=== PATIENT | female | born 2000 | race Caucasian/White ===

== ENCOUNTER → 2023-01-27 | Outpatient (CLI) | payer BC, SELFPAY ==
[2023-02-02 09:45] LABS: Gonococcus By Nucleic Acid AMP Negative (Negative)
[2023-02-02 09:46] LABS: Chlamydia By Nucleic Acid AMP Positive (Negative)
== END | disposition home or self-care (01) ==
LOC: LABSPEC 12:59
PROVIDERS: Referring Provider Obstetrics & Gynecology; Visit Provider Obstetrics & Gynecology
DX: O09.90 Supervision of high risk pregnancy, unspecified, unspecified trimester (principal); Z3A.00 Weeks of gestation of pregnancy not specified
CPT/HCPCS: 87086; 87491; 87591

== ENCOUNTER → 2023-02-04 | Outpatient (CLI) | payer BC, SELFPAY ==
--- NOTE | 2023-02-04 12:36 | US_ITS ---
INDICATION: dating EXAMINATION: Ultrasound US OB Less Than 14 Weeks TECHNIQUE: Transvaginal (for optimal evaluation of the adnexa) pelvic ultrasound was performed. Grayscale, spectral waveform, and color flow Doppler evaluation of the adnexa. COMPARISON: None. LMP: [Unknown Beta-hCG: Unknown FINDINGS: UTERUS: 10.0 x 6.0 x 5.4 cm. RIGHT OVARY: 2.7 x 1.5 x 1.2 cm. Normal. LEFT OVARY: 3.0 x 2.9 x 2.7 cm. Anechoic cyst measures 12 mm in diameter. FREE FLUID: None. INTRAUTERINE GESTATIONAL SAC: Single. Mean sac diameter 2.21 cm. YOLK SAC: Identified POLE: Identified CRL 0.95 cm. ESTIMATED GESTATION AGE: 7 weeks 0 days. HEART MOTION: 135 bpm. PLACENTA: Not visualized due to age. SUBCHORIONIC HEMORRHAGE: None. AMNIOTIC FLUID: Qualitatively normal. US/Init OB < 14Wks US IMPRESSION: Single live intrauterine . Estimated gestational age is 7 weeks 0 days with MAURICE 09/23/2023. Electronically Signed: Matt Olivarez MD at 21:14 EDT ,
== END | disposition home or self-care (01) ==
PROVIDERS: Referring Provider Obstetrics & Gynecology; Visit Provider Obstetrics & Gynecology
DX: Z36.87 Encounter for antenatal screening for uncertain dates (principal)
CPT/HCPCS: 76801

== ENCOUNTER 2023-02-17 21:04 | Emergency (ER) | payer BC, SELFPAY ==
[2023-02-17 21:04] VITALS: BP 116/65; PULSE 98; RESP 18; TEMP 36.6; O2SAT 98; BMI 20.1
[2023-02-17] MEDS: Famotidine 20 MG Tablet PO (21:19)
[2023-02-17] MEDS: Ondansetron ODT 4 MG Tablet PO (21:19)
--- NOTE | 2023-02-17 21:19 | EDS_ITS ---
HPI HPI - GI History of Present Illness Chief Complaint: Nausea/Vomiting Narrative Narrative: 22-year-old female with her first approximately 9 weeks gestation presenting with nausea/vomiting. She states he is already had a confirmed intrauterine . Patient denies any dysuria or hematuria. Denies vaginal bleeding, discharge. She denies abdominal pain. She states that she had vomiting for the last couple of days. A friend of hers gave her Zofran and she was able to tolerate strawberries prior to coming to the emergency room. 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 No fevers or chills. 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 current occupational exposures/hazards: No pets and animals: Yes pets and animals: dog(s) history of recent travel: No sexually active: Yes Smoking Status: Never smoker alcohol intake: never substance use type: does not use well-balanced diet: about half the time caffeine: Yes Type: coffee Number of servings: 1 eating out: 1-3 times/week seatbelt use: always do you feel safe at home: Yes additional social history: BF Zed ROS ROS ED Review of Systems ROS Unobtainable: Denies due to encephalopathy Constitutional Constitutional ED: Denies chills or fever(s) Eyes Eyes: Denies blurry vision or change in vision ENT ENT ED: Denies rhinorrhea Cardiovascular Cardiovascular: Denies chest pain, palpitations or racing heartbeat Respiratory/Chest Respiratory/Chest: Denies cough, dyspnea or sputum Gastrointestinal Gastrointestinal: Reports nausea and vomiting; Denies abdominal pain, constipation or diarrhea Genitourinary Genitourinary ED: Denies dysuria, hematuria or urinary frequency Musculoskeletal Musculoskeletal: Denies arthralgias, myalgias or neck pain Integumentary Denies abscess, Abrasions or rash Neurologic Neurologic: Denies headache(s), paresthesias or weakness Psychiatric Psychiatric: Denies anxiety, depression, suicidal ideation or suicidal thoughts Endocrine Endocrinology: Denies polydipsia or polyuria EXAM Physical Exam Const Vital Signs: 02/17/23 21:04 Temperature 97.9 F Temperature Source Temporal Pulse Rate 98 Respiratory Rate 18 Blood Pressure 116/65 Blood Pressure Mean 82 Pulse Ox 98 Oxygen Delivery Method Room Air Positive well nourished General Appearance ED: NAD; Negative for pallor HEENT Reports moist mucous membranes normocephalic Eyes PERRL and EOMs intact bilaterally Resp normal respiratory effort Cardio regular rate and regular rhythm GI non-tender Palpation: soft Neuro CN's II-XII intact bilaterally Sensorium / Orientation: alert Motor Exam: strength 5/5 throughout Psych mental status grossly normal Skin no wounds General Skin Exam: Negative for jaundice or pallor MDM MDM MDM Narrative Medical decision making narrative: Patient well-appearing with normal vital signs. No abdominal pain. No vaginal or urinary complaints. She is simply complaining of nausea. She was able to eat strawberries prior to coming and this was after she took a Zofran at home. She is given additional dose of Zofran. She was also given Pepcid for her dyspepsia. Patient was able to tolerate a popsicle and drink. Urinalysis contaminated. I will send this for culture at this point I feel she can go home and hydrate there. She was given a prescription for Zofran as it seems to be helping her more. Counseled she can take Pepcid for dyspepsia. She will follow-up with her ANIMAL NURSE to ensure she is doing well. Impression: 1. Nausea/vomiting 2. For semester Lab Data Labs: Laboratory Results - last 24 hr 02/17/23 21:25 Urine Color Yellow Urine Clarity Cloudy Urine pH 6.0 Ur Specific [place] 1.020 Urine Protein 15 H Urine Glucose (UA) Normal Urine Ketones 150 A* Urine Occult Blood 25 H Urine Nitrite Negative Urine Bilirubin Negative Urine Urobilinogen 1 H Ur Leukocyte Esterase 25 H Urine RBC 0-5 SEEN Urine WBC 0-5 SEEN Ur Squamous Epith Cells 5-10 SEEN Urine Bacteria 2+ Urine Mucus 3+ Discharge Plan Triage Chief Complaint: Nausea/Vomiting ED Provider: Ej Flores Dx/Rx/DC Orders Instructions: ED Hyperemesis Gravidarum Prescriptions: New ondansetron 4 mg tablet,disintegrating 4 mg PO Q8H PRN PRN (Reason: Nausea) Qty: 20 0RF No Action promethazine 12.5 mg tablet 12.5 mg PO Q6H PRN (Reason: nausea and vomiting) Qty: 90 4RF Primary Care Provider: Care Physician,No Primary Referrals: Dilcia Das MD [Med Staff - Active Staff] - As soon as possible Care Physician,No Primary [Primary Care Provider] - Disposition Disposition: Home, Self Care Discharge Date/Time: 02/17/23 22:16
[2023-02-17 21:29] LABS: Color, Urine Yellow (Yellow); Glucose, Dipstick Normal (Normal); Leukocyte Esterase-Dipstick 25 /ul (Negative); Nitrite-Dipstick Negative (Negative); Occult Blood-Urine 25 /ul (Negative); Protein-Dipstick 15 mg/dl (Negative); Urine Bilirubin Dipstick Negative (Negative); Urine Clarity Cloudy (Clear); Urine Urobilinogen 1 mg/dl (Normal)
[2023-02-17 21:31] LABS: Ketone-Dipstick 150 mg/dl (Negative)
[2023-02-17 21:45] LABS: Bacteria 2+ /hpf (None Seen); Mucous, Urine 3+ /hpf (<or=2+); Red Blood Cells-Urine 0-5 SEEN /hpf (0-5); Squamous Epithelial Cells - UA 5-10 SEEN /hpf (5-10); White Blood Cells 0-5 SEEN /hpf (0-5)
== END 2023-02-17 22:16 | disposition home or self-care (01) ==
PROVIDERS: Emergency Provider Student in an Organized Health Care Education/Training Program; Visit Provider Student in an Organized Health Care Education/Training Program
DX: O99.891 Other specified diseases and conditions complicating pregnancy (principal); R11.2 Nausea with vomiting, unspecified; Z3A.09 9 weeks gestation of pregnancy
CPT/HCPCS: 81001; 99283

== ENCOUNTER → 2023-03-18 | Outpatient (CLI) | payer BC, SELFPAY ==
[2023-03-18 11:34] LABS: Absolute Neutrophil Count 5.5 X10^3/uL (2.0-7.7); Basophil# 0.04 X10^3/uL; Basophil% 0.5 % (0-1); Eosinophil# 0.08 X10^3/uL; Hematocrit 36.4 % (37-47); Lymphocyte % 20.4 % (19-41); Mean Corpuscular Hgb 29.9 pg (27.0-32.0); Mean Corpuscular Volume 90.8 fL (81-99); Mean Platelet Vol. 9.7 fl (6.2-12.0); Monocyte# 0.66 X10^3/uL; Monocyte% 8.4 % (0-10); NRBC Flagged by Analyzer 0 % (0-5); Neutrophil # 5.45 X10^3/uL (2.7-7.7); Neutrophil % 69.4 % (47-70); Platelet Count 251 K/mm3 (150-450); RBC Distribution Width CV 12.8 % (11.6-14.6); RBC Distribution Width SD 42.1 fl (35.1-43.9); Red Blood Count 4.01 M/mm3 (4.2-5.4); White Blood Count 7.9 K/mm3 (4.4-11.0)
[2023-03-18 12:21] LABS: NATERA MAILED SPECIMEN
[2023-03-18 12:33] LABS: HIV - WCH Non-Reactive (Nonreactive); Hepatitis B Surface Antigen Non-Reactive (Nonreactive); Hepatitis C Antibody Non-Reactive (Nonreactive); Rubella IgG Reactive (Nonreactive); Syphilis Antibodies Non-reactive
[2023-03-21 08:07] LABS: Chlamydia By Nucleic Acid AMP Negative (Negative); Gonococcus By Nucleic Acid AMP Negative (Negative)
== END | disposition home or self-care (01) ==
PROVIDERS: Obstetrics & Gynecology; Referring Provider Obstetrics & Gynecology; Visit Provider Obstetrics & Gynecology
DX: O09.90 Supervision of high risk pregnancy, unspecified, unspecified trimester (principal); Z3A.00 Weeks of gestation of pregnancy not specified
CPT/HCPCS: 36415; 85025; 86703; 86762; 86780; 86803; 86850; 86900; 86901; 87340; 87491; 87591

== ENCOUNTER → 2023-06-29 | Outpatient (CLI) | payer BC, SELFPAY ==
[2023-06-29 13:51] LABS: Absolute Lymphocyte Count 1.45 X10^3/uL (0.83-4.51); Basophil# 0.04 X10^3/uL; Basophil% 0.4 % (0-1); Hematocrit 33.4 % (37-47); Hemoglobin 11.3 g/dL (12.0-15.0); Lymphocyte # 1.45 X10^3/ul (0.83-4.51); Mean Corp Hgb Conc 33.8 g/dL (32-36); Mean Corpuscular Hgb 32.1 pg (27.0-32.0); Mean Corpuscular Volume 94.9 fL (81-99); Mean Platelet Vol. 9.8 fl (6.2-12.0); Monocyte# 0.73 X10^3/uL; NRBC Flagged by Analyzer 0 % (0-5); Neutrophil # 7.97 X10^3/uL (2.7-7.7); Neutrophil % 76.9 % (47-70); Platelet Count 244 K/mm3 (150-450); RBC Distribution Width SD 44.9 fl (35.1-43.9); Red Blood Count 3.52 M/mm3 (4.2-5.4); White Blood Count 10.4 K/mm3 (4.4-11.0)
[2023-06-29 14:12] LABS: Glucose Challenge Gest 1H 50g 128 mg/dL (70-140)
[2023-06-29 14:46] LABS: HIV - WCH Non-Reactive (Nonreactive); Syphilis Antibodies Non-reactive
== END | disposition home or self-care (01) ==
LOC: PAVLAB 13:19
PROVIDERS: Referring Provider Obstetrics & Gynecology; Visit Provider Obstetrics & Gynecology
DX: O09.90 Supervision of high risk pregnancy, unspecified, unspecified trimester (principal); Z13.1 Encounter for screening for diabetes mellitus; Z3A.00 Weeks of gestation of pregnancy not specified
CPT/HCPCS: 36415; 82950; 85025; 86703; 86780

== ENCOUNTER → 2023-08-05 | Outpatient (CLI) | payer BC, SELFPAY | END | disposition home or self-care (01) | LOC: LABSPEC 16:44 | PROVIDERS: Referring Provider Registered Nurse; Visit Provider Registered Nurse | DX: R30.0 Dysuria (principal) | CPT/HCPCS: 87086 ==

== ENCOUNTER → 2023-08-30 | Outpatient (CLI) | payer BC, SELFPAY ==
[2023-09-01 21:07] LABS: Chlamydia By Nucleic Acid AMP Negative (Negative); Gonococcus By Nucleic Acid AMP Negative (Negative)
== END | disposition home or self-care (01) ==
LOC: LABSPEC 14:28
PROVIDERS: Referring Provider Obstetrics & Gynecology; Visit Provider Obstetrics & Gynecology
DX: O98.319 Other infections with a predominantly sexual mode of transmission complicating pregnancy, unspecified trimester (principal); A74.9 Chlamydial infection, unspecified; Z3A.00 Weeks of gestation of pregnancy not specified
CPT/HCPCS: 87077; 87081; 87186; 87491; 87591

== ENCOUNTER 2023-09-19 15:55 | Inpatient (IN) | payer BC, SELFPAY ==
[2023-09-19] VITALS (66 sets, daily range): BP systolic 106–138; BP diastolic 59–88; PULSE 67–138; TEMP 36.3–37.5; O2SAT 87–100; BMI 25.4
[2023-09-19] MEDS: LACTATED RINGERS 500 ML 999 ML IV ×3 (16:15→20:12)
[2023-09-19] MEDS: Penicillin G Pot 5,000,000 UNITS in 0.9% Normal Saline (100mL MB+) 100 ML 150 UNITS IV (16:28)
[2023-09-19] MEDS: Lactated Ringers 1,000 ML 200 ML IV ×2 (16:46→20:12)
--- NOTE | 2023-09-19 16:47 | HP.PCM.OB_ITS ---
HPI - General General Date of Admission: 09/19/23 Date of Service: 09/19/23 Chief Complaint: contractions HPI Narrative FAROOQ TABOR, is a 23 F who presents with contractions with increased intensity and frequency. during triage had + large amount leaking of clear fluid. no vaginal bleeding. good movement. Maternal Data Information MAURICE Calculator Estimated Delivery Date Method Current WG Current Estimate 09/23/23 Ultrasound #1 39w 3d Other Estimates 08/31/23 LMP (Certain) 42w 5d 09/20/23 Ultrasound #2 39w 6d PFSH PFSH Home Medications vits,calcium no.78-iron fumarate-folic acid 29 mg-1 mg tablet (Prenatabs FA) 1 tab PO DAILY 09/19/23 [History Last Taken 09/18/23] pseudoephedrine HCl 30 mg tablet (Sudafed) 30 mg PO Q6H PRN nasal congestion 09/19/23 [History Last Taken 09/18/23] Allergy/AdvReac Type Severity Reaction Status Date / Time No Known Allergies Allergy Verified 09/19/23 12:34 Family History Mother IBS (irritable bowel syndrome) Social History adopted: No household members: significant other and other details: brother and his girlfriend current occupational status: 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 current occupational exposures/hazards: No pets and animals: Yes pets and animals: dog(s) history of recent travel: No sexually active: Yes Smoking Status: Never smoker alcohol intake: never substance use type: does not use well-balanced diet: about half the time caffeine: Yes Type: coffee Number of servings: 1 eating out: 1-3 times/week seatbelt use: always do you feel safe at home: Yes additional social history: BF Zed History 1 Elective abortions Hx Para 0 Spontaneous abortions Hx # Term Pregnancies Ectopic pregnancies Hx # Pregnancies Multiple births # of living children Visit Details Expected Delivery Route/Plan Labor Preferences- CB/BF classes: Declines, encouraged labor support person: Jase labor intervention preferences: minimal intervention pain management options preferred: No epidural. cut cord/dad catch: maybe : yes PP control planned: discussed discussed possible routes of delivery and associated risks: [] special requests: [] Plans Covid status: discussed Flu vaccine: discusedd Tdap vaccine: declined Rhogam: na LARC form signed: yes movement and labor precautions reviewed. Problem list reviewed and updated with the most current plan of care details and appropriate orders placed. Relevant counseling for the gestational age provided. Continue routine care and follow up unless otherwise noted in visit notes/problem list details OB Flowsheet Initial Weight: Not Recorded Date -?-?-?-?-?-?-?-?-?-?-?-?- EGA Weight BP Urine Prot -?-?-?-?-?-?-?-?-?-?-?-?- Glucose FHR FuHt Pres Dilation -?-?-?-?-?-?-?-?-?-?-?-?- Effaced St Visit Note 01/27/23 -?-?-?-?-?-?-?-?-?-?-?-?- 5w 6d 109 lb 120/79 -?-?-?-?-?-?-?-?-?-?-?-?- -?-?-?-?-?-?-?-?-?-?-?-?- SM- CRL not pres ent, GS 11mm with yolk sac present no pole, declines serial hcgs, repeat US in 1 week, patient thought she had a period in december and first hcg pos two weeks ago 02/25/23 -?-?-?-?-?-?-?-?-?-?-?-?- 10w 0d 110 lb 2 oz 112/70 Nega tive -?-?-?-?-?-?-?-?-?-?-?-?- Negative 180 -?-?-?-?-?-?-?-?-?-?-?-?- JV- CRL is now m easuring 10 weeks 3 days. she had an ultrasound at the hospital on 02/04 that put her at 7 weeks. we will use that ultrasound as her maurice of 09/23/23. desires NIPT. 03/18/23 -?-?-?-?-?-?-?-?-?-?-?-?- 13w 0d 106 lb 4 oz 106/70 Nega tive -?-?-?-?--?-?-?-?-?-?-?-?- Negative 160 -?-?-?-?-?-?-?-?-?-?-?-?- JV- vaginal gc/c t collected. no complaints. going to [place] today for a week. will leave VM on results. 04/15/23 -?-?-?-?-?-?-?-?-?-?-?-?- 17w 0d 108 lb 8 oz 101/57 Nega tive -?-?-?-?-?-?-?-?-?-?-?-?- Negative 157 -?-?-?-?-?-?-?-?-?-?-?-?- LC- no concerns or complaints. no vb/cramping. discussed and declines afp, has anatomy ordered. 05/13/23 -?-?-?-?-?-?-?-?-?-?-?-?- 21w 0d 112 lb 4 oz 92/60 Nega tive -?-?-?-?-?-?-?-?-?-?-?-?- Negative 150 21 -?-?-?-?-?-?-?-?-?-?-?-?- KW-+FM. No vb/lo f/ctx. 06/10/23 -?-?-?-?-?-?-?-?-?-?-?-?- 25w 0d 116 lb 8 oz 97/62 Nega tive -?-?-?-?-?-?-?-?-?-?-?-?- Negative 153 25 -?-?-?-?-?-?-?-?-?-?-?-?- JV- no lof, vagi nal bleeding, or dec fm. no complaints. 06/29/23 -?-?-?-?-?-?-?-?-?-?-?-?- 27w 5d 120 lb 8 oz 98/64 Nega tive -?-?-?-?-?-?-?-?-?-?-?-?- Negative 145 27 -?-?-?--?-?-?-?-?-?-?-?-?- MH-No VB, LOF.Go od FM. 28 wk labs. Larc. 07/12/23 -?-?-?-?-?-?-?-?-?-?-?-?- 29w 4d 122 lb 8 oz 96/58 Nega tive -?-?-?-?-?-?-?-?-?-?-?-?- Negative 135 29 -?-?-?-?-?-?-?-?-?-?-?-?- KW-no vb/lof/ctx . good fm. tdap refused today 07/26/23 -?-?-?-?-?-?-?-?-?-?-?-?- 31w 4d 124 lb 6 oz 94/60 Nega tive -?-?-?-?-?-?-?-?-?-?-?-?- Negative 135 32 -?-?-?-?-?-?-?-?-?-?-?-?- SM- no vb lof go od fm no regular ctx 08/09/23 -?-?-?-?-?-?-?-?-?-?-?-?- 33w 4d 127 lb 8 oz 106/67 Nega tive -?-?-?-?-?-?-?-?-?-?-?-?- Negative 135 34 -?-?-?-?-?-?-?-?-?-?-?-?- KW-no vb/lof/ctx . good fm. discussed GBS labs. LARC done. 08/23/23 -?-?-?-?-?-?-?-?-?-?-?-?- 35w 4d 130 lb 4 oz 106/68 Nega tive -?-?-?-?-?-?-?-?-?-?-?-?- Negative 135 35 -?-?-?-?-?-?-?-?-?-?-?-?- SM- no vb lof go od fm no regular ctx 08/30/23 -?-?-?-?-?-?-?-?-?-?-?-?- 36w 4d 132 lb 109/75 Negative -?-?-?-?-?-?-?-?-?-?-?-?- Negative 145 35 Cephalic 1 -?-?-?-?-?-?-?-?-?-?-?-?- 60 -2 JV- no lof , vaginal bleeding, or dec fm. gbs collected. 09/06/23 -?-?-?-?-?-?-?-?-?-?-?-?- 37w 4d 132 lb 4 oz 104/70 Nega tive -?-?-?-?-?-?-?-?-?-?-?-?- Negative 125 37 Cephalic 2 -?-?-?-?-?-?-?-?-?-?-?-?- 80 -2 KW-no lof/ vb/ctx. good fm. GBS positive. treat in labor. labor precautions. 09/13/23 -?-?-?-?-?-?-?-?-?-?-?-?- 38w 4d 133 lb 114/76 Negative -?--?-?-?-?-?-?-?-?-?-?-?- Negative 125 38 Cephalic 2 -?-?-?-?-?-?-?-?-?-?-?-?- 80 -2 SM- no vb lof good fm no regular ctx ROS Cardiovascular Cardiovascular: Denies abdominal pain, chest pain, diaphoresis or dyspnea Respiratory/Chest Respiratory/Chest: Denies change in mental status, chest congestion, chest tightness, cough, shortness of breath at rest, shortness of breath with exertion, breast mass, breast pain, breast skin changes, breast swelling, change in breast shape or nipple discharge Genitourinary Genitourinary: Reports change in urinary stream Musculoskeletal Musculoskeletal: Reports none Integumentary Integumentary: Reports none Neurologic Neurologic: Reports none Psychiatric Psychiatric: Reports none Endocrine Endocrinology: Reports none Hematologic/Lymphatic Hematologic/Lymphatic: Reports none Allergic/Immunologic Allergic/Immunologic: Reports none Vital Signs Vital Signs Vital Signs: 09/19/23 12:40 09/19/23 12:40 09/19/23 12:40 Temperature Temperature Source Temporal Pulse Rate 99 Blood Pressure 114/73 BP Systolic 114 BP Diastolic 73 Pulse Ox 09/19/23 12:40 09/19/23 12:43 09/19/23 12:43 Temperature 98.7 F Temperature Source Pulse Rate 98 Blood Pressure BP Systolic BP Diastolic Pulse Ox 92 09/19/23 12:40 09/19/23 12:40 09/19/23 12:40 Temperature 98.7 F Temperature Source Temporal Pulse Rate Blood Pressure BP Systolic BP Diastolic Pulse Ox 98 09/19/23 12:40 09/19/23 12:40 09/19/23 12:40 Temperature 98.7 F Temperature Source Temporal Pulse Rate Blood Pressure BP Systolic BP Diastolic Pulse Ox 98 09/19/23 15:01 09/19/23 15:01 09/19/23 16:07 Temperature Temperature Source Pulse Rate 87 Blood Pressure 112/67 BP Systolic 112 BP Diastolic 67 Pulse Ox 98 09/19/23 16:07 09/19/23 16:09 09/19/23 16:09 Temperature Temperature Source Pulse Rate 71 68 Blood Pressure BP Systolic BP Diastolic Pulse Ox 100 Weight Weight: 135 lb Body Mass Index (BMI) 25.4 Physical Exam Const alert, oriented x3 and no apparent distress General Appearance: cooperative, comfortable and well kempt Orientation / Consciousness: awake and oriented to person Exam Limitations: no limitations HEENT normocephalic Neck full ROM Chest inspection of chest normal Resp normal respiratory effort, normal air movement and no retractions Effort and Inspection: able to speak in complete sentences and symmetric chest movement Cardio regular rate Peripheral Pulses: pulses 2+ throughout GI normal to inspection, nondistended, normoactive bowel sounds Inspection: gravid no CVA tenderness and appearance of the vagina normal External Female Exam: normal appearance of the urethra; Negative for external lesion OB / External & Speculum: external exam normal Manual OB Exam: estimated gestational size appropriate and presentation cephalic Uterus Palpation: Negative for uterus tender Extremity normal to inspection Skin no rashes or lesions noted Neuro deep tendon reflexes 2+ bilaterally and gait normal Motor Exam: strength 5/5 throughout and clonus absent Psych Activity / Motor Behavior: appropriate eye contact Speech: normal speech Labs Labs Labs: Blood Type A POSITIVE Antibody Screen NEGATIVE Hct 33.4 % (37-47) L Hgb 11.3 g/dL (12.0-15.0) L Obstetrics Ultrasound Syphilis Total Ab Non-reactive Rubella IgG Antibody Reactive (Nonreactive) Hep Bs Antigen Non-Reactive (Nonreactive) Hepatitis C Antibody Non-Reactive (Nonreactive) Chlamydia DNA ([place]) Negative (Negative) N.gonorrhoeae DNA ([place]) Negative (Negative) HIV 1&2 Antibody Non-Reactive (Nonreactive) Glucose 1 Hr 50 gm 128 mg/dL (70-140) Assessment & Plan (1) Spontaneous onset of labor: (2) SROM (spontaneous rupture of membranes): COMMENT: ROM at 1550, clear fluid (3) Positive GBS test: COMMENT: plan PCN in labor (4) Chlamydia infection affecting : QUALIFIERS: Trimester: first trimester Qualified Code(s): O98.811 - Other maternal infectious and parasitic diseases complicating , first trimester; A74.9 - Chlamydial infection, unspecified COMMENT: positive at NOB. repeat neg, repeat at 36 weeks negative (5) Supervision of high risk , antepartum: COMMENT: [id number] MAURICE 09/23/23 henna RILEY-Zed (6) : QUALIFIERS: Weeks of gestation: 38 weeks Qualified Code(s): Z3A.38 - 38 weeks gestation of COMMENT: nl anatomy, carrier neg. , NIPT low risk, nl GCT PLAN: Plan Patient presents IAL, plan expectant management for , pitocin PRN if needed. Pain management: plan unmedicated, open to nitrous. GBS positive plan IV PCN. start now as SROM, grossly ruptured. Management of any complications: none I have reviewed the [facility] and made any clinically relevant updates. Dr. Arreola updated on admission, exam and POC, agrees with primary midwifery management. available for consult/as needed.
[2023-09-19 16:58] LABS: Absolute Lymphocyte Count 1.98 X10^3/uL (0.83-4.51); Absolute Neutrophil Count 12.8 X10^3/uL (2.0-7.7); Basophil# 0.04 X10^3/uL; Basophil% 0.2 % (0-1); Eosinophil# 0.07 X10^3/uL; Eosinophils% 0.4 % (0-5); Hematocrit 34.7 % (37-47); Hemoglobin 11.5 g/dL (12.0-15.0); Lymphocyte # 1.98 X10^3/ul (0.83-4.51); Lymphocyte % 12.1 % (19-41); Mean Corp Hgb Conc 33.1 g/dL (32-36); Mean Corpuscular Hgb 30.5 pg (27.0-32.0); Mean Platelet Vol. 10.7 fl (6.2-12.0); Monocyte# 1.41 X10^3/uL; Monocyte% 8.6 % (0-10); NRBC Flagged by Analyzer 0 % (0-5); Neutrophil # 12.77 X10^3/uL (2.7-7.7); Neutrophil % 77.7 % (47-70); Platelet Count 297 K/mm3 (150-450); RBC Distribution Width CV 13.6 % (11.6-14.6); RBC Distribution Width SD 45.6 fl (35.1-43.9); Red Blood Count 3.77 M/mm3 (4.2-5.4); White Blood Count 16.4 K/mm3 (4.4-11.0)
[2023-09-19 17:34] LABS: Syphilis Antibodies Non-reactive
[2023-09-19] MEDS: fentaNYL-bupivacaine (epidural) 100 ML BAG EPIDURAL (18:06)
--- NOTE | 2023-09-19 18:09 | PCM.PN.OB ---
Subjective Subjective pt more uncomfortable, using nitrous. requesting epidural placement. Objective Data Objective Data Vital Signs: Vital Signs Temp Pulse BP Pulse Ox 97.8 F 72 122/71 H 100 09/19/23 17:10 09/19/23 18:06 09/19/23 18:04 09/19/23 18:06 Weight: 135 lb Body Mass Index (BMI) 25.4 Intake & Output: Intake and Output for Last 24 Hours 09/17/23 09/18/23 09/19/23 23:59 23:59 23:59 Intake Total 556.67 / 556.67 Balance 556.67 / 556.67 Lab / Micro Data 09/19/23 16:15 Labs: Laboratory Results - last 24 hr 09/19/23 16:15: WBC 16.4 H, RBC 3.77 L, Hgb 11.5 L, Hct 34.7 L, MCV 92.0, MCH 30.5, MCHC 33.1, RDW Std Deviation 45.6 H, RDW Coeff of Alhaji 13.6, Plt Count 297, MPV 10.7, Immature Gran % (Auto) 1.000 H, Neut % (Auto) 77.7 H, Lymph % (Auto) 12.1 L, Mcdonald % (Auto) 8.6, Eos % (Auto) 0.4, Baso % (Auto) 0.2, Absolute Neuts (auto) 12.8 H, Absolute Lymphs (auto) 1.98, Nucleated RBC % 0, Syphilis Total Ab Non-reactive NST FHR Rate Baby A Baseline: 105 Variability:: Moderate Accelerations:: 15 x 15 Decelerations:: Early NST Reactive:: Yes FHR Category:: Category I Uterine Activity:: q2 Assessment & Plan (1) Spontaneous onset of labor: (2) SROM (spontaneous rupture of membranes): COMMENT: ROM at 1550, clear fluid (3) Positive GBS test: COMMENT: plan PCN in labor (4) Supervision of high risk , antepartum: COMMENT: [id number] MAURICE 09/23/23 boy Deuce BF-Zed (5) : QUALIFIERS: Weeks of gestation: 38 weeks Qualified Code(s): Z3A.38 - 38 weeks gestation of COMMENT: nl anatomy, carrier neg. , NIPT low risk, nl GCT PLAN: Plan -epidural placement -now /+1 -anticipate
--- NOTE | 2023-09-19 19:54 | NURSING ---
pt getting intermittently straight cath per labor RN.
[2023-09-19] MEDS: Penicillin G 3,000,000 Units 50 ML 100 UNITS IV (20:52)
[2023-09-19] MEDS: Oxytocin 15 Units/NS 250ml 15 UNITS/250 ML IV.SOLN 83 UNITS IV ×2 (22:37→23:30)
[2023-09-19] MEDS: Oxytocin 10 UNITS/ML Vial IM (22:37)
[2023-09-19] MEDS: Methylergonovine 0.2 MG/ML Ampul IM (22:40)
[2023-09-19] MEDS: miSOPROStol 200 MCG Tablet 1000 MCG RC (22:45)
[2023-09-19] MEDS: Ondansetron 4 MG/2 ML Vial IV (23:04)
[2023-09-19] MEDS: 0.9% Saline Lock 10 ML Syringe IV (23:04)
--- NOTE | 2023-09-19 23:06 | EX.PCM.OBRPT ---
Assessment & Plan (1) (spontaneous vaginal delivery): COMMENT: LC boy:Deuce. IAL (2) PPH ( hemorrhage): COMMENT: s/p methergine, cytotec, pitocin IM/IV. EBL 700. manual removal of clots. Maternal Data Information MAURICE Calculator Estimated Delivery Date Method Current WG Current Estimate 09/23/23 Ultrasound #1 39w 3d Other Estimates 08/31/23 LMP (Certain) 42w 5d 09/20/23 Ultrasound #2 39w 6d Final MAURICE: 09/23/23 Gestational age: 39.3 Vaginal Delivery Maternal Presentation Maternal Presentation: Active Labor Maternal Presentation: at 39.3 who presented in active labor, SROM on unit, progressed to fully dilated with urge to push. Operative Information Date of Procedure: 09/19/23 Pre-Operative Diagnosis: see problem list Post-Operative Diagnosis: , pph Surgery / Procedure Performed: Spontaneous Vaginal Delivery Type of Anesthesia: Epidural Estimated Blood Loss: 700 Time of Delivery: 22:32 Findings Description of Procedure: Patient began pushing and delivered the head in the BORA presentation. The head was delivered atraumatically. The anterior and posterior shoulders delivered without complication followed by the rest of the and the infant was placed on the maternal abdomen. Delayed cord clamping was employed for approximately 60 seconds. Cord was clamped and cut and gentle traction was applied to the cord and the placenta delivered spontaneously immediately following it was noted to be intact with three-vessel cord. brisk vaginal bleeding was noted and methergine, cytotec, pitocin IM and IV was given to achieve uterine tone.manual removal of clots from lower uterine segment was performed and uterus firmed. EBL 700. The perineum and vagina were inspected and noted to have 1st degree laceration and was repaired with 3-0 vicyl. Patient and infant tolerated delivery well, entered recovery phase bonding skin to skin. Presentation: Vertex Amniotic Membrane Rupture Type: Spontaneous Amniotic Fluid Description: Clear Placental Delivery Description: Spontaneous Placenta Disposition: [facility] Cord Vessel Description: 3 Vessels Cord Entanglement: None A Gender: Male (1 minute): 8 (5 minute): 9 Delayed Cord Clamping: Yes Post Vaginal Delivery Medications Given After Delivery: IV Pitocin, IM Pitocin and IM Methergin Episiotomy Description: None Laceration: 1st degree Complication Complications: - (PPH) Procedures Urinary/Genital [id number]: [id number] Vaginal Delivery [facility]
--- NOTE | 2023-09-19 23:12 | DCINST_ITS ---
Discharge Instructions Diet Discharge Diet: No restrictions Activity Discharge Activity: May Not Drive and May Shower May resume sexual activity in: 6 weeks Weight Bearing Status: Full weight bearing Dressing / Incision Call your doctor if your incision/area has: Sudden Increased Bleeding, Increased Pain/ Swelling and Foul Smelling Discharge Call your doctor if you observe: Fever of 101 or Higher, Numbness or Tingling, Change in Color, Inability to urinate, Inability to have a bowel movement, Using more than 1 pad per hour, Shortness of breath, Dizziness, Fainting spells, Chest pain, Calf discomfort and Uncontrolled pain Follow Up Care Please Follow Up With: Shanika Elliott CNM When: 6 weeks , please call office to make an appointment. Congratulations on the of your baby! Test Results: Test results from this visit will be discussed in further detail at your follow- up appointment, if applicable. Discharge Plan Admission Admit Date/Time: 09/19/23 15:55 Attending Provider: Shanika Elliott Primary Care Provider: Care Physician,Katt Primary Discharge Orders/Prescriptions Prescriptions: No Action Prenatabs FA 29-1 mg tablet 1 tab PO DAILY pseudoephedrine HCl [Sudafed] 30 mg tablet 30 mg PO Q6H PRN (Reason: nasal congestion) Referrals / Follow Up: Care Physician,No Primary [Primary Care Provider] -
[2023-09-20] VITALS (19 sets, daily range): BP systolic 100–117; BP diastolic 60–77; PULSE 71–99; RESP 15–17; TEMP 36.2–38.3; O2SAT 96–98
[2023-09-20] MEDS: Naproxen 500 MG Tablet PO (00:19)
[2023-09-20] MEDS: Acetaminophen 500 MG Tablet 1000 MG PO ×2 (02:21→18:34)
[2023-09-20] MEDS: 0.9% Saline Lock 10 ML Syringe IV (02:22)
--- NOTE | 2023-09-20 03:08 | NURSING ---
this RN gave report to rory ALSTON. that RN to assume care of couplet at this time.
[2023-09-20 06:14] LABS: Absolute Lymphocyte Count 1.51 X10^3/uL (0.83-4.51); Absolute Neutrophil Count 17.3 X10^3/uL (2.0-7.7); Basophil# 0.06 X10^3/uL; Basophil% 0.3 % (0-1); Hematocrit 31.8 % (37-47); Hemoglobin 10.3 g/dL (12.0-15.0); Lymphocyte # 1.51 X10^3/ul (0.83-4.51); Lymphocyte % 7.1 % (19-41); Mean Corp Hgb Conc 32.4 g/dL (32-36); Mean Corpuscular Hgb 29.5 pg (27.0-32.0); Mean Corpuscular Volume 91.1 fL (81-99); Mean Platelet Vol. 10.5 fl (6.2-12.0); Monocyte# 2.08 X10^3/uL; Monocyte% 9.8 % (0-10); NRBC Flagged by Analyzer 0 % (0-5); Neutrophil # 17.28 X10^3/uL (2.7-7.7); Neutrophil % 81.9 % (47-70); POSITIVE DIFFERENTIAL YES; Platelet Count 241 K/mm3 (150-450); RBC Distribution Width CV 13.4 % (11.6-14.6); RBC Distribution Width SD 44.4 fl (35.1-43.9); Red Blood Count 3.49 M/mm3 (4.2-5.4); White Blood Count 21.1 K/mm3 (4.4-11.0)
[2023-09-20 06:15] LABS: Differential Indicated SCAN CRITERIA MET
[2023-09-20 07:09] LABS: Differential Comment SCANNED
--- NOTE | 2023-09-20 07:41 | PN.OBGYN_ITS ---
Subjective Subjective Patient doing well without complaints. Tolerating PO. Ambulating and voiding without difficulty. Feeding well. Denies chest pain, shortness of breath, calf pain/swelling, fevers, chills, lightheadedness. Objective Data Objective Data Vital Signs: Vital Signs Temp Pulse Resp BP Pulse Ox O2 Del Method 98.9 F 82 16 117/77 97 Room Air 09/20/23 04:46 09/20/23 04:46 09/20/23 04:46 09/20/23 04:46 09/20/23 00:56 09/20/23 04:46 Oxygen Delivery Method Room Air Weight: 135 lb Body Mass Index (BMI) 25.4 Intake & Output: Intake and Output for Last 24 Hours 09/18/23 09/19/23 09/20/23 23:59 23:59 23:59 Intake Total 2861.67 / 2861.67 1137.93 / 1137.93 Output Total 950 / 950 900 / 900 Balance 1911.67 / 1911.67 237.93 / 237.93 Lab / Micro Data Attestation: I reviewed the patient's lab results. 09/20/23 06:02 Labs: Laboratory Results - last 24 hr 09/19/23 16:15: WBC 16.4 H, RBC 3.77 L, Hgb 11.5 L, Hct 34.7 L, MCV 92.0, MCH 30.5, MCHC 33.1, RDW Std Deviation 45.6 H, RDW Coeff of Alhaji 13.6, Plt Count 297, MPV 10.7, Immature Gran % (Auto) 1.000 H, Neut % (Auto) 77.7 H, Lymph % (Auto) 12.1 L, [place] % (Auto) 8.6, Eos % (Auto) 0.4, Baso % (Auto) 0.2, Absolute Neuts (auto) 12.8 H, Absolute Lymphs (auto) 1.98, Nucleated RBC % 0, Syphilis Total Ab Non-reactive, Blood Type A POSITIVE, Antibody Screen NEGATIVE 09/20/23 06:02: WBC 21.1 H, RBC 3.49 L, Hgb 10.3 L, Hct 31.8 L, MCV 91.1, MCH 29.5, MCHC 32.4, RDW Std Deviation 44.4 H, RDW Coeff of Alhaji 13.4, Plt Count 241, MPV 10.5, Immature Gran % (Auto) 0.900, Neut % (Auto) 81.9 H, Lymph % (Auto) 7.1 L, [place] % (Auto) 9.8, Eos % (Auto) 0.0, Baso % (Auto) 0.3, Absolute Neuts (auto) 17.3 H, Absolute Lymphs (auto) 1.51, Nucleated RBC % 0, Differential Comment SCANNED, Diff Path Review May foll ROS Constitutional Constitutional: Reports systems reviewed and no addt'l complaints, except as documented; Denies anorexia or headache(s) Cardiovascular Cardiovascular: Reports systems reviewed and no addt'l complaints, except as documented; Denies dizziness, dyspnea, nausea or tachypnea Respiratory/Chest Respiratory/Chest: Reports systems reviewed and no addt'l complaints, except as documented; Denies cough, dyspnea, shortness of breath at rest or tachypnea Gastrointestinal Gastrointestinal: Reports systems reviewed and no addt'l complaints, except as documented; Denies abdominal pain, constipation or nausea Genitourinary Genitourinary: Reports systems reviewed and no addt'l complaints, except as documented; Denies burning urination, difficulty urinating, dysuria, urinary frequency or urinary incontinence Musculoskeletal Musculoskeletal: Reports systems reviewed and no addt'l complaints, except as documented Integumentary Integumentary: Reports systems reviewed and no addt'l complaints, except as documented Neurologic Neurologic: Reports systems reviewed and no addt'l complaints, except as documented; Denies abnormal speech, dizziness or headache(s) Psychiatric Psychiatric: Reports systems reviewed and no addt'l complaints, except as documented Endocrine Endocrinology: Reports systems reviewed and no addt'l complaints, except as documented Hematologic/Lymphatic Hematologic/Lymphatic: Reports systems reviewed and no addt'l complaints, except as documented Physical Exam Const alert, oriented x3 and no apparent distress Neck full ROM Resp normal respiratory effort, normal air movement and no retractions Effort and Inspection: able to speak in complete sentences and symmetric chest movement GI soft to palpation Bladder / Kidney Exam: bladder normal to palpation Uterus Palpation: uterus fundus firm Extremity normal to inspection and full ROM Psych mental status grossly normal, thought process normal and cooperative Assessment & Plan (1) PPH ( hemorrhage): COMMENT: s/p methergine, cytotec, pitocin IM/IV. EBL 700. manual removal of clots. (2) (spontaneous vaginal delivery): COMMENT: EDY boy:Deuce. IAL (3) Spontaneous onset of labor: (4) SROM (spontaneous rupture of membranes): COMMENT: ROM at 1550, clear fluid (5) Positive GBS test: COMMENT: plan PCN in labor (6) Chlamydia infection affecting : QUALIFIERS: Trimester: first trimester Qualified Code(s): O98.811 - Other maternal infectious and parasitic diseases complicating , first trimester; A74.9 - Chlamydial infection, unspecified COMMENT: positive at NOB. repeat neg, repeat at 36 weeks negative (7) Supervision of high risk , antepartum: COMMENT: [id number] MAURICE 09/23/23 boy Deuce BF-Zed PLAN: s/p PPD # 1 1. routine post delivery care 2. breast feeding- support given 3. rh positive 4. rubella immune (8) : QUALIFIERS: Weeks of gestation: 38 weeks Qualified Code(s): Z3A.38 - 38 weeks gestation of COMMENT: nl anatomy, carrier neg. , NIPT low risk, nl GCT Charges/Coding Multi Select Codes Urinary/Genital Urinary/Genital CPT Codes: No Charge
[2023-09-21 01:57] VITALS: BP 102/67; PULSE 73; RESP 16; TEMP 36.8; O2SAT 100
[2023-09-21 07:52] VITALS: BP 112/72; PULSE 77; RESP 16; TEMP 36.9
--- NOTE | 2023-09-21 08:00 | PCM.PN.OB ---
Subjective Subjective Patient doing well without complaints. Tolerating PO. Ambulating and voiding without difficulty. Feeding well. Denies chest pain, shortness of breath, calf pain/swelling, fevers, chills, lightheadedness. Objective Data Objective Data Vital Signs: Vital Signs Temp Pulse Resp BP Pulse Ox O2 Del Method 98.4 F 77 16 112/72 100 Room Air 09/21/23 07:52 09/21/23 07:52 09/21/23 07:52 09/21/23 07:52 09/21/23 01:57 09/21/23 07:52 Oxygen Delivery Method Room Air Weight: 135 lb Body Mass Index (BMI) 25.4 Intake & Output: Intake and Output for Last 24 Hours 09/19/23 09/20/23 09/21/23 23:59 23:59 23:59 Intake Total 2861.67 / 2861.67 1137.93 / 1137.93 Output Total 950 / 950 1300 / 1300 Balance 1911.67 / 1911.67 -162.07 / -162.07 Lab / Micro Data 09/20/23 06:02 Physical Exam Const alert and oriented x3 HEENT normocephalic Eyes PERRL Neck full ROM Resp normal respiratory effort GI soft to palpation GI Narrative: FF below U Assessment & Plan (1) (spontaneous vaginal delivery): COMMENT: EDY boy:Deuce. IAL PLAN: Plan s/p PPD # 2 1. routine post delivery care 2. breast feeding- support given 3. rh positive 4. rubella immune 5. home today
[2023-09-21 15:02] LABS: Pathologist Review Reviewed
== END 2023-09-21 10:05 | disposition home or self-care (01) | DRG 806 ==
LOC: WPOUT 16:00 → WP 16:00
PROVIDERS: Admitting Provider Registered Nurse; Referring Provider Obstetrics & Gynecology; Visit Provider Registered Nurse
DX: O76 Abnormality in fetal heart rate and rhythm complicating labor and delivery (principal); Z37.0 Single live birth; O72.1 Other immediate postpartum hemorrhage; O42.02 Full-term premature rupture of membranes, onset of labor within 24 hours of rupture; O70.0 First degree perineal laceration during delivery; O99.824 Streptococcus B carrier state complicating childbirth; Z3A.39 39 weeks gestation of pregnancy; Z86.19 Personal history of other infectious and parasitic diseases
CPT/HCPCS: 59025; 59050; 85025; 86780; 86850; 86900; 86901; 99221; J7120; A4216; G0378; J2405

== ENCOUNTER → 2024-12-31 | Outpatient (CLI) | payer BC, SELFPAY ==
--- NOTE | 2024-12-31 13:39 | US_ITS ---
PROCEDURE: INIT OB < 14WKS US REASON FOR EXAM: Dating. COMPARISON: None. FINDINGS: Comments: LMP: October 24, 2024. Number of Gestational Sacs: 1 Gestational Sac Shape: Normal Number of Fetuses: 1 Heart Rate: 167 beats per minute. (Average) Yolk Sac: Present and unremarkable. Placenta: Presently not well-visualized Amniotic Fluid Volume: Subjectively normal for gestational age. Uterine Abnormalities: Maternal uterus is unremarkable. Ovaries / Adnexa: 2.7 cm x 2.4 cm x 1.6 cm corpus luteum cyst in the left ovary. The right ovary was not visualized. DIMENSIONS: Parameter Measurement / EGA [place] Rump Length: 2.9 cm/9 weeks and 3 days. Gestational Sac: 3.99 cm/9 weeks and 3 days Yolk Sac: 4.9 mm/ ESTIMATED GESTATIONAL AGE: By Ultrasound: 9 weeks and 3 days By LMP: 9 weeks and 5 days ESTIMATED DATE OF DELIVERY: By Ultrasound: August 02, 2025 By LMP: July 31, 2025 US/Init OB < 14Wks US IMPRESSION: UNREMARKABLE FIRST TRIMESTER ULTRASOUND. Reading Location: [id number]
== END | disposition home or self-care (01) ==
LOC: US 13:38
PROVIDERS: Referring Provider Obstetrics & Gynecology; Visit Provider Obstetrics & Gynecology
DX: Z34.91 Encounter for supervision of normal pregnancy, unspecified, first trimester (principal)
CPT/HCPCS: 76801

== ENCOUNTER → 2025-01-21 | Outpatient (CLI) | payer BC, SELFPAY ==
[2025-01-21 12:06] LABS: Absolute Lymphocyte Count 1.57 X10^3/uL (0.83-4.51); Absolute Neutrophil Count 4.9 X10^3/uL (2.0-7.7); Basophil# 0.06 X10^3/uL; Basophil% 0.8 % (0-1); Eosinophil# 0.15 X10^3/uL; Eosinophils% 2.1 % (0-5); Hematocrit 37.3 % (37-47); Hemoglobin 12.7 g/dL (12.0-15.0); Lymphocyte # 1.57 X10^3/ul (0.83-4.51); Lymphocyte % 21.7 % (19-41); Mean Corpuscular Hgb 30.9 pg (27.0-32.0); Mean Corpuscular Volume 90.8 fL (81-99); Mean Platelet Vol. 10.7 fl (6.2-12.0); Monocyte# 0.53 X10^3/uL; Monocyte% 7.3 % (0-10); NRBC Flagged by Analyzer 0 % (0-5); Neutrophil # 4.91 X10^3/uL (2.7-7.7); Neutrophil % 67.8 % (47-70); Platelet Count 265 K/mm3 (150-450); RBC Distribution Width SD 42.6 fl (35.1-43.9); Red Blood Count 4.11 M/mm3 (4.2-5.4); White Blood Count 7.2 K/mm3 (4.4-11.0)
[2025-01-21 16:10] LABS: Hepatitis B Surface Antigen Nonreactive (Nonreactive); Hepatitis C Antibody Nonreactive (Nonreactive); Rubella IgG REAC (Nonreactive); Syphilis Antibodies Nonreactive (Nonreactive)
[2025-01-21 22:40] LABS: HIV Nonreactive (Nonreactive)
[2025-01-23 05:07] LABS: Chlamydia By Nucleic Acid AMP Negative (Negative); Gonococcus By Nucleic Acid AMP Negative (Negative)
[2025-01-25 07:58] LABS: HPV Reflexed? NOT INDICATED
== END | disposition home or self-care (01) ==
PROVIDERS: Referring Provider Advanced Practice Midwife; Visit Provider Advanced Practice Midwife
DX: Z34.90 Encounter for supervision of normal pregnancy, unspecified, unspecified trimester (principal)
CPT/HCPCS: 36415; 85025; 86703; 86762; 86780; 86803; 86850; 86900; 86901; 87086; 87340; 87491; 87591; 88175; G0145

== ENCOUNTER 2025-04-02 21:13 | Outpatient (CLI) | payer BC, SELFPAY ==
[2025-04-02 21:20] VITALS: BMI 22.6
[2025-04-02 21:33] VITALS: BP 100/62; PULSE 82; RESP 16; TEMP 37.3; O2SAT 94
[2025-04-02 22:22] LABS: Bacteria 0 SEEN /hpf (None Seen); Mucous, Urine 0 SEEN /hpf (<or=2+)
[2025-04-02 22:26] LABS: Absolute Lymphocyte Count 2.22 X10^3/uL (0.83-4.51); Absolute Neutrophil Count 8.9 X10^3/uL (2.0-7.7); Basophil# 0.05 X10^3/uL; Basophil% 0.4 % (0-1); Eosinophil# 0.17 X10^3/uL; Eosinophils% 1.4 % (0-5); Hematocrit 29.8 % (37-47); Hemoglobin 10.3 g/dL (12.0-15.0); Lymphocyte # 2.22 X10^3/ul (0.83-4.51); Lymphocyte % 17.9 % (19-41); Mean Corp Hgb Conc 34.6 g/dL (32-36); Mean Corpuscular Hgb 31.9 pg (27.0-32.0); Mean Corpuscular Volume 92.3 fL (81-99); Mean Platelet Vol. 10.1 fl (6.2-12.0); Monocyte# 1.01 X10^3/uL; Monocyte% 8.2 % (0-10); NRBC Flagged by Analyzer 0 % (0-5); Neutrophil # 8.85 X10^3/uL (2.7-7.7); Neutrophil % 71.5 % (47-70); Platelet Count 239 K/mm3 (150-450); RBC Distribution Width CV 13.7 % (11.6-14.6); RBC Distribution Width SD 46.5 fl (35.1-43.9); Red Blood Count 3.23 M/mm3 (4.2-5.4); White Blood Count 12.4 K/mm3 (4.4-11.0)
[2025-04-02 22:44] LABS: ROM Internal Control Test YES-OK TO RESULT pt. (Internal QC); Record Kit Lot#, ROM+ K3358
[2025-04-02 22:47] LABS: ROM Patient Test POSITIVE (Negative)
[2025-04-02 23:01] LABS: Prothrombin Time (Protime)PT. 12.9 SECONDS (11.7-14.9)
[2025-04-02 23:02] LABS: Fibrinogen 292 mg/dl (203-444); Partial Thromboplast Time 25.4 Seconds (24.1-36.2)
[2025-04-02 23:07] LABS: Color, Urine Straw (Yellow); Glucose, Dipstick Normal (Normal); Ketone-Dipstick Negative (Negative); Leukocyte Esterase-Dipstick 25 /ul (Negative); Nitrite-Dipstick Negative (Negative); Occult Blood-Urine 250 /ul (Negative); Protein-Dipstick 15 mg/dl (Negative); Urine Bilirubin Dipstick Negative (Negative); Urine Clarity Sl. Cloudy (Clear); Urine Urobilinogen Normal (Normal)
--- NOTE | 2025-04-02 23:21 | OB.TRI.HP_ITS ---
HPI - General HPI Narrative FAROOQ TABOR, is a 24 F who presents with episode of bleeding at home. she had some crmaping and pelvic pressure, followed by passing a clot in the shower, she denies any uti symptoms and no recent trauma or infections. she has had bloody discharge since she has been here, she also had one episode of a gush of fluid but hasn't had any leaking since then. Maternal Data Information MAURICE Calculator Estimated Delivery Date Method Current WG Current Estimate 07/31/25 LMP (Certain) 22w 6d Other Estimates 07/28/25 Ultrasound #1 23w 2d PFSH PFSH Medical History Chlamydia infection PPH ( hemorrhage) (spontaneous vaginal delivery) Home Medications ?Medication ?Instructions ?Recorded ?Last Taken ?Type Hydrocortisone 2.5% / Lidocaine 5% #1 ea 11/22/24 Unkn own Rx ointment (cmpd) multivitamin no.47-iron fum 27 1 cap PO DAILY 01/01/25 04/02/25 08:00 History mg-folate no.1 1 mg-dha 300 mg 1 cap capsule (PNV-DHA) Allergy/AdvReac Type Severity Reaction Status Date / Time No Known Allergies Allergy Verified 04/02/25 21:52 Family History Mother IBS (irritable bowel syndrome) Surgical History [place] teeth extracted Social History adopted: No household members: significant other and children housing: house number of children: 1 current occupational status: 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 current occupational exposures/hazards: No pets and animals: Yes pets and animals: dog(s) history of recent travel: No sexually active: Yes Smoking Status: Never smoker alcohol intake: never substance use type: does not use well-balanced diet: daily or most days caffeine: Yes Type: coffee Number of servings: 1 eating out: rarely or never during the past year weight has: remained stable what type of physical activity do you participate in: none ruth/yarsani: None seatbelt use: always do you feel safe at home: Yes additional social history: Fiance- [employer]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 Date Name GA/Weeks Outcome Route Bth Weight Infant Gen Labor Lgth Anesthesia Del Locatn Provider FOB 09/19/23 Deuce 39 live - full term 7#10 Male epidur al [facility] Shanika Elliott [place] Visit Details Expected Delivery Route/Plan Labor Preferences- CB/BF classes: [] labor support person: [] labor intervention preferences: [] pain management options preferred: [] cut cord/dad catch: [] : [] PP control planned: [] discussed possible routes of delivery and associated risks: [] special requests: [] Plans Covid status: [] Flu vaccine: [] Tdap vaccine: [] Rhogam: [] LARC form signed: [] Problem list reviewed and updated with the most current plan of care details and appropriate orders placed. Relevant counseling for the gestational age provided. Continue routine care and follow up unless otherwise noted in visit notes/problem list details OB Flowsheet Initial Weight: 108 lb Date -?-?-?-?-?-?-?-?-?-?-?-?- EGA Weight BP Urine Prot -?-?-?-?-?-?-?-?-?-?-?-?- Glucose FHR FuHt Pres Dilation -?-?-?-?-?-?-?-?-?-?-?-?- Effaced St Visit Note 01/21/25 -?-?-?-?-?-?-?-?-?-?-?-?- 12w 5d 108 lb 4 oz (+4 oz) 102/68 -?-?-?-?-?-?-?-?-?-?-?-?- 165 -?-?-?-?-?-?-?-?-?-?-?-?- KW- CRL cons wit h dates. Declines NIPT. MFM US ordered. 02/26/25 -?-?-?-?-?-?-?-?-?-?-?-?- 17w 6d 111 lb 4 oz (+3 lb 4 oz) 96/58 Negative -?-?-?-?-?-?-?-?-?-?-?-?- Negative 161 -?-?-?-?-?-?-?-?-?-?-?-?- MH-No VB. Some f lutters. Nl PN labs. [facility] /03/26/25 -?-?-?-?-?-?-?-?-?-?-?-?- 21w 6d 116 lb 8 oz (+8 lb 8 oz) 104/66 Negative -?-?-?-?-?-?-?-?-?-?-?-?- Negative 155 22 -?-?-?-?-?-?-?-?-?-?-?-?- SM- no vb lof go od fm nro egualr ctx ROS Constitutional Constitutional: Reports systems reviewed and no addt'l complaints, except as documented Gastrointestinal Gastrointestinal: Reports as per HPI Physical Exam Const alert, oriented x3 and no apparent distress HEENT Head and Scalp: normocephalic and atraumatic Neck full ROM and no lymphadenopathy Chest inspection of chest normal Resp normal respiratory effort GI GI Narrative: gravid, abdomen nontender, AGA Narrative: blood tinged mucousy discharge no pooling no active leaking on speculum exam Manual OB Exam: dilated 0, effaced 0 and station high NST FHR Rate Baby A Uterine Activity:: no regular Assessment & Plan (1) Vaginal bleeding during : COMMENT: admit STO, give bmz, US ordered. (2) Supervision of normal : QUALIFIERS: Normal : other normal Trimester: second trimester Qualified Code(s): Z34.82 - Encounter for supervision of other normal , second trimester COMMENT: PRR, , MAURICE 07/31/25, surprise ALLY Tripathi, Nayeli Laguna (3) : QUALIFIERS: Weeks of gestation: 21 weeks Qualified Code(s): Z3A.21 - 21 weeks gestation of COMMENT: declines NIPT & Carrier testing. Unremarkable Anatomy:Consistent dates, (4) Maternal varicella, non-immune: COMMENT: confirm w 28 wk labs PLAN: Plan admitted for observtaion, cervix closed, serial fibrinogen ordered, US in am. bedside US now shows normal CHANTAL transverse presentation, good FM, and reassuring status. discussed steroids as precautionary. rom plus suspected to be false positive due to presence of blood, but will continue to monitor. Charges/Coding Multi Select Codes Visit Charges Office Visit/Consults: 45030 OV L3 Est 20min
[2025-04-02 23:27] LABS: Red Blood Cells-Urine 10-25 SEEN /hpf (0-5); Squamous Epithelial Cells - UA 0-5 SEEN /hpf (5-10); White Blood Cells 0-5 SEEN /hpf (0-5)
[2025-04-03] MEDS: Betamethasone/Betamethasone 30 MG/5 ML Vial 12 MG IM (00:49)
[2025-04-03 01:06] VITALS: BP 98/57; PULSE 79
[2025-04-03 03:18] LABS: Fibrinogen 262 mg/dl (203-444)
[2025-04-03 05:31] VITALS: BP 84/52; PULSE 76; PULSE 80; O2SAT 94
[2025-04-03 05:32] VITALS: BP 86/54; PULSE 74
[2025-04-03 05:42] VITALS: BP 88/56; PULSE 78
--- NOTE | 2025-04-03 06:32 | OB.TRI.HP_ITS ---
HPI - General HPI Narrative FAROOQ TABOR, is a 24 F who presents with vaginal bleeding, crmaping, questionable gush of fluid. rom plus initially positive but blood present, repeat negative. no continued leaking. no abdominal pain or trauma. history of term delivery. Maternal Data Information MAURICE Calculator Estimated Delivery Date Method Current WG Current Estimate 07/31/25 LMP (Certain) 23w 1d Other Estimates 07/28/25 Ultrasound #1 23w 4d PFSH PFSH Medical History Chlamydia infection PPH ( hemorrhage) (spontaneous vaginal delivery) Home Medications ?Medication ?Instructions ?Recorded ?Last Taken ?Type Hydrocortisone 2.5% / Lidocaine 5% #1 ea 11/22/24 Unkn own Rx ointment (cmpd) multivitamin no.47-iron fum 27 1 cap PO DAILY 01/01/25 04/02/25 08:00 History mg-folate no.1 1 mg-dha 300 mg 1 cap capsule (PNV-DHA) Allergy/AdvReac Type Severity Reaction Status Date / Time No Known Allergies Allergy Verified 04/02/25 21:52 Family History Mother IBS (irritable bowel syndrome) Surgical History [place] teeth extracted Social History adopted: No household members: significant other and children housing: house number of children: 1 current occupational status: 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 current occupational exposures/hazards: No pets and animals: Yes pets and animals: dog(s) history of recent travel: No sexually active: Yes Smoking Status: Never smoker alcohol intake: never substance use type: does not use well-balanced diet: daily or most days caffeine: Yes Type: coffee Number of servings: 1 eating out: rarely or never during the past year weight has: remained stable what type of physical activity do you participate in: none ruth/caodaism: None seatbelt use: always do you feel safe at home: Yes 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 Date Name GA/Weeks Outcome Route Bth Weight Infant Gen Labor Lgth Anesthesia Del Locatn Provider FOB 09/19/23 Deuce 39 live - full term 7#[address] [facility] Shanika Elliott [place] Visit Details Expected Delivery Route/Plan Labor Preferences- CB/BF classes: [] labor support person: [] labor intervention preferences: [] pain management options preferred: [] cut cord/dad catch: [] : [] PP control planned: [] discussed possible routes of delivery and associated risks: [] special requests: [] Plans Covid status: [] Flu vaccine: [] Tdap vaccine: [] Rhogam: [] LARC form signed: [] Problem list reviewed and updated with the most current plan of care details and appropriate orders placed. Relevant counseling for the gestational age provided. Continue routine care and follow up unless otherwise noted in visit notes/problem list details OB Flowsheet Initial Weight: 108 lb Date -?-?-?-?-?-?-?-?-?-?-?-?- EGA Weight BP Urine Prot -?-?-?-?-?-?-?-?-?-?-?-?- Glucose FHR FuHt Pres Dilation -?-?-?-?-?-?-?-?-?-?-?-?- Effaced St Visit Note 01/21/25 -?-?-?-?-?-?-?-?-?-?-?-?- 12w 5d 108 lb 4 oz (+4 oz) 102/68 -?-?-?-?-?-?-?-?-?-?-?-?- 165 -?-?-?-?-?-?-?-?-?-?-?-?- KW- CRL cons wit h dates. Declines NIPT. MFM US ordered. 02/26/25 -?-?-?-?-?-?-?-?-?-?-?-?- 17w 6d 111 lb 4 oz (+3 lb 4 oz) 96/58 Negative -?-?-?-?-?-?-?-?-?-?-?-?- Negative 161 -?-?-?-?-?-?-?-?-?--?-?-?- MH-No VB. Some f lutters. Nl PN labs. [facility]/0503[facility] -?-?-?-?-?-?-?-?-?-?-?-?- 21w 6d 116 lb 8 oz (+8 lb 8 oz) 104/66 Negative -?-?-?-?-?-?-?-?-?-?-?-?- Negative 155 22 -?-?-?-?-?-?-?-?-?-?-?-?- SM- no vb lof go od fm nro egualr ctx ROS Constitutional Constitutional: Reports systems reviewed and no addt'l complaints, except as documented and as per HPI ENT HEENT: Reports systems reviewed and no addt'l complaints, except as documented Cardiovascular Cardiovascular: Reports systems reviewed and no addt'l complaints, except as documented Respiratory/Chest Respiratory/Chest: Reports systems reviewed and no addt'l complaints, except as documented Gastrointestinal Gastrointestinal: Reports as per HPI Genitourinary Genitourinary: Reports as per HPI Musculoskeletal Musculoskeletal: Reports systems reviewed and no addt'l complaints, except as documented Integumentary Integumentary: Reports systems reviewed and no addt'l complaints, except as documented Neurologic Neurologic: Reports systems reviewed and no addt'l complaints, except as documented Physical Exam Const alert, oriented x3 and no apparent distress HEENT Head and Scalp: normocephalic and atraumatic Neck full ROM and no lymphadenopathy Chest inspection of chest normal Resp normal respiratory effort GI GI Narrative: gravid, abdomen nontender, AGA Manual OB Exam: dilated 0, effaced 0 and station high NST FHR Rate Baby A Baseline: 140 Variability:: Moderate Accelerations:: 10 x 10 Decelerations:: None NST Reactive:: Yes FHR Category:: Category I Uterine Activity:: irritability Assessment & Plan (1) Vaginal bleeding during : COMMENT: admit STO, give bmz, US ordered. (2) Supervision of normal : QUALIFIERS: Normal : other normal Trimester: second trimester Qualified Code(s): Z34.82 - Encounter for supervision of other normal , second trimester COMMENT: PRR, , MAURICE 07/31/25, surprise Nayeli Locke (3) : QUALIFIERS: Weeks of gestation: 21 weeks Qualified Code(s): Z3A.21 - 21 weeks gestation of COMMENT: declines NIPT & Carrier testing. Unremarkable Anatomy:Consistent dates, PLAN: Plan serial fibrinogens stable. 23 weeks . monitored and no further bleeding noted. steroids given no cervicla change noted. Charges/Coding Multi Select Codes Visit Charges Office Visit/Consults: 41177 OV L3 Est 20min Urinary/Genital Urinary/Genital CPT Codes: 87915-72 non-stress test Interp
--- NOTE | 2025-04-03 06:39 | US_ITS ---
PROCEDURE: OB LIMITED WITH BIOMETRICS 04/03/2025 REASON FOR EXAM: BLEEDING AND POSSIBLE RUPTURE OF MEMBRANES TECHNIQUE: High resolution obstetric ultrasound performed using a 2D transducer. Standard views obtained, including biometry and Doppler studies. COMPARISON: 01/21/2025 FINDINGS Number: 1 Position: Cephalic Placental Position: Posterior grade 0. Placental Abnormalities: None noted. heart rate: 158 bpm Amniotic fluid index: Subjectively within normal limits. Cervical length: 4.5 cm. DIMENSIONS: Biparietal Diameter: 5.4 cm/22 weeks 2 days Head Circumference: 19.7 cm/21 weeks 6 days Abdominal Circumference: 17.7 cm/22 weeks 4 days Femur Length: 3.8 cm/22 weeks 1 day ESTIMATED WEIGHT: 505 g +/- 76 g ESTIMATED WEIGHT PERCENTILE (24+ weeks): 20 % ESTIMATED GESTATIONAL AGE: Baseline: 23 weeks 0 days By Ultrasound: 22 weeks 1 day ESTIMATED DATE OF DELIVERY: Baseline: 07/31/2025 By Ultrasound: 08/06/2025 US/OB Limited With Biometrics IMPRESSION: 1. A single viable intrauterine fetus with an ultrasound gestational age of 22 weeks and 1 day. 2. Other findings documented above. Reading Location: [place] [id number]
[2025-04-03 06:53] LABS: ROM Internal Control Test YES-OK TO RESULT pt. (Internal QC); ROM Patient Test Negative (Negative); Record Kit Lot#, ROM+ K3358
== END 2025-04-03 10:06 | disposition home or self-care (01) ==
LOC: WPOUT 21:17 → WP 21:17
PROVIDERS: Referring Provider Obstetrics & Gynecology; Visit Provider Obstetrics & Gynecology
DX: O46.92 Antepartum hemorrhage, unspecified, second trimester (principal); O99.891 Other specified diseases and conditions complicating pregnancy; Z3A.23 23 weeks gestation of pregnancy; Z87.59 Personal history of other complications of pregnancy, childbirth and the puerperium
CPT/HCPCS: 36415; 59025; 59050; 76815; 76816; 81001; 84112; 85025; 85384; 85610; 85730; 86850; 86900; 86901; 87086; 87088; 96372; 99221; G0378; J0702

== ENCOUNTER 2025-04-03 21:02 | Outpatient (CLI) | payer BC, SELFPAY ==
[2025-04-03] MEDS: Betamethasone/Betamethasone 30 MG/5 ML Vial 12 MG IM (21:31)
--- NOTE | 2025-04-04 22:35 | OB.TRI.PN ---
Progress Notes Date of Service: 04/03/25 Progress Note: 23 weeks vaginal bleeding celestone shot given for prematurity
== END 2025-04-03 21:33 | disposition home or self-care (01) ==
LOC: WPOUT 21:08 → WP 21:09
PROVIDERS: Visit Provider Registered Nurse
DX: O46.92 Antepartum hemorrhage, unspecified, second trimester (principal); Z3A.23 23 weeks gestation of pregnancy
CPT/HCPCS: 96372; 99221; G0378; J0702

== ENCOUNTER → 2025-05-07 | Outpatient (CLI) | payer BC, SELFPAY ==
[2025-05-07 12:14] LABS: Hematocrit 33.0 % (37-47); Hemoglobin 10.8 g/dL (12.0-15.0); Immature Granulocytes Count 0.070 X10^3/uL (0.0-0.0); Mean Corp Hgb Conc 32.7 g/dL (32-36); Mean Corpuscular Volume 95.4 fL (81-99); Mean Platelet Vol. 10.4 fl (6.2-12.0); NRBC Flagged by Analyzer 0 % (0-5); Platelet Count 249 K/mm3 (150-450); RBC Distribution Width CV 13.2 % (11.6-14.6); RBC Distribution Width SD 45.9 fl (35.1-43.9); Red Blood Count 3.46 M/mm3 (4.2-5.4); White Blood Count 9.0 K/mm3 (4.4-11.0)
[2025-05-07 13:34] LABS: Glucose Challenge Gest 1H 50g 74 mg/dL (70-140); HIV Nonreactive (Nonreactive); Syphilis Antibodies Nonreactive (Nonreactive)
== END | disposition home or self-care (01) ==
PROVIDERS: Obstetrics & Gynecology; Referring Provider Nurse Practitioner Women's Health; Visit Provider Nurse Practitioner Women's Health
DX: Z34.82 Encounter for supervision of other normal pregnancy, second trimester (principal); Z13.1 Encounter for screening for diabetes mellitus
CPT/HCPCS: 36415; 82950; 85025; 86703; 86780

== ENCOUNTER → 2025-07-02 | Outpatient (CLI) | payer BC, SELFPAY | END | disposition home or self-care (01) | LOC: LABSPEC 11:45 | PROVIDERS: Visit Provider Obstetrics & Gynecology | DX: Z34.83 Encounter for supervision of other normal pregnancy, third trimester (principal) | CPT/HCPCS: 87081 ==

== ENCOUNTER 2025-07-13 08:36 | Inpatient (IN) | payer BC, SELFPAY ==
[2025-07-13] VITALS (34 sets, daily range): BP systolic 91–114; BP diastolic 50–76; PULSE 65–106; RESP 14–18; TEMP 36.3–37.1; O2SAT 98–100; BMI 25.7
--- OUTSIDE RECORDS SUMMARY | 2025-07-13 04:22 | XMS RPT_ITS | CCD ---
Author Organization [facility] Care Team Providers Care Chain Puller Name Role Phone Richa Brown Unavailable Unavailable Unavailable Unavailable Primary Care Provider Unavailabl e Unavailable Unavailable Stephanie, Elena Richa Primary Care Unavailable Dr. Era Coyne Referring Unavailable Dr. Era Coyne Attending Unavailable Stephanie, Ms. Chaudhry Primary Care Unavailable Dr. Era Coyne Attending Unavailable Care Physician, No Primary Primary Care Provider Unavailable Care Physician, No Primary Referring Provider Un available Dr. Dilcia Das Attending Provider [phone] Dr. Marie Rascon Attending Provider [phone] Care Physician, No Primary Primary Care Provider Unavailable Care Physician, No Primary Referring Provider Un available CARLOS Bone Attending Provider [phone]) Dr. Marie Rascon Attending Provider [phone] Saulo TOY STUFFER, ANJALI-Myesha Santana Attending Provider [phone] Dr. Dilcia Das Attending Provider [phone] CARLOS Elliott Attending Provider Care Physician, No Primary Primary Care Provider Unavailable Care Physician, No Primary Referring Provider Un available CARLOS Bone Attending Provider [phone] Dr. Marie Rascon Referring Provider [phone] CARLOS Elliott Admit Provider [phone] CARLOS Elliott Other Provider [phone] Care Physician, No Primary Primary Care Provider Unavailable Care Physician, No Primary Referring Provider Un available Altagracia Kimble Attending Provider Dr. Dilcia Das MD Attending Provider [phone] Dr. Dilcia Das MD Referring Provider [phone] Marko GONZALEZ, Carmella Attending Provider [phone] Carmella Bone CNM Referring Provider [phone] NO PRIMARY CARE, MD Primary Care Unavailable LIZZY DWYER Attending Unavailable CARMELLA BONE Referring Unavailable Care Physician, No Primary Primary Care Provider Unavailable Care Physician, No Primary Referring Provider Un available Saulo TOY STUFFER-CEsther Attending Provider Pippa GARNER, Dr. Ha Other Provider [phone] Earl CNM, Shanika Attending Provider [phone] Earl CNM, Shanika Other Provider [phone] Amna Avalos DO, Dr. Salazar Attending Provider Care Physician, No Primary Primary Care Provider Unavailable Pippa GARNER, Dr. Ha Attending Provider [phone] Dr. Dilcia Das MD Referring Provider [phone] Saulo TOY STUFFER-CEsther Referring Provider Care Physician, No Primary Primary Care Provider Unavailable Care Physician, No Primary Referring Provider Un available Carmella Bone CNM Attending Provider [phone] Care Physician, No Primary Primary Care Provider Unavailable Care Physician, No Primary Referring Provider Un available Saulo TOY STUFFER-CEsther Attending Provider Care Physician, No Primary Referring Unava ilable Marie Rascon Attending Unavailabl e Care Physician, No Primary Primary Care Unava ilable Care Physician, No Primary Referring Unava ilable Saulo TOY STUFFEREsther Attending Unavailable Care Physician, No Primary Primary Care Unava ilable Shanika Elliott Consulting Unavailable Care Physician, No Primary Primary Care Unava ilable Dilcia Das Attending Unavailable Marie Rascon Attending Unavailabl e Care Physician, No Primary Primary Care Unava ilable Care Physician, No Primary Referring Unava ilable Care Physician, No Primary Referring Unava ilable Care Physician, No Primary Primary Care Unava ilable Dilcia Das Attending Unavailable Garfield TOY STUFFEREsther Attending Unavailable Care Physician, No Primary Primary Care Unava ilable Care Physician, No Primary Referring Unava ilable Care Physician, No Primary Primary Care Unava ilable Marcanthony, Dilcia Attending Unavailable Marcanthony, Dilcia Consulting Unavailable Marcanthony, Dilcia Referring Unavailable Care Physician, No Primary Primary Care Unava ilable Marcanthony, Dilcia Attending Unavailable Marcanthony, Dilcia Consulting Unavailable Marcanthony, Dilcia Referring Unavailable Care Physician, No Primary Primary Care Unava ilable Carmella Bone Referring Unavailable Marko, Carmella Attending Unavailable Care Physician, No Primary Primary Care Unava ilable Carmella Bone Attending Unavailable Care Physician, No Primary Referring Unava ilable Care Physician, No Primary Referring Unava ilable Garfield TOY STUFFER, Esther Attending Unavailable Care Physician, No Primary Primary Care Unava ilable Marie Rascon [facility] Care [facility], No Primary Primary Care Unava ilable Care Physician, No Primary Referring Unava ilable Care Physician, No Primary Primary Care Unava ilable Marcanthony, Dilcia Attending Unavailable Care Physician, No Primary Primary Care Unava ilable Marcanthony, Dilcia Referring Unavailable Marcanthony, Dilcia Attending Unavailable Garfield TOY STUFFER, Esther Attending Unavailable Care Physician, No Primary Primary Care Unava ilable Saulo TOY STUFFER, Esther Referring Unavailable Shanika Elliott Attending Unavailable Care Physician, No Primary Primary Care Unava ilable Care Physician, No Primary Primary Care Unava ilable Marcanthony, Dilcia Referring Unavailable Marcanthony, Dilcia Attending Unavailable Care Physician, No Primary Referring Unava ilable Care Physician, No Primary Primary Care Unava ilable Carmella Bone Attending Unavailable Care Physician, No Primary Primary Care Unava ilable Care Physician, No Primary Referring Unava ilable Carmella Bone Attending Unavailable Altagracia Ricks Attending Unavailable Care Physician, No Primary Primary Care Unava ilable Care Physician, No Primary Referring Unava ilable Medications Current Medications Medication Drug Class(es) Dates Sig (Normalized) Sig (Original) Hydrocortisone / Lidocaine (14 sources) Antiarrhythmic, Corticosteroid, Amide Local Anesthetic Start: 11-22-2024 Hydrocortisone 2.5% / Lidocaine 5% Ointment (Cmpd) ointment Active 0 .Route 1 November 22, 2024 1:00am Apply pea sized amount to anus twice a day as needed for hemmorhoids Start: 11-22-2024 Hydrocortisone 2.5% / Lidocaine 5% Ointment (Cmpd) ointment Active 0 .Route 1 November 22, 2024 1:00am Apply pea sized amount to anus twice a day as needed for hemmorhoids Multivit 17-Zuox-Poqitp 1-Dh a (Pnv-Dha) 27 mg iron-1 mg -300 mg capsule (14 sources) Start: 01-01-2025 Multivit 47-Ir on-Folate 1-Dha (Pnv-Dha) 27 mg iron-1 mg -300 mg capsule Active 1 NMA PO DAILY January 01, 2025 1:00am Start: 01-01-2025 Multivit 47-Ir on-Folate 1-Dha (Pnv-Dha) 27 mg iron-1 mg -300 mg capsule Active NMA PO January 01, 2025 1:00am 24 hr naproxen 500 mg extended release oral tablet (1 source) Nonsteroidal Anti-inflammatory Drug Start: 04-15-2021 take 1 tablet by mouth every twelve hours Naproxen Sodium ER 500 MG Oral Tablet Extended Release 24 Hour TAKE 1 TABLET Every twelve hours Quantity: 30 Refills: 1 Ordered: 15-Apr-2021 Richa Berg Start : 15-Apr-2021 Active as needed for pain Start: 04-15-2021 take 1 tablet by ivon th every twelve hours Naproxen Sodium ER 500 MG Oral Tablet Extended Release 24 Hour TAKE 1 TABLET Every twelve hours Quantity: 30 Refills: 1 Ordered: 15-Apr-2021 Richa Berg Start : 15-Apr-2021 Active as needed for pain Slow Fe (6 sources) Start: 05-21-2025 Slow Fe Active PO DAILY May 21, 2025 12:00am Completed/Discontinued Medications Medication Drug Class(es) Dates Sig (Normalized) Sig (Original) acetaminophen 250 mg / aspirin 250 mg / caffeine 65 mg oral tablet (1 source) Platelet Aggregation Inhibitor, Nonsteroidal Anti-inflammatory Drug, Central Nervous System Stimulant, Methylxanthine Excedrin Migraine 250-250-65 MG Oral Tablet Quantity: 0 Refills: 0 Ordered: 23-Jun-2021 DO Active azithromycin 500 mg oral tablet (20 sources) Macrolide Antimicrobial Start: 02-03-20 End: 02-08-20 take 1 tablet by mouth once Azithromycin 500 mg tablet Discontinued 500 mg PO ONCE 2 0 February 02, 2023 12:00am February 07, 2023 5:14pm Chlamydia infection affecting Chlamydial infection, unspecified 24 hr diclofenac sodium 100 mg extended release oral tablet (4 sources) Nonsteroidal Anti-inflammatory Drug Start: 04-16-20 End: 05-11-20 take 1 tablet by mouth once daily as needed for pain Diclofenac Sodium ER 100 MG Oral Tablet Extended Release 24 Hour take 1 tablet by mouth once daily NEEDED FOR MIGRAINE PAIN Quantity: 20 Refills: 0 Ordered: 27-May-2021 Richa Berg Start : 16-Apr-2021 Active docusate sodium 100 mg oral capsule (14 sources) Start: 01-02-20 End: 04-02-20 take 1 capsule by mouth once daily Docusate Sodium (Colace) 100 mg capsule Discontinued 100 mg PO daily January 01, 2025 1:00am April 02, 2025 9:53pm Medroxyprogesterone Devante-Lido 150-1 MG/ML-% SUSP (1 source) Medroxyprogester one Devante-Lido 150-1 MG/ML-% SUSP Quantity: 0 Refills: 0 Ordered: 23-Jun-2021 DO Active No Reported Medications (2 sources) No Reported Medications Quantity: 0 Refills: 0 Ordered: 03-Aug-2022 DO Active ondansetron 4 mg disintegrating oral tablet (20 sources) Serotonin-3 Receptor Antagonist Start: 02-18-20 End: 09-19-20 take 1 tablet by mouth every eight hours as needed for nausea Ondansetron 4 mg tablet,disintegrating Discontinued 4 mg PO EVERY 8 HOURS NEEDED as needed for Nausea 19 11March 10, 2023 9:00am September 19, 2023 1:35pm Start: 04-15-2021 take 1 tablet by ivon th every eight hours Ondansetron HCl - 4 MG Oral Tablet TAKE 1 TABLET Every 8 hours Quantity: 20 Refills: 1 Ordered: 15-Apr-2021 Richa Berg Start : 15-Apr-2021 Active as needed for nausea and vomiting. Vit,Porter 78-Iron-Fol ic (Prenatabs Fa) 29-1 mg tablet (3 sources) Start: 09-19-2023 End: 01-01-2025 Vit,Porter 78-Iron-Fol ic (Prenatabs Fa) 29-1 mg tablet Discontinued 1 {tbl} PO DAILY September 19, 2023 1:00am January 01, 2025 10:20am Vit,Wnbe78-Tjnp-Yde ic (Prenatabs Fa) 29-1 mg tablet (12 sources) Start: 09-19-2023 End: 01-01-2025 Vit,Lddk27-Xpgd-Cea ic (Prenatabs Fa) 29-1 mg tablet Discontinued 1 {tbl} PO DAILY September 19, 2023 1:00am January 01, 2025 10:20am Start: 09-19-2023 End: 01-01-2025 Vit,Btjs20-Siuw-Vyc ic (Prenatabs Fa) 29-1 mg tablet Discontinued 1 {tbl} PO DAILY September 19, 2023 1:00am January 01, 2025 10:20am Start: 09-19-2023 take 1 tablet by ivon once daily Vit,Ajdl53-Uvph-Goeye (Prenatab s Fa) 29-1 mg tablet Active 1 TABLET PO DAILY September 19, 2023 12:00am promethazine hydrochloride 12.5 mg oral tablet (19 sources) Phenothiazine Start: 02-04-2023 End: 09-19-2023 take 1 tablet by mouth every six hours as needed for nausea and vomiting Promethazine 12.5 mg tablet Discontinued 12.5 mg PO EVERY 6 HOURS as needed for nausea and vomiting 90 4 February 04, 2023 12:00am September 19, 2023 1:35pm pseudoephedrine hydrochloride 30 mg oral tablet (15 sources) alpha-Adrenergic Agonist Start: 09-19-2023 End: 01-01-2025 take 1 tablet by mouth every six hours as needed for congestion Pseudoephedrine Hcl (Sudafed) 30 mg tablet Discontinued 30 mg PO EVERY 6 HOURS as needed for nasal congestion September 19, 2023 1:00am January 01, 2025 10:20am SUMAtriptan 50 mg oral tablet (2 sources) Serotonin-1b and Serotonin-1d Receptor Agonist Start: 05-11-2021 End: 05-22-2021 take 1 tablet by mouth every two hours, then take 4 tablets by mouth every twenty-four hours SUMAtriptan Succinate 50 MG Oral Tablet take 1 tablet by mouth if needed AT ONSET OF MIGRAINE may repeat in 2 hours IF migraines PERSISTS maximum daily dose of 4 tablets ( 200 milligrams ) every 24 hours Quantity: 9 Refills: 3 Ordered: 11-May-2021 Richa Berg Start : 11-May-2021 End : 22-May-2021 Complete Problems Active Problems Problem Classification Problem Date Documented Date Episodic/Chronic Abdominal pain (1 source) Pain in pelvis; Translations: [Pelvic and perineal pain] Episodic Bacterial infection; unspecified site (18 sources) Bacteria present; Translations: [Streptococcus, group B, as the cause of diseases classified elsewhere] 09-21-2023 Episodic Comment on above: plan PCN in labor Genitourinary symptoms and ill-defined conditions (20 sources) Scalding pain on urination ; Translations: [Dysuria] 08-23-2023 Episodic Comment on above: urine culture pendin gincrease hydrationwill treat based on culture. Headache; including migraine (9 sources) Migraine without aura, not refractory ; Translations: [Migraine without aura, without mention of intractable migraine without mention of status migrainosus] Chronic Hemorrhage during ; abruptio placenta; placenta previa (20 sources) Bleeding from female genital tract during ; Translations: [Antepartum hemorrhage, unspecified, unspecified trimester] Onset: 04-15-2025 04-02-2025 Episodic Comment on above: admit STO, give bmz, US ordered. Immunizations and screening for infectious disease (1 source) Patient encounter status; Translations: [Encounter for screening for infections with a predominantly sexual mode of transmission] Episodic Menstrual disorders (4 sources) Break-through bleeding; Translations: [Metrorrhagia] Chronic Nausea and vomiting (9 sources) Nausea and vomiting; Translations: [Nausea with vomiting] Episodic Other complications of ; puerperium affecting management of mother (15 sources) hemorrhage; Translations: [Other immediate hemorrhage] 09-19-2023 Episodic Comment on above: s/p methergine, cyto nando, pitocin IM/IV. EBL 700. manual removal of clots. Other complications of ; puerperium affecting management of mother (1 source) Other immediate hemorrhage; Translations: [Other immediate hemorrhage, unspecified as to episode of care or not applicable] 09-21-2023 Episodic Other complications of (20 sources) Anemia of ; Translations: [Anemia complicating , unspecified trimester] 05-09-2025 Chronic Comment on above: SloFe. Other complications of (1 source) Anemia complicating , third trimester; Translations: [Anemia complicating , third trimester] Onset: 07-10-2025 Chronic Other complications of (1 source) Anemia complicating , unspecified trimester; Translations: [Anemia complicating , unspecified trimester] Onset: 06-04-2025 Chronic Other complications of (20 sources) High risk ; Translations: [Supervision of high risk , unspecified, unspecified trimester] 01-27-2023 Episodic Comment on above: [id number] MITZI 09/23/23 boy Deuce BF-Zed Other complications of (20 sources) Supervision of high risk , unspecified, unspecified trimester; Translations: [Supervision of unspecified high-risk ] 01-27-2023 Episodic Other complications of (19 sources) Chlamydia trachomatis infection in ; Translations: [Other maternal infectious and parasitic diseases complicating , unspecified trimester] 02-02-2023 Episodic Comment on above: positive at NOB. rep eat neg, repeat at 36 weeks negative Other complications of (20 sources) Other maternal infectious and parasitic diseases complicating , unspecified trimester; Translations: [Other viral diseases in the mother, unspecified as to episode of care or not applicable] 02-25-2023 Episodic Other complications of (20 sources) Hemorrhoids in ; Translations: [Hemorrhoids in , unspecified trimester] 01-01-2025 Episodic Other complications of (20 sources) Varicella non-immune; Translations: [Supervision of other high risk pregnancies, unspecified trimester] 01-01-2025 Episodic Comment on above: confirm w 28 wk labs Other complications of (2 sources) Supervision of other high risk pregnancies, unspecified trimester; Translations: [Supervision of other high risk pregnancies, unspecified trimester] Onset: 04-15-2025 Episodic Other complications of (1 source) Hemorrhoids in , second trimester; Translations: [Hemorrhoids in , second trimester] Onset: 07-10-2025 Episodic Other female genital disorders (3 sources) H/O: dyspareunia; Translations: [Personal history of other genital system and obstetric disorders] Episodic Other nutritional; endocrine; and metabolic disorders (9 sources) Body mass index less than 20; Translations: [Body mass index (BMI) 19.9 or less, adult] Episodic Other and delivery including normal (20 sources) ; Translations: [Encounter for supervision of normal , unspecified, unspecified trimester] Onset: 01-26-2025 01-27-2023 Episodic Comment on above: , MITZI 07/31/25, PC Deuce, Fiance Jase LC boy:Deuce. IAL declines NIPT & Singleton ier testing nl anatomy, carrier neg. , NIPT low risk, nl GCT PRR, , MITZI 07/31, PC Deuce, Fiance [place] PRR, , MITZI 07/31, surprise PC Deuce, Fiance Jase declines NIPT & Singleton ier testing. Unremarkable Anatomy:Consistent dates, confirm w 28 wk labs confirm w 28 wk labs /NOT drawn Neg GBS. declines NI PT & Carrier testing. Unremarkable Anatomy:Consistent dates, Other screening for suspected conditions (not mental disorders or infectious disease) (20 sources) Cancer cervix screening status; Translations: [Screening for malignant neoplasms of cervix] Onset: 08-03-2022 Episodic Residual codes; unclassified (1 source) 37 weeks gestation of ; Translations: [37 weeks gestation of ] Onset: 07-10-2025 Episodic Residual codes; unclassified (1 source) 35 weeks gestation of ; Translations: [35 weeks gestation of ] Onset: 07-02-2025 Episodic Residual codes; unclassified (1 source) 31 weeks gestation of ; Translations: [31 weeks gestation of ] Onset: 06-04-2025 Episodic Residual codes; unclassified (1 source) 29 weeks gestation of ; Translations: [29 weeks gestation of ] Onset: 05-21-2025 Episodic Residual codes; unclassified (2 sources) 21 weeks gestation of ; Translations: [21 weeks gestation of ] Onset: 03-26-2025 Episodic Unclassified (2 sources) Other underimmunization status; Translations: [Other underimmunization status] Onset: 04-15-2025 Past or Other Problems Problem Classification Problem Date Documented Da te Episodic/Chronic Hemorrhoids (3 sources) Hemorrhoids; Translations: [Unspecified hemorrhoids] Onset: 12-14-2024 11-22-2024 Episodic Other complications of (1 source) Hemorrhoids in , unspecified trimester; Translations: [Hemorrhoids in , unspecified trimester] Onset: 03-26-2025 Episodic Residual codes; unclassified (1 source) 12 weeks gestation of ; Translations: [12 weeks gestation of ] Onset: 01-21-2025 Episodic Unclassified (3 sources) Finding of menstrual bleeding; Translations: [Menstruation] Comment on above: Onset age 16 years; Results Test Name Value Interpretation Reference Range Facility Fur Mixer Operator Office Visit Reporton 07-10-2025 Fur Mixer Operator Office Visit Report [facility] [address], [address] [place] [address] OFFICE VISIT Date of Service: 07/10/25 MR#: [id number] Acct: [id number] Name: FAROOQ TABOR Rep #: [id number] : 2000 Provider: CARLOS Nowak ams Age/Sex: 24/F [place] [facility] [place]: Signed Intake Vital Signs 06/04/25 15:17 07/02/25 10:22 07/10/25 15:19 Height 5 ft 1 in 5 ft 1 in 5 ft 1 in Weight: 133 lb 5 oz BMI 25.2 BP 106/62 Intake Visit Reasons: 37 WK OB Chief Complaint: 37wk OB Biztalk Software Developer Required: No Is patient in pain?: No Allergies No Known Allergies Allergy (Verified 07/10/25 15:17) Medications ???Medication ???Instructions ???Recorded ???Confirmed ???Type Hydrocortisone 2.5% / Lidocaine 5% #1 ea 11/22/24 07/10/25 Rx ointment (cmpd) multivitamin no.47-iron fum 27 1 cap PO DAILY 01/01/25 07/10/25 H istory mg-folate no.1 1 mg-dha 300 mg capsule (PNV-DHA) Slow Fe PO DAILY 05/21/25 07/10/25 History Last Menstrual Period: 10/24/24 : No PFSH PFSH Medical History Chlamydia infection PPH ( hemorrhage) (spontaneous vaginal delivery) Surgical History [place] teeth extracted Family History Mother IBS (irritable bowel syndrome) Social History adopted: No household members: significant other and children housing: house number of children: 1 current occupational status: 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 current occupational exposures/hazards: No pets and animals: Yes pets and animals: dog(s) history of recent travel: No sexually active: Yes Smoking Status: Never smoker alcohol intake: never substance use type: does not use well-balanced diet: daily or most days caffeine: Yes Type: coffee Number of servings: 1 eating out: rarely or never during the past year weight has: remained stable what type of physical activity do you participate in: none ruth/buddhism: None seatbelt use: always do you feel safe at home: Yes 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 Date Name GA/Weeks Outcome Route Bth Weight Gen Labor Lgth Anesthesia Del Locatn Provider FOB 09/19/23 Deuce 39 live - full term 7#10 Male epidural [facility] Francisca mireya Elliott Jase HPI 37 WK OB Details: FAROOQ TABOR is a 24 year old who presents for routine OB visit. OB Visit MITZI Calculator Estimated Delivery Date Method Current WG Current Estimate 07/31/25 LMP (Certain) 37w 0d Other Estimates 07/28/25 Ultrasound #1 37w 3d Expected Delivery Route/Plan Labor Preferences- CB/BF classes: no labor support person: Jase labor intervention preferences: [] pain management options preferred: wants limited cut cord/dad catch: yes : yes PP control planned: discussed discussed possible routes of delivery and associated risks: [] special requests: [] Specific Issue/Plans Covid status: [] Flu vaccine: [] Tdap vaccine: declined Rhogam: na LARC form signed: yes movement and labor precautions reviewed. Problem list reviewed and updated with the most current plan of care details and appropriate orders placed. Relevant counseling for the gestational age provided. Continue routine care and follow up unless otherwise noted in visit notes/problem list details Initial Weight: 108 lb Date -???-???-???-???-???-?? ?-???-???-???-???-???-? ??- EGA Weight BP Urine Prot -???-???-???-???-???-?? ?-???-???-???-???-???-? ??- Glucose FHR FuHt Pres Dilation -???-???-???-???-???-?? ?-???-???-???-???-???-? ??- Effaced St Visit Note 01/21/25 -???-???-???-???-???-?? ?-???-???-???-???-???-? ??- 12w 5d 108 lb 4 oz (+4 oz) 102/68 -???-???-???-???-???-?? ?-???-???-???-???-???-? ??- 165 -???-???-???-???-???-?? ?-???-???-???-???-???-? ??- KW- CRL cons with dates. Declines NIPT. MFM US ordered. 02/26/25 -???-???-???-???-???-?? ?-???-???-???-???-???-? ??- 17w 6d 111 lb 4 oz (+3 lb 4 oz) 96/58 Negative -???-???-???-???-???-?? ?-???-???-???-???-???-? ??- Negative 161 -???-???-???-???-???-?? ?-???-???-???-???-???-? ??- MH-No VB. So me flutters. Nl PN labs. MFM US /03/26/25 -???-???-???-???-???-?? ?-???-???-???-???-???-? ??- 21w 6d 116 lb 8 oz (+8 lb 8 oz) 104/66 Negative -???-???-???-???-???-?? ?-???-???-???-???-???-? ??- Negative 155 22 -???-???-???-???-???-?? ?-???-???-???-???-???- (more content not included)... Normal [facility] Rule out Beta Strep (Grp. B) on 07-05-2025 KENN Group B Beta Streptococcus is not isolated. Normal [facility] Comment on above: Performed By: #### M [id number] ####[facility] [id number] [place], [address] Laboratory - Chemistry and C hemistry - challengeOrdered By: Marie Avalos on 07-02-2025 Glucose Ql (U) Negative [facility] Laboratory - UrinalysisOrder ed By: Marie Avalos on 07-02-2025 Protein Ql (U) Negative [facility] Fur Mixer Operator Office Visit Reporton 07-02-2025 Fur Mixer Operator Office Visit Report [facility]'s [address], [address] [place] [address] OFFICE VISIT Date of Service: 07/02/25 MR#: [id number] Acct: [id number] Name: TABORFAROOQ Godinez MELIA Rep #: [id number] : 2000 Provider: Dr. Marie Galindo DO Age/Sex: 24/F [place] [facility] [place] [place] Status: Signed Intake Vital Signs 05/07/25 09:59 06/18/25 10:05 07/02/25 10:20 07/02/25 10:22 Height 5 ft 1 in 5 ft 1 in 5 ft 1 in 5 ft 1 in Weight: 132 lb 7 oz BMI 25.0 BP 112/68 Intake Visit Reasons: 36wk ob Biztalk Software Developer Required: No Is patient in pain?: No Allergies No Known Allergies Allergy (Verified 07/02/25 10:20) Medications ???Medication ???Instructions ???Recorded ???Confirmed ???Type Hydrocortisone 2.5% / Lidocaine 5% #1 ea 11/22/24 07/02/25 Rx ointment (cmpd) multivitamin no.47-iron fum 27 1 cap PO DAILY 01/01/25 07/02/25 H istory mg-folate no.1 1 mg-dha 300 mg capsule (PNV-DHA) Slow Fe PO DAILY 05/21/25 07/02/25 History Last Menstrual Period: 10/24/24 Zika: Zika virus screening: Negative : No PFSH PFSH Medical History Chlamydia infection PPH ( hemorrhage) (spontaneous vaginal delivery) Surgical History [place] teeth extracted Family History Mother IBS (irritable bowel syndrome) Social History adopted: No household members: significant other and children housing: house number of children: 1 current occupational 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: 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 current occupational exposures/hazards: No pets and animals: Yes pets and animals: dog(s) history of recent travel: No sexually active: Yes Smoking Status: Never smoker alcohol intake: never substance use type: does not use well-balanced diet: daily or most days caffeine: Yes Type: coffee Number of servings: 1 eating out: rarely or never during the past year weight has: remained stable what type of physical activity do you participate in: none ruth/buddhism: None seatbelt use: always do you feel safe at home: Yes 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 Date Name GA/Weeks Outcome Route Bth Weight Infant Gen Labor Lgth Anesthesia Del Locatn Provider FOB 09/19/23 Deuce 39 live - full term 7#10 Male epidural [facility] Francisca dsay Elliott [place] HPI 36wk ob Details: FAROOQ TABOR is a 24 year old who presents for routine OB visit. OB Visit MITZI Calculator Estimated Delivery Date Method Current WG Current Estimate 07/31/25 LMP (Certain) 35w 6d Other Estimates 07/28/25 Ultrasound #1 36w 2d Expected Delivery Route/Plan Labor Preferences- CB/BF classes: no labor support person: [place] labor intervention preferences: [] pain management options preferred: wants limited cut cord/dad catch: yes : yes PP control planned: discussed discussed possible routes of delivery and associated risks: [] special requests: [] Specific Issue/Plans Covid status: [] Flu vaccine: [] Tdap vaccine: declined Rhogam: na LARC form signed: yes movement and labor precautions reviewed. Problem list reviewed and updated with the most current plan of care details and appropriate orders placed. Relevant counseling for the gestational age provided. Continue routine care and follow up unless otherwise noted in visit notes/problem list details Initial Weight: 108 lb Date -???-???-???-???-???-?? ?-???-???-???-???-???-? ??- EGA Weight BP Urine Prot -???-???-???-???-???-?? ?-???-???-???-???-???-? ??- Glucose FHR FuHt Pres Dilation -???-???-???-???-???-?? ?-???-???-???-???-???-? ??- Effaced St Visit Note 01/21/25 -???-???-???-???-???-?? ?-???-???-???-???-???-? ??- 12w 5d 108 lb 4 oz (+4 oz) 102/68 -???-???-???-???-???-?? ?-???-???-???-???-???-? ??- 165 -???-???-???-???-???-?? ?-???-???-???-???-???-? ??- KW- CRL cons with dates. Declines NIPT. [facility] ordered. 02/26/25 -???-???-???-???-???-?? ?-???-???-???-???-???-? ??- 17w 6d 111 lb 4 oz (+3 lb 4 oz) 96/58 Negative -???-???-???-???-???-?? ?-???-???-???-???-???-? ??- Negative 161 -???-???-???-???-???-?? ?-???-???-???-???-???-? ??- -No VB. So me flutters. Nl PN labs. [facility] 5/6 03/26/25 -???-???-???-???-???-?? ?-???-???-???-???-???-? ??- 21w 6d 116 lb 8 oz (+8 lb 8 oz) 104/66 Negative -???-???-???-???-???-?? ?-???-???-???-???-???-? ?? (more content not included)... Normal [facility] Screening beta-hemolytic Str eptococcus cultureOrdered By: Marie Avalos on 07-02-2025 Beta-hemolytic Streptococcus culture Group B Beta Streptococcus is not isolated. [facility] Laboratory - Chemistry and C hemistry - challengeOrdered By: Esther Vernon on 06-18-2025 Glucose Ql (U) Negative [facility] Laboratory - UrinalysisOrder ed By: Esther Vernon on 06-18-2025 Protein Ql (U) Negative [facility] Fur Mixer Operator Office Visit Reporton 06-18-2025 Fur Mixer Operator Office Visit Report [facility]'[address], [address] [place] [address] OFFICE VISIT Date of Service: 06/18/25 MR#: [id number] Acct: [id number] Name: FAROOQ TABOR Rep #: [id number] : 2000 Provider: HERNÁN christiansen Age/Sex: 24/F [place] [facility] [place]: Signed Intake Vital Signs 05/07/25 09:59 06/04/25 15:17 06/18/25 10:00 06/18/25 10:05 Height 5 ft 1 in 5 ft 1 in 5 ft 1 in 5 ft 1 in Weight: 130 lb 129 lb 8 oz BMI 24.5 24.5 BP 99/66 98/64 Intake Visit Reasons: 34wk ob Chief Complaint: 34 Week OB Biztalk Software Developer Required: No Is patient in pain?: No Allergies No Known Allergies Allergy (Verified 06/18/25 10:05) Medications ???Medication ???Instructions ???Recorded ???Confirmed ???Type Hydrocortisone 2.5% / Lidocaine 5% #1 ea 11/22/24 06/18/25 Rx ointment (cmpd) multivitamin no.47-iron fum 27 1 cap PO DAILY 01/01/25 06/18/25 H istory mg-folate no.1 1 mg-dha 300 mg capsule (PNV-DHA) Slow Fe PO DAILY 05/21/25 06/18/25 History Last Menstrual Period: 10/24/24 Zika: Zika virus screening: Negative : No PFSH PFSH Medical History Chlamydia infection PPH ( hemorrhage) (spontaneous vaginal delivery) Surgical History [place] teeth extracted Family History Mother IBS (irritable bowel syndrome) Social History adopted: No household members: significant other and children housing: house number of children: 1 current occupational status: 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 current occupational exposures/hazards: No pets and animals: Yes pets and animals: dog(s) history of recent travel: No sexually active: Yes Smoking Status: Never smoker alcohol intake: never substance use type: does not use well-balanced diet: daily or most days caffeine: Yes Type: coffee Number of servings: 1 eating out: rarely or never during the past year weight has: remained stable what type of physical activity do you participate in: none ruth/buddhism: None seatbelt use: always do you feel safe at home: Yes 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 Date Name GA/Weeks Outcome Route Bth Weight Infant Gen Labor Lgth Anesthesia Del Locatn Provider FOB 09/19/23 Deuce 39 live - full term 7#10 Male epidural [facility] Francisca mireya [place] HPI 34wk ob Details: FAROOQ TABOR is a 24 year old who presents for routine OB visit. OB Visit MITZI Calculator Estimated Delivery Date Method Current WG Current Estimate 07/31/25 LMP (Certain) 33w 6d Other Estimates 07/28/25 Ultrasound #1 34w 2d Expected Delivery Route/Plan Labor Preferences- CB/BF classes: no labor support person: [place] labor intervention preferences: [] pain management options preferred: wants limited cut cord/dad catch: yes : yes PP control planned: discussed discussed possible routes of delivery and associated risks: [] special requests: [] Specific Issue/Plans Covid status: [] Flu vaccine: [] Tdap vaccine: declined Rhogam: na LARC form signed: yes movement and labor precautions reviewed. Problem list reviewed and updated with the most current plan of care details and appropriate orders placed. Relevant counseling for the gestational age provided. Continue routine care and follow up unless otherwise noted in visit notes/problem list details Initial Weight: 108 lb Date -???-???-???-???-???-?? ?-???-???-???-???-???-? ??- EGA Weight BP Urine Prot -???-???-???-???-???-?? ?-???-???-???-???-???-? ??- Glucose FHR FuHt Pres Dilation -???-???-???-???-???-?? ?-???-???-???-???-???-? ??- Effaced St Visit Note 01/21/25 -???-???-???-???-???-?? ?-???-???-???-???-???-? ??- 12w 5d 108 lb 4 oz (+4 oz) 102/68 -???-???-???-???-???-?? ?-???-???-???-???-???-? ??- 165 -???-???-???-???-???-?? ?-???-???-???-???-???-? ??- KW- CRL cons with dates. Declines NIPT. [facility] US ordered. 02/26/25 -???-???-???-???-???-?? ?-???-???-???-???-???-? ??- 17w 6d 111 lb 4 oz (+3 lb 4 oz) 96/58 Negative -???-???-???-???-???-?? ?-???-???-???-???-???-? ??- Negative 161 -???-???-???-???-???-?? ?-???-???-???-???-???-? ??- MH-No VB. So me flutters. Nl PN labs. [facility] /6 03/26/25 -???-???-???-???-???-?? ?-???-???-???-???-???-? ??- 21w 6d 116 lb 8 oz (+8 lb 8 oz) 104/66 Negative -???-? (more content not included)... Normal [facility] Laboratory - Chemistry and C hemistry - challengeOrdered By: Carmella Bone on 06-04-2025 Glucose Ql (U) Negative [facility] Laboratory - UrinalysisOrder ed By: Carmella Bone on 06-04-2025 Protein Ql (U) Negative [facility] Fur Mixer Operator Office Visit Reporton 06-04-2025 Fur Mixer Operator Office Visit Report [facility]'s [address], [address] [place] [address] OFFICE VISIT Date of Service: 06/04/25 MR#: [id number] Acct: [id number] Name: FAROOQ TABOR Rep #: [id number] : 2000 Provider: CARLOS Nowak ams Age/Sex: 24/F [place] [facility] [place]: Signed Intake Vital Signs 05/07/25 09:59 05/21/25 10:15 06/04/25 15:17 Height 5 ft 1 in 5 ft 1 in 5 ft 1 in Weight: 130 lb BMI 24.5 BP 99/66 Intake Visit Reasons: 32wk ob Chief Complaint: 32wk ob Biztalk Software Developer Required: No Is patient in pain?: No Allergies No Known Allergies Allergy (Verified 06/04/25 15:15) Medications ???Medication ???Instructions ???Recorded ???Confirmed ???Type Hydrocortisone 2.5% / Lidocaine 5% #1 ea 11/22/24 06/04/25 Rx ointment (cmpd) multivitamin no.47-iron fum 27 1 cap PO DAILY 01/01/25 06/04/25 H istory mg-folate no.1 1 mg-dha 300 mg capsule (PNV-DHA) Slow Fe PO DAILY 05/21/25 06/04/25 History Last Menstrual Period: 10/24/24 : No PFSH PFSH Medical History Chlamydia infection PPH ( hemorrhage) (spontaneous vaginal delivery) Surgical History [place] teeth extracted Family History Mother IBS (irritable bowel syndrome) Social History adopted: No household members: significant other and children housing: house number of children: 1 current occupational status: 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 current occupational exposures/hazards: No pets and animals: Yes pets and animals: dog(s) history of recent travel: No sexually active: Yes Smoking Status: Never smoker alcohol intake: never substance use type: does not use well-balanced diet: daily or most days caffeine: Yes Type: coffee Number of servings: 1 eating out: rarely or never during the past year weight has: remained stable what type of physical activity do you participate in: none ruth/buddhism: None seatbelt use: always do you feel safe at home: Yes 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 Date Name GA/Weeks Outcome Route Bth Weight Infant Gen Labor Lgth Anesthesia Del Locatn Provider FOB 09/19/23 Deuce 39 live - full term 7#10 Male epidural [facility] Francisca Elliott [place] HPI 32wk ob Details: FAROOQ TABOR is a 24 year old who presents for routine OB visit. OB Visit MITZI Calculator Estimated Delivery Date Method Current WG Current Estimate 07/31/25 LMP (Certain) 31w 6d Other Estimates 07/28/25 Ultrasound #1 32w 2d Expected Delivery Route/Plan Labor Preferences- CB/BF classes: no labor support person: [place] labor intervention preferences: [] pain management options preferred: wants limited cut cord/dad catch: yes : yes PP control planned: discussed discussed possible routes of delivery and associated risks: [] special requests: [] Specific Issue/Plans Covid status: [] Flu vaccine: [] Tdap vaccine: declined Rhogam: na LARC form signed: yes movement and labor precautions reviewed. Problem list reviewed and updated with the most current plan of care details and appropriate orders placed. Relevant counseling for the gestational age provided. Continue routine care and follow up unless otherwise noted in visit notes/problem list details Initial Weight: 108 lb Date -???-???-???-???-???-?? ?-???-???-???-???-???-? ??- EGA Weight BP Urine Prot -???-???-???-???-???-?? ?-???-???-???-???-???-? ??- Glucose FHR FuHt Pres Dilation -???-???-???-???-???-?? ?-???-???-???-???-???-? ??- Effaced St Visit Note 01/21/25 -???-???-???-???-???-?? ?-???-???-???-???-???-? ??- 12w 5d 108 lb 4 oz (+4 oz) 102/68 -???-???-???-???-???-?? ?-???-???-???-???-???-? ??- 165 -???-???-???-???-???-?? ?-???-???-???-???-???-? ??- KW- CRL cons with dates. Declines NIPT. [facility] US ordered. 02/26/25 -???-???-???-???-???-?? ?-???-???-???-???-???-? ??- 17w 6d 111 lb 4 oz (+3 lb 4 oz) 96/58 Negative -???-???-???-???-???-?? ?-???-???-???-???-???-? ??- Negative 161 -???-???-???-???-???-?? ?-???-???-???-???-???-? ??- -No VB. So me flutters. Nl PN labs. [facility] 03/0503/26/25 -???-???-???-???-???-?? ?-???-???-???-???-???-? ??- 21w 6d 116 lb 8 oz (+8 lb 8 oz) 104/66 Negative -???-???-???-???-???-?? ?-???-???-???-???-???-? ??- Negative 155 22 -???-???-???-???-???-?? ?-???-???-???-???-???-? ??- S (more content not included)... Normal [facility] Laboratory - Chemistry and C hemistry - challengeOrdered By: Dilcia Das on 05-21-2025 Glucose Ql (U) Negative [facility] Laboratory - UrinalysisOrder ed By: Dilcia Das on 05-21-2025 Protein Ql (U) Negative [facility] Fur Mixer Operator Office Visit Reporton 05-21-2025 Fur Mixer Operator Office Visit Report [address], [address] [place] [address] OFFICE VISIT Date of Service: 05/21/25 MR#: [id number] Acct: [id number] Name: FAROOQ TABOR Rep #: [id number] : 2000 Provider: Dr. Dilcia beard MD Age/Sex: 24/F [place] [facility] [place]: Signed Intake Vital Signs 03/26/25 10:09 05/07/25 09:59 05/21/25 10:12 05/21/25 10:15 Height 5 ft 1 in 5 ft 1 in 5 ft 1 in 5 ft 1 in Weight: 124 lb 8 oz BMI 23.5 BP 107/60 Intake Visit Reasons: 30 wk ob Biztalk Software Developer Required: No Is patient in pain?: No Allergies No Known Allergies Allergy (Verified 05/21/25 10:12) Medications ???Medication ???Instructions ???Recorded ???Confirmed ???Type Hydrocortisone 2.5% / Lidocaine 5% #1 ea 11/22/24 05/21/25 Rx ointment (cmpd) multivitamin no.47-iron fum 27 1 cap PO DAILY 01/01/25 05/21/25 H istory mg-folate no.1 1 mg-dha 300 mg capsule (PNV-DHA) Slow Fe PO DAILY 05/21/25 History Last Menstrual Period: 10/24/24 Zika: Zika virus screening: Negative : No PFSH PFSH Medical History Chlamydia infection PPH ( hemorrhage) (spontaneous vaginal delivery) Surgical History [place] teeth extracted Family History Mother IBS (irritable bowel syndrome) Social History adopted: No household members: significant other and children housing: house number of children: 1 current occupational status: 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 current occupational exposures/hazards: No pets and animals: Yes pets and animals: dog(s) history of recent travel: No sexually active: Yes Smoking Status: Never smoker alcohol intake: never substance use type: does not use well-balanced diet: daily or most days caffeine: Yes Type: coffee Number of servings: 1 eating out: rarely or never during the past year weight has: remained stable what type of physical activity do you participate in: none ruth/buddhism: None seatbelt use: always do you feel safe at home: Yes 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 Date Name GA/Weeks Outcome Route Bth Weight Gen Labor Lgth Anesthesia Del Locatn Provider FOB 09/19/23 Deuce 39 live - full term 7#10 Male epidural [facility] Francisca dsay Elliott [place] HPI 30 wk ob Details: FAROOQ TABOR is a 24 year old who presents for routine OB visit. OB Visit MITZI Calculator Estimated Delivery Date Method Current WG Current Estimate 07/31/25 LMP (Certain) 29w 6d Other Estimates 07/28/25 Ultrasound #1 30w 2d Expected Delivery Route/Plan Labor Preferences- CB/BF classes: no labor support person: [place] labor intervention preferences: [] pain management options preferred: wants limited cut cord/dad catch: yes : yes PP control planned: discussed discussed possible routes of delivery and associated risks: [] special requests: [] Specific Issue/Plans Covid status: [] Flu vaccine: [] Tdap vaccine: declined Rhogam: na LARC form signed: yes movement and labor precautions reviewed. Problem list reviewed and updated with the most current plan of care details and appropriate orders placed. Relevant counseling for the gestational age provided. Continue routine care and follow up unless otherwise noted in visit notes/problem list details Initial Weight: 108 lb Date -???-???-???-???-???-?? ?-???-???-???-???-???-? ??- EGA Weight BP Urine Prot -???-???-???-???-???-?? ?-???-???-???-???-???-? ??- Glucose FHR FuHt Pres Dilation -???-???-???-???-???-?? ?-???-???-???-???-???-? ??- Effaced St Visit Note 01/21/25 -???-???-???-???-???-?? ?-???-???-???-???-???-? ??- 12w 5d 108 lb 4 oz (+4 oz) 102/68 -???-???-???-???-???-?? ?-???-???-???-???-???-? ??- 165 -???-???-???-???-???-?? ?-???-???-???-???-???-? ??- KW- CRL cons with dates. Declines NIPT. [facility] US ordered. 02/26/25 -???-???-???-???-???-?? ?-???-???-???-???-???-? ??- 17w 6d 111 lb 4 oz (+3 lb 4 oz) 96/58 Negative -???-???-???-???-???-?? ?-???-???-???-???-???-? ??- Negative 161 -???-???-???-???-???-?? ?-???-???-???-???-???-? ??- MH-No VB. So me flutters. Nl PN labs. [facility] 5/6 03/26/25 -???-???-???-???-???-?? ?-???-???-???-???-???-? ??- 21w 6d 116 lb 8 oz (+8 lb 8 oz) 104/66 Negative -???-???-???-???-???-?? ?-???-???-???-???-???-? ??- Negative 155 (more content not included)... Normal [facility] Absolute lymphocyte countOrd ered By: Marie Avalos on 05-07-2025 Lymphocytes Auto (Unsp spec) [#/Vol] 1.46 10*3/uL 0.83-4.[address] [facility] Absolute neutrophil countOrd ered By: Marie Avalos on 05-07-2025 Neutrophils (Bld) [#/Vol] 6.6 10*3/uL 2.0-7.[address] [facility] Automated lymphocyte count a s percentage of total leukocytesOrdered By: Marie Avalos on 05-07-2025 Lymphocytes/100 WBC Auto (Unsp spec) 16.3 % Low 19-[address] [facility] Basophil percentageOrdered B y: Marie Avalos on 05-07-2025 Basophils/100 WBC (Bld) 0.4 % 0-1 [facility] CBC W/Diff, Automatedon Absolute Lymph 1.46 X10 3/uL Normal 0.83-4.[address] [facility] Comment on above: Performed By: #### L 509.8002, L501.0250, L3890.6006, L100.0100 ####[facility] [address] [place], [address] Absolute Neut 6.6 X10 3/uL Normal 2.0-7.[address] [facility] Comment on above: Performed By: #### L 509.8002, L501.0250, L3890.6006, L100.0100 ####[facility] [address] [place], [address] Basophils/100 WBC (Bld) 0.4 % Normal 0-1 [facility] Comment on above: Performed By: #### L 509.8002, L501.0250, L3890.6006, L100.0100 ####[facility] [address] [place], [address] Eosinophils/100 WBC (Bld) 1.0 % Normal 0-[address] [facility] Comment on above: Performed By: #### L 509.8002, L501.0250, L3890.6006, L100.0100 ####[facility] [address] [place], [address] Erythrocyte distribution width (RBC) [Ratio] 13.2 % Normal 11.6-14.[address] [facility] Comment on above: Performed By: #### L 509.8002, L501.0250, L3890.6006, L100.0100 ####[facility] [address] [place], [address] Hematocrit (Bld) [Volume fraction] 33.0 % Low 37-[address] [facility] Comment on above: Performed By: #### L 509.8002, L501.0250, L3890.6006, L100.0100 ####[facility] [address] [place], [address] Hemoglobin (Bld) [Mass/Vol] 10.8 g/dL Low 12.0-15.[address] [facility] Comment on above: Performed By: #### L 509.8002, L501.0250, L3890.6006, L100.0100 ####[facility] [address] [place], [address] IG% 0.800 Normal 0.0-0.[address] [facility] Comment on above: Result Comment: IG% - Immature Granulocytes (promyelocytes, myelocytes and metamyelocytes) > 1% indicates that a LEFT SHIFT is Present. Performed By: #### L 509.8002, L501.0250, L3890.6006, L100.0100 ####[facility] [address] [place], [address] Lymphocytes/100 WBC (Bld) 16.3 % Low 19-[address] [facility] Comment on above: Performed By: #### L 509.8002, L501.0250, L3890.6006, L100.0100 ####[facility] [address] [place], [address] MCH (RBC) [Entitic mass] 31.2 pg Normal 27.0-32.[address] [facility] Comment on above: Performed By: #### L 509.8002, L501.0250, L3890.6006, L100.0100 ####[facility] [address] [place], [address] MCHC (RBC) [Mass/Vol] 32.7 g/dL Normal 32-36 [facility] Comment on above: Performed By: #### L 509.8002, L501.0250, L3890.6006, L100.0100 ####[facility] [address] [place], [address] MCV (RBC) [Entitic vol] 95.4 fL Normal 81-99 [facility] Comment on above: Performed By: #### L 509.8002, L501.0250, L3890.6006, L100.0100 ####[facility] [address] [place], [address] Monocytes/100 WBC (Bld) 7.8 % Normal 0-10 [facility] Comment on above: Performed By: #### L 509.8002, L501.0250, L3890.6006, L100.0100 ####[facility] [address] [place], [address] Neutrophils/100 WBC (Bld) 73.7 % High 47-[address] [facility] Comment on above: Performed By: #### L 509.8002, L501.0250, L3890.6006, L100.0100 ####[facility] [address] [place], [address] Nucleated RBC (Bld) [#/Vol] 0 10*3/uL Normal 0-[address] [facility] Comment on above: Performed By: #### L 509.8002, L501.0250, L3890.6006, L100.0100 ####[facility] [address] [place], [address] Platelet mean volume (Bld) [Entitic vol] 10.4 fL Normal 6.2-12.[address] [facility] Comment on above: Performed By: #### L 509.8002, L501.0250, L3890.6006, L100.0100 ####[facility] [address] [place], [address] Platelets (Bld) [#/Vol] 249 10*3/uL Normal 150-[address] [facility] Comment on above: Performed By: #### L 509.8002, L501.0250, L3890.6006, L100.0100 ####[facility] [address] [place], [address] RBC (Bld) [#/Vol] 3.46 10*6/uL Low 4.2-5.4 [facility] Comment on above: Performed By: #### L 509.8002, L501.0250, L3890.6006, L100.0100 ####[facility] [address] [place], [address] RDW SD 45.9 fl High 35.1-43.[address] [facility] Comment on above: Performed By: #### L 509.8002, L501.0250, L3890.6006, L100.0100 ####[facility] [address] [place], [address] WBC (Bld) [#/Vol] 9.0 10*3/uL Normal 4.4-11.0 [facility] Comment on above: Performed By: #### L 509.8002, L501.0250, L3890.6006, L100.0100 ####[facility] [address] [place], [address] Eosinophil percentageOrdered By: Marie Avalos on 05-07-2025 Eosinophils/100 WBC (Bld) 1.0 % 0-[address] [facility] Erythrocyte distribution wid th ratioOrdered By: Marie Avalos on 05-07-2025 Erythrocyte distribution width (RBC) [Ratio] 13.2 % 11.6-14.[address] [facility] Erythrocyte distribution wid th standard deviationOrdered By: Mariebarrett Avalos on 05-07-2025 Erythrocyte distribution width (RBC) [Ratio] 45.9 fl High 35.1-43.[address] [facility] Glucose Challenge Gest 1H 50 salvador 05-07-2025 GLU GEST 50g 1H 74 mg/dL Normal 70-[address] [facility] Comment on above: Performed By: #### L 509.8002, L501.0250, L3890.6006, L100.0100 ####[facility] [address] [place], [address] Glucose measurement at 2 jose rs post-dose gestational glucose tolerance testOrdered By: Marie Avalos on 05-07-2025 Glucose [Mass/Vol] 74 mg/dL 70-140 [facility] HIVon 05-07-2025 HIV Non-Reactive Normal Nonreactive [facility] Comment on above: Result Comment: Non- Reactive Reactive Repeatedly reactive samples must be confirmed according to CDC recommended confirmatory algorithms. The subresults for either HIVAG or AHIV can be used as an aid in the selection of the confirmation algorithm for reactive samples. Send out specimens with Reactive results to [facility] for confirmation. Order the HIV antibody detection and differentiation: lc#[id number] Performed By: #### L 509.8002, L501.0250, L3890.6006, L100.0100 ####[facility] [address] [place], [address] Hematocrit Auto (Bld) [Volum e fraction]Ordered By: Marie Avalos on 05-07-2025 Hematocrit (Bld) [Volume fraction] 33.0 % Low 37-[address] [facility] Hemoglobin measurementOrdere d By: Marie Avalos on 05-07-2025 Hemoglobin (Bld) [Mass/Vol] 10.8 g/dL Low 12.0-15.[address] [facility] Immature granulocytes/100 WB C Auto (Bld)Ordered By: Marie Avalos on 05-07-2025 Immature granulocytes/100 WBC (Bld) 0.800 % 0.0-0.[address] [facility] Comment on above: IG% - Immature Granu locytes (promyelocytes, myelocytes and metamyelocytes) > 1% indicates that a LEFT SHIFT is Present. Laboratory - Chemistry and C hemistry - challengeOrdered By: Esther Vernon on 05-07-2025 Glucose Ql (U) Negative [facility] Laboratory - UrinalysisOrder ed By: Esther Vernon on 05-07-2025 Protein Ql (U) Negative [facility] MCV (mean corpuscular volume ) determinationOrdered By: Marie Avalos on 05-07-2025 MCV (RBC) [Entitic vol] 95.4 fL 81-99 [facility] Mean corpuscular hemoglobin (MCH) determinationOrdered By: Marie Avalos on 05-07-2025 MCH (RBC) [Entitic mass] 31.2 pg 27.0-32.[address] [facility] Mean corpuscular hemoglobin concentration (MCHC) determinationOrdered By: Marie Avalos on 05-07-2025 MCHC (RBC) [Mass/Vol] 32.7 g/dL 32-36 [facility] Mean platelet volume determi nationOrdered By: Marie Avalos on 05-07-2025 Platelet mean volume (Bld) [Entitic vol] 10.4 fL 6.2-12.[address] [facility] Monocyte percentageOrdered B y: Marie Avalos on 05-07-2025 Monocytes/100 WBC (Bld) 7.8 % 0-10 [facility] Neutrophil percentageOrdered By: Marie Avalos on 05-07-2025 Neutrophils/100 WBC (Bld) 73.7 % High 47-[address] [facility] No Panel InformationOrdered By: Marie Avalos on 05-07-2025 HIV (1&2) Antibody Non-Reactive Nonreactive [facility] Comment on above: Non-ReactiveReactive Repeatedly reactive samples must be confirmed according to CDC recommended confirmatory algorithms. The subresults for either HIVAG or AHIV can be used as an aid in the selection of the confirmation algorithm for reactive samples.Send out specimens with Reactive results to [facility] for confirmation.Order the HIV antibody detection and differentiation: #[id number] Nucleated red blood cell per centageOrdered By: Marie Avalos on 05-07-2025 Nucleated RBC/100 WBC (Bld) [Ratio] 0 % 0-[address] [facility] Fur Mixer Operator Office Visit Reporton 05-07-2025 Fur Mixer Operator Office Visit Report [facility] [address], [address] [place] [address] OFFICE VISIT Date of Service: 05/07/25 MR#: [id number] Acct: [id number] Name: FAROOQ TABOR Rep #: [id number] : 2000 Provider: HERNÁN christiansen Age/Sex: 24/F [place] [facility] [place] Status: Signed Intake Vital Signs 02/26/25 09:31 04/26/25 15:44 05/07/25 09:59 Height 5 ft 1 in 5 ft 1 in 5 ft 1 in Weight: 126 lb 2 oz BMI 23.8 BP 100/60 Intake Visit Reasons: 28 wk ob/glucose Chief Complaint: 28 Week OB/Glucose Biztalk Software Developer Required: No Is patient in pain?: No Allergies No Known Allergies Allergy (Verified 05/07/25 09:59) Medications ???Medication ???Instructions ???Recorded ???Confirmed ???Type Hydrocortisone 2.5% / Lidocaine 5% #1 ea 11/22/24 05/07/25 Rx ointment (cmpd) multivitamin no.47-iron fum 27 1 cap PO DAILY 01/01/25 05/07/25 H istory mg-folate no.1 1 mg-dha 300 mg capsule (PNV-DHA) Last Menstrual Period: 10/24/24 Zika: Zika virus screening: Negative : Yes PFSH PFS Medical History Chlamydia infection PPH ( hemorrhage) (spontaneous vaginal delivery) Surgical History [place] teeth extracted Family History Mother IBS (irritable bowel syndrome) Social History adopted: No household members: significant other and children housing: house number of children: 1 current occupational status: 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 current occupational exposures/hazards: No pets and animals: Yes pets and animals: dog(s) history of recent travel: No sexually active: Yes Smoking Status: Never smoker alcohol intake: never substance use type: does not use well-balanced diet: daily or most days caffeine: Yes Type: coffee Number of servings: 1 eating out: rarely or never during the past year weight has: remained stable what type of physical activity do you participate in: none ruth/buddhism: None seatbelt use: always do you feel safe at home: Yes 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 Date Name GA/Weeks Outcome Route Bth Weight Gen Labor Lgth Anesthesia Del Locatn Provider FOB 09/19/23 Deuce 39 live - full term 7#10 Male epidural [facility] Francisca mireya Elliott Jase HPI 28 wk ob/glucose Details: FAROOQ TABOR is a 24 year old who presents for routine OB visit. OB Visit MITZI Calculator Estimated Delivery Date Method Current WG Current Estimate 07/31/25 LMP (Certain) 27w 6d Other Estimates 07/28/25 Ultrasound #1 28w 2d Expected Delivery Route/Plan Labor Preferences- CB/BF classes: no labor support person: Jase labor intervention preferences: [] pain management options preferred: wants limited cut cord/dad catch: yes : yes PP control planned: discussed discussed possible routes of delivery and associated risks: [] special requests: [] Specific Issue/Plans Covid status: [] Flu vaccine: [] Tdap vaccine: [] Rhogam: na LARC form signed: yes Problem list reviewed and updated with the most current plan of care details and appropriate orders placed. Relevant counseling for the gestational age provided. Continue routine care and follow up unless otherwise noted in visit notes/problem list details Initial Weight: 108 lb Date -???-???-???-???-???-?? ?-???-???-???-???-???-? ??- EGA Weight BP Urine Prot -???-???-???-???-???-?? ?-???-???-???-???-???-? ??- Glucose FHR FuHt Pres Dilation -???-???-???-???-???-?? ?-???-???-???-???-???-? ??- Effaced St Visit Note 01/21/25 -???-???-???-???-???-?? ?-???-???-???-???-???-? ??- 12w 5d 108 lb 4 oz (+4 oz) 102/68 -???-???-???-???-???-?? ?-???-???-???-???-???-? ??- 165 -???-???-???-???-???-?? ?-???-???-???-???-???-? ??- KW- CRL cons with dates. Declines NIPT. MFM US ordered. 02/26/25 -???-???-???-???-???-?? ?-???-???-???-???-???-? ??- 17w 6d 111 lb 4 oz (+3 lb 4 oz) 96/58 Negative -???-???-???-???-???-?? ?-???-???-???-???-???-? ??- Negative 161 -???-???-???-???-???-?? ?-???-???-???-???-???-? ??- MH-No VB. So me flutters. Nl PN labs. MFM US /6 03/26/25 -???-???-???-???-???-?? ?-???-???-???-???-???-? ??- 21w 6d 116 lb 8 oz (+8 lb 8 oz) 104/66 Negative -???-???-???-???-???-?? ?-???-???-???-???-???-? ??- Negative 155 22 -???-???-???-???-???-?? ?-???-???-???-???-???-? ??- SM- (more content not included)... Normal [facility] Platelet countOrdered By: Cruz Avalos on 05-07-2025 Platelets (Bld) [#/Vol] 249 10*3/uL 150-[address] [facility] RBC Auto (Bld) [#/Vol]Ordere d By: Marie Avalos on 05-07-2025 RBC (Bld) [#/Vol] 3.46 10*6/uL Low 4.2-5.4 [facility] Syphilis Antibodieson 2024 Syphilis Abs Non-Reactive Normal Nonreactive [facility] Comment on above: Performed By: #### L 509.8002, L501.0250, L3890.6006, L100.0100 ####[facility] [address] [place], [address] White blood cell (WBC) count Ordered By: Marie Avalos on 05-07-2025 WBC (Bld) [#/Vol] 9.0 10*3/uL 4.4-11.0 [facility] Laboratory - Chemistry and C hemistry - challengeOrdered By: Marie Avalos on 04-26-2025 Glucose Ql (U) Negative [facility] Laboratory - UrinalysisOrder ed By: Marie Avalos on 04-26-2025 Protein Ql (U) Negative [facility] Fur Mixer Operator Office Visit Reporton 04-26-2025 Fur Mixer Operator Office Visit Report [facility]'s [address], [address] [place] [address] OFFICE VISIT Date of Service: 04/26/25 MR#: [id number] Acct: [id number] Name: FAROOQ TABOR Rep #: [id number] : 2000 Provider: Dr. Marie Galindo DO Age/Sex: 24/F [place] [facility] [place] Status: Signed Intake Vital Signs 02/26/25 09:31 04/02/25 21:20 04/26/25 15:44 04/26/25 15:44 Height 5 ft 1 in 5 ft 1 in 5 ft 1 in 5 ft 1 in Weight: 122 lb 2 oz BMI 23.1 BP 107/66 Intake Visit Reasons: 26 wk ob Biztalk Software Developer Required: No Is patient in pain?: No Allergies No Known Allergies Allergy (Verified 04/26/25 15:44) Medications ???Medication ???Instructions ???Recorded ???Confirmed ???Type Hydrocortisone 2.5% / Lidocaine 5% #1 ea 11/22/24 04/26/25 Rx ointment (cmpd) multivitamin no.47-iron fum 27 1 cap PO DAILY 01/01/25 04/26/25 H istory mg-folate no.1 1 mg-dha 300 mg capsule (PNV-DHA) Last Menstrual Period: 10/24/24 Zika: Zika virus screening: Negative : No PFSH PFSH Medical History Chlamydia infection PPH ( hemorrhage) (spontaneous vaginal delivery) Surgical History [place] teeth extracted Family History Mother IBS (irritable bowel syndrome) Social History adopted: No household members: significant other and children housing: house number of children: 1 current occupational status: 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 current occupational exposures/hazards: No pets and animals: Yes pets and animals: dog(s) history of recent travel: No sexually active: Yes Smoking Status: Never smoker alcohol intake: never substance use type: does not use well-balanced diet: daily or most days caffeine: Yes Type: coffee Number of servings: 1 eating out: rarely or never during the past year weight has: remained stable what type of physical activity do you participate in: none ruth/buddhism: None seatbelt use: always do you feel safe at home: Yes 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 Date Name GA/Weeks Outcome Route Bth Weight Infant Gen Labor Lgth Anesthesia Del Locatn Provider FOB 09/19/23 Deuce 39 live - full term 7#10 Male epidural [facility] Francisca juliay Elliott Jase HPI 26 wk ob Details: FAROOQ TABOR is a 24 year old who presents for routine OB visit. OB Visit MITZI Calculator Estimated Delivery Date Method Current WG Current Estimate 07/31/25 LMP (Certain) 26w 2d Other Estimates 07/28/25 Ultrasound #1 26w 5d Expected Delivery Route/Plan Labor Preferences- CB/BF classes: [] labor support person: [] labor intervention preferences: [] pain management options preferred: [] cut cord/dad catch: [] : [] PP control planned: [] discussed possible routes of delivery and associated risks: [] special requests: [] Specific Issue/Plans Covid status: [] Flu vaccine: [] Tdap vaccine: [] Rhogam: [] LARC form signed: [] Problem list reviewed and updated with the most current plan of care details and appropriate orders placed. Relevant counseling for the gestational age provided. Continue routine care and follow up unless otherwise noted in visit notes/problem list details Initial Weight: 108 lb Date -???-???-???-???-???-?? ?-???-???-???-???-???-? ??- EGA Weight BP Urine Prot -???-???-???-???-???-?? ?-???-???-???-???-???-? ??- Glucose FHR FuHt Pres Dilation -???-???-???-???-???-?? ?-???-???-???-???-???-? ??- Effaced St Visit Note 01/21/25 -???-???-???-???-???-?? ?-???-???-???-???-???-? ??- 12w 5d 108 lb 4 oz (+4 oz) 102/68 -???-???-???-???-???-?? ?-???-???-???-???-???-? ??- 165 -???-???-???-???-???-?? ?-???-???-???-???-???-? ??- KW- CRL cons with dates. Declines NIPT. MFM US ordered. 02/26/25 -???-???-???-???-???-?? ?-???-???-???-???-???-? ??- 17w 6d 111 lb 4 oz (+3 lb 4 oz) 96/58 Negative -???-???-???-???-???-?? ?-???-???-???-???-???-? ??- Negative 161 -???-???-???-???-???-?? ?-???-???-???-???-???-? ??- MH-No VB. So me flutters. Nl PN labs. MFM US 03/0503/26/25 -???-???-???-???-???-?? ?-???-???-???-???-???-? ??- 21w 6d 116 lb 8 oz (+8 lb 8 oz) 104/66 Negative -???-???-???-???-???-?? ?-???-???-???-???-???-? ??- Negative 155 22 -???-???-???-???-???-?? ?-???-???-???-???-???-? ??- SM- no vb lo f good fm nro egualr counts include [facility] beds at [facility] 04/01 (more content not included)... Normal [facility] OB Triage Progress Noteon OB Triage Progress Note [facility] Medical Records Department [address] [place] [address] OB Triage Progress Note 04/04/252234 MR#: [id number] Acct: [id number] Name: FAROOQ TABOR Rep #: [id number] : 2000 24 From: Dilcia Das MD PCP: Care Physician,No Primary Status:DEP CLI Y DOS: Location: [facility] Progress Notes Date of Service: 04/03/25 Progress Note: 23 weeks vaginal bleeding celestone shot given for prematurity 04/04/252235 Date Dilcia Das MD Cosigner Signature (if applicable): Date CC: Dr. Dilcia Das MD; No Primary Care Physician Signed Normal [facility] Urine Cultureon 04-04-2025 URC Clinical correlation necessary, Possible skin contamination. Presumptive Lactobacillus sp. [place] Count 11,000-25,[address] [facility] Comment on above: Performed By: #### L 300.4700, L300.4310, M100.2200, L400.0001, BTS, L300.3900 ####[facility] [address] [place], [address] (ROM) Rupture Of Membraneson 04-03-2025 ROM Negative Normal Negative [facility] Comment on above: Result Comment: Amni otic fluid not present indicates No Rupture of Membranes at time of specimen collection. Performed By: #### L 205.1000 ####[facility] [address] [place], [address] Fibrinogenon 04-03-2025 FIBRINOGEN 262 mg/dl Normal 203-[address] [facility] Comment on above: Performed By: #### L 300.4700 ####[facility] [address] [place], [address] OB Limited With Biometricson 04-03-2025 OB Limited With Biometrics [facility] Imaging Services [address] [place] [address] OB Limited With Biometrics MR#: [id number] Acct: [id number] Name: FAROOQ TABOR Rep #: [id number] : 2000 F 24 From: Edward Mosley MD PCP: Care Physician,No Primary Status: REG CLI Study: OB Limited With Biometrics Date of Exam: 04/03 Exam# [id number] Ordering Dr: Dilcia Das PROCEDURE: OB LIMITED WITH BIOMETRICS 04/03/2025 REASON FOR EXAM: BLEEDING AND POSSIBLE RUPTURE OF MEMBRANES TECHNIQUE: High resolution obstetric ultrasound performed using a 2D transducer. Standard views obtained, including biometry and Doppler studies. COMPARISON: 01/21/2025 FINDINGS Number: 1 Position: Cephalic Placental Position: Posterior grade 0. Placental Abnormalities: None noted. heart rate: 158 bpm Amniotic fluid index: Subjectively within normal limits. Cervical length: 4.5 cm. DIMENSIONS: Biparietal Diameter: 5.4 cm/22 weeks 2 days Head Circumference: 19.7 cm/21 weeks 6 days Abdominal Circumference: 17.7 cm/22 weeks 4 days Femur Length: 3.8 cm/22 weeks 1 day ESTIMATED WEIGHT: 505 g +/- 76 g ESTIMATED WEIGHT PERCENTILE (24+ weeks): 20 % ESTIMATED GESTATIONAL AGE: Baseline: 23 weeks 0 days By Ultrasound: 22 weeks 1 day ESTIMATED DATE OF DELIVERY: Baseline: 07/31/2025 By Ultrasound: 08/06/2025 US/OB Limited With Biometrics IMPRESSION: 1. A single viable intrauterine fetus with an ultrasound gestational age of 22 weeks and 1 day. 2. Other findings documented above. Reading Location: [place] [address] CC: Dr. Dilcia Das MD; No Primary Care Physician Automatic Embroidery Machine Tender: Signed Normal [facility] OB Triage Physician Noteon 0 04-03-2025 OB Triage Physician Note [facility] Medical Records Department [address] [place] [address] OB Triage Physician Note 04/03/25 0632 MR#: [id number] Acct: [id number] Name: FAROOQ TABOR Rep #: [id number] : 2000 24 From: Dilica Das MD PCP: Care Physician,No Primary Status:DEP CLI Y Location: [facility] HPI - General HPI Narrative FAROOQ TABOR is a 24 F who presents with vaginal bleeding, crmaping, questionable gush of fluid. rom plus initially positive but blood present, repeat negative. no continued leaking. no abdominal pain or trauma. history of term delivery. Maternal Data Information MITZI Calculator Estimated Delivery Date Method Current WG Current Estimate 07/31/25 LMP (Certain) 23w 1d Other Estimates 07/28/25 Ultrasound #1 23w 4d PFSH PFSH Medical History Chlamydia infection PPH ( hemorrhage) (spontaneous vaginal delivery) Home Medications ???Medication ???Instructions ???Recorded ???Last Taken ???Type Hydrocortisone 2.5% / Lidocaine 5% #1 ea 11/22/24 Unknown Rx ointment (cmpd) multivitamin no.47-iron fum 27 1 cap PO DAILY 01/01/25 04/02/25 0 8:00 History mg-folate no.1 1 mg-dha 300 mg 1 cap capsule (PNV-DHA) Allergy/AdvReac Type Severity Reaction Status Date / Time No Known Allergies Allergy Verified 04/02/25 21:52 Family History Mother IBS (irritable bowel syndrome) Surgical History [place] teeth extracted Social History adopted: No household members: significant other and children housing: house number of children: 1 current occupational status: 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 current occupational exposures/hazards: No pets and animals: Yes pets and animals: dog(s) history of recent travel: No sexually active: Yes Smoking Status: Never smoker alcohol intake: never substance use type: does not use well-balanced diet: daily or most days caffeine: Yes Type: coffee Number of servings: 1 eating out: rarely or never during the past year weight has: remained stable what type of physical activity do you participate in: none ruth/buddhism: None seatbelt use: always do you feel safe at home: Yes 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 Date Name GA/Weeks Outcome Route Bth Weight Infant Gen Labor Lgth Anesthesia Del Locatn Provider FOB 09/19/23 Deuce 39 live - full term 7#10 Male epidural [facility] Francisca Elliott [place] Visit Details Expected Delivery Route/Plan Labor Preferences- CB/BF classes: [] labor support person: [] labor intervention preferences: [] pain management options preferred: [] cut cord/dad catch: [] : [] PP control planned: [] discussed possible routes of delivery and associated risks: [] special requests: [] Plans Covid status: [] Flu vaccine: [] Tdap vaccine: [] Rhogam: [] LARC form signed: [] Problem list reviewed and updated with the most current plan of care details and appropriate orders placed. Relevant counseling for the gestational age provided. Continue routine care and follow up unless otherwise noted in visit notes/problem list details OB Flowsheet Initial Weight: 108 lb Date -???-???-???-???-???-?? ?-???-???-???-???-???-? ??- EGA Weight BP Urine Prot -???-???-???-???-???-?? ?-???-???-???-???-???-? ??- Glucose FHR FuHt Pres Dilation -???-???-???-???-???-?? ?-???-???-???-???-???-? ??- Effaced St Visit Note 01/21/25 -???-???-???-???-???-?? ?-???-???-???-???-???-? ??- 12w 5d 108 lb 4 oz (+4 oz) 102/68 -???-???-???-???-???-?? ?-???-???-???-???-???-? ??- 165 -???-???-???-???-???-?? ?-???-???-???-???-???-? ??- KW- CRL cons with dates. Declines NIPT. MFM US ordered. 02/26/25 -???-???-???-???-???-?? ?-???-???-???-???-???-? ??- 17w 6d 111 lb 4 oz (+3 lb 4 oz) 96/58 Negative -???-???-???-???-???-?? ?-???-???-???-???-???-? ??- Negative 161 -???-???-???-???-???-?? ?-???-???-???-???-???-? ??- -No VB. So me flutters. Nl PN labs. MFM /03/26/25 -???-???-???-???-???-?? ?-???-???-???-???-???-? ??- 21w 6d 116 lb 8 oz (+8 lb 8 oz) 104/66 Negative -???-???-???-???-???-?? ?-???-???-???-???-???-? ??- Negative 155 22 -???-???-???-???-???-?? ?-???-???-???-???-???-? ??- SM- no vb lo f good fm nro egualr ctx ROS Constitutional Constitutional: Reports systems reviewed and no addt'l complaints, except as documented and as per HPI ENT H (more content not included)... Normal [facility] (ROM) Rupture Of Membraneson 04-02-2025 ROM Positive Abnormal Negative [facility] Comment on above: Result Comment: Amni otic fluid present indicates rupture of Membranes. RESULTS CALLED TO JADE GONZALEZ 04/02/25 2244 Louise Crawley. REPORT READ BACK BY SAME. Performed By: #### L 205.1000 ####[facility] [address] [place], [address] Absolute lymphocyte countOrd ered By: Dilcia Das on 04-02-2025 Lymphocytes Auto (Unsp spec) [#/Vol] 2.22 10*3/uL 0.83-4.[address] [facility] Absolute neutrophil countOrd ered By: Dilcia Das on 04-02-2025 Neutrophils (Bld) [#/Vol] 8.9 10*3/uL High 2.0-7.[address] [facility] Activated partial thrombopla stin time (aPTT) in platelet poor plasma by coagulation aOrdered By: Dilcia Das on 04-02-2025 aPTT Coag (PPP) [Time] 25.4 s 24.1-36.2 [facility] Automated blood erythrocyte countOrdered By: Dilcia Das on 04-02-2025 RBC (Bld) [#/Vol] 3.23 10*6/uL Low 4.2-5.4 [facility] Comment on above: Performed By: #### L 100.0100 ####[facility] [address] [place], [place], [id number] Automated blood hematocrit ( percentage)Ordered By: Dilcia Das on 04-02-2025 Hematocrit (Bld) [Volume fraction] 29.8 % Low 37-[address] [facility] Comment on above: Performed By: #### L 100.0100 ####[facility] [address] [place], [place], [id number] Automated lymphocyte count a s percentage of total leukocytesOrdered By: Dilcia Das on 04-02-2025 Lymphocytes/100 WBC Auto (Unsp spec) 17.9 % Low 19-[address] [facility] Basophil percentageOrdered B y: Dilcia Das on 04-02-2025 Basophils/100 WBC (Bld) 0.4 % 0-1 [facility] Comment on above: Performed By: #### L 100.0100 ####[facility] [id number] [place], [place], [phone] Bilirubin Test strip Ql (U)O rdered By: Dilcia Das on 04-02-2025 Bilirubin Ql (U) Negative Negative [facility] CBC W/Diff, Automatedon Absolute Lymph 2.22 X10 3/uL Normal 0.83-4.[address] [facility] Comment on above: Performed By: #### L 100.0100 ####[facility] [address] [place], [address] Absolute Neut 8.9 X10 3/uL High 2.0-7.[address] [facility] Comment on above: Performed By: #### L 100.0100 ####[facility] [address] [place], [address] IG% 0.600 Normal 0.0-0.[address] [facility] Comment on above: Result Comment: IG% - Immature Granulocytes (promyelocytes, myelocytes and metamyelocytes) > 1% indicates that a LEFT SHIFT is Present. Performed By: #### L 100.0100 ####[facility] [address] [place], [address] Lymphocytes/100 WBC (Bld) 17.9 % Low 19-[address] [facility] Comment on above: Performed By: #### L 100.0100 ####[facility] [address] [place], [address] Nucleated RBC (Bld) [#/Vol] 0 10*3/uL Normal 0-[address] [facility] Comment on above: Performed By: #### L 100.0100 ####[facility] [address] [place], [address] RDW SD 46.5 fl High 35.1-43.[address] [facility] Comment on above: Performed By: #### L 100.0100 ####[facility] [address] [place], [address] Eosinophil percentageOrdered By: Dilcia Das on 04-02-2025 Eosinophils/100 WBC (Bld) 1.4 % 0-[address] [facility] Comment on above: Performed By: #### L 100.0100 ####[facility] [address] [place], [address] Erythrocyte distribution wid th ratioOrdered By: Dilcia Das on 04-02-2025 Erythrocyte distribution width (RBC) [Ratio] 13.7 % 11.6-14.[address] [facility] Comment on above: Performed By: #### L 100.0100 ####[facility] [address] [place], [address] Erythrocyte distribution wid th standard deviationOrdered By: Dilcia Das on 04-02-2025 Erythrocyte distribution width (RBC) [Ratio] 46.5 fl High 35.1-43.[address] [facility] Fibrinogenon 04-02-2025 FIBRINOGEN 292 mg/dl Normal 203-[address] [facility] Comment on above: Performed By: #### L 300.4700, L300.4310, M100.2200, L400.0001, BTS, L300.3900 ####[facility] [address] [place], [address] Hemoglobin measurementOrdere d By: Dilcia Das on 04-02-2025 Hemoglobin (Bld) [Mass/Vol] 10.3 g/dL Low 12.0-15.[address] [facility] Comment on above: Performed By: #### L 100.0100 ####[facility] [address] [place], [address] Immature granulocytes/100 WB C Auto (Bld)Ordered By: Dilcia Das on 04-02-2025 Immature granulocytes/100 WBC (Bld) 0.600 % 0.0-0.[address] [facility] Comment on above: IG% - Immature Granu locytes (promyelocytes, myelocytes and metamyelocytes) > 1% indicates that a LEFT SHIFT is Present. International normalized rat io (INR) calculationOrdered By: Dilcia Das on 04-02-2025 INR Coag (Bld) [Relative time] 1.0 {INR} [facility] Ketones Test strip Ql (U)Ord ered By: Dilcia Das on 04-02-2025 Ketones Ql (U) Negative Negative [facility] MCV (mean corpuscular volume ) determinationOrdered By: Dilcia Das on 04-02-2025 MCV (RBC) [Entitic vol] 92.3 fL 81-99 [facility] Comment on above: Performed By: #### L 100.0100 ####[facility] [address] [place], [place], [phone] Mean corpuscular hemoglobin (MCH) determinationOrdered By: Dilcia Das on 04-02-2025 MCH (RBC) [Entitic mass] 31.9 pg 27.0-32.[address] [facility] Comment on above: Performed By: #### L 100.0100 ####[facility] [address] [place], [place], [id number] Mean corpuscular hemoglobin concentration (MCHC) determinationOrdered By: Dilcia Das on 04-02-2025 MCHC (RBC) [Mass/Vol] 34.6 g/dL 32-36 [facility] Comment on above: Performed By: #### L 100.0100 ####[facility] [address] [place], [place], [phone] Mean platelet volume determi nationOrdered By: Dilcia Das on 04-02-2025 Platelet mean volume (Bld) [Entitic vol] 10.1 fL 6.2-12.[address] [facility] Comment on above: Performed By: #### L 100.0100 ####[facility] [address] [place], [place], [phone] Microscopic analysis of urin e for red blood cells (RBC)Ordered By: Dilcia Das on 04-02-2025 Microscopic analysis of urine for red blood cells (RBC) 10-25 SEEN /hpf 0-[address] [facility] Monocyte percentageOrdered B y: Dilcia Das on 04-02-2025 Monocytes/100 WBC (Bld) 8.2 % 0-10 [facility] Comment on above: Performed By: #### L 100.0100 ####[facility] [address] [place], [place], [address] Mucus LM Ql (Urine sed)Order ed By: Dilcia Das on 04-02-2025 Mucus Ql (Urine sed) 0 SEEN /hpf [facility] Neutrophil percentageOrdered By: Dilcia Das on 04-02-2025 Neutrophils/100 WBC (Bld) 71.5 % High 47-[address] [facility] Comment on above: Performed By: #### L 100.0100 ####[facility] [address] [place], [place], [phone] Nitrite Test strip Ql (U)Ord ered By: Dilcia Das on 04-02-2025 Nitrite Ql (U) Negative Negative [facility] Nucleated red blood cell per centageOrdered By: Dilcia Das on 04-02-2025 Nucleated RBC/100 WBC (Bld) [Ratio] 0 % 0-[address] [facility] OB Triage Physician Noteon 0 04-02-2025 OB Triage Physician Note [facility] Medical Records Department [address] [place] [address] OB Triage Physician Note 04/02/25 2321 MR#: [id number] Acct: [id number] Name: FAROOQ TABOR Rep #: [id number] : 2000 24 From: Dilcia Das MD PCP: Care Physician,No Primary Status:REG CLI Y Location: [place] [address]-1 HPI - General HPI Narrative FAROOQ TABOR, is a 24 F who presents with episode of bleeding at home. she had some crmaping and pelvic pressure, followed by passing a clot in the shower, she denies any uti symptoms and no recent trauma or infections. she has had bloody discharge since she has been here, she also had one episode of a gush of fluid but hasn't had any leaking since then. Maternal Data Information MITZI Calculator Estimated Delivery Date Method Current WG Current Estimate 07/31/25 LMP (Certain) 22w 6d Other Estimates 07/28/25 Ultrasound #1 23w 2d PFSH PFS Medical History Chlamydia infection PPH ( hemorrhage) (spontaneous vaginal delivery) Home Medications ???Medication ???Instructions ???Recorded ???Last Taken ???Type Hydrocortisone 2.5% / Lidocaine 5% #1 ea 11/22/24 Unknown Rx ointment (cmpd) multivitamin no.47-iron fum 27 1 cap PO DAILY 01/01/25 04/02/25 0 8:00 History mg-folate no.1 1 mg-dha 300 mg 1 cap capsule (PNV-DHA) Allergy/AdvReac Type Severity Reaction Status Date / Time No Known Allergies Allergy Verified 04/02/25 21:52 Family History Mother IBS (irritable bowel syndrome) Surgical History [place] teeth extracted Social History adopted: No household members: significant other and children housing: house number of children: 1 current occupational status: 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 current occupational exposures/hazards: No pets and animals: Yes pets and animals: dog(s) history of recent travel: No sexually active: Yes Smoking Status: Never smoker alcohol intake: never substance use type: does not use well-balanced diet: daily or most days caffeine: Yes Type: coffee Number of servings: 1 eating out: rarely or never during the past year weight has: remained stable what type of physical activity do you participate in: none ruth/buddhism: None seatbelt use: always do you feel safe at home: Yes 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 Date Name GA/Weeks Outcome Route Bth Weight Gen Labor Lgth Anesthesia Del Locatn Provider FOB 09/19/23 Deuce 39 live - full term 7#10 Male epidural [facility] Francisca Elliott Jase Visit Details Expected Delivery Route/Plan Labor Preferences- CB/BF classes: [] labor support person: [] labor intervention preferences: [] pain management options preferred: [] cut cord/dad catch: [] : [] PP control planned: [] discussed possible routes of delivery and associated risks: [] special requests: [] Plans Covid status: [] Flu vaccine: [] Tdap vaccine: [] Rhogam: [] LARC form signed: [] Problem list reviewed and updated with the most current plan of care details and appropriate orders placed. Relevant counseling for the gestational age provided. Continue routine care and follow up unless otherwise noted in visit notes/problem list details OB Flowsheet Initial Weight: 108 lb Date -???-???-???-???-???-?? ?-???-???-???-???-???-? ??- EGA Weight BP Urine Prot -???-???-???-???-???-?? ?-???-???-???-???-???-? ??- Glucose FHR FuHt Pres Dilation -???-???-???-???-???-?? ?-???-???-???-???-???-? ??- Effaced St Visit Note 01/21/25 -???-???-???-???-???-?? ?-???-???-???-???-???-? ??- 12w 5d 108 lb 4 oz (+4 oz) 102/68 -???-???-???-???-???-?? ?-???-???-???-???-???-? ??- 165 -???-???-???-???-???-?? ?-???-???-???-???-???-? ??- KW- CRL cons with dates. Declines NIPT. [facility] US ordered. 02/26/25 -???-???-???-???-???-?? ?-???-???-???-???-???-? ??- 17w 6d 111 lb 4 oz (+3 lb 4 oz) 96/58 Negative -???-???-???-???-???-?? ?-???-???-???-???-???-? ??- Negative 161 -???-???-???-???-???-?? ?-???-???-???-???-???-? ??- -No VB. So me flutters. Nl PN labs. MFM 03/0503/26/25 -???-???-???-???-???-?? ?-???-???-???-???-???-? ??- 21w 6d 116 lb 8 oz (+8 lb 8 oz) 104/66 Negative -???-???-???-???-???-?? ?-???-???-???-???-???-? ??- Negative 155 22 -???-???-???-???-???-?? ?-???-???-???-???-???-? ??- SM- no vb lo f good fm nro egualr ctx ROS Consti (more content not included)... Normal [facility] Partial Thromboplast Timeon 04-02-2025 aPTT Coag (Bld) [Time] 25.4 s Normal 24.1-36.2 [facility] Comment on above: Performed By: #### L 300.4700, L300.4310, M100.2200, L400.0001, BTS, L300.3900 ####[facility] [address] [place], [place], [phone] Platelet countOrdered By: José Miguel Das on 04-02-2025 Platelets (Bld) [#/Vol] 239 10*3/uL 150-[address] [facility] Comment on above: Performed By: #### L 100.0100 ####[facility] [address] [place], [place], [phone] Protein Test strip Ql (U)Ord ered By: Dilcia Das on 04-02-2025 Protein Ql (U) 15 mg/dl High Negative [facility] Prothrombin Time w/INRon INR Coag (PPP) [Relative time] 1.0 {INR} Normal [facility] Comment on above: Performed By: #### L 300.4700, L300.4310, M100.2200, L400.0001, BTS, L300.3900 ####[facility] [address] [place], [address] Prothrombin timeOrdered By: Dilcia Das on 04-02-2025 PT Coag (PPP) [Time] 12.9 s 11.7-14.9 [facility] Comment on above: Performed By: #### L 300.4700, L300.4310, M100.2200, L400.0001, BTS, L300.3900 ####[facility] [address] [place], [address] Squamous epithelial cells de tection in urine sediment by light microscopyOrdered By: Dilcia Das on 04-02-2025 Epithelial cells.squamous LM Ql (Urine sed) 0-5 SEEN /hpf 5-[address] [facility] Type AND Screenon 04-02-2025 ABO and Rh group Nom (Bld) Blood group A Rh(D) positive Normal [facility] Comment on above: Order Comment: PN Performed By: #### L 300.4700, L300.4310, M100.2200, L400.0001, BTS, L300.3900 ####[facility] [address] [place], [address] Urinalysis, Completeon 04-02 EPI,SQUAMOUS 0-5 SEEN Normal 5-[address] [facility] Comment on above: Order Comment: CLEAN CATCH Performed By: #### L 300.4700, L300.4310, M100.2200, L400.0001, BTS, L300.3900 ####[facility] [address] [place], [address] RBC 10-25 SEEN Normal 0-[address] [facility] Comment on above: Order Comment: CLEAN CATCH Performed By: #### L 300.4700, L300.4310, M100.2200, L400.0001, BTS, L300.3900 ####[facility] [address] [place], [address] WBC 0-5 SEEN Normal 0-[address] [facility] Comment on above: Order Comment: CLEAN CATCH Performed By: #### L 300.4700, L300.4310, M100.2200, L400.0001, BTS, L300.3900 ####[facility] [address] [place], [address] BACTERIA 0 SEEN Normal None Seen [facility] Comment on above: Order Comment: CLEAN CATCH Performed By: #### L 300.4700, L300.4310, M100.2200, L400.0001, BTS, L300.3900 ####[facility] [address] [place], [address] Mucus Ql (Urine sed) 0 SEEN Normal [facility] Comment on above: Order Comment: CLEAN CATCH Performed By: #### L 300.4700, L300.4310, M100.2200, L400.0001, BTS, L300.3900 ####[facility] [address] [place], [address] Urine clarityOrdered By: Kameron Das on 04-02-2025 Clarity (U) Sl. Cloudy Clear [facility] Urine color determinationOrd ered By: Dilcia Das on 04-02-2025 Color (U) Straw Yellow [facility] Urine cultureOrdered By: Kameron Das on 04-02-2025 Bacteria identified Cx Nom (U) Presumptive Lactobacillus sp. Abnormal [facility] Urine glucose detectionOrder ed By: Dilcia Das on 04-02-2025 Glucose Ql (U) Normal mg/dl Normal [facility] Urine leukocyte esterase det ection by dipstickOrdered By: Dilcia Das on 04-02-2025 Leukocyte esterase Test strip Ql (U) 25 /ul High Negative [facility] Urine pHOrdered By: Dilcia kuo on 04-02-2025 pH (U) 6.0 [pH] 5.0 - 8.[address] [facility] Urine sediment bacteria coun t by microscopy (number/high power field)Ordered By: Dilcia Das on 04-02-2025 Bacteria LM.HPF (Urine sed) [#/Area] 0 /[HPF] None Seen [facility] Urine specific gravity measu rementOrdered By: Dilcia Das on 04-02-2025 Specific gravity (U) [Rel density] 1.020 1.002-1.[address] [facility] Urine urobilinogen measureme ntOrdered By: Dilcia Das on 04-02-2025 Urobilinogen Ql (U) Normal mg/dl Normal [facility] White blood cell (WBC) count Ordered By: Dilcia Das on 04-02-2025 WBC (Bld) [#/Vol] 12.4 10*3/uL High 4.4-11.0 [facility] Comment on above: Performed By: #### L 100.0100 ####[facility] [address] [place], [place], [phone] White blood cell countOrdere d By: Dilcia Das on 04-02-2025 White blood cell count 0-5 SEEN /hpf 0-[address] [facility] Laboratory - Chemistry and C hemistry - challengeOrdered By: Dilcia Das on 03-26-2025 Glucose Ql (U) Negative [facility] Laboratory - UrinalysisOrder ed By: Dilcia Das on 03-26-2025 Protein Ql (U) Negative [facility] Fur Mixer Operator Office Visit Reporton 03-26-2025 Fur Mixer Operator Office Visit Report [facility] [address], [address] [place] [address] OFFICE VISIT Date of Service: 03/26/25 MR#: [id number] Acct: [id number] Name: FAROOQ TABOR Rep #: [id number] : 2000 Provider: Dr. Dilcia beard MD Age/Sex: 24/F [place] [facility] [place]: Signed Intake Vital Signs 01/21/25 08:48 02/26/25 09:31 03/26/25 10:09 Height 5 ft 1 in 5 ft 1 in 5 ft 1 in Weight: 116 lb 8 oz BMI 22.0 BP 104/66 Intake Visit Reasons: 22wk ob [employer]iz[employer] Software Developer Required: No Is patient in pain?: No Feel stressed/tense/nervous/ anxious/difficulty sleeping: not at all Allergies No Known Allergies Allergy (Verified 03/26/25 10:11) Medications ???Medication ???Instructions ???Recorded ???Confirmed ???Type Hydrocortisone 2.5% / Lidocaine 5% #1 ea 11/22/24 03/26/25 Rx ointment (cmpd) docusate sodium 100 mg capsule 100 mg PO QDAY 01/01/25 03/26/25 H istory (Colace) multivitamin no.47-iron fum 27 cap PO 01/01/25 03/26/25 History mg-folate no.1 1 mg-dha 300 mg capsule (PNV-DHA) Last Menstrual Period: 10/24/24 Zika: Zika virus screening: Negative : No PFSH PFSH Medical History Chlamydia infection PPH ( hemorrhage) (spontaneous vaginal delivery) Surgical History [place] teeth extracted Family History Mother IBS (irritable bowel syndrome) Social History adopted: No household members: significant other and children housing: house number of children: 1 current occupational status: 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 current occupational exposures/hazards: No pets and animals: Yes pets and animals: dog(s) history of recent travel: No sexually active: Yes Smoking Status: Never smoker alcohol intake: never substance use type: does not use well-balanced diet: daily or most days caffeine: Yes Type: coffee Number of servings: 1 eating out: rarely or never during the past year weight has: remained stable what type of physical activity do you participate in: none ruth/buddhism: None seatbelt use: always do you feel safe at home: Yes 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 Date Name GA/Weeks Outcome Route Bth Weight Gen Labor Lgth Anesthesia Del Locatn Provider FOB 09/19/23 Deuce 39 live - full term 7#10 Male epidural [facility] Francisca dsay Elliott [place] HPI 22wk ob Details: FAROOQ TABOR is a 24 year old who presents for routine OB visit. OB Visit MITZI Calculator Estimated Delivery Date Method Current WG Current Estimate 07/31/25 LMP (Certain) 21w 6d Other Estimates 07/28/25 Ultrasound #1 22w 2d Expected Delivery Route/Plan Labor Preferences- CB/BF classes: [] labor support person: [] labor intervention preferences: [] pain management options preferred: [] cut cord/dad catch: [] : [] PP control planned: [] discussed possible routes of delivery and associated risks: [] special requests: [] Specific Issue/Plans Covid status: [] Flu vaccine: [] Tdap vaccine: [] Rhogam: [] LARC form signed: [] Problem list reviewed and updated with the most current plan of care details and appropriate orders placed. Relevant counseling for the gestational age provided. Continue routine care and follow up unless otherwise noted in visit notes/problem list details Initial Weight: 108 lb Date -???-???-???-???-???-?? ?-???-???-???-???-???-? ??- EGA Weight BP Urine Prot -???-???-???-???-???-?? ?-???-???-???-???-???-? ??- Glucose FHR FuHt Pres Dilation -???-???-???-???-???-?? ?-???-???-???-???-???-? ??- Effaced St Visit Note 01/21/25 -???-???-???-???-???-?? ?-???-???-???-???-???-? ??- 12w 5d 108 lb 4 oz (+4 oz) 102/68 -???-???-???-???-???-?? ?-???-???-???-???-???-? ??- 165 -???-???-???-???-???-?? ?-???-???-???-???-???-? ??- KW- CRL cons with dates. Declines NIPT. [facility] US ordered. 02/26/25 -???-???-???-???-???-?? ?-???-???-???-???-???-? ??- 17w 6d 111 lb 4 oz (+3 lb 4 oz) 96/58 Negative -???-???-???-???-???-?? ?-???-???-???-???-???-? ??- Negative 161 -???-???-???-???-???-?? ?-???-???-???-???-???-? ??- MH-No VB. So me flutters. Nl PN labs. [facility] 5/6 03/26/25 -???-???-???-???-???-?? ?-???-???-???-???-???-? ??- 21w 6d 116 lb 8 oz (+8 lb 8 oz) 104/66 Negative -???-???-???-???-???-?? ?-???-???-???-???-???-? ??- Negati (more content not included)... Normal [facility] Laboratory - Chemistry and C hemistry - challengeOrdered By: Esther Vernon on 02-26-2025 Glucose Ql (U) Negative [facility] Laboratory - UrinalysisOrder ed By: Esther Vernon on 02-26-2025 Protein Ql (U) Negative [facility] Fur Mixer Operator Office Visit Reporton 02-26-2025 Fur Mixer Operator Office Visit Report [facility] [address], [address] [place] [address] OFFICE VISIT Date of Service: 02/26/25 MR#: [id number] Acct: [id number] Name: FAROOQ TABOR Rep #: [id number] : 2000 Provider: HERNÁN christiansen Age/Sex: 24/F [place] [facility] [place] Status: Signed Intake Vital Signs 10/28/23 10:45 01/21/25 08:48 02/26/25 09:31 Height 5 ft 1 in 5 ft 1 in 5 ft 1 in Weight: 111 lb 4 oz BMI 20.9 BP 96/58 L Intake Visit Reasons: 18wk ob [employer]iz[employer] Software Developer Required: No Is patient in pain?: No Allergies No Known Allergies Allergy (Verified 02/26/25 09:41) Medications ???Medication ???Instructions ???Recorded ???Confirmed ???Type Hydrocortisone 2.5% / Lidocaine 5% #1 ea 11/22/24 02/26/25 Rx ointment (cmpd) docusate sodium 100 mg capsule 100 mg PO QDAY 01/01/25 02/26/25 H istory (Colace) multivitamin no.47-iron fum 27 cap PO 01/01/25 02/26/25 History mg-folate no.1 1 mg-dha 300 mg capsule (PNV-DHA) Last Menstrual Period: 10/24/24 Zika: Zika virus screening: Negative : No PFSH PFSH Medical History Chlamydia infection PPH ( hemorrhage) (spontaneous vaginal delivery) Surgical History [place] teeth extracted Family History Mother IBS (irritable bowel syndrome) Social History adopted: No household members: significant other and children housing: house number of children: 1 current occupational status: 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 current occupational exposures/hazards: No pets and animals: Yes pets and animals: dog(s) history of recent travel: No sexually active: Yes Smoking Status: Never smoker alcohol intake: never substance use type: does not use well-balanced diet: daily or most days caffeine: Yes Type: coffee Number of servings: 1 eating out: rarely or never during the past year weight has: remained stable what type of physical activity do you participate in: none ruth/buddhism: None seatbelt use: always do you feel safe at home: Yes 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 Date Name GA/Weeks Outcome Route Bth Weight Infant Gen Labor Lgth Anesthesia Del Locatn Provider FOB 09/19/23 Deuce 39 live - full term 7#10 Male epidural [facility] Francisca mireya Elliott [place] HPI 18wk ob Details: FAROOQ TABOR is a 24 year old who presents for routine OB visit. OB Visit MITZI Calculator Estimated Delivery Date Method Current WG Current Estimate 07/31/25 LMP (Certain) 17w 6d Other Estimates 07/28/25 Ultrasound #1 18w 2d Expected Delivery Route/Plan Labor Preferences- CB/BF classes: [] labor support person: [] labor intervention preferences: [] pain management options preferred: [] cut cord/dad catch: [] : [] PP control planned: [] discussed possible routes of delivery and associated risks: [] special requests: [] Specific Issue/Plans Covid status: [] Flu vaccine: [] Tdap vaccine: [] Rhogam: [] LARC form signed: [] Problem list reviewed and updated with the most current plan of care details and appropriate orders placed. Relevant counseling for the gestational age provided. Continue routine care and follow up unless otherwise noted in visit notes/problem list details Initial Weight: 108 lb Date -???-???-???-???-???-?? ?-???-???-???-???-???-? ??- EGA Weight BP Urine Prot -???-???-???-???-???-?? ?-???-???-???-???-???-? ??- Glucose FHR FuHt Pres Dilation -???-???-???-???-???-?? ?-???-???-???-???-???-? ??- Effaced St Visit Note 01/21/25 -???-???-???-???-???-?? ?-???-???-???-???-???-? ??- 12w 5d 108 lb 4 oz (+4 oz) 102/68 -???-???-???-???-???-?? ?-???-???-???-???-???-? ??- 165 -???-???-???-???-???-?? ?-???-???-???-???-???-? ??- KW- CRL cons with dates. Declines NIPT. MFM US ordered. 02/26/25 -???-???-???-???-???-?? ?-???-???-???-???-???-? ??- 17w 6d 111 lb 4 oz (+3 lb 4 oz) 96/58 Negative -???-???-???-???-???-?? ?-???-???-???-???-???-? ??- Negative 161 -???-???-???-???-???-?? ?-???-???-???-???-???-? ??- MH-No VB. So me flutters. Nl PN labs. MFM US 03/05 ACOG First Trimester First Trimester: Desire for , Alcohol, Tobacco Cessation, Illicit/Recreational Drug/Substance Use, Intimate Partner Violence, Barriers to care, Unstable Housing, Communication Barriers, Environme (more content not included)... Normal [facility] PAP I-G w/rfx hrHPV-Aptimaon 01-24-2025 ADEQ Comment Normal . [facility] Comment on above: Order Comment: Speci men Comment: [id number] Comment: Source.............Cervix;EndocervixSpecimen Comment: Other..............Specimen Comment: No. of containers..01 ThinPrep Vial Result Comment: Sati sfactory for evaluation. Endocervical and/or squamous metaplastic cells (endocervical component) are present. Performed By: #### M 100.2200, L7400.0353, L7000.1800 ####[facility] [address] [place], [place], [id number] COMM . Normal . [facility] Comment on above: Order Comment: Speci men Comment: [id number] Comment: Source.............Cervix;EndocervixSpecimen Comment: Other..............Specimen Comment: No. of containers..01 ThinPrep Vial Performed By: #### M 100.2200, L7400.0353, L7000.1800 ####[facility] [address] [place], [place], [id number] COMMENT Comment Normal . [facility] Comment on above: Order Comment: Speci men Comment: [id number] Comment: Source.............Cervix;EndocervixSpecimen Comment: Other..............Specimen Comment: No. of containers..01 ThinPrep Vial Result Comment: This liquid based ThinPrep(R) pap test was screened with the use of an image guided system. Performed By: #### M 100.2200, L7400.0353, L7000.1800 ####[facility] [address] [place], [place], [phone] DIAG Comment Normal . [facility] Comment on above: Order Comment: Speci men Comment: [id number] Comment: Source.............Cervix;EndocervixSpecimen Comment: Other..............Specimen Comment: No. of containers..01 ThinPrep Vial Result Comment: NEGA TIVE FOR INTRAEPITHELIAL LESION OR MALIGNANCY. Performed By: #### M 100.2200, L7400.0353, L7000.1800 ####[facility] [address] [place], [place], [address] HPV RFLX Comment Normal . [facility] Comment on above: Order Comment: Speci men Comment: [id number] Comment: Source.............Cervix;EndocervixSpecimen Comment: Other..............Specimen Comment: No. of containers..01 ThinPrep Vial Result Comment: The HPV DNA reflex criteria were not met with this specimen result therefore, no HPV testing was performed. Performed at: [facility] [address], [place] [id number] Rn Perinatal: Bianca Cervantes PhD, Phone: [phone] Performed at: - [address] [id number] Rn Perinatal: Sulema Constantino MD, Phone: [phone] Performed By: #### M 100.2200, L7400.0353, L7000.1800 ####[facility] [address] [place], [place], [id number] PAPSMR Comment Normal . [facility] Comment on above: Order Comment: Speci men Comment: [id number] Comment: Source.............Cervix;EndocervixSpecimen Comment: Other..............Specimen Comment: No. of containers..01 ThinPrep Vial Result Comment: The Pap smear is a screening test designed to aid in the detection of premalignant and malignant conditions of the uterine cervix. It is not a diagnostic procedure and should not be used as the sole means of detecting cervical cancer. Both false-positive and false-negative reports do occur. Performed By: #### M 100.2200, L7400.0353, L7000.1800 ####[facility] [address] [place], [place], [phone] PERFORM Comment Normal . [facility] Comment on above: Order Comment: Speci men Comment: [id number] Comment: Source.............Cervix;EndocervixSpecimen Comment: Other..............Specimen Comment: No. of containers..01 ThinPrep Vial Result Comment: Myriam Joseph, Executive Administrative Assistant (ASCP) Performed By: #### M 100.2200, L7400.0353, L7000.1800 ####[facility] [address] [place], [address] Chlamydia/GC LEONCIO aptimaon CHLAMY,NUC ACID Negative Normal Negative [facility] Comment on above: Performed By: #### M 100.2200, L7400.0353, L7000.1800 ####[facility] [address] [place], [place], [id number] GC BY NUC ACID Negative Normal Negative [facility] Comment on above: Result Comment: Perf ormed at: =G - [facility] [address] [id number] Rn Perinatal: Sulema Constantino MD, Phone: [phone] Performed By: #### M 100.2200, L7400.0353, L7000.1800 ####[facility] [address] [place], [address] Urine Cultureon 01-22-2025 URC Culture exhibits no growth. Normal [facility] Comment on above: Performed By: #### M 100.2200, L7400.0353, L7000.1800 ####[facility] [address] [place], [address] Absolute lymphocyte countOrd ered By: Carmella Bone on 01-21-2025 Lymphocytes Auto (Unsp spec) [#/Vol] 1.57 10*3/uL 0.83-4.[address] [facility] Absolute neutrophil countOrd ered By: Carmella Bone on 01-21-2025 Neutrophils (Bld) [#/Vol] 4.9 10*3/uL 2.0-7.[address] [facility] Automated lymphocyte count a s percentage of total leukocytesOrdered By: Carmella Bone on 01-21-2025 Lymphocytes/100 WBC Auto (Unsp spec) 21.7 % 19-[address] [facility] Basophil percentageOrdered B y: Carmella Bone on 01-21-2025 Basophils/100 WBC (Bld) 0.8 % 0-1 [facility] C. trachomatis rRNA LEONCIO+prob e Ql (Unsp spec)Ordered By: Carmella Bone on 01-21-2025 Chlamydia DNA (LEONCIO) Negative Negative [facility] CBC W/Diff, Automatedon 12-30 Absolute Lymph 1.57 X10 3/uL Normal 0.83-4.[address] [facility] Comment on above: Performed By: #### L 3890.6006, L100.0100, L509.4006, BTS, L509.8002, L3890.6301, L3890.6102 #### [facility] Laboratory [address] [place], [address] Absolute Neut 4.9 X10 3/uL Normal 2.0-7.[address] [facility] Comment on above: Performed By: #### L 3890.6006, L100.0100, L509.4006, BTS, L509.8002, L3890.6301, L3890.6102 #### [facility] [address] [place], [address] Basophils/100 WBC (Bld) 0.8 % Normal 0-1 [facility] Comment on above: Performed By: #### L 3890.6006, L100.0100, L509.4006, BTS, L509.8002, L3890.6301, L3890.6102 #### [facility] [address] [place], [address] Eosinophils/100 WBC (Bld) 2.1 % Normal 0-[address] [facility] Comment on above: Performed By: #### L 3890.6006, L100.0100, L509.4006, BTS, L509.8002, L3890.6301, L3890.6102 #### [facility] [address] [place], [address] Erythrocyte distribution width (RBC) [Ratio] 13.0 % Normal 11.6-14.[address] [facility] Comment on above: Performed By: #### L 3890.6006, L100.0100, L509.4006, BTS, L509.8002, L3890.6301, L3890.6102 #### [facility] [address] [place], [address] Hematocrit (Bld) [Volume fraction] 37.3 % Normal 37-[address] [facility] Comment on above: Performed By: #### L 3890.6006, L100.0100, L509.4006, BTS, L509.8002, L3890.6301, L3890.6102 #### [facility] [address] [place], [address] Hemoglobin (Bld) [Mass/Vol] 12.7 g/dL Normal 12.0-15.[address] [facility] Comment on above: Performed By: #### L 3890.6006, L100.0100, L509.4006, BTS, L509.8002, L3890.6301, L3890.6102 #### [facility] [address] [place], [address] IG% 0.300 Normal 0.0-0.[address] [facility] Comment on above: Result Comment: IG% - Immature Granulocytes (promyelocytes, myelocytes and metamyelocytes) > 1% indicates that a LEFT SHIFT is Present. Performed By: #### L 3890.6006, L100.0100, L509.4006, BTS, L509.8002, L3890.6301, L3890.6102 #### [facility] [address] [place], [address] Lymphocytes/100 WBC (Bld) 21.7 % Normal 19-[address] [facility] Comment on above: Performed By: #### L 3890.6006, L100.0100, L509.4006, BTS, L509.8002, L3890.6301, L3890.6102 #### [facility] [address] [place], [address] MCH (RBC) [Entitic mass] 30.9 pg Normal 27.0-32.[address] [facility] Comment on above: Performed By: #### L 3890.6006, L100.0100, L509.4006, BTS, L509.8002, L3890.6301, L3890.6102 #### [facility] [address] [place], [address] MCHC (RBC) [Mass/Vol] 34.0 g/dL Normal 32-36 [facility] Comment on above: Performed By: #### L 3890.6006, L100.0100, L509.4006, BTS, L509.8002, L3890.6301, L3890.6102 #### [facility] [address] [place], [address] MCV (RBC) [Entitic vol] 90.8 fL Normal 81-99 [facility] Comment on above: Performed By: #### L 3890.6006, L100.0100, L509.4006, BTS, L509.8002, L3890.6301, L3890.6102 #### [facility] [address] [place], [address] Monocytes/100 WBC (Bld) 7.3 % Normal 0-10 [facility] Comment on above: Performed By: #### L 3890.6006, L100.0100, L509.4006, BTS, L509.8002, L3890.6301, L3890.6102 #### [facility] [address] [place], [address] Neutrophils/100 WBC (Bld) 67.8 % Normal 47-[address] [facility] Comment on above: Performed By: #### L 3890.6006, L100.0100, L509.4006, BTS, L509.8002, L3890.6301, L3890.6102 #### [facility] [address] [place], [address] Nucleated RBC (Bld) [#/Vol] 0 10*3/uL Normal 0-[address] [facility] Comment on above: Performed By: #### L 3890.6006, L100.0100, L509.4006, BTS, L509.8002, L3890.6301, L3890.6102 #### [facility] [address] [place], [address] Platelet mean volume (Bld) [Entitic vol] 10.7 fL Normal 6.2-12.[address] [facility] Comment on above: Performed By: #### L 3890.6006, L100.0100, L509.4006, BTS, L509.8002, L3890.6301, L3890.6102 #### [facility] [address] [place], [address] Platelets (Bld) [#/Vol] 265 10*3/uL Normal 150-[address] [facility] Comment on above: Performed By: #### L 3890.6006, L100.0100, L509.4006, BTS, L509.8002, L3890.6301, L3890.6102 #### [facility] [address] [place], [address] RBC (Bld) [#/Vol] 4.11 10*6/uL Low 4.2-5.4 [facility] Comment on above: Performed By: #### L 3890.6006, L100.0100, L509.4006, BTS, L509.8002, L3890.6301, L3890.6102 #### [facility] [address] [place], [address] RDW SD 42.6 fl Normal 35.1-43.[address] [facility] Comment on above: Performed By: #### L 3890.6006, L100.0100, L509.4006, BTS, L509.8002, L3890.6301, L3890.6102 #### [facility] [address] [place], [address] WBC (Bld) [#/Vol] 7.2 10*3/uL Normal 4.4-11.0 [facility] Comment on above: Performed By: #### L 3890.6006, L100.0100, L509.4006, BTS, L509.8002, L3890.6301, L3890.6102 #### [facility] [address] [place], [place], [id number] Cervical or vagninal specime n microscopic examination by cytology stain (reported asOrdered By: Carmella Bone on 01-21-2025 Cytology report Cyto stain Doc (Cvx/Vag) Comment . [facility] Comment on above: The Pap smear is a s creening test designed to aid in thedetection of premalignant and malignant conditions of theuterine cervix. It is not a diagnostic procedure andshould not be used as the sole means of detecting cervicalcancer. Both false-positive and false-negative reports dooccur. Chlamydia trachomatis rRNA d etection by probe and target amplification methodOrdered By: Carmella Bone on 01-21-2025 C. trachomatis rRNA LEONCIO+probe Ql (Unsp spec) Negative Negative [facility] Skin Diving Teacher Cyto stain Nom (C vx/Vag) [ID]Ordered By: Carmella Bone on 01-21-2025 Pap Smear Performed By Comment . [facility] Comment on above: Anju Joseph, Executive Administrative Assistant (ASCP) Cytology report Cyto stain D oc (Cvx/Vag)Ordered By: Carmella Bone on 01-21-2025 Thin Prep Pap Smear Comment . [facility] Comment on above: The Pap smear is a s creening test designed to aid in thedetection of premalignant and malignant conditions of theuterine cervix. It is not a diagnostic procedure andshould not be used as the sole means of detecting cervicalcancer. Both false-positive and false-negative reports dooccur. Eosinophil percentageOrdered By: Carmella Bone on 01-21-2025 Eosinophils/100 WBC (Bld) 2.1 % 0-[address] [facility] Erythrocyte distribution wid th ratioOrdered By: Carmella Bone on 01-21-2025 Erythrocyte distribution width (RBC) [Ratio] 13.0 % 11.6-14.[address] [facility] Erythrocyte distribution wid th standard deviationOrdered By: Carmella Bone on 01-21-2025 Erythrocyte distribution width (RBC) [Entitic vol] 42.6 fL 35.1-43.[address] [facility] Erythrocyte distribution width (RBC) [Ratio] 42.6 fl 35.1-43.[address] [facility] HBV surface Ag Ql (S)Ordered By: Carmella Bone on 01-21-2025 Hepatitis B Surface Antigen Non-Reactive Nonreactive [facility] Comment on above: Reactive: Presumptiv e evidence of HBV. Repeatedly reactive samples must be confirmed using a neutralization test ([employer] HBsAg Confirmatory Test)Non-Reactive: HBsAg not detected; does not exclude the possibility of exposure to HBV Hematocrit Auto (Bld) [Volum e fraction]Ordered By: Carmella Bone on 01-21-2025 Hematocrit (Bld) [Volume fraction] 37.3 % 37-[address] [facility] Hemoglobin measurementOrdere d By: Carmella Bone on 01-21-2025 Hemoglobin (Bld) [Mass/Vol] 12.7 g/dL 12.0-15.[address] [facility] Hepatitis C antibodyOrdered By: Carmella Bone on 01-21-2025 Hepatitis C Antibody Non-Reactive Nonreactive [facility] Comment on above: Reactive: Presumptiv e evidence of antibodies to HCV. Follow CDC recommendations for supplemental testing.Non-Reactive: Antibodies to HCV were not detected; does not exclude the possibility of exposure to HCVReactive Results are presumptive evidence of antibodies to HCV. Follow CDC recommendations for supplemental testing.Order confirmation testing: HCV Quant by PCR testing - HCVPCR #[id number] Non Reactive: < 0.8 Equivocal: >/= 0.8 to < 1.0 Reactive: >/= 1.0The CDC requires that a reactive/equivocal HCV antibody result be sent out for confirmation. HCV Quant by PCR testing. Image-guided ThinPrep PapOrd ered By: Carmella Bone on 03-24-2025 Pap Smear Note Comment . [facility] Comment on above: This liquid based Th inPrep(R) pap test was screened withthe use of an image guided system. Image-guided liquid-based Pa pOrdered By: Carmella Bone on 01-21-2025 Pap Smear Diagnosis Comment . [facility] Comment on above: NEGATIVE FOR INTRAEP ITHELIAL LESION OR MALIGNANCY. Image-guided liquid-based ce rvical Pap w high-risk HPV+reflex to HPV 16+18Ordered By: Carmella Bone on 01-21-2025 Human Papillomavirus Screen Comment . [facility] Comment on above: The HPV DNA reflex c riteria were not met with this specimenresult therefore, no HPV testing was performed.Performed at: [facility] [place] [id number] Director: Bianca Cervantes PhD, Phone: [phone] at: WB - [facility] [id number] Director: Sulema Constantino MD, Phone: [phone] Immature granulocytes/100 WB C Auto (Bld)Ordered By: Carmella Bone on 01-21-2025 Immature granulocytes/100 WBC (Bld) 0.300 % 0.0-0.[address] [facility] Comment on above: IG% - Immature Granu locytes (promyelocytes, myelocytes and metamyelocytes) > 1% indicates that a LEFT SHIFT is Present. L3890.6006on 01-21-2025 HIV Non-Reactive Normal Nonreactive [facility] Comment on above: Result Comment: Non- Reactive Reactive Repeatedly reactive samples must be confirmed according to CDC recommended confirmatory algorithms. The subresults for either HIVAG or AHIV can be used as an aid in the selection of the confirmation algorithm for reactive samples. Send out specimens with Reactive results to [facility] for confirmation. Order the HIV antibody detection and differentiation: [id number] Performed By: #### L 3890.6006, L100.0100, L509.4006, BTS, L509.8002, L3890.6301, L3890.6102 #### [facility] [address] [place], [address] L3890.6102on 01-21-2025 HEP B Surf Ag Non-Reactive Normal Nonreactive [facility] Comment on above: Result Comment: Reac tive: Presumptive evidence of HBV. Repeatedly reactive samples must be confirmed using a neutralization test ([employer] HBsAg Confirmatory Test) Non-Reactive: HBsAg not detected; does not exclude the possibility of exposure to HBV Performed By: #### L 3890.6006, L100.0100, L509.4006, BTS, L509.8002, L3890.6301, L3890.6102 #### [facility] [address] [facility] [place], [place], [id number] L3890.6301on 01-21-2025 Hepatitis C Ab Non-Reactive Normal Nonreactive [facility] Comment on above: Result Comment: Reac tive: Presumptive evidence of antibodies to HCV. Follow CDC recommendations for supplemental testing. Non-Reactive: Antibodies to HCV were not detected; does not exclude the possibility of exposure to HCV Reactive Results are presumptive evidence of antibodies to HCV. Follow CDC recommendations for supplemental testing. Order confirmation testing: HCV Quant by PCR testing - HCVPCR #[id number] Non Reactive: < 0.8 Equivocal: >/= 0.8 to < 1.0 Reactive: >/= 1.0 The CDC requires that a reactive/equivocal HCV antibody result be sent out for confirmation. HCV Quant by PCR testing. Performed By: #### L 3890.6006, L100.0100, L509.4006, BTS, L509.8002, L3890.6301, L3890.6102 #### [facility] [address] [facility] [place], [place], [address] L509.4006on 01-21-2025 Rubella IgG REAC Normal Nonreactive [facility] Comment on above: Result Comment: Anti body Result: Interpretation Non-Reactive: Non-Immune Reactive: Immune The following results were obtained with the [employer] Rubella IgG assay. Results from assays of other manufacturers cannot be used interchangeably. Performed By: #### L 3890.6006, L100.0100, L509.4006, BTS, L509.8002, L3890.6301, L3890.6102 #### [facility] [address] [place], [address] L509.8002on 01-21-2025 Syphilis Abs Non-Reactive Normal Nonreactive [facility] Comment on above: Performed By: #### L 3890.6006, L100.0100, L509.4006, BTS, L509.8002, L3890.6301, L3890.6102 #### [facility] [address] [place], [address] Laboratory - CytologyOrdered By: Carmella Bone on 01-21-2025 Skin Diving Teacher Cyto stain Nom (Cvx/Vag) [ID] Comment . [facility] Comment on above: Anju Joseph, Executive Administrative Assistant (ASCP) Laboratory - Microbiology an d Antimicrobial susceptibilityOrdered By: Carmella Bone on 01-21-2025 HBV surface Ag Ql (S) Non-Reactive Nonreactive [facility] Comment on above: Reactive: Presumptiv e evidence of HBV. Repeatedly reactive samples must be confirmed using a neutralization test ([employer] HBsAg Confirmatory Test)Non-Reactive: HBsAg not detected; does not exclude the possibility of exposure to HBV Laboratory - Miscellaneous t estsOrdered By: Carmella Bone on 01-21-2025 Service comment (Unsp spec) [Interp] . . [facility] Lymphocytes Auto (Unsp spec) [#/Vol]Ordered By: Carmella Bone on 01-21-2025 Lymphocytes (Bld) [#/Vol] 1.57 10*3/uL 0.83-4.[address] [facility] Lymphocytes/100 WBC Auto (Un sp spec)Ordered By: Carmella Bone on 01-21-2025 Lymphocytes/100 WBC (Bld) 21.7 % 19-[address] [facility] MCV (mean corpuscular volume ) determinationOrdered By: Carmella Bone on 01-21-2025 MCV (RBC) [Entitic vol] 90.8 fL 81-99 [facility] Mean corpuscular hemoglobin (MCH) determinationOrdered By: Carmella Bone on 01-21-2025 MCH (RBC) [Entitic mass] 30.9 pg 27.0-32.[address] [facility] Mean corpuscular hemoglobin concentration (MCHC) determinationOrdered By: Carmella Bone on 01-21-2025 MCHC (RBC) [Mass/Vol] 34.0 g/dL 32-36 [facility] Mean platelet volume determi nationOrdered By: Carmella Bone on 01-21-2025 Platelet mean volume (Bld) [Entitic vol] 10.7 fL 6.2-12.[address] [facility] Monocyte percentageOrdered B y: Carmella Bone on 01-21-2025 Monocytes/100 WBC (Bld) 7.3 % 0-10 [facility] Neisseria gonorrhoeae nuclei c acid detection by amplified probe techniqueOrdered By: Carmella Bone on 01-21-2025 N. gonorrhoeae DNA LEONCIO+probe Ql (Unsp spec) Negative Negative [facility] Comment on above: Performed at: =[address] [id number] Director: Sulema Constantino MD, Phone: [phone] Neutrophil percentageOrdered By: Carmella Bone on 01-21-2025 Neutrophils/100 WBC (Bld) 67.8 % 47-[address] [facility] No Panel InformationOrdered By: Carmella Bone on 01-21-2025 Pap Smear Specimen Adequacy Comment . [facility] Comment on above: Satisfactory for lakshmi luation. Endocervical and/or squamous metaplasticcells (endocervical component) are present. HIV (1&2) Antibody Non-Reactive Nonreactive [facility] Comment on above: Non-ReactiveReactive Repeatedly reactive samples must be confirmed according to CDC recommended confirmatory algorithms. The subresults for either HIVAG or AHIV can be used as an aid in the selection of the confirmation algorithm for reactive samples.Send out specimens with Reactive results to [facility] for confirmation.Order the HIV antibody detection and differentiation: #[id number] Nucleated red blood cell per centageOrdered By: Carmella Bone on 01-21-2025 Nucleated RBC/100 WBC (Bld) [Ratio] 0 % 0-[address] [facility] Fur Mixer Operator Office Visit Reporton 01-21-2025 Fur Mixer Operator Office Visit Report [facility]'[address], [address] [place] [address] OFFICE VISIT Date of Service: 01/21/25 MR#: [id number] Acct: [id number] Name: FAROOQ TABOR Rep #: [id number] : 2000 Provider: CARLOS Nowak ams Age/Sex: 24/F [place] [facility] [place]: Signed Intake Vital Signs 10/28/23 10:45 01/21/25 08:48 Height 5 ft 1 in 5 ft 1 in Weight: 108 lb 4 oz BMI 20.4 BP 102/68 Intake Visit Reasons: NOB LMP 10/24 Chief Complaint: New OB Is patient in pain?: No Allergies No Known Allergies Allergy (Verified 01/21/25 08:50) Medications ???Medication ???Instructions ???Recorded ???Confirmed ???Type Hydrocortisone 2.5% / Lidocaine 5% #1 ea 11/22/24 01/21/25 Rx ointment (cmpd) docusate sodium 100 mg capsule 100 mg PO QDAY 01/01/25 01/21/25 H istory (Colace) multivitamin no.47-iron fum 27 cap PO 01/01/25 01/21/25 History mg-folate no.1 1 mg-dha 300 mg capsule (PNV-DHA) Last Menstrual Period: 10/24/24 : No PFSH PFSH Medical History Chlamydia infection PPH ( hemorrhage) (spontaneous vaginal delivery) Surgical History [place] teeth extracted Family History Mother IBS (irritable bowel syndrome) Social History adopted: No household members: significant other and children housing: house number of children: 1 current occupational status: 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 current occupational exposures/hazards: No pets and animals: Yes pets and animals: dog(s) history of recent travel: No sexually active: Yes Smoking Status: Never smoker alcohol intake: never substance use type: does not use well-balanced diet: daily or most days caffeine: Yes Type: coffee Number of servings: 1 eating out: rarely or never during the past year weight has: remained stable what type of physical activity do you participate in: none ruth/buddhism: None seatbelt use: always do you feel safe at home: Yes 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 Date Name GA/Weeks Outcome Route Bth Weight Gen Labor Lgth Anesthesia Del Locatn Provider FOB 09/19/23 Deuce 39 live - full term 7#10 Male epidural [facility] Francisca dsay Elliott [place] HPI NOB LMP 10/24 Details: FAROOQ TABOR is a 24 year old who presents for New OB visit. OB Visit MITZI Calculator Estimated Delivery Date Method Current WG Current Estimate 07/31/25 LMP (Certain) 12w 5d Other Estimates 07/28/25 Ultrasound #1 13w 1d Comments: HIV: Urine Culture: Sequential Screen: NIPT Screen: Estimated Due Date: 07/31/25 Expected Delivery Route/Plan Labor Preferences- CB/BF classes: [] labor support person: [] labor intervention preferences: [] pain management options preferred: [] cut cord/dad catch: [] : [] PP control planned: [] discussed possible routes of delivery and associated risks: [] special requests: [] Specific Issue/Plans Covid status: [] Flu vaccine: [] Tdap vaccine: [] Rhogam: [] LARC form signed: [] Problem list reviewed and updated with the most current plan of care details and appropriate orders placed. Relevant counseling for the gestational age provided. Continue routine care and follow up unless otherwise noted in visit notes/problem list details Initial Weight: 108 lb Date -???-???-???-???-???-?? ?-???-???-???-???-???-? ??- EGA Weight BP Urine Prot -???-???-???-???-???-?? ?-???-???-???-???-???-? ??- Glucose FHR FuHt Pres Dilation -???-???-???-???-???-?? ?-???-???-???-???-???-? ??- Effaced St Visit Note 01/21/25 -???-???-???-???-???-?? ?-???-???-???-???-???-? ??- 12w 5d 108 lb 4 oz (+4 oz) 102/68 -???-???-???-???-???-?? ?-???-???-???-???-???-? ??- 165 -???-???-???-???-???-?? ?-???-???-???-???-???-? ??- KW- CRL cons with dates. Declines NIPT. MFM US ordered. Menstrual History Last Menstrual Period: 10/24/24 Reported LMP: definite Normal amount/duration: Yes Frequency in days: 28 On hormonal BC at conception: No hCG+: 11/21/24 Antepartum Record Genetic Screening: Congenital Heart Defect: Other, Neural Tube Defect: Other, Hemoglobinopathy Or Carrier: Other, Cystic Fibrosis: Other, Chromosome Abnormality: Other, Kobe-Sachs: Other, Hemophilia: Other, Intellectual Disability/Autism: Other, Recurrent Loss/Stillbirth: Other, Other (more content not included)... Normal [facility] Platelet countOrdered By: Mina Bone on 01-21-2025 Platelets (Bld) [#/Vol] 265 10*3/uL 150-[address] [facility] RBC Auto (Bld) [#/Vol]Ordere d By: Carmella Bone on 01-21-2025 RBC (Bld) [#/Vol] 4.11 10*6/uL Low 4.2-5.4 [facility] Rubella immune status determ ination by IgG antibody assayOrdered By: Carmella Bone on 01-21-2025 Rubella IgG Antibody REAC Nonreactive [facility] Comment on above: Antibody Result: Int erpretationNon-Reactive: Non-ImmuneReactive: ImmuneThe following results were obtained with the [employer] Rubella IgG assay. Results from assays of other manufacturers cannot be used interchangeably. Service comment (Unsp spec) [Interp]Ordered By: Carmella Bone on 01-21-2025 Pap Smear Comment (3) . . [facility] T. pallidum abOrdered By: Mina Bone on 01-21-2025 Syphilis Total Antibody Non-Reactive Nonreactiv e [facility] Type AND Screenon 01-21-2025 Ab SCREEN GEL Negative Normal [facility] Comment on above: Order Comment: PN Performed By: #### L 3890.6006, L100.0100, L509.4006, BTS, L509.8002, L3890.6301, L3890.6102 #### [facility] Laboratory [address] [facility] [place], [place], [id number] Urine cultureOrdered By: Neymar Bone on 01-21-2025 Bacteria identified Cx Nom (U) Culture exhibits no growth. [facility] White blood cell (WBC) count Ordered By: Carmella Bone on 01-21-2025 WBC (Bld) [#/Vol] 7.2 10*3/uL 4.4-11.0 [facility] Init OB < 14Wks USon 025 Init OB < 14Wks [facility] Services [address] [place] [address] Init OB < 14Wks US MR#: [id number] Acct: [id number] Name: FAROOQ TABOR Rep #: [id number] : 2000 F 24 From: Javier menon MD PCP: Care Physician,No Primary Status: REG CLI Study: Init OB < 14Wks US Date of Exam: 12/31/24 Exam# [id number] Ordering Dr: Dilcia Das PROCEDURE: INIT OB < 14WKS US REASON FOR EXAM: Dating. COMPARISON: None. FINDINGS: Comments: LMP: October 24, 2024. Number of Gestational Sacs: 1 Gestational Sac Shape: Normal Number of Fetuses: 1 Heart Rate: 167 beats per minute. (Average) Yolk Sac: Present and unremarkable. Placenta: Presently not well-visualized Amniotic Fluid Volume: Subjectively normal for gestational age. Uterine Abnormalities: Maternal uterus is unremarkable. Ovaries / Adnexa: 2.7 cm x 2.4 cm x 1.6 cm corpus luteum cyst in the left ovary. The right ovary was not visualized. DIMENSIONS: Parameter Measurement / EGA [place] Rump Length: 2.9 cm/9 weeks and 3 days. Gestational Sac: 3.99 cm/9 weeks and 3 days Yolk Sac: 4.9 mm/ ESTIMATED GESTATIONAL AGE: By Ultrasound: 9 weeks and 3 days By LMP: 9 weeks and 5 days ESTIMATED DATE OF DELIVERY: By Ultrasound: August 02, 2025 By LMP: July 31, 2025 US/Init OB < 14Wks US IMPRESSION: UNREMARKABLE FIRST TRIMESTER ULTRASOUND. Reading Location: [id number] CC: Dr. Dilcia Das MD; No Primary Care Physician Automatic Embroidery Machine Tender: Signed Normal [facility] Gastroenterology Visit Repor ton 11-22-2024 Gastroenterology Visit Report [facility] [address] [place] [address] OFFICE VISIT Date of Service: 11/22/24 MR#: [id number] Acct: [id number] Name: FAROOQ TABOR Rep #: [id number] : 2000 Provider: CAHPINCITO Stringer Age/Sex: 24/F [place] [facility] [place]: Signed Intake Vital Signs 10/28/23 10:45 Height 5 ft 1 in Intake Visit Reasons: Hemorrhoids Chief Complaint: hemmorhoids Allergies No Known Allergies Allergy (Verified 10/28/23 10:45) Patient : Yes Have you fallen in the past year?: No Nurse's Note: OV 11.22.24 Pt here to establish care with [facility]. Pt has c/o painful hemorrhoids for about a year. Not currently on any medications. 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 Pt has complaints of hemorrhoids since giving to her son 14 months ago. She has very painful bowel movements. She denies any constipation or straining with bms. She notes having blood when she wipes and dripping into the toilet. She is able to feel two hemorrhoids when she feels her anus. Sometimes they go back up and she won't be able to feel them. She has tried OTC creams like preparation H without relief. SHe tells me that she just found out she was last night. She denies abd pain, n/v, constipation, diarrhea or melena. ROS Const Constitutional: No fatigue, fever(s) or weight change ENT ENT: No difficulty swallowing Gastro GI: Positive for Blood in stool; No abdominal pain, belching, bloating, change in bowel habits, change in stool character, coffee ground emesis, constipation, cramping, diarrhea, heartburn, difficulty swallowing, feeling full early, excessive flatus, incontinent of stools, Vomiting blood/hematemesis, loose stools, Black,tarry stools, nausea/dyspepsia, pain with swallowing, vomiting or other Musc Musculoskeletal: No joint pain Skin Skin: No yellowing of the eye or itchy eyes Psych Psychiatric: No anxiety and No depression Endo Endocrine: No fatigue or weight change Aller/Imm Allergy/Immunologic: No itchy eyes Neil/Lymp Hematologic/Lymphatic: No easy bleeding or easy bruising Exam Const General: cooperative and comfortable Nutritional Appearance: average body habitus and well nourished [facility] Head: normal to inspection Ears: hearing grossly normal bilaterally Nose: external nose normal Face and sinus: normal facial exam Mouth: oral mucosae normal Throat: posterior oropharynx normal Eyes General: appearance normal, both eyes and all related structures Neck Neck: normal visual inspection Chest Chest palpation inspection: normal inspection of the chest and normal palpation of entire chest wall Resp Effort Inspection: normal respiratory effort Auscultation: Bilateral: Clear to Auscultation Cardio Palpation: normal PMI Rate: regular rate Rhythm: regular rhythm GI Inspection: normal to inspection Auscultation: normal bowel sounds Percussion: normal to percussion Palpation: no hepatosplenomegaly Rectal Exam: fissure, hemorrhoids and visual inspection abnormal Skin General: no rashes or lesions noted Neuro General: patient alert Extrem General: normal to inspection Psych Affect: normal affect Assessment and Plan Assessment and Plan (1) Hemorrhoids: Plan: This is a 24 yo female pt here today for evaluation of hemorrhoids. Pt has had issues with this since she gave to her child 14 months ago. Pt mentions she found out last night that she is . On exam, she two external hemorrhoids and an anal fissure. Will start treatment with fiber supplement and hydrocortisone/lidocain e compounded ointment. We can consider further treatment if she is refractory. -Fiber supplement -Hydrocortisone/lidocai ne ointment -Consider anal botox Medications: New Hydrocortisone 2.5% / Lidoc (more content not included)... Normal [facility] Absolute lymphocyte countOrd ered By: Shanika Elliott on 09-20-2023 Lymphocytes Auto (Unsp spec) [#/Vol] 1.51 10*3/uL 0.83-4.[address] [facility] Basophil percentageOrdered B y: Shanika Elliott on 09-20-2023 Basophils/100 WBC (Bld) 0.3 % 0-1 [facility] Eosinophils/100 WBC (Bld) 0.0 % 0-[address] [facility] Neutrophils (Bld) [#/Vol] 17.3 10*3/uL 2.0-7.[address] [facility] Neutrophils/100 WBC (Bld) 81.9 % 47-[address] [facility] WBC (Bld) [#/Vol] 21.1 10*3/uL 4.4-11.0 [facility] Blood erythrocytes count (nu mber/volume)Ordered By: Shanika Elliott on 09-20-2023 RBC (Bld) [#/Vol] 3.49 10*6/uL 4.2-5.4 [facility] Blood hemoglobin measurement (mass/volume)Ordered By: Shanika Elliott on 09-20-2023 Hemoglobin (Bld) [Mass/Vol] 10.3 g/dL 12.0-15.[address] [facility] Blood lymphocytes/100 leukoc ytesOrdered By: Shanika Elliott on 09-20-2023 Lymphocytes/100 WBC (Bld) 7.1 % 19-[address] [facility] Blood manual differential co mment interpretation (narrative result)Ordered By: Shanika Elliott on 09-20-2023 Manual differential comment Jatin (Bld) [Interp] SCANNED [facility] Comment on above: MONOCYTOSIS PRESENTL EFT SHIFT BANDS PRESENT 1+ Blood monocytes/100 leukocyt esOrdered By: Shanika Elliott on 09-20-2023 Monocytes/100 WBC (Bld) 9.8 % 0-10 [facility] Blood platelet mean volumeOr dered By: Shanika Elliott on 09-20-2023 Platelet mean volume (Bld) [Entitic vol] 10.5 fL 6.2-12.[address] [facility] Determination of erythrocyte mean corpuscular volume (MCV)Ordered By: Shanika Elliott on 09-20-2023 MCV (RBC) [Entitic vol] 91.1 fL 81-99 [facility] Hematocrit Auto (Bld) [Volum e fraction]Ordered By: Shanika Elliott on 09-20-2023 Hematocrit (Bld) [Volume fraction] 31.8 % 37-[address] [facility] Laboratory - Hematology and Cell countsOrdered By: Shanika Elliott on 09-20-2023 Erythrocyte distribution width (RBC) [Entitic vol] 44.4 fL 35.1-43.[address] [facility] Erythrocyte distribution width (RBC) [Ratio] 13.4 % 11.6-14.[address] [facility] Immature granulocytes/100 WBC (Bld) 0.900 % 0.0-0.[address] [facility] Comment on above: IG% - Immature Granu locytes (promyelocytes, myelocytes and metamyelocytes) > 1% indicates that a LEFT SHIFT is Present. MCH (RBC) [Entitic mass] 29.5 pg 27.0-32.[address] [facility] Nucleated RBC/100 WBC (Bld) [Ratio] 0 % 0-[address] [facility] MCHC Auto (RBC) [Mass/Vol]Or dered By: Shanika Elliott on 09-20-2023 MCHC (RBC) [Mass/Vol] 32.4 g/dL 32-36 [facility] Platelets bldOrdered By: Francisca Elliott on 09-20-2023 Platelets (Bld) [#/Vol] 241 10*3/uL 150-[address] [facility] Review by pathologistOrdered By: Shanika Elliott on 09-20-2023 Pathologist review Jatin (Unsp spec) [Interp] February [facility] Serum Treponema species anti body detectionOrdered By: Shanika Elliott on 09-19-2023 Treponema sp Ab Ql (S) Non-Reactive [facility] Laboratory - Chemistry and C hemistry - challengeon 09-13-2023 Glucose Ql (U) Negative [facility] Laboratory - Urinalysison Protein Ql (U) Negative [facility] Laboratory - Chemistry and C hemistry - challengeon 09-06-2023 Glucose Ql (U) Negative [facility] Laboratory - Urinalysison Protein Ql (U) Negative [facility] Chlamydia trachomatis rRNA d etection by probe and target amplification methodOrdered By: Marie Avalos on 08-30-2023 C. trachomatis rRNA LEONCIO+probe Ql (Unsp spec) Negative Negative [facility] Laboratory - Chemistry and C hemistry - challengeon 08-30-2023 Glucose Ql (U) Negative [facility] Laboratory - Microbiology an d Antimicrobial susceptibilityOrdered By: Marie Avalos on 08-30-2023 N. gonorrhoeae DNA LEONCIO+probe Ql (Unsp spec) Negative Negative [facility] Comment on above: Performed at: [address] [id number] Director: Sulema Constantino MD, Phone: [phone] Laboratory - Urinalysison Protein Ql (U) Negative [facility] No Panel InformationOrdered By: Marie Avalos on 08-30-2023 Group B Streptococcus Culture Streptococcus agalactiae (B) [facility] Laboratory - Chemistry and C hemistry - challengeon 08-23-2023 Glucose Ql (U) Negative [facility] Laboratory - Urinalysison Protein Ql (U) Negative [facility] Laboratory - Chemistry and C hemistry - challengeon 08-09-2023 Glucose Ql (U) Negative [facility] Laboratory - Urinalysison Protein Ql (U) Negative [facility] Culture, urineOrdered By: Analia Elliott on 08-05-2023 Bacteria identified Cx Nom (U) Culture exhibits no growth. [facility] Laboratory - Chemistry and C hemistry - challengeon 08-05-2023 Bilirubin Ql (U) Negative [facility] Glucose Ql (U) Negative [facility] Ketones Ql (U) Negative [facility] pH (U) 5.0 [pH] [facility] Specific gravity (U) [Rel density] 1.[address] [facility] Urobilinogen (U) [Mass/Vol] Negative [facility] Laboratory - Hematology and Cell countson 08-05-2023 Hemoglobin Ql (U) Negative [facility] Laboratory - Specimen inform ationon 08-05-2023 Clarity (U) Clear [facility] Color (U) Yellow [facility] Laboratory - Urinalysison Nitrite Ql (U) Negative [facility] Protein Ql (U) Negative [facility] No Panel Informationon 08-05 Urine Leukocytes Positive [facility] Urine Non-Hemolyzed Blood Negative [facility] Laboratory - Chemistry and C hemistry - challengeon 07-26-2023 Glucose Ql (U) Negative [facility] Laboratory - Urinalysison Protein Ql (U) Negative [facility] Laboratory - Chemistry and C hemistry - challengeon 07-12-2023 Glucose Ql (U) Negative [facility] Laboratory - Urinalysison Protein Ql (U) Negative [facility] Absolute lymphocyte countOrd ered By: Marie Avalos on 06-29-2023 Lymphocytes Auto (Unsp spec) [#/Vol] 1.45 10*3/uL 0.83-4.[address] [facility] Basophil percentageOrdered B y: Marie Avalos on 06-29-2023 Basophils/100 WBC (Bld) 0.4 % 0-1 [facility] Eosinophils/100 WBC (Bld) 1.0 % 0-[address] [facility] Neutrophils (Bld) [#/Vol] 8.0 10*3/uL 2.0-7.[address] [facility] Neutrophils/100 WBC (Bld) 76.9 % 47-[address] [facility] WBC (Bld) [#/Vol] 10.4 10*3/uL 4.4-11.0 [facility] Blood erythrocytes count (nu mber/volume)Ordered By: Marie Avalos on 06-29-2023 RBC (Bld) [#/Vol] 3.52 10*6/uL 4.2-5.4 [facility] Blood hemoglobin measurement (mass/volume)Ordered By: Marie Avalos on 06-29-2023 Hemoglobin (Bld) [Mass/Vol] 11.3 g/dL 12.0-15.[address] [facility] Blood lymphocytes/100 leukoc ytesOrdered By: Marie Avalos on 06-29-2023 Lymphocytes/100 WBC (Bld) 14.0 % 19-[address] [facility] Blood monocytes/100 leukocyt esOrdered By: Marie Avalos on 06-29-2023 Monocytes/100 WBC (Bld) 7.0 % 0-10 [facility] Blood platelet mean volumeOr dered By: Marie Avalos on 06-29-2023 Platelet mean volume (Bld) [Entitic vol] 9.8 fL 6.2-12.[address] [facility] Determination of erythrocyte mean corpuscular volume (MCV)Ordered By: Marie Avalos on 06-29-2023 MCV (RBC) [Entitic vol] 94.9 fL 81-99 [facility] Gestational diabetes screen 1-hour screen with 50g oral glucose loadOrdered By: Marie Avalos on 06-29-2023 Glucose 1 Hr post 50 g glucose PO [Mass/Vol] 128 mg/dL 70-[address] [facility] HIV 1 and HIV-2 antibody ass ay with HIV-1 p24 antigen detectionOrdered By: Marie Avalos on 06-29-2023 HIV 1+2 Ab+HIV1 p24 Ag IA Ql Non-Reactive Nonreactive [facility] Hematocrit Auto (Bld) [Volum e fraction]Ordered By: Marie Avalos on 06-29-2023 Hematocrit (Bld) [Volume fraction] 33.4 % 37-[address] [facility] Laboratory - Chemistry and C hemistry - challengeon 06-29-2023 Glucose Ql (U) Negative [facility] Laboratory - Hematology and Cell countsOrdered By: Marie Avalos on 06-29-2023 Erythrocyte distribution width (RBC) [Entitic vol] 44.9 fL 35.1-43.[address] [facility] Erythrocyte distribution width (RBC) [Ratio] 13.0 % 11.6-14.[address] [facility] Immature granulocytes/100 WBC (Bld) 0.700 % 0.0-0.[address] [facility] Comment on above: IG% - Immature Granu locytes (promyelocytes, myelocytes and metamyelocytes) > 1% indicates that a LEFT SHIFT is Present. MCH (RBC) [Entitic mass] 32.1 pg 27.0-32.[address] [facility] Nucleated RBC/100 WBC (Bld) [Ratio] 0 % 0-[address] [facility] Laboratory - Urinalysison Protein Ql (U) Negative [facility] MCHC Auto (RBC) [Mass/Vol]Or dered By: Marie Avalos on 06-29-2023 MCHC (RBC) [Mass/Vol] 33.8 g/dL 32-36 [facility] Platelets bldOrdered By: Oxana Avalos on 06-29-2023 Platelets (Bld) [#/Vol] 244 10*3/uL 150-[address] [facility] Serum Treponema species anti body detectionOrdered By: Marie Avalos on 06-29-2023 Treponema sp Ab Ql (S) Non-Reactive [facility] Laboratory - Chemistry and C hemistry - challengeon 06-10-2023 Glucose Ql (U) Negative [facility] Laboratory - Urinalysison Protein Ql (U) Negative [facility] Laboratory - Chemistry and C hemistry - challengeon 05-13-2023 Glucose Ql (U) Negative [facility] Laboratory - Urinalysison Protein Ql (U) Negative [facility] Absolute lymphocyte countOrd ered By: Dr. Das on 03-18-2023 Lymphocytes Auto (Unsp spec) [#/Vol] 1.60 10*3/uL 0.83-4.[address] [facility] Basophil percentageOrdered B y: Dr. Das on 03-18-2023 Basophils/100 WBC (Bld) 0.5 % 0-1 [facility] Eosinophils/100 WBC (Bld) 1.0 % 0-[address] [facility] Neutrophils (Bld) [#/Vol] 5.5 10*3/uL 2.0-7.[address] [facility] Neutrophils/100 WBC (Bld) 69.4 % 47-[address] [facility] WBC (Bld) [#/Vol] 7.9 10*3/uL 4.4-11.0 [facility] Blood erythrocytes count (nu mber/volume)Ordered By: Dr. Das on 03-18-2023 RBC (Bld) [#/Vol] 4.01 10*6/uL 4.2-5.4 [facility] Blood hemoglobin measurement (mass/volume)Ordered By: Dr. Das on 03-18-2023 Hemoglobin (Bld) [Mass/Vol] 12.0 g/dL 12.0-15.[address] [facility] Blood lymphocytes/100 leukoc ytesOrdered By: Dr. Das on 03-18-2023 Lymphocytes/100 WBC (Bld) 20.4 % 19-[address] [facility] Blood monocytes/100 leukocyt esOrdered By: Dr. Das on 03-18-2023 Monocytes/100 WBC (Bld) 8.4 % 0-10 [facility] Blood platelet mean volumeOr dered By: Dr. Das on 03-18-2023 Platelet mean volume (Bld) [Entitic vol] 9.7 fL 6.2-12.[address] [facility] Chlamydia trachomatis rRNA d etection by probe and target amplification methodOrdered By: Dr. Avalos on 03-18-2023 C. trachomatis rRNA LEONCIO+probe Ql (Unsp spec) Negative Negative [facility] Determination of erythrocyte mean corpuscular volume (MCV)Ordered By: Dr. Das on 03-18-2023 MCV (RBC) [Entitic vol] 90.8 fL 81-99 [facility] HIV 1 and HIV-2 antibody ass ay with HIV-1 p24 antigen detectionOrdered By: Dr. Das on 03-18-2023 HIV 1+2 Ab+HIV1 p24 Ag IA Ql Non-Reactive Nonreactive [facility] Hematocrit Auto (Bld) [Volum e fraction]Ordered By: Dr. Das on 03-18-2023 Hematocrit (Bld) [Volume fraction] 36.4 % 37-[address] [facility] Laboratory - Chemistry and C hemistry - challengeon 03-18-2023 Glucose Ql (U) Negative [facility] Laboratory - Hematology and Cell countsOrdered By: Dr. Das on 03-18-2023 Erythrocyte distribution width (RBC) [Entitic vol] 42.1 fL 35.1-43.[address] [facility] Erythrocyte distribution width (RBC) [Ratio] 12.8 % 11.6-14.[address] [facility] Immature granulocytes/100 WBC (Bld) 0.300 % 0.0-0.[address] [facility] Comment on above: IG% - Immature Granu locytes (promyelocytes, myelocytes and metamyelocytes) > 1% indicates that a LEFT SHIFT is Present. MCH (RBC) [Entitic mass] 29.9 pg 27.0-32.[address] [facility] Nucleated RBC/100 WBC (Bld) [Ratio] 0 % 0-[address] [facility] Laboratory - Microbiology an d Antimicrobial susceptibilityOrdered By: Dr. Avalos on 03-18-2023 N. gonorrhoeae DNA LEONCIO+probe Ql (Unsp spec) Negative Negative [facility] Comment on above: Performed at: =[address] [id number] Director: Sulema Constantino MD, Phone: [phone] Laboratory - Urinalysison Protein Ql (U) Negative [facility] Auto (RBC) [Mass/Vol]Or dered By: Dr. Das on 03-18-2023 MCHC (RBC) [Mass/Vol] 33.0 g/dL 32-36 [facility] No Panel InformationOrdered By: Dr. Das on 03-18-2023 Hepatitis B Surface Antigen Non-Reactive Nonreactive [facility] Hepatitis C Antibody Non-Reactive Nonreactive [facility] Comment on above: Non Reactive: < 0.8 Equivocal: >/= 0.8 to < 1.0 Reactive: >/= 1.0The CDC recommends that a reactive/equivocal HCV antibody result be followed up by the HCV Nucleic Acid Amplificationtest (397388) Miscellaneous Test Comment MAILED SPECIMEN [facility] Rubella IgG Antibody Reactive Nonreactive [facility] Comment on above: Antibody Results Int erpretation of Immune Status Non Reactive Presumed Non-Immune Equivocal Equivocal Reactive Presumed Immune Platelets bldOrdered By: Dr. Das on 03-18-2023 Platelets (Bld) [#/Vol] 251 10*3/uL 150-[address] [facility] Serum Treponema species anti body detectionOrdered By: Dr. Das on 03-18-2023 Treponema sp Ab Ql (S) Non-Reactive [facility] Laboratory - Chemistry and C hemistry - challengeon 02-25-2023 Glucose Ql (U) Negative [facility] Laboratory - Urinalysison Protein Ql (U) Negative [facility] Basophil percentageOrdered B y: Dr. Flores on 02-17-2023 Basophil percentage 0-5 SEEN /hpf 0-5 [facility] Bilirubin Test strip Ql (U)O rdered By: Dr. Flores on 02-17-2023 Bilirubin Ql (U) Negative Negative [facility] Ketones Test strip Ql (U)Ord ered By: Dr. Flores on 02-17-2023 Ketones Ql (U) 150 mg/dl Negative [facility] Comment on above: CRITICAL VALUE *HCRI TICAL VALUE VERIFIED. CALLED TO BOBBI ALSTON ED02/17/232129 Ji Bell.RESULTS READ BACK BY SAME. Mucus LM Ql (Urine sed)Order ed By: Dr. Flores on 02-17-2023 Mucus Ql (Urine sed) 3+ /hpf [facility] Nitrite Test strip Ql (U)Ord ered By: Dr. Flores on 02-17-2023 Nitrite Ql (U) Negative Negative [facility] Protein Test strip Ql (U)Ord ered By: Dr. Flores on 02-17-2023 Protein Ql (U) 15 mg/dl Negative [facility] Squamous epithelial cells de tection in urine sediment by light microscopyOrdered By: Dr. Flores on 02-17-2023 Epithelial cells.squamous LM Ql (Urine sed) 5-10 SEEN /hpf 5-[address] [facility] Urine blood detectionOrdered By: Dr. Flores on 02-17-2023 RBC Ql (U) 25 /ul Negative [facility] RBC Ql (U) 0-5 SEEN /hpf 0-[address] [facility] Urine clarityOrdered By: Dr. Flores on 02-17-2023 Clarity (U) Cloudy Clear [facility] Urine color determinationOrd ered By: Dr. Flores on 02-17-2023 Color (U) Yellow Yellow [facility] Urine glucose detectionOrder ed By: Dr. Flores on 02-17-2023 Glucose Ql (U) Normal mg/dl Normal [facility] Urine leukocyte esterase det ection by dipstickOrdered By: Dr. Flores on 02-17-2023 Leukocyte esterase Test strip Ql (U) 25 /ul Negative [facility] Urine pHOrdered By: Dr. Wallace hinton on 02-17-2023 pH (U) 6.0 [pH] 5.0 - 8.[address] [facility] Urine sediment bacteria coun t by microscopy (number/high power field)Ordered By: Dr. Flores on 02-17-2023 Bacteria LM.HPF (Urine sed) [#/Area] 2 /[HPF] None Seen [facility] Urine specific gravity measu rementOrdered By: Dr. lFores on 02-17-2023 Specific gravity (U) [Rel density] 1.020 1.002-1.[address] [facility] Urobilinogen Auto test strip Ql (U)Ordered By: Dr. Flores on 02-17-2023 Urobilinogen Ql (U) 1 mg/dl Normal [facility] Culture, urineOrdered By: Dr Elena Das on 01-29-2023 Bacteria identified Cx Nom (U) Culture exhibits no growth. [facility] Chlamydia trachomatis rRNA d etection by probe and target amplification methodOrdered By: Dr. Das on 01-27-2023 C. trachomatis rRNA LEONCIO+probe Ql (Unsp spec) Positive Negative [facility] Comment on above: RESULTS CALLED TO LIZ RIVERA 02/02/23 0946 Mady Cast.REPORT READ BACK BY SAME. Laboratory - Microbiology an d Antimicrobial susceptibilityOrdered By: Dr. Das on 01-27-2023 N. gonorrhoeae DNA LEONCIO+probe Ql (Unsp spec) Negative Negative 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 Exam was benign. Pap smear with reflex was done. Patient declined contraception and we will see her back in 1 year Chief Complaint Patient here today for annual. She states she has had pap before at family planning. LMP: 07/24/2022. She has no concerns today. 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 Patient denies any history of abnormal Pap smears. Patient is sexually active does not use contraception and is not interested in contraception. She is also not interested in conceiving but right now has no concerns about starting any medications. Review of Systems Constitutional: Denies any change in her temperature or weight. Cardiovascular: Denies any chest pain or palpitations. Respiratory: Denies any shortness of breath or cough. Gastrointestinal: Denies any abdominal pain or changes in her bowel habits. Genitourinary: as noted in HPI. Musculoskeletal: Denies any change in her mobility. Other Symptoms: Denies any change in her mood or in her sleep. Active Problems Problems Body mass index (BMI) of 19.9 or less in adult (Z68.1) Breakthrough bleeding on Depo-Provera (626.6) (N92.1) History of dyspareunia in female (V13.29) (Z87.42) Migraine without aura and without status migrainosus, not intractable (346.10) (G43.009) Nausea and vomiting (787.01) (R11.2) Past Medical History Problems History of Menstruation Onset age 16 years Surgical History Problems No history of surgery Family History Mother No pertinent family history Maternal Aunt Family history of malignant neoplasm of ovary (V16.41) (Z80.41) Cousin Family history of malignant neoplasm of ovary (V16.41) (Z80.41) Social History Problems Never smoker No alcohol use No illicit drug use No recent foreign travel Sexually active Allergies Medication No Known Drug Allergies Recorded By: Ginette You; 04/15/2021 8:14:19 AM Current Meds Medication NameInstruction No Reported Medications Vitals Vital Signs Recorded: 03Aug2022 02:30PM [id number] Ubctspbjt05 Height5 ft 3 in Digoei262 lb BMI Lxlzuiznbu33.6 kg/m2 BSA Calculated1.47 [id number] Physical Exam Constitutional: Healthy-appearing young female in no distress. Head and Face: No obvious lesions. Neck: Supple without adenopathy or masses. Cardiovascular: Regular rate and rhythm. Pulmonary: Clear to auscultation. Chest: No masses discharge retraction or skin changes. Abdomen: Soft nontender no masses. External genitalia revealed no lesions the vagina was well estrogenized the cervix was slightly friable uterus and adnexa were normal size nontender Musculoskeletal: Good mobility of her extremities. Psychiatric: Appropriately oriented with normal mood and affect. Signatures Electronically signed by : Era Coyne DO; Aug 03 2022 3:02PM EST (Author) [facility] FEMALE PELVIS TRANSVAGon 09-18-2021 FEMALE PELVIS TRANSVAG * * *Final Report* * * DATE OF EXAM: Sep 18 2021 9:41AM WRU 1060 - US FEMALE PELVIS TRANSVAG / PROCEDURE REASON: multiple diagnoses * * * * Physician Interpretation * * * * EXAMINATION: TRANSVAGINAL AND LIMITED TRANSABDOMINAL PELVIC ULTRASOUND HISTORY: Pelvic pain Irregular menses TECHNIQUE: Sonography of the pelvis was performed by transvaginal and transabdominal (limited) techniques.Images were obtained and stored in a permanent archive. MQ: UFP_1 COMPARISON: None FLMP: Unknown RESULT: Uterus size: 7.3 x 2.9 x 4.6 cm -Orientation: Anteverted -Myometrium: Normal -Endometrial echo complex: 0.3 cm. It is somewhat heterogeneous -Cervix: Unremarkable Right ovary: 3.6 x 2.0 x 1.9 cm Left ovary: 3.3 x 1.7 x 1.7 cm There are simple cysts in each ovary1 Pelvis free fluid: None seen IMPRESSION: 1. Thin endometrial lining suggesting endometrial atrophy. 2. Multiple bilateral simple and mildly complex ovarian cysts-the largest approximately a centimeter in size Automatic Embroidery Machine Tender: [facility] Transcribe Date/Time: Sep 18 2021 12:56P Dictated by : ADAM LUCAS DO This examination was interpreted and the report reviewed and electronically signed by: ADAM LUCAS DO on Sep 18 2021 12:59PM EST [id number] Normal [facility] CNOVon 09-03-2021 CNOV Office Visit (OBGYWM ) LEANDERSUMMER ([id number]) 2 F BLD Date Time Provider Department 09/03/21 9:20 AM SHENA MCDERMOTT OBDAVIDWTen During your visit today, we recorded the following information about you: Blood pressure Weight Last Period 98/64 49.4 kg 08/18/21 Shena Mcdermott MD 09/03/2021 1:23 PM Signed Summer Leander is a 21 year old female who presents for concerns. HPI: Patient presents with irregular vaginal bleeding AND pelvic pain. She reports intermittent pelvic pain over the past month. The pain is cramping in nature AND is getting worse. She denies anything makes it better but hasn't tried OTC meds. She reports h/o ovarian cysts. Patient has received depo shots for 1-2 years. She was supposed to get depo on 08/25 but decided to stop the medication. Denies STD concerns but is OK with being checked. PAST MEDICAL HISTORY Diagnosis Date - Ovarian cyst PAST SURGICAL HISTORY Procedure Laterality Date - TOOTH EXTRACTION wisdom teeth FAMILY HISTORY Problem Relation Age of Onset - Heart Paternal Grandmother Social History Tobacco Use - Smoking status: Never Smoker - Smokeless tobacco: Never Used Vaping Use - Vaping Use: Never used Substance Use Topics - Alcohol use: Never - Drug use: Never No current outpatient medications on file. No current facility-administered medications for this visit. Allergies As of Date: 09/03/2021 (No Known Allergies) Fully Assessed 09/03/2021 Allergies and current medication updated:Yes EXAM: BP 98/64 Wt 109 lb (49.4kg) LMP 08/18/2021 GENERAL: pleasant, female in no apparent distress ABDOMEN: soft, non-tender and no masses PELVIC: external genitalia normal, normal Bartholin's glands, urethra, Mcmechen's glands, no vulvar lesions, no cervical lesions, good vaginal support, scant old blood present, normal appearing perineal body and perianal region BIMANUAL: uterus normal size, shape and consistency, no adnexal masses and non-tender NEURO: alert and oriented x3,exam grossly non-focal EXTREMITIES: normal ASSESSMENT AND PLAN: 21yo female with irregular bleeding AND pelvic pain Urine hcg negative GC/chlam with trich Pelvic US Advised patient that irregular VB is likely from depo control - patient plans to use condoms AND declines other methods. Advised on preconception folic acid. Medical Decision Making: Problems: Moderate: New problem with uncertain prognosis Data: Unique test(s) ordered: 3+ Risk: Low: Low risk from testing/treatment Medical Decision Making Level: 4 - Moderate Shena Mcdermott MD Referring Provider: SELF [200] Allergies As of Date: 09/03/2021 (No Known Allergies) Date Reviewed: 09/03/2021 Reviewed by: Shena Mcdermott MD - Fully Assessed Reason for Visit: Abnormal Uterine Bleeding [Other] Primary Visit Diagnosis:Pelvic pain [R10.2] Other Visit Diagnoses:Irregular menses [N92.6] Screen for STD (sexually transmitted disease) [Z11.3] Order(s):GC/CHLAMYDIA DNA DET [SQGCCAMP] Order #: [id number] T VAGINALIS AMPLIFICATION [SQTRVAMP] Order #: [id number] FUTURE PELVIC US WHI [[id number]] Order #: [id number]: 1 US FEMALE PELVIS TRANSVAG [[id number]] Order #: [id number] FUTURE US FEMALE PELVIS TRANSABD LTD [[id number]] Order #: [id number] FUTURE HCG QUAL UR B/O [[id number]] Order #: [id number] Problem List As Of Date: 09/03/2021 (None) Encounter Status:Closed by SHENA MCDERMOTT on 09/03/21 Normal [facility] GC/Chlamydia Amplifon 2020 Chlamydia Amplif Negative Normal [facility] Comment on above: Performed By: #### G CCT, TRVAMP #### [facility] [address] [place] [address] [place] [address] GC Amplification Negative Normal [facility] Comment on above: Performed By: #### G CCT, TRVAMP #### [facility] [address] [place] [address] [facility] [address] [place] [address] GC/Chlam Amp Source Cervix Normal [facility] Comment on above: Performed By: #### G CCT, TRVAMP #### [facility] [address] [place] [address] [facility] [address] [place] [address] No Panel Informationon 09-03 status Negative neg - pos [facility] Quality Check Yes [facility] Trich vaginalis Amplon 09-03 Trich vag Amp Source Cervix Normal [facility] Comment on above: Performed By: #### G CCT, TRVAMP #### [facility] [address] [place] [address] [facility] [address] [place], [place] [address] Trichomonas RNA Negative Normal [facility] Comment on above: Performed By: #### G CCT, TRVAMP #### [facility] [address] [place] [address] [facility] [address] [place] [address] Tobacco Screening.on 021 Tobacco use status [facility] b) No [facility] Work Phone: Provider Note - ED v2on 07-31 Provider Note - ED v2 Provider Note - ED v2: Chart Review: ED NOTES ED NOTES: ====HPI==== She is a 20-year-old female who presents to the emergency department with a chief complaint of a migraine headache. Patient states that her symptoms started yesterday. She reports her headache as mild yesterday and it has progressively worsened. She states that she has a history of migraine headaches. She states that this feels like her typical migraine headache in character but slightly worse than normal. She reports associated vomiting and photophobia. No fever. No head injury. She states that she took Tylenol yesterday for her headache with no relief. She has not taken any medication today. No neck pain Character: Severity: 10/10 Exacerbated by: eating, drinking Improved by: nothing ====Review of Systems==== 10 point system review is negative except for those specifically mentioned in history of present illness ====Physical Exam==== Constitutional/General: Alert and oriented x3, well appearing, nontoxic, and in NAD. Head: Normocephalic and atraumatic. Eyes: PERRL, EOMI, conjunctive normal, sclera nonicteric, subconjunctival layer is pink. Mouth: Oropharynx clear, handling secretions, no trismus, no asymmetry of the posterior oropharynx or uvular edema Neck: Supple, full ROM, non tender to palpation in the midline, no stridor, no crepitus, no meningeal signs. Trachea at midline. Respiratory: Lungs clear to auscultation bilaterally, no wheezes, rales, or rhonchi, not in respiratory distress. Cardiovascular: Regular rate, regular rhythm, no murmurs, gallops, or rubs, 2+ distal pulses. Chest: normal chest wall movement GI: Abdomen soft, nontender, nondistended, + BS, no organomegaly, no palpable masses, no rebound, guarding, or rigidity. Musculoskeletal: Moves all extremities x4, warm and well perfused, no clubbing, cyanosis, or edema, cap refill <3 seconds Integument: Skin warm and dry, no rashes. Lymphatic: No lymphadenopathy noted. Neurologic: GCS 15, no focal deficits, symmetric strength 5/5 in the upper and lower extremities bilaterally. Psychiatric: Normal affect. ====ED Course and Medical Decision Making==== See MDM section for review of findings & plan of care. Portions of this note were dictated by speech recognition. An attempt at proof reading was made to minimize errors. Minor errors in satellite tv installer may be present. Please call if questions.. HISTORY OF PRESENTING ILLNESS FAROOQ is a 20 year old Female and was seen by me at 09-Aug-2020 01:10 for a chief complaint of headache (states that she has had a migraine all day tried Tylenol this am and Pepto Bismal this evening also complains of nausea and states that she has been vomiting)(1). Triage Information: Most recent Vital Sign Value Date Temp (F): 98.2 08-09-2020 01:17 Temp (C): 36.8 08-09-2020 01:17 Heart Rate (beats/min): 65 08-09-2020 01:17 Respirations (breaths/min): 16 08-09-2020 01:17 SpO2 (%): 99 08-09-2020 01:17 BP Diastolic (mm Hg): 76 08-09-2020 01:17 PAST MEDICAL HISTORY ATTESTATION: I have reviewed and confirmed nurse's/medic's notes for patient's medications, allergies, medical history, and surgical history ALLERGIES/INTOLERANCES: No Known Allergies HEALTH HISTORY: No documented data. OUTPATIENT MEDICATIONS: Home Medications Review Status for Reconciliation: N/A Med Status: Patient Currently Takes Medications Drug Name: amoxicillin-clavulanate 875 mg-125 mg oral tablet Instructions: 1 tab(s) orally 2 times a day x 7 days Drug Name: fluconazole 150 mg oral tablet Instructions: 1 tab(s) orally once x 1 days SIGNIFICANT EVENTS: No documented data. 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 I have reviewed the LIPs encounter note, approve the LIPs documentation and provide the following additional information from my personal encounter. Shared Visit Documentation: See comments/additional findings below Comments/Additional Findings: Patient was seen and evaluated by me along with the midlevel. agree with assessment and treatment plan. Pt was personally examined by me and physical exam revealed Physical Exam: Appearance: Alert, oriented , cooperative, in no acute distress. Well nourished & well hydrated. Skin: Intact, dry skin, no lesions, rash, petechiae or purpura. Eyes: PERRLA, EOMs intact, Conjunctiva pink with no redness or exudates. Cornea & anterior chamber are clear, Eyelids without lesions. No scleral icterus. ENT: Hearing grossly intact. External auditory canals patent, tympanic membranes intact with visible landmarks. Nares patent, mucus membranes moist. Dentition without lesions. Pharynx clear, uvula midline. Neck: Supple, without meningismus. Thyroid not palpable. Trachea at midline. No lymphadenopathy. Pulmonary: Clear bilaterally with good chest wall excursion. No rales, rhonchi or wheezing. No accessory muscle use or stridor. Cardiac: Normal S1, S2 without murmur, rub, gallop or extrasystole. Abdomen: Soft, nontender, active bowel sounds. No palpable organomegaly. No rebound or guarding. No CVA tenderness. Genitourinary: Exam deferred. Musculoskeletal: Full range of motion. no pain, edema, or deformity. Pulses full and equal. No cyanosis, clubbing, or edema. Neurological: Cranial nerves II through XII are grossly intact, appropriate for age, normal sensation, no weakness, no focal findings identified. Psychiatric: Appropriate mood and affect. mdm: pt was reevatuated after receiving medication, felt much better. Was ready to go home Patient reported that this migraine feels the same as her previous. No further evaluation or imaging needed to be done at this point Diagnosis: Migraine headache CRITICAL CARE TIME Is this a critically ill patient: no Electronic Signatures: Stephanie Scherer (PAC) (Signed 09-Aug-2020 01:30) Authored: ED Notes, HPI, PMH, Chart Review, Scores Anju Elkins (DO) (Signed 09-Aug-2020 03:08) Authored: Clinical Impression, Attestation, Chart Review Last Updated: 09-Aug-2020 03:08 by Anju Elkins () References: 1. Data Referenced From Triage - ED 09-Aug-2020 01:17 [facility] Risk Screen - Adult Emergenc yon 08-09-2020 Risk Screen - Adult Emergency Preferred Language: Preferred Language: Preferred Language for Discussing Health Care (patient/designee)Yanni turner Advanced Directives: Advance Directive/DNRno Family Violence Adult: Abuse Screen: Are you or have you been threatened or abused physically, emotionally, or sexually by anyoneno Learning Assessment (Patient): Learning Assessment (Patient): Patient is Able to be Assessed for Learningyes Factors Influencing Readiness to Learnnone Factors that Impact Ability to Learnnone Devices/Methods Used to Communicatenone Learning Preferencesindividual instruction Cultural Considerationsnone Developmental Considerationsnone Judaism Considerationsnone Learning Assessment (Other Learner): Learning Assessment (Other Learner): Other learner availableno Pressure Injury/TB/Substance: Pressure Injury: Pressure Injury Present on Admissionno Do you have a coughno Admission Risk Screen: Significant IndicatorsComplete CAGE: CAGE: Is this an injured patient at a Trauma Center ([facility] [place]/[facility]/Alpha/Elyri a/[place]): no Electronic Signatures: Yen Bond (SUPV) (Signed 09-Aug-2020 01:26) Authored: Preferred Language, Advanced Directives, Family Violence Adult, Learning Assessment (Patient), Learning Assessment (Other Learner), Pressure Injury/TB/Substance, Pressure Injury, CAGE Last Updated: 09-Aug-2020 01:26 by Yen Bond (SUPV) [facility] Triage - EDon 08-09-2020 Triage - ED Quick Triage: Are You no Have You Given In The Last 6 Weeksno Are You Currently Breastfeedingno The patient and/or guardian verbally acknowledges placement for services into the following (when Urgent Care Service hours are operating):emergency department Chart Review: ARRIVAL INFORMATION Mode of Arrival: private vehicle CHIEF COMPLAINT FAROOQ TABOR is a Female patient with a chief complaint of headache (states that she has had a migraine all day tried Tylenol this am and Pepto Bismal this evening also complains of nausea and states that she has been vomiting). Triage Date/Time: 09-Aug-2020 01:17 Pain Rating (0-10): 8 = Severe Pain location: head Vital Signs: Temperature: 98.2F ( 36.8C) taken oral Blood Pressure: /76 Mean: Heart Rate: 65 Respiratory Rate: 16 Pulse Oximetry: 99% on room air, no respiratory support. Height: 5 feet 1.00 inches. 154.9 CM Weight: 100.3 pounds. Calculated 45.5 kg. 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 Symptoms Are POSITIVE For: nausea (states that she has vomited several times today) and photophobia (complains that bright lights hurt her eyes). Symptoms Are Negative For: anorexia, anxiety, blurred vision, congestion, eye pain, facial pain and neck pain. Last Known Well: unknown Risk Screens Suicide Risk Screen In the Past Month: Have you wished you were or wished you could go to sleep and not wake up no In the Past Month: Have you had any actual thoughts of killing yourself no In Your Lifetime: Have you ever done anything, started to do anything, or prepared to do anything to end your life no Gregory Fall Scale Screening Has the patient fallen before (or is the patient in the ED as a result of a fall) has not had a fall Does the patient have an impaired gait does not have impaired gait Is the patient cognitively impaired not cognitively impaired Interventions: Colt Fall Interventions: LOW INTERVENTIONS: *patient oriented to surroundings and call system, * patient/family falls education completed and documented, *patients fall status communicated during bedside handoff, *whiteboard updated, *mode of toileting discussed with patient, *bed in low position with brakes locked, *call light in reach, * non-skid footwear TRAVEL HISTORY Travel History Coronavirus Screening: no exposure or symptoms PAIN Pain Scale Used: JUAN JOSE Pain Rating (0-10): 8 = Severe Past Medical History: Past Medical History Reviewedyes Electronic Signatures: Yen Bond (SUPV) (Signed 09-Aug-2020 01:25) Entered: Risk Screens, Pain, Chart Review, Scores, Past Medical History Authored: Quick Triage, Risk Screens, Pain, Chart Review, Scores, Past Medical History Last Updated: 09-Aug-2020 01:25 by Yen Bond (SUPV) [facility] US PELVIS TRANSABDOMINAL WIT H TRANSVAGINALon 05-27-2020 US PELVIS TRANSABDOMINAL WITH TRANSVAGINAL Patient Name: FAROOQ TABOR STUDY: US PELVIS TRANSABDOMINAL WITH TRANSVAGINAL; 05/27/2020 4:24 pm INDICATION: F/U RIGHT OVARIAN CYST CHECK IUD PLACEMENT. COMPARISON: None. ACCESSION NUMBER(S): [id number] ORDERING CLINICIAN: MATHEW SHIN TECHNIQUE: Multiple multiplanar static aden scale, color and spectral waveform sonographic images of the pelvis were obtained. Transabdominal and endovaginal ultrasound was performed. FINDINGS: UTERUS: The uterus is 7.6 x 3.5 x 6.8 cm. No definite fibroids. ENDOMETRIUM: There is an IUD within the endometrial canal. Endometrial canal measures 3-4 mm in thickness. RIGHT ADNEXA: The right ovary is 31 x 21 x 27 mm. It contains small follicles. LEFT ADNEXA: The left ovary is 37 x 25 x 31 mm. And contains small follicles. Also slightly complex hypoechoic subtle left ovarian nodule measuring approximately 18 x 14 x 15 mm. CUL DE SAC: Trace free fluid. IMPRESSION: IUD. Subtle hypoechoic left ovarian nodule may represent a hemorrhagic cyst. Follow-up pelvic ultrasound in few menstrual cycle to re-evaluate as clinically warranted. Electronically signed by: SHEILA HILL MD [facility] Provider Note - ED v2on 01-29 Provider Note - ED v2 Provider Note - ED v2: Chart Review: ED NOTES ED NOTES: HPI: Just prior to arrival patient was attempting to separate her 2 fighting dogs when one of the dogs bit her on the right index finger. Patient is unsure of her dog's vaccination status however she has control of the dogs and is able to monitor them. Patient notes that her tetanus shot is up-to-date. She states that she is bitten by a small dog. She denies any other injuries or health concerns. ROS: Negative other than as noted in HPI ====Physical Exam==== Constitutional/General: Alert , well appearing, nontoxic, and in NAD. Head: Normocephalic and atraumatic. Eyes: PER, conjunctive normal, sclera nonicteric, subconjunctival layer is pink. Mouth: handling secretions, no trismus, moist mucous membranes Neck: Supple, full ROM, no stridor, no crepitus, no meningeal signs. Trachea at midline. Respiratory: not in respiratory distress. Chest: normal chest movement GI: nondistended Musculoskeletal: Moves all extremities, warm and well perfused. Patient will see right second finger with no difficulties. No signs of tendon or ligament injury. Integument: Skin warm and dry, no rashes. Aspect pad of the distal second phalanx there is approximately a 2 cm cutaneous laceration. Dorsal aspect of right second finger there is a 1 cm skin flap and surface laceration. Neurologic: GCS 15, no focal deficits Psychiatric: Normal affect. HISTORY OF PRESENTING ILLNESS SUMMER is a 19 year old Female and was seen by me at 16-Feb-2020 13:42 for a chief complaint of animal bite (DOG BITE, ACCOUNTS PAYABLE PAYROLL COORDINATOR'S DOG, RIGHT HAND). Triage Information: Most recent Vital Sign Value Date Temp (F): 98.3 02-16-2020 13:33 Temp (C): 36.8 02-16-2020 13:33 Heart Rate (beats/min): 95 02-16-2020 13:33 Respirations (breaths/min): 18 02-16-2020 13:33 SpO2 (%): 98 02-16-2020 13:33 BP Systolic (mm Hg): 114 02-16-2020 13:33 BP Diastolic (mm Hg): 78 02-16-2020 13:33 PAST MEDICAL HISTORY ATTESTATION: I have reviewed and confirmed nurse's/medic's notes for patient's medications, allergies, medical history, and surgical history ALLERGIES/INTOLERANCES: No Known Allergies HEALTH HISTORY: No documented data. OUTPATIENT MEDICATIONS: Home Medications Review Status for Reconciliation: Not Done Med Status: No Current Medications SIGNIFICANT EVENTS: No documented data. 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 Wound is superficial and after discussion patient states that she prefers not to have sutures at this time and would just prefer to have the wound cleaned and dressed with some antibiotic ointment. I discussed with her that sutures would approximate the wound somewhat better but again she declined stating she prefer just to have the wound dressed. As patient's tetanus shot is up-to-date and she will be discharged home as noted below. Patient given a prescription for Augmentin. I recommend that you change the dressing on your finger at least 2 times per day. With each dressing change, I recommend that you wash the area gently with soap and water and apply a fresh layer of antibiotic ointment and a clean dressing. Please follow-up with your family doctor in 24 days for reevaluation of the wound and return to the nearest ER for any new or worsening concerns. CLINICAL IMPRESSION Diagnosis/Annotation: ED Dx Name:Open wound of right index finger due to dog bite Code:S61.250A Dispostion: discharged ATTESTATION CRITICAL CARE TIME Is this a critically ill patient: no Electronic Signatures: Doug Herring I (STACKER-AUTOMATIC LATHE TENDER) (Signed 16-Feb-2020 14:14) Authored: Provider Note - ED v2 Last Updated: 16-Feb-2020 14:14 by Doug Herring I (STACKER-AUTOMATIC LATHE TENDER) [facility] Risk Screen - Adult Emergenc n 02-16-2020 Risk Screen - Adult Emergency Preferred Language: Preferred Language: Preferred Language for Discussing Health Care (patient/designee)Yanni turner Advanced Directives: Advance Directive/DNRno Advance Directive Information Givenpatient/family declined Family Violence Adult: Abuse Screen: Are you or have you been threatened or abused physically, emotionally, or sexually by anyoneno Learning Assessment (Patient): Learning Assessment (Patient): Patient is Able to be Assessed for Learningyes Factors Influencing Readiness to Learnacuteness of illness; pain Factors that Impact Ability to Learnnone Devices/Methods Used to Communicatenone Learning Preferencesaudio Cultural Considerationsnone Developmental Considerationsnone Judaism Considerationsnone Learning Assessment (Other Learner): Learning Assessment (Other Learner): Other learner availableno Pressure Injury/TB/Substance: Pressure Injury: Pressure Injury Present on Admissionno Do you have a coughno Substance Use Current or Former Historynever: Cigarette/Tobacco, e-Cigarette/Vaping, Alcohol, Street Drugs Admission Risk Screen: Significant IndicatorsComplete CAGE: CAGE: Is this an injured patient at a Trauma Center ([facility] [place]/[facility] a/[place]): no Electronic Signatures: Eddi Christine (RN) (Signed 16-Feb-2020 13:41) Authored: Preferred Language, Advanced Directives, Family Violence Adult, Learning Assessment (Patient), Learning Assessment (Other Learner), Pressure Injury/TB/Substance, CAGE Last Updated: 16-Feb-2020 13:41 by Eddi Christine (RN) [facility] Triage - EDon 02-16-2020 Triage - ED Quick Triage: Are You no Have You Given In The Last 6 Weeksno Are You Currently Breastfeedingno Chart Review: CHIEF COMPLAINT FAROOQ TABOR is a Female patient with a chief complaint of animal bite (DOG BITE, ACCOUNTS PAYABLE PAYROLL COORDINATOR'S DOG, RIGHT HAND). Onset of the Complaint: 16-Feb-2020 12:30 Triage Date/Time: 16-Feb-2020 13:33 Pain Rating (0-10): 8 = Severe Acceptable Pain Level (0-10): 1 Pain location: RIGHT INDEX FINGER Vital Signs: Temperature: 98.3F ( 36.8C) taken oral Blood Pressure: 114/78 Mean: Heart Rate: 95 Respiratory Rate: 18 on room air, no respiratory support. Height: 5 feet 1.00 inches. 154.9 CM Weight: 100.3 pounds. Calculated 45.5 kg. (stated) Calculated BMI (kg/m2): 18.963 Calculated BSA (m2) 1.40 Murphy Coma Scale: Best Eye Response: (E4) spontaneous Best Motor Response: (M6) obeys commands Best Verbal Response: (V5) oriented [place] Score: 15 Cough lasting greater than 3 weeks: no Allergies: no Mask applied: no Patient has homicidal thoughts: no YAMILETH: 4 Symptoms Are POSITIVE For: bleeding. Symptoms Are Negative For: anxiety, chills, diaphoresis, dyspnea, fever, nausea, rash, swelling and tingling. Risk Screens Suicide Risk Screen In the Past Month: Have you wished you were or wished you could go to sleep and not wake up no In the Past Month: Have you had any actual thoughts of killing yourself no In Your Lifetime: Have you ever done anything, started to do anything, or prepared to do anything to end your life no Gregory Fall Scale Screening Has the patient fallen before (or is the patient in the ED as a result of a fall) has not had a fall Does the patient have an impaired gait does not have impaired gait Is the patient cognitively impaired not cognitively impaired Interventions: Gregory Fall Interventions: *patient oriented to surroundings and call system, * patient/family falls education completed and documented, *patients fall status communicated during bedside handoff, *whiteboard updated, *mode of toileting discussed with patient, *bed in low position with brakes locked, *call light in reach, * non-skid footwear PAIN Pain Scale Used: JUAN JOSE Pain Rating (0-10): 8 = Severe Acceptable Pain Level (0-10): 1 TRAVEL HISTORY Travel History Coronavirus Screening: no exposure or symptoms Past Medical History: Past Medical History Reviewedyes Electronic Signatures: Eddi Christine (RN) (Signed 16-Feb-2020 13:40) Authored: Triage, Past Medical History Last Updated: 16-Feb-2020 13:40 by Eddi Christine (RN) Normal [facility] Grp A Strp rRNA Josue Maldonado 11-27-2019 Group A Strep rRNA Detection Not Detected Normal NODT [facility] BASIC METABOLIC PANELon 12-3 Anion gap [Moles/Vol] 7 mmol/L Low 10 - 20 [facility] Comment on above: Performed By: #### B MP #### [address] [address] Calcium [Mass/Vol] 9.0 mg/dL Normal 8.6 - 10.3 [facility] Comment on above: Performed By: #### B MP #### [address] [address] Chloride [Moles/Vol] 106 mmol/L Normal 98 - 107 [facility] Comment on above: Performed By: #### B MP #### [address] [address] Creatinine [Mass/Vol] 0.66 mg/dL Normal 0.50 - 1.05 [facility] Comment on above: Performed By: #### B MP #### [place] [id number] GFR- AM. >60 Normal >60 [facility] Comment on above: Result Comment: CALC ULATIONS OF ESTIMATED GFR ARE PERFORMED USING THE MDRD STUDY EQUATION FOR THE IDMS-TRACEABLE CREATININE METHODS. CLIN CHEM 2007;53:766-72 Performed By: #### B MP #### [place] [id number] GFR-NON AM. >60 Normal >60 [facility] Comment on above: Performed By: #### B MP #### [place] [id number] Glucose [Mass/Vol] 89 mg/dL Normal 74 - 99 [facility] Comment on above: Performed By: #### B MP #### [place] [id number] HCO3 (Bld) [Moles/Vol] 28 mmol/L Normal 21 - 32 [facility] Comment on above: Performed By: #### B MP #### [place] [id number] Potassium [Moles/Vol] 3.8 mmol/L Normal 3.5 - 5.3 [facility] Comment on above: Performed By: #### B MP #### [place] [id number] Sodium [Moles/Vol] 137 mmol/L Normal 136 - 145 [facility] Comment on above: Performed By: #### B MP #### [place] [id number] Urea nitrogen [Mass/Vol] 13 mg/dL Normal 6 - 23 [facility] Comment on above: Performed By: #### B MP #### [place] [id number] CBC AND DIFFERENTIALon 12-31 -2019 Basophils (Bld) [#/Vol] 0.10 10*3/uL Normal 0.00 - 0.1 0 [facility] Comment on above: Performed By: #### C BCDF #### [address] [address] Basophils/100 WBC (Bld) 0.8 % Normal 0.0 - 2.[address] [facility] Comment on above: Performed By: #### C BCDF #### [address] [address] Eosinophils (Bld) [#/Vol] 0.20 10*3/uL Normal 0.00 - 0.70 [facility] Comment on above: Performed By: #### C BCDF #### [address] [address] Eosinophils/100 WBC (Bld) 2.7 % Normal 0.0 - 6.0 [facility] Comment on above: Performed By: #### C BCDF #### [address] [address] Erythrocyte distribution width (RBC) [Ratio] 13.2 % Normal 11.5 - 14.5 [facility] Comment on above: Performed By: #### C BCDF #### [address] [address] Hematocrit (Bld) [Volume fraction] 42.3 % Normal 36.0 - 46.0 [facility] Comment on above: Performed By: #### C BCDF #### [address] [address] Hemoglobin (Bld) [Mass/Vol] 14.2 g/dL Normal 12.0 - 16.0 [facility] Comment on above: Performed By: #### C BCDF #### [address] [address] Lymphocytes (Bld) [#/Vol] 2.30 10*3/uL Normal 1.20 - 4.80 [facility] Comment on above: Performed By: #### C BCDF #### [address] [address] Lymphocytes/100 WBC (Bld) 27.7 % Normal 13.0 - 44.0 [facility] Comment on above: Performed By: #### C BCDF #### [address] [address] MCHC (RBC) [Mass/Vol] 33.5 g/dL Normal 32.0 - 36.0 [facility] Comment on above: Performed By: #### C BCDF #### [address] [address] MCV (RBC) [Entitic vol] 93 fL Normal 80 - [address] [facility] Comment on above: Performed By: #### C BCDF #### [address] [address] Monocytes (Bld) [#/Vol] 0.90 10*3/uL Normal 0.10 - 1.0 0 [facility] Comment on above: Performed By: #### C BCDF #### [address] [address] Monocytes/100 WBC (Bld) 10.9 % Normal 2.0 - 10.[address] [facility] Comment on above: Performed By: #### C BCDF #### [address] [address] Neutrophils (Bld) [#/Vol] 4.80 10*3/uL Normal 1.20 - 7.70 [facility] Comment on above: Performed By: #### C BCDF #### [address] [address] Neutrophils/100 WBC (Bld) 57.9 % Normal 40.0 - 80.0 [facility] Comment on above: Performed By: #### C BCDF #### [address] [address] Nucleated RBC/100 WBC (Bld) [Ratio] 0.1 /100 WBC Normal [facility] Comment on above: Performed By: #### C BCDF #### [address] [address] Platelets (Bld) [#/Vol] 289 10*3/uL Normal 150 - 450 [facility] Comment on above: Performed By: #### C BCDF #### [place] [address] [place] [address] RBC (Bld) [#/Vol] 4.57 x10E12/L Normal 4.00 - 5.20 [facility] Comment on above: Performed By: #### C BCDF #### [place] [address] [place] [address] WBC (Bld) [#/Vol] 8.2 10*3/uL Normal 4.4 - 11.3 [facility] Comment on above: Performed By: #### C BCDF #### [address] [address] [address] ABDOMEN AND PELVIS WITH C ONTRASTon 10-30-2019 CT ABDOMEN AND PELVIS WITH CONTRAST Patient Name: FAROOQ TABOR STUDY: CT ABDOMEN AND PELVIS WITH CONTRAST; 10/30/2019 5:17 pm INDICATION: pain. COMPARISON: None. ACCESSION NUMBER(S): [id number] ORDERING CLINICIAN: STEPHANIE SCHERER TECHNIQUE: CT of the abdomen and pelvis was performed. Omnipaque 350 FINDINGS: LOWER CHEST: Images of the lung bases show no infiltrate or pleural fluid. ABDOMEN: LIVER: There is no hepatic mass. BILE DUCTS: There is no intrahepatic, common hepatic or common bile ductal dilatation. GALLBLADDER: The gallbladder is unremarkable. The gallbladder is contracted. PANCREAS: The pancreas is unremarkable. SPLEEN: The spleen is unremarkable. There is no splenic mass or splenomegaly. ADRENAL GLANDS: The adrenal glands are unremarkable. KIDNEYS AND URETERS: The kidneys function symmetrically. The kidneys demonstrate no mass. There is no intrarenal calculus or hydronephrosis. BOWEL: There is no bowel wall thickening, dilatation or obstruction. The appendix is normal There is a moderate amount of stool throughout the colon. VESSELS: The abdominal and pelvic vessels are unremarkable. PERITONEUM/RETROPERITON EUM/LYMPH NODES: There is no retroperitoneal or pelvic adenopathy. There is no ascites. ABDOMINAL WALL: The abdominal wall is unremarkable. BONE AND SOFT TISSUE: There is no acute osseous finding. There is no soft tissue abnormality. There is an IUD in the endometrial canal. This is in good position in the endometrial canal in the upper mid and lower uterine body. There is a 3.3 x 2.5 cm right ovarian cyst. IMPRESSION: 1. A 3.3 x 2.5 cm right ovarian cyst. 2. Constipation. 3. IUD. 4. Contracted gallbladder. 5. Normal appendix Electronically signed by: CALEB BARRIOS MD Normal [facility] HCG,URINEon 10-30-2019 Beta HCG ( test) Ql (U) Negative Normal Negative [facility] Comment on above: Performed By: #### H CGU #### [place] [id number] HEPATIC FUNCTION PANELon Albumin [Mass/Vol] 4.4 g/dL Normal 3.4 - 5.0 [facility] Comment on above: Performed By: #### H EPFP #### [place] [id number] ALP [Catalytic activity/Vol] 66 U/L Normal 33 - 110 [facility] Comment on above: Performed By: #### H EPFP #### [address] [address] ALT [Catalytic activity/Vol] 10 U/L Normal 7 - 45 [facility] Comment on above: Result Comment: Rachael ents treated with Sulfasalazine may generate falsely decreased results for ALT. Performed By: #### H EPFP #### [place] [id number] AST [Catalytic activity/Vol] 13 U/L Normal 9 - 39 [facility] Comment on above: Performed By: #### H EPFP #### [address] [address] Bilirubin [Mass/Vol] 0.3 mg/dL Normal 0.0 - 1.2 [facility] Comment on above: Performed By: #### H EPFP #### [address] [address] Bilirubin.direct [Mass/Vol] 0.1 mg/dL Normal 0.0 - 0.3 [facility] Comment on above: Performed By: #### H EPFP #### [address] [address] Protein [Mass/Vol] 6.8 g/dL Normal 6.4 - 8.2 [facility] Comment on above: Performed By: #### H EPFP #### [address] [address] LIPASEon 10-30-2019 Lipase [Catalytic activity/Vol] 28 U/L Normal 9 - 82 [facility] Comment on above: Result Comment: Kimberly puncture immediately after or during the administration of Metamizole may lead to falsely low results. Testing should be performed immediately prior to Metamizole dosing. N-rbvtrw-f-benzoquinone imine (metabolite of Acetaminophen) will generate erroneously low results in samples for patients that have taken toxic doses of acetaminophen. Performed By: #### L IPAS #### [address] [address] Provider Note - ED v2on 10-02 Provider Note - ED v2 Provider Note - ED v2: Chart Review: ED NOTES ED NOTES: ====HPI==== 19 year old female presents to the ED with mother c/o periumbilical abdominal pain. Patient states that her sx started 3 hours ago. Denies vomiting, nausea, fever, appendectomy, diarrhea, hematuria, back pain, vaginal d/c. PMHx of IUD in place. Character: periumbilical abdominal pain, sharp Severity: Mild to moderate Exacerbated by: movement, voiding urine Improved by: sitting at 90 degree angle Recently seen by: Denies ====Review of Systems==== 10 point system review is negative except for those specifically mentioned in history of present illness ====Physical Exam==== Constitutional/General: Alert and oriented x3, well appearing, nontoxic, and in NAD. Head: Normocephalic and atraumatic. Eyes: PERRL, EOMI, conjunctive normal, sclera nonicteric, subconjunctival layer is pink. Mouth: Oropharynx clear, handling secretions, no trismus, no asymmetry of the posterior oropharynx or uvular edema Neck: Supple, full ROM, non tender to palpation in the midline, no stridor, no crepitus, no meningeal signs. Trachea at midline. Respiratory: Lungs clear to auscultation bilaterally, no wheezes, rales, or rhonchi, not in respiratory distress. Cardiovascular: Regular rate, regular rhythm, no murmurs, gallops, or rubs, 2+ distal pulses. Chest: normal chest wall movement GI: Abdomen RLQ abdominal tenderness. Musculoskeletal: Moves all extremities x4, warm and well perfused, no clubbing, cyanosis, or edema, cap refill <3 seconds Integument: Skin warm and dry, no rashes. Lymphatic: No lymphadenopathy noted. Neurologic: GCS 15, no focal deficits, symmetric strength 5/5 in the upper and lower extremities bilaterally. Psychiatric: Normal affect. ====ED Course and Medical Decision Making==== Differential diagnosis includes, but is not limited to: Imaging: EKG: Labs: Portions of this note were dictated by speech recognition. An attempt at proof reading was made to minimize errors. Minor errors in satellite tv installer may be present. Please call if questions.. HISTORY OF PRESENTING ILLNESS FAROOQ is a 19 year old Female and was seen by me at 30-Oct-2019 15:39 for a chief complaint of abdominal pain (pain near belly button denies N/V/D) . The historian is the patientmother. Triage Information: Most recent Vital Sign Value Date Temp (F): 98.2 10-30-2019 15:30 Temp (C): 36.7 10-30-2019 15:30 Heart Rate (beats/min): 73 10-30-2019 15:30 Respirations (breaths/min): 18 10-30-2019 15:30 SpO2 (%): 99 10-30-2019 15:30 BP Systolic (mm Hg): 109 10-30-2019 15:30 BP Diastolic (mm Hg): 69 10-30-2019 15:30 PAST MEDICAL HISTORY ATTESTATION: I have reviewed and confirmed nurse's/medic's notes for patient's medications, allergies, medical history, and surgical history ALLERGIES/INTOLERANCES: No Known Allergies HEALTH HISTORY: No documented data. OUTPATIENT MEDICATIONS: Home Medications Review Status for Reconciliation: Complete Med Status: No Current Medications SIGNIFICANT EVENTS: No documented data. ROOFING FOREMAN: Is : no(1) Is : no(1) REVIEW OF SYSTEMS All other systems reviewed and are negative RESULTS/VITAL SIGNS RESULTS: Recent Lab Results: I have reviewed these laboratory results: Hepatic Function Panel 30-Oct-2019 16:05:00 ResultValue Aspartate Transaminase, Serum 13 ALB 4.4 T Bili 0.3 Bilirubin, Serum Direct - Conjugated 0.1 ALKP 66 Alanine Aminotransferase, Serum 10 T Pro 6.8 Complete Blood Count + Differential 30-Oct-2019 16:05:00 ResultValue White Blood Cell Count 8.2 Nucleated Erythrocyte Count 0.1 Red Blood Cell Count 4.57 HGB 14.2 HCT 42.3 MCV 93 MCHC 33.5 PLT 289 RDW-CV 13.2 Neutrophil % 57.9 Lymphocyte % 27.7 Monocyte % 10.9 Eosinophil % 2.7 Basophil % 0.8 Neutrophil Count 4.80 Lymphocyte Count 2.30 Monocyte Count 0.90 Eosinophil Count 0.20 Basophil Count 0.10 Basic Metabolic Panel 30-Oct-2019 16:05:00 ResultValue Glucose, Serum 89 NA 137 K 3.8 CL 106 Bicarbonate, Serum 28 Anion Gap, Serum 7 L BUN 13 CREAT 0.66 GFR-Non >60 GFR- >60 Calcium, Serum 9.0 Urine Test 30-Oct-2019 16:05:00 ResultValue HCG, Urine NEGATIVE Urinalysis 30-Oct-2019 16:05:00 ResultValue Color, Urine Straw Reference Range: STRAW,YELLOW Appearance, Urine CLEAR Specific [place], Urine 1.010 pH, Urine 7.0 Protein, Urine NEGATIVE Glucose, Urine NEGATIVE Blood, Urine NEGATIVE Ketones, Urine NEGATIVE Bilirubin, Urine NEGATIVE Urobilinogen, Urine <2.0 Nitrite, Urine Negative Leukocyte Esterase, Urine NEGATIVE Lipase, Serum 30-Oct-2019 16:05:00 ResultValue Lipase, Serum 28 Radiology Results: I have reviewed this radiology result: Impression: 1. A 3.3 x 2.5 cm right ovarian cyst. 2. Constipation. 3. IUD. 4. Contracted gallbladder. 5. Normal appendix CT Abdomen and Pelvis with Contrast [Oct 30 2019 5:56PM] VITAL SIGNS: T PRBP SpO2O2(LPM) %FiO2 Method 30-Oct-2019 15:30:[id number] MEDICAL DECISION MAKING/ED COURSE MDM/ED COURSE: Patient presents emergency Department with complaint of right lower quadrant abdominal pain. CT scan shows a small right-sided ovarian cyst. I do not suspect a torsion. CT scan is otherwise unremarkable. Laboratories today showed no acute process. Patient will be discharged home with recommended follow-up with her primary care physician and return for any new or worsening symptoms. CLINICAL IMPRESSION Diagnosis/Annotation: ED Dx Name:Ovarian cyst Code:N83.209 Dispostion: discharged Type: home ATTESTATION Scribe Name: Chris Ferro. Scribing on Behalf of: Stephanie Scherer PA. ATTENDING SCRIBE ATTESTATION STATEMENT Stephanie Metcalf PAC, attests all medical record entries made by the scribe were under my direction and personally dictated by me. I have reviewed the chart and agree that the record accurately reflects my performance of the history, physical, and assessment plan. I have also personally directed, reviewed, and agree with disposition instructions. Comments/Additional Findings: IChris, am scribing for and in the presence of CHAPINCITO Vázquez. CRITICAL CARE TIME Is this a critically ill patient: no Electronic Signatures: Chris Ferro (Scribe) (Entered 30-Oct-2019 15:56) Entered: Provider Note - ED v2 Stephanie Scherer (PAC) (Signed 30-Oct-2019 18:31) Authored: Provider Note - ED v2 Last Updated: 30-Oct-2019 18:31 by Stephanie Scherer (PAC) References: 1. Data Referenced From Triage - ED 30-Oct-2019 15:30 [facility] Risk Screen - Adult Emergenc yon 10-30-2019 Risk Screen - Adult Emergency Preferred Language: Preferred Language: Preferred Language for Discussing Health Care (patient/designee)Yanni turner Advanced Directives: Advance Directive/DNRno Family Violence Adult: Abuse Screen: Are you or have you been threatened or abused physically, emotionally, or sexually by anyoneno Learning Assessment (Patient): Learning Assessment (Patient): Patient is Able to be Assessed for Learningyes Factors Influencing Readiness to Learnacuteness of illness Factors that Impact Ability to Learnnone Devices/Methods Used to Communicatenone Learning Preferencesaudio Cultural Considerationsnone Developmental Considerationsnone Judaism Considerationsnone Learning Assessment (Other Learner): Learning Assessment (Other Learner): Other learner availableno Pressure Injury/TB/Substance: Pressure Injury: Pressure Injury Present on Admissionno Do you have a coughno Substance Use Current or Former Historynever: Cigarette/Tobacco, e-Cigarette/Vaping, Alcohol, Street Drugs Admission Risk Screen: Significant IndicatorsComplete CAGE: CAGE: Is this an injured patient at a Trauma Center ([facility] [place] a/[place]): no Electronic Signatures: Deann Olmedo (RN) (Signed 30-Oct-2019 15:33) Authored: Preferred Language, Advanced Directives, Family Violence Adult, Learning Assessment (Patient), Learning Assessment (Other Learner), Pressure Injury/TB/Substance, CAGE Last Updated: 30-Oct-2019 15:33 by Deann Olmedo (GAMALIEL) [facility] Triage - EDon 10-30-2019 Triage - ED Quick Triage: Are You no Are You Currently Breastfeedingno Chart Review: CHIEF COMPLAINT FAROOQ TABOR is a Female patient with a chief complaint of abdominal pain (pain near belly button denies N/V/D). Triage Date/Time: 30-Oct-2019 15:30 Pain Rating (0-10): 2 = Mild Pain location: abd Vital Signs: Temperature: 98.2F ( 36.7C) taken oral Blood Pressure: 109/69 Mean: Heart Rate: 73 Respiratory Rate: 18 Pulse Oximetry: 99% Height: 5 feet 1.00 inches. 154.9 CM Weight: 95.0 pounds. Calculated 43.0 kg. (stated) Calculated BMI (kg/m2): 17.921 Calculated BSA (m2) 1.36 Murphy Coma Scale: Best Eye Response: (E4) spontaneous Best Motor Response: (M6) obeys commands Best Verbal Response: (V5) oriented [place] Score: 15 Allergies: no Patient has homicidal thoughts: no YAMILETH: 3 Symptoms Are Negative For: anorexia, constipation, diaphoresis, diarrhea, distention, fever, nausea, rectal blood and vomiting. Risk Screens Suicide Risk Screen In the Past Month: Have you wished you were or wished you could go to sleep and not wake up no In the Past Month: Have you had any actual thoughts of killing yourself no In Your Lifetime: Have you ever done anything, started to do anything, or prepared to do anything to end your life no Gregory Fall Scale Screening Has the patient fallen before (or is the patient in the ED as a result of a fall) has not had a fall Does the patient have an impaired gait does not have impaired gait Is the patient cognitively impaired not cognitively impaired Interventions: Gregory Fall Interventions: *patient oriented to surroundings and call system, * patient/family falls education completed and documented, *patients fall status communicated during bedside handoff, *whiteboard updated, *mode of toileting discussed with patient, *bed in low position with brakes locked, *call light in reach, * non-skid footwear PAIN Pain Scale Used: JUAN JOSE Pain Rating (0-10): 2 = Mild Past Medical History: Past Medical History Reviewedyes Electronic Signatures: Deann Olmedo (RN) (Signed 30-Oct-2019 15:33) Authored: Triage, Past Medical History Last Updated: 30-Oct-2019 15:33 by Deann Olmedo (RN) Normal [facility] URINALYSISon 10-30-2019 Appearance (U) CLEAR Normal CLEAR [facility] Comment on above: Performed By: #### U A #### [place] [address] Bilirubin (U) [Mass/Vol] Negative Normal NEGATIVE [facility] Comment on above: Performed By: #### U A #### [place] [address] BLOOD Negative Normal NEGATIVE [facility] Comment on above: Performed By: #### U A #### [place] [address] Color (U) Straw Normal STRAW,YELLOW [facility] Comment on above: Performed By: #### U A #### [place] [id number] Glucose [Mass/Vol] Negative Normal NEGATIVE [facility] Comment on above: Performed By: #### U A #### [place] [id number] Ketones Ql (U) Negative Normal NEGATIVE [facility] Comment on above: Performed By: #### U A #### [place] [id number] Leukocyte esterase Test strip Ql (U) Negative Normal NEGATIVE [facility] Comment on above: Performed By: #### U A #### [address] [address] Nitrite Ql (U) Negative Normal NEGATIVE [facility] Comment on above: Performed By: #### U A #### [address] [address] pH (Bld) 7.0 Normal 5.0 - 8.0 [facility] Comment on above: Performed By: #### U A #### [address] [address] Protein (U) [Mass/Vol] Negative Normal NEGATIVE [facility] Comment on above: Performed By: #### U A #### [address] [address] Specific gravity (U) [Rel density] 1.010 Normal 1.005 - 1.035 [facility] Comment on above: Performed By: #### U A #### [address] [address] Urobilinogen Qn (U) <2.0 Normal 0.0 - 1.9 [facility] Comment on above: Performed By: #### U A #### [address] [address] Vital Signs Date Time Vital Sign Value Performing Clinician Facility 07-10-2025 15:190400 Body height 154.94 cm No Primary Care Physician [facility] 07-10-2025 15:190400 Body mass index (BMI) [Ratio] 25.2 kg/m2 No Primary Care Physician [facility] 07-10-2025 15:190400 Body weight 60.46 kg No Primary Care Physician [facility] 07-10-2025 15:190400 Diastolic blood pressure 62 mm[Hg] No Primary Care Physician [facility] 07-10-2025 15:19040 Systolic blood pressure 106 mm[Hg] No Primary Care Physician [facility] 07-02-2025 10:22-0400 Body height 154.94 cm No Primary Care Physician [facility] 07-02-2025 10:20-0400 Body mass index (BMI) [Ratio] 25 kg/m2 No Primary Care Physician [facility] 07-02-2025 10:20-0400 Body weight 60.07 kg No Primary Care Physician [facility] 07-02-2025 10:20-0400 Diastolic blood pressure 68 mm[Hg] No Primary Care Physician [facility] 07-02-2025 10:20-0400 Systolic blood pressure 112 mm[Hg] No Primary Care Physician [facility] 06-18-2025 10:05-0400 Body height 154.94 cm No Primary Care Physician [facility] 06-18-2025 10:00-0400 Body mass index (BMI) [Ratio] 24.5 kg/m2 No Primary Care Physician [facility] 06-18-2025 10:00-0400 Body weight 58.74 kg No Primary Care Physician [facility] 06-18-2025 10:00-0400 Diastolic blood pressure 64 mm[Hg] No Primary Care Physician [facility] 06-18-2025 10:00-0400 Systolic blood pressure 98 mm[Hg] No Primary Care Physician [facility] 06-04-2025 15:17-0400 Body height 154.94 cm No Primary Care Physician [facility] 06-04-2025 15:17-0400 Body mass index (BMI) [Ratio] 24.5 kg/m2 No Primary Care Physician [facility] 06-04-2025 15:17-0400 Body weight 58.96 kg No Primary Care Physician [facility] 06-04-2025 15:17-0400 Diastolic blood pressure 66 mm[Hg] No Primary Care Physician [facility] 06-04-2025 15:17-0400 Systolic blood pressure 99 mm[Hg] No Primary Care Physician [facility] 05-21-2025 10:15-0400 Body height 154.94 cm No Primary Care Physician [facility] 05-21-2025 10:12-0400 Body mass index (BMI) [Ratio] 23.5 kg/m2 No Primary Care Physician [facility] 05-21-2025 10:12-0400 Body weight 56.47 kg No Primary Care Physician [facility] 05-21-2025 10:12-0400 Diastolic blood pressure 60 mm[Hg] No Primary Care Physician [facility] 05-21-2025 10:12-0400 Systolic blood pressure 107 mm[Hg] No Primary Care Physician [facility] 05-07-2025 09:59-0400 Body height 154.94 cm No Primary Care Physician [facility] 05-07-2025 09:59-0400 Body mass index (BMI) [Ratio] 23.8 kg/m2 No Primary Care Physician [facility] 05-07-2025 09:59-0400 Body weight 57.2 kg No Primary Care Physician [facility] 05-07-2025 09:59-0400 Diastolic blood pressure 60 mm[Hg] No Primary Care Physician [facility] 05-07-2025 09:59-0400 Systolic blood pressure 100 mm[Hg] No Primary Care Physician [facility] 04-26-2025 15:44-0400 Body height 154.94 cm No Primary Care Physician [facility] 04-26-2025 15:44-0400 Body mass index (BMI) [Ratio] 23.1 kg/m2 No Primary Care Physician [facility] 04-26-2025 15:44-0400 Body weight 55.39 kg No Primary Care Physician [facility] 04-26-2025 15:44-0400 Diastolic blood pressure 66 mm[Hg] No Primary Care Physician [facility] 04-26-2025 15:44-0400 Systolic blood pressure 107 mm[Hg] No Primary Care Physician [facility] 04-03-2025 05:42-0400 Diastolic blood pressure 56 mm[Hg] No Primary Care Physician [facility] 04-03-2025 05:42-0400 Heart rate 78 /min No Primary Care Physician [facility] 04-03-2025 05:42-0400 Systolic blood pressure 88 mm[Hg] No Primary Care Physician [facility] 04-03-2025 05:31-0400 SaO2% (BldA) [Mass fraction] 94 % No Primary Care Physician [facility] 04-02-2025 21:33-0400 Body temperature 99.2 [degF] No Primary Care Physician [facility] 04-02-2025 21:33-0400 Respiratory rate 16 /min No Primary Care Physician [facility] 04-02-2025 21:20-0400 Body height 154.94 cm No Primary Care Physician [facility] 04-02-2025 21:20-0400 Body mass index (BMI) [Ratio] 22.6 kg/m2 No Primary Care Physician [facility] 04-02-2025 21:20-0400 Body weight 54.3 kg No Primary Care Physician [facility] 03-26-2025 10:09-0400 Body height 154.94 cm No Primary Care Physician [facility] 03-26-2025 10:09-0400 Body mass index (BMI) [Ratio] 22 kg/m2 No Primary Care Physician [facility] 03-26-2025 10:09-0400 Body weight 52.84 kg No Primary Care Physician [facility] 03-26-2025 10:09-0400 Diastolic blood pressure 66 mm[Hg] No Primary Care Physician [facility] 03-26-2025 10:09-0400 Systolic blood pressure 104 mm[Hg] No Primary Care Physician [facility] 02-26-2025 09:31-0400 Body mass index (BMI) [Ratio] 20.9 kg/m2 No Primary Care Physician [facility] 02-26-2025 09:31-0400 Body weight 50.46 kg No Primary Care Physician [facility] 02-26-2025 09:31-0400 Diastolic blood pressure 58 mm[Hg] No Primary Care Physician [facility] 02-26-2025 09:31-0400 Systolic blood pressure 96 mm[Hg] No Primary Care Physician [facility] 01-21-2025 08:48-0400 Body height 154.94 cm No Primary Care Physician [facility] 01-21-2025 08:48-0400 Body mass index (BMI) [Ratio] 20.4 kg/m2 No Primary Care Physician [facility] 01-21-2025 08:48-0400 Body weight 49.1 kg No Primary Care Physician [facility] 01-21-2025 08:48-0400 Diastolic blood pressure 68 mm[Hg] No Primary Care Physician [facility] 01-21-2025 08:48-0400 Systolic blood pressure 102 mm[Hg] No Primary Care Physician [facility] 09-21-2023 07:52-0500 Body temperature 98.4 [degF] No Primary Care Physician [facility] 09-21-2023 07:52-0500 Diastolic blood pressure 72 mm[Hg] No Primary Care Physician [facility] 09-21-2023 07:52-0500 Heart rate 77 /min No Primary Care Physician [facility] 09-21-2023 07:52-0500 Respiratory rate 16 /min No Primary Care Physician [facility] 09-21-2023 07:52-0500 Systolic blood pressure 112 mm[Hg] No Primary Care Physician [facility] 09-21-2023 01:57-0500 SaO2% (BldA) [Mass fraction] 100 % No Primary Care Physician [facility] 09-19-2023 12:30-0500 Body height 154.94 cm No Primary Care Physician [facility] 09-19-2023 12:30-0500 Body mass index (BMI) [Ratio] 25.4 kg/m2 No Primary Care Physician [facility] 09-19-2023 12:30-0500 Body weight 61.23 kg No Primary Care Physician [facility] 09-13-2023 11:10-0500 Body mass index (BMI) [Ratio] 25.1 kg/m2 No Primary Care Physician [facility] 09-13-2023 11:10-0500 Body weight 60.32 kg No Primary Care Physician [facility] 09-13-2023 11:10-0500 Diastolic blood pressure 76 mm[Hg] No Primary Care Physician [facility] 09-13-2023 11:10-0500 Systolic blood pressure 114 mm[Hg] No Primary Care Physician [facility] 09-06-2023 13:24-0500 Body mass index (BMI) [Ratio] 25 kg/m2 No Primary Care Physician [facility] 09-06-2023 13:24-0500 Body weight 59.98 kg No Primary Care Physician [facility] 09-06-2023 13:24-0500 Diastolic blood pressure 70 mm[Hg] No Primary Care Physician [facility] 09-06-2023 13:24-0500 Systolic blood pressure 104 mm[Hg] No Primary Care Physician [facility] 08-30-2023 11:37-0400 Body height 154.94 cm No Primary Care Physician [facility] 08-30-2023 11:37-0400 Body mass index (BMI) [Ratio] 24.9 kg/m2 No Primary Care Physician [facility] 08-30-2023 11:37-0400 Body weight 59.87 kg No Primary Care Physician [facility] 08-30-2023 11:37-0400 Diastolic blood pressure 75 mm[Hg] No Primary Care Physician [facility] 08-30-2023 11:37-0400 Systolic blood pressure 109 mm[Hg] No Primary Care Physician [facility] 08-23-2023 14:50-0400 Body mass index (BMI) [Ratio] 24.6 kg/m2 No Primary Care Physician [facility] 08-23-2023 14:50-0400 Body weight 59.08 kg No Primary Care Physician [facility] 08-23-2023 14:50-0400 Diastolic blood pressure 68 mm[Hg] No Primary Care Physician [facility] 08-23-2023 14:50-0400 Systolic blood pressure 106 mm[Hg] No Primary Care Physician [facility] 08-09-2023 14:11-0400 Body mass index (BMI) [Ratio] 24 kg/m2 No Primary Care Physician [facility] 08-09-2023 14:11-0400 Body weight 57.83 kg No Primary Care Physician [facility] 08-09-2023 14:11-0400 Diastolic blood pressure 67 mm[Hg] No Primary Care Physician [facility] 08-09-2023 14:11-0400 Systolic blood pressure 106 mm[Hg] No Primary Care Physician [facility] 08-05-2023 14:12-0400 Body mass index (BMI) [Ratio] 23.6 kg/m2 No Primary Care Physician [facility] 08-05-2023 14:12-0400 Body weight 56.75 kg No Primary Care Physician [facility] 08-05-2023 14:12-0400 Diastolic blood pressure 70 mm[Hg] No Primary Care Physician [facility] 08-05-2023 14:12-0400 Systolic blood pressure 104 mm[Hg] No Primary Care Physician [facility] 07-26-2023 13:10-0400 Body mass index (BMI) [Ratio] 23.5 kg/m2 No Primary Care Physician [facility] 07-26-2023 13:10-0400 Body weight 56.41 kg No Primary Care Physician [facility] 07-26-2023 13:10-0400 Diastolic blood pressure 60 mm[Hg] No Primary Care Physician [facility] 07-26-2023 13:10-0400 Systolic blood pressure 94 mm[Hg] No Primary Care Physician [facility] 07-12-2023 11:37-0400 Body mass index (BMI) [Ratio] 23.1 kg/m2 No Primary Care Physician [facility] 07-12-2023 11:37-0400 Body weight 55.56 kg No Primary Care Physician [facility] 07-12-2023 11:37-0400 Diastolic blood pressure 58 mm[Hg] No Primary Care Physician [facility] 07-12-2023 11:37-0400 Systolic blood pressure 96 mm[Hg] No Primary Care Physician [facility] 06-29-2023 13:53-0400 Body mass index (BMI) [Ratio] 22.7 kg/m2 No Primary Care Physician [facility] 06-29-2023 13:53-0400 Body weight 54.65 kg No Primary Care Physician [facility] 06-29-2023 13:53-0400 Diastolic blood pressure 64 mm[Hg] No Primary Care Physician [facility] 06-29-2023 13:53-0400 Systolic blood pressure 98 mm[Hg] No Primary Care Physician [facility] 06-10-2023 10:02-0400 Diastolic blood pressure 62 mm[Hg] No Primary Care Physician [facility] 06-10-2023 10:02-0400 Systolic blood pressure 97 mm[Hg] No Primary Care Physician [facility] 06-10-2023 09:51-0400 Body mass index (BMI) [Ratio] 22 kg/m2 No Primary Care Physician [facility] 06-10-2023 09:51-0400 Body weight 52.84 kg No Primary Care Physician [facility] 05-13-2023 09:52-0400 Body mass index (BMI) [Ratio] 21.2 kg/m2 No Primary Care Physician [facility] 05-13-2023 09:52-0400 Body weight 50.91 kg No Primary Care Physician [facility] 05-13-2023 09:52-0400 Diastolic blood pressure 60 mm[Hg] No Primary Care Physician [facility] 05-13-2023 09:52-0400 Systolic blood pressure 92 mm[Hg] No Primary Care Physician [facility] 03-18-2023 10:41-0400 Body height 154.94 cm No Primary Care Physician [facility] 03-18-2023 10:41-0400 Body mass index (BMI) [Ratio] 20 kg/m2 No Primary Care Physician [facility] 03-18-2023 10:41-0400 Body weight 48.19 kg No Primary Care Physician [facility] 03-18-2023 10:41-0400 Diastolic blood pressure 70 mm[Hg] No Primary Care Physician [facility] 03-18-2023 10:41-0400 Systolic blood pressure 106 mm[Hg] No Primary Care Physician [facility] 02-25-2023 10:35-0400 Body mass index (BMI) [Ratio] 20.7 kg/m2 No Primary Care Physician [facility] 02-25-2023 10:35-0400 Body weight 49.95 kg No Primary Care Physician [facility] 02-25-2023 10:35-0400 Diastolic blood pressure 70 mm[Hg] No Primary Care Physician [facility] 02-25-2023 10:35-0400 Systolic blood pressure 112 mm[Hg] No Primary Care Physician [facility] 02-17-2023 21:04-0400 Body height 154.94 cm No Primary Care Physician [facility] 02-17-2023 21:04-0400 Body mass index (BMI) [Ratio] 20.1 kg/m2 No Primary Care Physician [facility] 02-17-2023 21:04-0400 Body temperature 97.9 [degF] No Primary Care Physician [facility] 02-17-2023 21:04-0400 Body weight 48.4 kg No Primary Care Physician [facility] 02-17-2023 21:04-0400 Diastolic blood pressure 65 mm[Hg] No Primary Care Physician [facility] 02-17-2023 21:04-0400 Heart rate 98 /min No Primary Care Physician [facility] 02-17-2023 21:04-0400 Respiratory rate 18 /min No Primary Care Physician [facility] 02-17-2023 21:04-0400 SaO2% (BldA) [Mass fraction] 98 % No Primary Care Physician [facility] 02-17-2023 21:04-0400 Systolic blood pressure 116 mm[Hg] No Primary Care Physician [facility] 01-27-2023 10:29-0400 Body height 154.94 cm No Primary Care Physician [facility] 01-27-2023 10:29-0400 Body mass index (BMI) [Ratio] 20.5 kg/m2 No Primary Care Physician [facility] 01-27-2023 10:29-0400 Body weight 49.44 kg No Primary Care Physician [facility] 01-27-2023 10:29-0400 Diastolic blood pressure 79 mm[Hg] No Primary Care Physician [facility] 01-27-2023 10:29-0400 Systolic blood pressure 120 mm[Hg] No Primary Care Physician [facility] 08-03-2022 14:30-0400 Body height 160.02 cm Richa A Grassick Work Phone: [employer] Work Phone: 08-03-2022 14:30-0400 Body mass index (BMI) [Ratio] 18.6 kg/m2 Richa A Grassick Work Phone: [employer] [place] Work Phone: 08-03-2022 14:30-0400 Body surface area Derived from formula 1.47 m2 Richa A Grassick Work Phone: [employer] [address] Work Phone: 08-03-2022 14:30-0400 Body weight 47.63 kg Richa A Grassick Work Phone: [employer] [address] Work Phone: 08-03-2022 14:30-0400 Diastolic blood pressure 62 mm[Hg] Richa A Grassick Work Phone: [employer] [address] Work Phone: 08-03-2022 14:30-0400 Systolic blood pressure 112 mm[Hg] Richa A Grassick Work Phone: [facility] [address] Work Phone: 09-03-2021 09:43-0400 Body weight 49.44 kg Shena Mcdermott MD Work Phone: [facility] 09-03-2021 09:43-0400 Diastolic blood pressure 64 mm[Hg] Shena Mcdermott MD Work Phone: [facility] 09-03-2021 09:43-0400 Systolic blood pressure 98 mm[Hg] Shena Mcdermott MD Work Phone: [facility] 06-23-2021 11:22-0400 Body height 160.02 cm Richa A Grassick Work Phone: [place] [address] [place] Work Phone: 06-23-2021 11:22-0400 Body mass index (BMI) [Ratio] 18.86 kg/m2 Richa A Grassick Work Phone: [place] [address] [employer] Work Phone: 06-23-2021 11:22-0400 Body surface area Derived from formula 1.48 m2 Richa A Grassick Work Phone: [place] [address] [employer] Work Phone: 06-23-2021 11:22-0400 Body temperature 98 [degF] Richa A Grassick Work Phone: [place] [address] [employer] Work Phone: 06-23-2021 11:22-0400 Body weight 48.3 kg Richa A Grassick Work Phone: [place] [address] [employer] Work Phone: 06-23-2021 11:22-0400 Diastolic blood pressure 60 mm[Hg] Richa A Grassick Work Phone: [facility] [address] Work Phone: 06-23-2021 11:22-0400 Systolic blood pressure 108 mm[Hg] Richa A Grassick Work Phone: [address] Work Phone: 06-23-2021 11:22-0400 31 1 Richa Barr Grassick Work Phone: [address] Work Phone: Comment on above: 2-20_SPerc 06-23-2021 11:22-0400 10 1 Richa A Grassick Work Phone: [address] Work Phone: Comment on above: 2-20_WPerc 06-23-2021 11:22-0400 14 1 Richa A Grassick Work Phone: [address] Work Phone: Comment on above: BMIPerc 04-15-2021 08:12-0400 Body height 160.1 cm Richa A Grassick Work Phone: [facility] Work Phone: 04-15-2021 08:12-0400 Body mass index (BMI) [Ratio] 19.11 kg/m2 Richa A Grassick Work Phone: [facility] Work Phone: 04-15-2021 08:12-0400 Body surface area Derived from formula 1.49 m2 Richa A Grassick Work Phone: [facility] Work Phone: 04-15-2021 08:12-0400 Body temperature 97 [degF] Richa A Grassick Work Phone: [facility] Work Phone: 04-15-2021 08:12-0400 Body weight 48.98 kg Richa A Grassick Work Phone: [facility] Work Phone: 04-15-2021 08:12-0400 Diastolic blood pressure 59 mm[Hg] Richa A Grassick Work Phone: [facility] Work Phone: 04-15-2021 08:12-0400 Heart rate 69 /min Richa Barr Grassick Work Phone: [facility] Work Phone: 04-15-2021 08:12-0400 Systolic blood pressure 107 mm[Hg] Richa A Grassick Work Phone: [facility] Work Phone: 04-15-2021 08:12-0400 31 1 Richa A Grassick Work Phone: [facility] Work Phone: Comment on above: 2-20_SPerc 04-15-2021 08:12-0400 12 1 Richa A Grassick Work Phone: [facility] Work Phone: Comment on above: 12-20_WPerc 04-15-2021 08:12-0400 17 1 Richa A Grassick Work Phone: [facility] Work Phone: Comment on above: BMIPerc Encounters Encounter Date Encounter Type Care Provider Facility Start: 07-10-2025 End: 07-10-2025 Patient encounter procedure Carmella NINO -[facility] Work Phone: Start: 07-10-2025 End: 07-10-2025 ambulatory No Primary Care Physician -[facility] Start: 07-02-2025 End: 07-02-[address] Marie Rascon DO -Laboratory Specimen Work Phone: Start: 07-02-2025 End: 07-02-2025 ambulatory Marie Rascon Facility:[facility] Start: 07-02-2025 End: 07-02-[address] Marie Rascon DO -[facility] Work Phone: Start: 07-02-2025 End: 07-02-2025 ambulatory No Primary Care Physician [facility] Start: 06-18-2025 End: 06-18-2025 Patient encounter procedure Esther Vernon TOY STUFFER-C -[facility] Work Phone: Start: 06-18-2025 End: 06-18-2025 ambulatory No Primary Care Physician [facility] Start: 06-04-2025 End: 06-04-2025 Patient encounter procedure Carmella Bone CNM -[facility] Work Phone: Start: 06-04-2025 End: 06-04-2025 ambulatory No Primary Care Physician [facility] Start: 05-21-2025 End: 05-21-[address] Dilcia Das MD -[facility] Work Phone: Start: 05-21-2025 End: 05-21-2025 ambulatory No Primary Care Physician [facility] Start: 05-07-2025 End: 05-07-2025 Patient encounter procedure Esther Vernon NP-C -[facility] Work Phone: Start: 05-07-2025 End: 05-07-2025 ambulatory No Primary Care Physician [facility] Start: 05-07-2025 End: 05-07-2025 ambulatory Esther Vernon TOY STUFFER Facility:[facility] Start: 04-26-2025 End: 04-26-[address] Marie Rascon DO -[facility] Work Phone: Start: 04-26-2025 End: 04-26-2025 ambulatory No Primary Care Physician [facility] Start: 04-04-2025 ambulatory Shanika Freitas y:[facility] Start: 04-04-2025 Non-patient / Non-visit Dr. Dilcia Das MD -[facility] Start: 04-03-2025 End: 04-03-2025 ambulatory No Primary Care Physician [facility] Work Phone: Start: 04-03-2025 End: 04-03-2025 Patient encounter procedure Shanika NINO -[facility] Work Phone: Start: 04-03-2025 ambulatory No Primary Car e Physician [facility] Start: 04-03-2025 Non-patient / Non-visit Dr. Dilcia Das MD -[facility] Start: 04-02-2025 ambulatory No Primary Car e Physician [facility] Start: 04-02-2025 Non-patient / Non-visit Dr. Dilcia Das MD -[facility] Start: 04-02-2025 End: 04-03-2025 ambulatory No Primary Care Physician [facility] Work Phone: Start: 04-02-2025 End: 04-03-[address] Dilcia Das MD -[facility] Work Phone: Start: 03-26-2025 End: 03-26-[address] Dilcia Das MD -[facility] Work Phone: Start: 03-26-2025 End: 03-26-2025 ambulatory No Primary Care Physician [facility] Work Phone: Start: 03-05-2025 End: 03-05-2025 ambulatory MD NO PRIMARY CARE [facility] Start: 02-26-2025 End: 02-26-2025 Patient encounter procedure Esther JIM -[facility] Work Phone: Start: 02-26-2025 End: 02-26-2025 ambulatory No Primary Care Physician [facility] Start: 01-21-2025 End: 01-21-2025 Patient encounter procedure Carmella Bone CNM -[facility] Work Phone: Start: 01-21-2025 End: 01-21-2025 ambulatory No Primary Care Physician [facility] Work Phone: Start: 01-21-2025 End: 01-21-2025 ambulatory No Primary Care Physician Facility:[facility] Start: 12-31-2024 End: 12-31-2024 ambulatory No Primary Care Physician [facility] Work Phone: Start: 12-31-2024 End: 12-31-[address] Dilcia Das MD -Ultrasound, [facility] Work Phone: Start: 12-31-2024 End: 12-31-2024 ambulatory No Primary Care Physician Facility:[facility] Start: 11-22-2024 End: 11-22-2024 Patient encounter procedure Altagracia BECKHAM -[facility] Work Phone: Start: 11-22-2024 End: 11-22-2024 ambulatory Altagracia Ricks [facility] Start: 09-21-2023 Non-patient / Non-visit No Primary Care Physician [facility] Start: 09-20-2023 Non-patient / Non-visit No Primary Care Physician [facility] Start: 09-19-2023 Non-patient / Non-visit No Primary Care Physician [facility] Start: 09-19-2023 End: 09-21-2023 Evaluation and management of inpatient No Primary Care Physician [facility] Work Phone: Start: 09-13-2023 End: 09-13-2023 Patient encounter procedure No Primary Care Physician [facility] Work Phone: Start: 09-06-2023 End: 09-06-2023 Patient encounter procedure No Primary Care Physician [facility] Work Phone: Start: 08-30-2023 End: 08-30-2023 ambulatory No Primary Care Physician [facility] Work Phone: Start: 08-30-2023 End: 08-30-2023 Patient encounter procedure No Primary Care Physician [facility]-Laboratory, Specimen Work Phone: Start: 08-30-2023 End: 08-30-2023 Patient encounter procedure No Primary Care Physician [facility] Work Phone: Start: 08-23-2023 End: 08-23-2023 Patient encounter procedure No Primary Care Physician [facility] Work Phone: Start: 08-09-2023 End: 08-09-2023 Patient encounter procedure No Primary Care Physician [facility] Work Phone: Start: 08-05-2023 End: 08-05-2023 Patient encounter procedure No Primary Care Physician [facility]-Laboratory, Specimen Work Phone: Start: 08-05-2023 End: 08-05-2023 Patient encounter procedure No Primary Care Physician [facility] Work Phone: Start: 07-26-2023 End: 07-26-2023 Patient encounter procedure No Primary Care Physician [facility] Work Phone: Start: 07-12-2023 End: 07-12-2023 Patient encounter procedure No Primary Care Physician [facility] Work Phone: Start: 06-29-2023 End: 06-29-2023 Patient encounter procedure No Primary Care Physician [facility] Work Phone: Start: 06-10-2023 End: 06-10-2023 Patient encounter procedure No Primary Care Physician [facility] Work Phone: Start: 05-13-2023 End: 05-13-2023 Patient encounter procedure No Primary Care Physician [facility] Work Phone: Start: 03-18-2023 End: 03-18-2023 ambulatory No Primary Care Physician [facility] Work Phone: Start: 03-18-2023 End: 03-18-2023 Patient encounter procedure No Primary Care Physician [facility] Start: 02-25-2023 End: 02-25-2023 Patient encounter procedure No Primary Care Physician [facility] Start: 02-17-2023 End: 02-17-2023 Emergency department patient visit No Primary Care Physician [facility]Emergency Department Start: 02-04-2023 End: 02-04-2023 ambulatory No Primary Care Physician [facility] Work Phone: Start: 02-04-2023 End: 02-04-2023 Patient encounter procedure No Primary Care Physician [facility]-Ultrasound, [facility] Start: 01-27-2023 End: 01-27-2023 ambulatory No Primary Care Physician [facility] Work Phone: Start: 01-27-2023 End: 01-27-2023 Patient encounter procedure No Primary Care Physician [facility]-Laboratory, Specimen Start: 01-27-2023 End: 01-27-2023 Patient encounter procedure No Primary Care Physician [facility] Start: 08-11-2022 Chart Update Richa dubois Work Phone: [facility] Work Phone: Start: 08-03-2022 ambulatory Ms. Richa Brown Fac ility:[facility] Start: 08-03-2022 Periodic preventive med est patient 18-39 yrs Richa Cortney Stephanie Work Phone: [facility] Work Phone: Start: 08-03-2022 ambulatory Ms. Richa Ramírez ility:[id number] Start: 09-03-2021 End: 09-03-2021 Patient encounter procedure Shena Mcdermott MD Work Phone: OB/Gynecology Comment on above: Pelvic pain (Primary Dx); Irregular menses; Screen for STD (sexually transmitted disease) Start: 06-23-2021 Office outpatient ne w 30 minutes Richa Brown Work Phone: [facility] Work Phone: Start: 05-27-2021 Rx Renewal Richa [employer] Work Phone: [facility] Work Phone: Start: 05-22-2021 AUDIT Richa Barr [employer] Work Phone: [facility] Work Phone: Start: 05-11-2021 AUDIT Richa Barr Grass [employer] Work Phone: [facility] Work Phone: Start: 05-05-2021 Rx Renewal Richa A Grass ick Work Phone: [facility] Work Phone: Start: 04-16-2021 Rx Change Richa Barr [employer] Work Phone: [facility] Work Phone: Start: 04-15-2021 Office outpatient ne w 30 minutes Richa Calderaick Work Phone: [facility] Work Phone: Procedures Date Procedure Procedure Detail Performing Clinician Start: 07-02-2025 Beta-hemolytic Strep tococcus culture No Primary Care Physician Start: 05-07-2025 Serologic test for syphilis No Primary Care Physician Start: 04-03-2025 Ultrasound scan for growth No Primary Care Physician Start: 04-03-2025 Measurement of pH in vaginal fluid specimen using nitrazine yellow for detection of rupture of amniotic membrane No Primary Care Physician Comment on above: Amniotic fluid not p resent indicates No Rupture of FetalMembranes at time of specimen collection. Start: 04-03-2025 Fibrinogen assay, quantitative No Primary Care Physician Start: 04-02-2025 Urnls dip stick/tabl et reagent auto microscopy No Primary Care Physician Start: 04-02-2025 Urine culture No Primar y Care Physician Start: 01-21-2025 Liquid based cervica l cytology screening No Primary Care Physician Comment on above: NEGATIVE FOR INTRAEP ITHELIAL LESION OR MALIGNANCY. This liquid based Th inPrep(R) pap test was screened withthe use of an image guided system. The HPV DNA reflex c mya were not met with this specimenresult therefore, no HPV testing was performed.Performed at: [address] [id number] Director: Bianca Cervantes PhD, Phone: [phone] at: [facility] W [id number] Director: Sulema Constantino MD, Phone: [phone] Start: 01-21-2025 Urine culture No Primar y Care Physician Start: 01-21-2025 Hepatitis C antibody measurement No Primary Care Physician Comment on above: Reactive: Presumptiv e evidence of antibodies to HCV. Follow CDC recommendations for supplemental testing.Non-Reactive: Antibodies to HCV were not detected; does not exclude the possibility of exposure to HCVReactive Results are presumptive evidence of antibodies to HCV. Follow CDC recommendations for supplemental testing.Order confirmation testing: HCV Quant by PCR testing - HCVPCR #[id number] Non Reactive: < 0.8 Equivocal: >/= 0.8 to < 1.0 Reactive: >/= 1.0The CDC requires that a reactive/equivocal HCV antibody result be sent out for confirmation. HCV Quant by PCR testing. Start: 01-21-2025 Rubella IgG measurement No Primary Care Physician Comment on above: Antibody Result: Int erpretationNon-Reactive: Non- ImmuneReactive: ImmuneThe following results were obtained with the [employer] Rubella IgG assay. Results from assays of other manufacturers cannot be used interchangeably. Start: 01-21-2025 Serologic test for syphilis No Primary Care Physician Start: 12-31-2024 Ultrasound scan - obstetric No Primary Care Physician Start: 08-30-2023 Group B Streptococcu s Culture No Primary Care Physician Start: 08-05-2023 Urine culture No Primar y Care Physician Start: 02-04-2023 Ultrasound scan - obstetric No Primary Care Physician Start: 09-03-2021 Urine test visual color cmprsn agustín Mcdermott MD Work Phone: No history of surgery Richa Brown Work Phone: Urine culture No Primary Car e Physician Plan of Treatment Date Care Activity Detail Author Start: 05-07-2025 CBC W Auto Different ial panel - Blood [facility] Start: 05-07-2025 Measurement of gluco se 2 hours after glucose challenge for glucose tolerance test [facility] Start: 05-07-2025 Serologic test for syphilis [facility] Start: 05-07-2025 [facility] Start: 04-02-2025 End: 04-02-[address] [facility] Start: 04-02-2025 Nonstress test [facility] Start: 04-02-2025 Obstetric monitoring [facility] Start: 04-02-2025 Vital signs measurements [facility] Start: 04-02-2025 Bacteria identified in Urine by Culture Urine Culture [facility] Start: 09-21-2023 Patient discharge [facility] Start: 09-19-2023 Administration of medication [facility] Start: 09-19-2023 Application of ice c ollar, cap or bag [facility] Start: 09-19-2023 Catheterization of vein [facility] Start: 09-19-2023 Introduction of urin fawad catheter [facility] Start: 09-19-2023 Measuring intake and output [facility] Start: 09-19-2023 Notification of physician [facility] Start: 09-19-20[address] Procedure [address] [facility] Start: 09-19-2023 Provision of activit y privileges [facility] Start: 09-19-2023 Vital signs measurements [facility] Start: 09-19-2023 [facility] Start: 09-19-2023 Admission procedure [facility] Start: 08-05-2023 EPVOB, Provider: Era Coyne, Status: Pen, Time: 3:00 PM EPVOB, Provider: Era Coyne, Status: Pen, Time: 3:[address] Work Phone: Start: 02-17-2023 [facility] Start: 01-27-2023 Chlamydia deoxyribon ucleic acid detection [facility] Start: 07-17-2021 EPV, Provider: Richa Brown, Status: Pen, Time: 8:00 AM [facility] Work Phone: Start: 07-01-2021 Influenza vaccination INFLUENZA (#1) [facility] Start: 2020 Urine microalbumin profile DTAP,TDAP ,TD (1 - Tdap) [facility] Start: 2019 CHLAMYDIA SCREENING (18-24) CHLAMYDIA SCREENING (18-24) [facility] Start: 2019 GC (GONORRHEA) ELBERT MACHUCAG (18-24) GC (GONORRHEA) SCREENING (18-24) [facility] Start: 2019 HEPATITIS C SCREENING HEPATITIS C SC REENING [facility] Start: 2019 HIV SCREENING HIV SCREENING [facility] Start: 2015 PEDS TO ADULT TRANSI TION ANNUAL ASSESSMENT PEDS TO ADULT TRANSITION ANNUAL ASSESSMENT [facility] Start: 2013 Adult depression scr eening assessment DEPRESSION SCREENING [facility] Start: 2013 COVID-19 VACCINE (1) COVID-19 VACCIN E (1) [facility] Start: 2013 PEDS TO ADULT TRANSI TION INITIAL DISCUSSION PEDS TO ADULT TRANSITION INITIAL DISCUSSION [facility] Start: 2012 HPV VACCINE (1 - 2-d ose series) HPV VACCINE (1 - 2-dose series) [facility] Start: 2011 MENINGOCOCCAL B: 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 CBC W Auto Different ial panel - Blood [facility] Erythrocyte mean corpuscular volume determination [facility] GC/CHLAMYDIA DNA DET GC/CHLAMYDI A DNA DET Lab Routine Pelvic pain Screen for STD (sexually transmitted disease) Ordered: 09/03/2021 [facility] Comment on above: Ordered: 09/03/2021 Hematocrit [Volume Fraction] of Blood [facility] Hemoglobin [Mass/vol ume] in Blood [facility] Hepatitis B surface antigen measurement [facility] Hepatitis C antibody measurement [facility] HIV 1+2 Ab+HIV1 p24 Ag [Presence] in Serum or Plasma by Immunoassay [facility] Leukocytes [#/volume ] in Blood [facility] Mean corpuscular hemoglobin concentration determination [facility] Mean corpuscular hemoglobin determination [facility] Measurement of gluco se 2 hours after glucose challenge for glucose tolerance test [facility] Neisseria gonorrhoea e rRNA [Presence] in Unspecified specimen by LEONCIO with probe detection [facility] Neutrophil count [facility] Neutrophil percent differential count [facility] Patient Education [facility] Work Phone: Patient referral [facility] Work Phone: PCR test for Chlamyd ia trachomatis [facility] PELVIC US WHI PELVIC US WHI An c Imaging Routine Pelvic pain Irregular menses Ordered: 09/03/2021 [facility] Comment on above: Ordered: 09/03/2021 Platelets [#/volume] in Blood [facility] Red blood cell count [facility] Red cell distributio n width determination [facility] Rubella IgG measurement [facility] Serologic test for syphilis [facility] Streptococcus agalac tiae [Presence] in Unspecified specimen by Organism specific culture [facility] End: 09-03-2022 T VAGINALIS AMPLIFICATION T VAGINALIS AMPLIFICATION Lab Routine Pelvic pain Screen for STD (sexually transmitted disease) 1 Occurrences starting 09/03/2021 until 09/03/2022 [facility] Comment on above: 1 Occurrences starti ng 09/03/2021 until 09/03/2022 Treponema sp Ab [Pre sence] in Serum [facility] Ultrasound scan - obstetric [facility] Urine culture [facility] End: 10-03-2022 Us pelvic nonobstetric image dcmtn limited/f/u US FEMALE PELVIS TRANSABD LTD Radiology Routine Pelvic pain Irregular menses 1 Occurrences starting 09/03/2021 until 10/03/2022 [facility] Comment on above: 1 Occurrences starti ng 09/03/2021 until 10/03/2022 End: 10-03-2022 Us transvaginal US FEMALE PELVIS TRANSVAG Radiology Routine Pelvic pain Irregular menses 1 Occurrences starting 09/03/2021 until 10/03/2022 [facility] Comment on above: 1 Occurrences starti ng 09/03/2021 until 10/03/2022 Varicella-zoster vir us antibody IgG measurement [facility] Payers Date Payer Category Payer Self-pay 2024 Unknown [id number] 2021 Medicaid [facility] MEDICAID [facility] MEDICAID [id number] 2021-Present Medicaid [id number] 2001 Unknown [id number] 2001 Unknown [id number] 2001 Unknown [id number] Unknown Unknown [id number] Unknown [id number] Unknown [id number] Unknown [id number] 2.840.1.758251.3.579.2.462 Unknown [id number] 2.840.1.037687.3.579.2.462 Unknown [id number] 2.16840.1.386623.3.579.2.462 Unknown [id number] 2.16840.1.502876.3.579.2.462 Unknown [id number] 2.840.1.567137.3.579.2.462 Unknown [id number] 2.16840.1.259060.3.579.2.462 Unknown [id number] 2.16840.1.320895.3.579.2.462 Unknown [id number] 2.16.840.1.227625.3.579.2.462 Unknown [id number] 2.16840.1.932459.3.579.2.462 Unknown [id number] 2.16840.1.830123.3.579.2.462 Unknown [id number] 2.16.840.1.124557.3.579.2.462 Unknown [id number] 2.16.840.1.318934.3.579.2.462 Unknown [id number] 2.16.840.1.126355.3.579.2.462 Unknown [id number] 2.16.840.1.145659.3.579.2.462 Unknown [id number] 2.16.840.1.742284.3.579.2.462 Unknown [id number] 2.16.840.1.484219.3.579.2.462 Unknown [id number] 2.16.840.1.543153.3.579.2.462 Unknown [id number] 2.16.840.1.047828.3.579.2.462 Social History Date Type Detail Facility Never smoker [facility] Work Phone: Start: 09-03-2021 End: 01-01-2025 Tobacco smoking status NHIS Never smoker [facility] Start: 09-03-2021 Tobacco use and exposure Never used [facility] Start: 09-03-2021 Alcohol intake Lifetime non-d alec (finding) [facility] Start: 09-03-2021 History SDOH Alcohol Frequency 1 [facility] Start: 2000 Sex Assigned At Not [facility] file [facility] Exposure to SARS-CoV -2 (event) Not sure [facility] Start: 01-27-2023 End: 09-19-2023 Tobacco smoking status NJIS Unknown if ever smoked [facility] Start: 2000 Sex Assigned At Female [facility] Start: 01-10-2025 End: 01-26-2025 Sex Female (finding) [facility] Goals Date Patient Goal Desired Activity /State Clinical Notes 04-15-2020 to 07-10-2025 Note Date & Type Note Facility 07-10-[address] [facility] 07-10-2025 Progress note Note Date/Time July 10, 2025 3:31pm [facility] [address] [place] [address], [address] [place] [id number] OFFICE VISIT Date of Service: 07/10/25 MR#: [id number] Acct: [id number] Name: FAROOQ TABOR Rep #: [id number] : 2000 Provider: CARLOS Bone Age/Sex: 24/F [place] [facility] [place] Status: Signed Intake Vital Signs 06/04/25 15:17 07/02/25 10:22 07/10/25 15:19 Height 5 ft 1 in 5 ft 1 in 5 ft 1 in Weight: 133 lb 5 oz BMI 25.2 BP 106/62 Intake Visit Reasons: 37 WK OB Chief Complaint: 37wk OB Biztalk Software Developer Required: No Is patient in pain?: No Allergies No Known Allergies Allergy (Verified 07/10/25 15:17) Medications ?Medication ?Instructions ?Recorded ?Confirmed ?Type Hydrocortisone 2.5% / Lidocaine 5% #1 ea 11/22/2407/01 Rx ointment (cmpd) multivitamin no.47-iron fum 27 1 cap PO DAILY 01/01/25 07/10/25 History mg-folate no.1 1 mg-dha 300 mg capsule (PNV-DHA) Slow Fe PO DAILY 05/21/25 07/10/25 H istory Last Menstrual Period: 10/24/24 : No PFSH PFSH Medical History Chlamydia infection PPH ( hemorrhage) (spontaneous vaginal delivery) Surgical History [place] teeth extracted Family History Mother IBS (irritable bowel syndrome) Social History adopted: No household members: significant other and children housing: house number of children: 1 current occupational status: 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 current occupational exposures/hazards: No pets and animals: Yes pets and animals: dog(s) history of recent travel: No sexually active: Yes Smoking Status: Never smoker alcohol intake: never substance use type: does not use well-balanced diet: daily or most days caffeine: Yes Type: coffee Number of servings: 1 eating out: rarely or never during the past year weight has: remained stable what type of physical activity do you participate in: none ruth/buddhism: None seatbelt use: always do you feel safe at home: Yes 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 Date Name GA/Weeks Outcome Route Bth Weight Gen Labor Lgth Anesthesia Del Locatn Provider FOB 09/19/23 Deuce 39 live - full term 7#10 Male epidur al [facility] Shanika Elliott Jase HPI 37 WK OB Details: FAROOQ TABOR is a 24 year old who presents for routine OB visit. OB Visit MITZI Calculator Estimated Delivery Date Method Current WG Current Estimate 07/31/25 LMP (Certain) 37w 0d Other Estimates 07/28/25 Ultrasound #1 37w 3d Expected Delivery Route/Plan Labor Preferences- CB/BF classes: no labor support person: Jase labor intervention preferences: [] pain management options preferred: wants limited cut cord/dad catch: yes : yes PP control planned: discussed discussed possible routes of delivery and associated risks: [] special requests: [] Specific Issue/Plans Covid status: [] Flu vaccine: [] Tdap vaccine: declined Rhogam: na LARC form signed: yes movement and labor precautions reviewed. Problem list reviewed and updated with the most current plan of care details and appropriate orders placed. Relevant counseling for the gestational age provided. Continue routine care and follow up unless otherwise noted in visit notes/problem list details Initial Weight: 108 lb Date -?-?-?-?-?-?-?-?-?-?-?-?- EGA Weight BP Urine Prot -?-?-?-?-?-?-?-?-?-?-?-?- Glucose FHR FuHt Pres Dilation -?-?-?-?-?-?-?-?-?-?-?-?- Effaced St Visit Note 01/21/25 -?-?-?-?-?-?-?-?-?-?-?-?- 12w 5d 108 lb 4 oz (+4 oz) 102/68 -?-?-?-?-?-?-?-?-?-?-?-?- 165 -?-?-?-?-?-?-?-?-?-?-?-?- KW- CRL cons wit h dates. Declines NIPT. [facility] ordered. 02/26/25 -?-?-?-?-?-?-?-?-?-?-?-?- 17w 6d 111 lb 4 oz (+3 lb 4 oz) 96/58 Negative -?-?-?-?-?-?-?-?-?-?-?-?- Negative 161 -?-?-?-?-?-?-?-?-?-?-?-?- MH-No VB. Some f lutters. Nl PN labs. [facility] 03/0503/26/25 -?-?-?-?-?-?-?-?-?-?-?-?- 21w 6d 116 lb 8 oz (+8 lb 8 oz) 104/66 Negative -?-?-?-?-?-?-?-?-?-?-?-?- Negative 155 22 -?-?-?-?-?-?-?-?-?-?-?-?- SM- no vb lof go od fm nro egualr ctx 04/26/25 -?-?-?-?-?-?-?-?-?-?-?-?- 26w 2d 122 lb 2 oz (+14 lb 2 oz) 107/66 Negative -?-?-?-?-?-?-?-?-?-?-?-?- Negative 142 26 -?-?-?-?-?-?-?-?-?-?-?-?- JV- no lof, vagi nal bleeding, or dec fm. no further bleeding episodes since 23 weeks. Thinks [place] and has been taking it easy since then. 05/07/25 -?-?-?-?-?-?-?-?-?-?-?-?- 27w 6d 126 lb 2 oz (+18 lb 2 oz) 100/60 Negative -?-?-?-?-?-?-?-?-?-?-?-?- Negative 160 28 -?-?-?-?-?-?-?-?-?-?-?-?- MH-No VB, LOF. G ood FM. Larc. 28 wk labs pending 05/21/25 -?-?-?-?-?-?-?-?-?-?-?-?- 29w 6d 124 lb 8 oz (+16 lb 8 oz) 107/60 Negative -?-?-?-?-?-?-?-?-?-?-?-?- Negative 145 30 -?-?-?-?-?-?-?-?-?-?-?-?- Sm- no vb lof go od fm no reuglar ctx 06/04/25 -?-?-?-?-?-?-?-?-?-?-?-?- 31w 6d 130 lb (+22 lb) 99/66 Negative -?-?-?-?-?-?-?-?-?-?-?-?- Negative 140 32 -?-?-?-?-?-?-?-?-?-?-?-?- KW- no vb/lof/ct x. good fm. no concerns today. 06/18/25 -?-?-?-?-?-?-?-?-?-?-?-?- 33w 6d 129 lb 8 oz (+21 lb 8 oz) 98/64 Negative -?-?-?-?-?-?-?-?-?-?-?-?- Negative 153 33 -?-?-?-?-?-?-?-?-?-?-?-?- MH-No VB, LOF. S ome inc BHCtx 3 days ago and resolved. Enc rest/fluids. Rev S&S PTL to call us about 07/02/25 -?-?-?-?-?-?-?-?-?-?-?-?- 35w 6d 132 lb 7 oz (+24 lb 7 oz) 112/68 Negative -?-?-?-?-?-?-?-?-?-?-?-?- Negative 153 35 Cephalic 0 .5 -?-?-?-?-?-?-?-?-?-?-?-?- JV- vtx on bedsi de scan. gbs collected. no complaints or concerns. 07/10/25 -?-?-?-?-?-?-?-?-?-?-?-?- 37w 0d 133 lb 5 oz (+25 lb 5 oz) 106/62 Negative -?-?-?-?-?-?-?-?-?-?-?-?- Negative 140 37 Cephalic 3 -?-?-?-?-?-?-?-?-?-?-?-?- 30 -2 KW- no vb/ lof/ctx. good fm. chiropractor for hip pain. ACOG First Trimester First Trimester: Desire for , Alcohol, Tobacco Cessation, Illicit/Recreational Drug/Substance Use, Intimate Partner Violence, Barriers to care, Unstable Housing, Communication Barriers, Environmental/Work Hazards, Anticipated Course of Care, Toxoplasmosis Precations, Use of Any medications, Sexual activity, Exercise, Dental Care, Sauna/Hot tub use, Seat Belt use, Childbirth classes/Hospital facilities, Travel, Indications for Ultrasound and Screening for Aneuploidy; Discussed Second Trimester Second Trimester: Signs and Symptoms of Labor, Selecting a care provider, Reproductive Life Planning & Contreception, Care Planning and Intimate Partner Violence; Discussed Tobacco Cessation and Discussed Depression/Anxiety Third Trimester Third Trimester: Pain Management Plans, Labor support person(s), Immediate Larc, Circumcision preference, Movement Monitoring, Signs and Symptoms of Preeclampsia, Feeding No , [place] Education and Family Medical Leave or Disability Forms ROS Const Reports system reviewed and no additional complaints, except as documented Eyes Reports system reviewed and no additional complaints, except as documented ENT Reports system reviewed and no additional complaints, except as documented Card Reports system reviewed and no additional complaints, except as documented Resp Reports system reviewed and no additional complaints, except as documented GI Reports system reviewed and no additional complaints, except as documented, Denies nausea and Denies vomiting Reports system reviewed and no additional complaints, except as documented Musc Reports system reviewed and no additional complaints, except as documented Skin/Breast Reports system reviewed and no additional complaints, except as documented Neuro Yes system reviewed and no additional complaints, except as documented Psych Reports system reviewed and no additional complaints, except as documented Endo Reports system reviewed and no additional complaints, except as documented Neil/Lymph Reports system reviewed and no additional complaints, except as documented Aller/Immun Reports system reviewed and no additional complaints, except as documented Exam Const General: cooperative, healthy appearing and no acute distress Orientation: alert, awake and oriented x3 Neck Neck: normal visual inspection and full ROM Resp Effort & Inspection: normal respiratory effort, able to speak in complete sentences and symmetric chest movement GI Inspection: normal to inspection Palpation: soft and other Other: gravid Skin General: no rashes or lesions noted Neuro General: patient alert, patient awake and patient oriented x3 Cognition: normal cognition Speech: speech normal Gait: normal gait Motor: muscle tone normal throughout Extrem General: normal to inspection and full ROM Psych Appearance: grossly normal Mental Status: mental status grossly normal Mood: congruent mood Affect: normal affect Speech and Movement: speech and movement normal Attitude: cooperative Thought Process: normal Thought Content: normal Judgment: judgment good Results POC Urinalysis 2 Dip (Clinic) Office Urine Glucose Negative Last Edit by Merna Gonzalez on 07/10/25 15:25 Office Urine Protein Negative Last Edit by Merna Gonzalez on 07/10/25 15:25 Coding Level of Care Code OB Routine Diagnoses Anemia during in third trimester O99.013 Trimester: third trimester Vaginal bleeding during O46.90 Encounter for supervision of other normal in third trimester Z34.83 Normal : other normal Trimester: third trimester 37 weeks gestation of Z3A.37 Weeks of gestation: 37 weeks Maternal varicella, non-immune O09.899; Z28.39 Hemorrhoids during in second trimester O22.42 Trimester: second trimester Assessment and Plan Assessment and Plan (1) Anemia in : Status: Acute Qualifiers: Trimester: third trimester Qualified Code(s): O99.013 - Anemia complicating , third trimester Comment: SloFe. (2) Vaginal bleeding during : Status: Acute Comment: admit STO, give bmz, US ordered. (3) Supervision of normal : Status: Acute Qualifiers: Normal : other normal Trimester: third trimester Qualified Code(s): Z34.83 - Encounter for supervision of other normal , third trimester Comment: PRR, , MITZI 07/31/25, surprise Nayeli Locke (4) : Status: Acute Qualifiers: Weeks of gestation: 37 weeks Qualified Code(s): Z3A.37 - 37 weeks gestation of Comment: Neg GBS. declines NIPT & Carrier testing. Unremarkable Anatomy:Consistent dates, (5) Maternal varicella, non-immune: Status: Acute Comment: confirm w 28 wk labs/NOT drawn (6) Hemorrhoids during : Status: Acute Qualifiers: Trimester: second trimester Qualified Code(s): O22.42 - Hemorrhoids in , second trimester Orders: Orders POC Urinalysis 2 Dip (Clinic) Today Plan Details Additional Comments: ACOG trimester education reviewed and updated. see problem list details for updated plan management information and see below for orders placed at this visit. GA appropriate handout given. 07/10/25 1531 <Electronically signed by Carmella godinez CNM> Date _ Carmella Bone CNM Cosigner Signature: Date (if applicable) CC: ~ [facility] Work Phone: 1(309) 286-523409-02-2025 [facility] [address] [place] [address], [address] [place] [address] OFFICE VISIT Date of Service: 07/02/25 MR#: [id number] Acct: [id number] Name: FAROOQ TABOR Rep #: : 2000 Provider: Dr. Kaitlynn Rascon DO Age/Sex: 24/F [place] [facility] [place] Status: Signed Intake Vital Signs 05/07/25 09:59 06/18/25 10:05 07/02/25 10:20 07/02/25 10:22 Height 5 ft 1 in 5 ft 1 in 5 ft 1 in 5 ft 1 in Weight: 132 lb 7 oz BMI 25.0 BP 112/68 Intake Visit Reasons: 36wk ob Biztalk Software Developer Required: No Is patient in pain?: No Allergies No Known Allergies Allergy (Verified 07/02/25 10:20) Medications ?Medication ?Instructions ?Recorded ?Confirmed ?Type Hydrocortisone 2.5% / Lidocaine 5% #1 ea 11/22/24 090 12/25 Rx ointment (cmpd) multivitamin no.47-iron fum 27 1 cap PO DAILY 01/01/25 07/02/25 History mg-folate no.1 1 mg-dha 300 mg capsule (PNV-DHA) Slow Fe PO DAILY 05/21/25 07/02/25 H istory Last Menstrual Period: 10/24/24 Zika: Zika virus screening: Negative : No PFSH PFSH Medical History Chlamydia infection PPH ( hemorrhage) (spontaneous vaginal delivery) Surgical History [place] teeth extracted Family History Mother IBS (irritable bowel syndrome) Social History adopted: No household members: significant other and children housing: house number of children: 1 current occupational status: 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 current occupational exposures/hazards: No pets and animals: Yes pets and animals: dog(s) history of recent travel: No sexually active: Yes Smoking Status: Never smoker alcohol intake: never substance use type: does not use well-balanced diet: daily or most days caffeine: Yes Type: coffee Number of servings: 1 eating out: rarely or never during the past year weight has: remained stable what type of physical activity do you participate in: none ruth/buddhism: None seatbelt use: always do you feel safe at home: Yes 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 Date Name GA/Weeks Outcome Route Bth Weight Gen Labor Lgth Anesthesia Del Locatn Provider FOB 09/19/23 Deuce 39 live - full term 7#10 Male epidur al [facility] Shanika Elliott [place] HPI 36wk ob Details: FAROOQ TABOR is a 24 year old who presents for routine OB visit. OB Visit MITZI Calculator Estimated Delivery Date Method Current WG Current Estimate 07/31/25 LMP (Certain) 35w 6d Other Estimates 07/28/25 Ultrasound #1 36w 2d Expected Delivery Route/Plan Labor Preferences- CB/BF classes: no labor support person: [place] labor intervention preferences: [] pain management options preferred: wants limited cut cord/dad catch: yes : yes PP control planned: discussed discussed possible routes of delivery and associated risks: [] special requests: [] Specific Issue/Plans Covid status: [] Flu vaccine: [] Tdap vaccine: declined Rhogam: na LARC form signed: yes movement and labor precautions reviewed. Problem list reviewed and updated with the most current plan of care details and appropriate ordersplaced. Relevant counseling for the gestational age provided. Continue routine care and follow up unless otherwise noted in visit notes/problem list details Initial Weight: 108 lb Date -?-?-?-?-?-?-?-?-?-?-?-?- EGA Weight BP Urine Prot -?-?-?-?-?-?-?-?-?-?-?-?- Glucose FHR FuHt Pres Dilation -?-?-?-?-?-?-?-?-?-?-?-?- Effaced St Visit Note 01/21/25 -?-?-?-?-?-?-?-?-?-?-?-?- 12w 5d 108 lb 4 oz (+4 oz) 102/68 -?-?-?-?-?-?-?-?-?-?-?-?- 165 -?-?-?-?-?-?-?-?-?-?-?-?- KW- CRL cons wit h dates. Declines NIPT. MFM US ordered. 02/26/25 -?-?-?-?-?-?-?-?-?-?-?-?- 17w 6d 111 lb 4 oz (+3 lb 4 oz) 96/58 Negative -?-?-?-?-?-?-?-?-?-?-?-?- Negative 161 -?-?-?-?-?-?-?-?-?-?-?-?- MH-No VB. Some f lutters. Nl PN labs. MFM US /03/26/25 -?-?-?-?-?-?-?-?-?-?-?-?- 21w 6d 116 lb 8 oz (+8 lb 8 oz) 104/66 Negative -?-?-?-?-?-?-?-?-?-?-?-?- Negative 155 22 -?-?-?-?-?-?-?-?-?-?-?-?- SM- no vb lof go od fm nro egualr ctx 04/26/25 -?-?-?-?-?-?-?-?-?-?-?-?- 26w 2d 122 lb 2 oz (+14 lb 2 oz) 107/66 Negative -?-?-?-?-?-?-?-?-?-?-?-?- Negative 142 26 -?-?-?-?-?-?-?-?-?-?-?-?- JV- no lof, vagi nal bleeding, or dec fm. no further bleeding episodes since 23 weeks. Thinks over did it [place] and has been taking it easy since then. 05/07/25 -?-?-?-?-?-?-?-?-?-?-?-?- 27w 6d 126 lb 2 oz (+18 lb 2 oz) 100/60 Negative -?-?-?-?-?-?-?-?-?-?-?-?- Negative 160 28 -?-?-?-?-?-?-?-?-?-?-?-?- MH-No VB, LOF. G ood FM. Larc. 28 wk labs pending 05/21/25 -?-?-?-?-?-?-?-?-?-?-?-?- 29w 6d 124 lb 8 oz (+16 lb 8 oz) 107/60 Negative -?-?-?-?-?-?-?-?-?-?-?-?- Negative 145 30 -?-?-?-?-?-?-?-?-?-?-?-?- Sm- no vb lof go od fm no reuglar ctx 06/04/25 -?-?-?-?-?-?-?-?-?-?-?-?- 31w 6d 130 lb (+22 lb) 99/66 Negative -?-?-?-?-?-?-?-?-?-?-?-?- Negative 140 32 -?-?-?-?-?-?-?-?-?-?-?-?- KW- no vb/lof/ct x. good fm. no concerns today. 06/18/25 -?-?-?-?-?-?-?-?-?-?-?-?- 33w 6d 129 lb 8 oz (+21 lb 8 oz) 98/64 Negative -?-?-?-?-?-?-?-?-?-?-?-?- Negative 153 33 -?-?-?-?-?-?-?-?-?-?-?-?- MH-No VB, LOF. S ome inc BHCtx 3 days ago and resolved. Enc rest/fluids. Rev S&S PTL to call us about 07/02/25 -?-?-?-?-?-?-?-?-?-?-?-?- 35w 6d 132 lb 7 oz (+24 lb 7 oz) 112/68 Negative -?-?-?-?-?-?-?-?-?-?-?-?- Negative 153 35 Cephalic 0 .5 -?-?-?-?-?-?-?-?-?-?-?-?- JV- vtx on bedsi de scan. gbs collected. no complaints or concerns. ACOG First Trimester First Trimester: Desire for , Alcohol, Tobacco Cessation, Illicit/Recreational Drug/Substance Use, Intimate Partner Violence, Barriers to care, Unstable Housing, Communication Barriers, Environmental/Work Hazards, Anticipated Course of Care, Toxoplasmosis Precations, Use of Any med ications, Sexual activity, Exercise, Dental Care, Sauna/Hot tub use, Seat Belt use, Childbirth classes/Hospital facilities, Travel, Indications for Ultrasound and Screening for Aneuploidy; Discussed Second Trimester Second Trimester: Signs and Symptoms of Labor, Selecting a care provider, Reproductive Life Planning & Contreception, Care Planning and Intimate Partner Violence; Discussed Tobacco Cessation and Discussed Depression/Anxiety Third Trimester Third Trimester: Pain Management Plans, Labor support person(s), Immediate Larc, Circumcision preference, Movement Monitoring, Signs and Symptoms of Preeclampsia, Feeding No , [place] Education and Family Medical Leave or Disability Forms Results POC Urinalysis 2 Dip (Clinic) Office Urine Glucose Negative Last Edit by Tere Brown on 07/02/25 10: 38 Office Urine Protein Negative Last Edit by Tere Brown on 07/02/25 10: 38 Coding Level of Care Code OB Routine Diagnoses Anemia during in third trimester O99.013 Trimester: third trimester Vaginal bleeding during O46.90 Encounter for supervision of other normal in third trimester Z34.83 Normal : other normal Trimester: third trimester 35 weeks gestation of Z3A.35 Weeks of gestation: 35 weeks Maternal varicella, non-immune O09.899; Z28.39 Hemorrhoids during in second trimester O22.42 Trimester: second trimester Assessment and Plan Assessment and Plan (1) Anemia in : Status: Acute Qualifiers: Trimester: third trimester Qualified Code(s): O99.013 - Anemia complicating , third trimester Comment: SloFe. (2) Vaginal bleeding during : Status: Acute Comment: admit STO, give bmz, US ordered. (3) Supervision of normal : Status: Acute Qualifiers: Normal : other normal Trimester: third trimester Qualified Code(s): Z34.83 - Encounter for supervision of other normal , third trimester Comment: PRR, , MITZI 07/31/25, surprise Nayeli Locke (4) : Status: Acute Qualifiers: Weeks of gestation: 35 weeks Qualified Code(s): Z3A.35 - 35 weeks gestation of Comment: declines NIPT & Carrier testing. Unremarkable Anatomy:Consistent dates, (5) Maternal varicella, non-immune: Status: Acute Comment: confirm w 28 wk labs/NOT drawn (6) Hemorrhoids during : Status: Acute Qualifiers: Trimester: second trimester Qualified Code(s): O22.42 - Hemorrhoids in , second trimester Orders: Orders POC Urinalysis 2 Dip (Clinic) Today Culture, Group B Streptococcus Today Z34.83 - Encounter for supervision of other normal , third trimester 07/02/25 1046 e Velcolt DO> Date _ Marie Rascon DO [facility] Signature: Date (if applicable) CC: ~ [facility]08-05-2025 [facility] [address] [place] [address], [facility] [address] [place] [address] OFFICE VISIT Date of Service: 06/04/25 MR#: [id number] Acct: [id number] Name: FAROOQ TABOR Rep #: [id number] : 2000 Provider: CARLOS Bone Age/Sex: 24/F [place] [facility] [place] Status: Signed Intake Vital Signs 05/07/25 09:59 05/21/25 10:15 06/04/25 15:17 Height 5 ft 1 in 5 ft 1 in 5 ft 1 in Weight: 130 lb BMI 24.5 BP 99/66 Intake Visit Reasons: 32wk ob Chief Complaint: 32wk ob Biztalk Software Developer Required: No Is patient in pain?: No Allergies No Known Allergies Allergy (Verified 06/04/25 15:15) Medications ?Medication ?Instructions ?Recorded ?Confirmed ?Type Hydrocortisone 2.5% / Lidocaine 5% #1 ea 11/22/2403/24 Rx ointment (cmpd) multivitamin no.47-iron fum 27 1 cap PO DAILY 01/01/25 06/04/25 History mg-folate no.1 1 mg-dha 300 mg capsule (PNV-DHA) Slow Fe PO DAILY 05/21/25 06/04/25 H istory Last Menstrual Period: 10/24/24 : No PFSH PFSH Medical History Chlamydia infection PPH ( hemorrhage) (spontaneous vaginal delivery) Surgical History [place] teeth extracted Family History Mother IBS (irritable bowel syndrome) Social History adopted: No household members: significant other and children housing: house number of children: 1 current occupational status: 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 current occupational exposures/hazards: No pets and animals: Yes pets and animals: dog(s) history of recent travel: No sexually active: Yes Smoking Status: Never smoker alcohol intake: never substance use type: does not use well-balanced diet: daily or most days caffeine: Yes Type: coffee Number of servings: 1 eating out: rarely or never during the past year weight has: remained stable what type of physical activity do you participate in: none ruth/buddhism: None seatbelt use: always do you feel safe at home: Yes 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 Date Name GA/Weeks Outcome Route Bth Weight Gen Labor Lgth Anesthesia Del Locatn Provider FOB 09/19/23 Deuce 39 live - full term 7#10 Male epidur al [facility] Shanika Elliott [place] HPI 32wk ob Details: FAROOQ TABOR is a 24 year old who presents for routine OB visit. OB Visit MITZI Calculator Estimated Delivery Date Method Current WG Current Estimate 07/31/25 LMP (Certain) 31w 6d Other Estimates 07/28/25 Ultrasound #1 32w 2d Expected Delivery Route/Plan Labor Preferences- CB/BF classes: no labor support person: [place] labor intervention preferences: [] pain management options preferred: wants limited cut cord/dad catch: yes : yes PP control planned: discussed discussed possible routes of delivery and associated risks: [] special requests: [] Specific Issue/Plans Covid status: [] Flu vaccine: [] Tdap vaccine: declined Rhogam: na LARC form signed: yes movement and labor precautions reviewed. Problem list reviewed and updated with the most current plan of care details and appropriate ordersplaced. Relevant counseling for the gestational age provided. Continue routine care and follow up unless otherwise noted in visit notes/problem list details Initial Weight: 108 lb Date -?-?-?-?-?-?-?-?-?-?-?-?- EGA Weight BP Urine Prot -?-?-?-?-?-?-?-?-?-?-?-?- Glucose FHR FuHt Pres Dilation -?-?-?-?-?-?-?-?-?-?-?-?- Effaced St Visit Note 01/21/25 -?-?-?-?-?-?-?-?-?-?-?-?- 12w 5d 108 lb 4 oz (+4 oz) 102/68 -?-?-?-?-?-?-?-?-?-?-?-?- 165 -?-?-?-?-?-?-?-?-?-?-?-?- KW- CRL cons wit h dates. Declines NIPT. [facility] ordered. 02/26/25 -?-?-?-?-?-?-?-?-?-?-?-?- 17w 6d 111 lb 4 oz (+3 lb 4 oz) 96/58 Negative -?-?-?-?-?-?-?-?-?-?-?-?- Negative 161 -?-?-?-?-?-?-?-?-?-?-?-?- MH-No VB. Some f lutters. Nl PN labs. [facility] 5/6 03/26/25 -?-?-?-?-?-?-?-?-?-?-?-?- 21w 6d 116 lb 8 oz (+8 lb 8 oz) 104/66 Negative -?-?-?-?-?-?-?-?-?-?-?-?- Negative 155 22 -?-?-?-?-?-?-?-?-?-?-?-?- SM- no vb lof go od fm nro egualr ctx 04/26/25 -?-?-?-?-?-?-?-?-?-?-?-?- 26w 2d 122 lb 2 oz (+14 lb 2 oz) 107/66 Negative -?-?-?-?-?-?-?-?-?-?-?-?- Negative 142 26 -?-?-?-?-?-?-?-?-?-?-?-?- JV- no lof, vagi nal bleeding, or dec fm. no further bleeding episodes since 23 weeks. [place] and has been taking it easy since then. 05/07/25 -?-?-?-?-?-?-?-?-?-?-?-?- 27w 6d 126 lb 2 oz (+18 lb 2 oz) 100/60 Negative -?-?-?-?-?-?-?-?-?-?-?-?- Negative 160 28 -?-?-?-?-?-?-?-?-?-?-?-?- -No VB, LOF. G ood FM. Larc. 28 wk labs pending 05/21/25 -?-?-?-?-?-?-?-?-?-?-?-?- 29w 6d 124 lb 8 oz (+16 lb 8 oz) 107/60 Negative -?-?-?-?-?-?-?-?-?-?-?-?- Negative 145 30 -?-?-?-?-?-?-?-?-?-?-?-?- Sm- no vb lof go od fm no reuglar ctx 06/04/25 -?-?-?-?-?-?-?-?-?-?-?-?- 31w 6d 130 lb (+22 lb) 99/66 Negative -?-?-?-?-?-?-?-?-?-?-?-?- Negative 140 32 -?-?-?-?-?-?-?-?-?-?-?-?- KW- no vb/lof/ct x. good fm. no concerns today. ACOG First Trimester First Trimester: Desire for , Alcohol, Tobacco Cessation, Illicit/Recreational Drug/Substance Use, Intimate Partner Violence, Barriers to care, Unstable Housing, Communication Barriers, Environmental/Work Hazards, Anticipated Course of Care, Toxoplasmosis Precations, Use of Any med ications, Sexual activity, Exercise, Dental Care, Sauna/Hot tub use, Seat Belt use, Childbirth classes/Hospital facilities, Travel, Indications for Ultrasound and Screening for Aneuploidy; Discussed Second Trimester Second Trimester: Signs and Symptoms of Labor, Selecting a care provider, Reproductive Life Planning & Contreception, Care Planning and Intimate Partner Violence; Discussed Tobacco Cessation and Discussed Depression/Anxiety Third Trimester Third Trimester: Pain Management Plans, Labor support person(s), Immediate Larc, Circumcision preference, Movement Monitoring, Signs and Symptoms of Preeclampsia, Infant Feeding No , [place] Education and Family Medical Leave or Disability Forms ROS Const Reports system reviewed and no additional complaints, except as documented Eyes Reports system reviewed and no additional complaints, except as documented ENT Reports system reviewed and no additional complaints, except as documented Card Reports system reviewed and no additional complaints, except as documented Resp Reports system reviewed and no additional complaints, except as documented GI Reports system reviewed and no additional complaints, except as documented, Denies nausea and Denies vomiting Reports system reviewed and no additional complaints, except as documented Musc Reports system reviewed and no additional complaints, except as documented Skin/Breast Reports system reviewed and no additional complaints, except as documented Neuro Yes system reviewed and no additional complaints, except as documented Psych Reports system reviewed and no additional complaints, except as documented Endo Reports system reviewed and no additional complaints, except as documented Neil/Lymph Reports system reviewed and no additional complaints, except as documented Aller/Immun Reports system reviewed and no additional complaints, except as documented Exam Const General: cooperative, healthy appearing and no acute distress Orientation: alert, awake and oriented x3 Neck Neck: normal visual inspection and full ROM Resp Effort & Inspection: normal respiratory effort, able to speak in complete sentences and symmetric chest movement GI Inspection: normal to inspection Palpation: soft and other Other: gravid Skin General: no rashes or lesions noted Neuro General: patient alert, patient awake and patient oriented x3 Cognition: normal cognition Speech: speech normal Gait: normal gait Motor: muscle tone normal throughout Extrem General: normal to inspection and full ROM Psych Appearance: grossly normal Mental Status: mental status grossly normal Mood: congruent mood Affect: normal affect Speech and Movement: speech and movement normal Attitude: cooperative Thought Process: normal Thought Content: normal Judgment: judgment good Results POC Urinalysis 2 Dip (Clinic) Office Urine Glucose Negative Last Edit by Merna Gonzalez on 06/04/25 15:20 Office Urine Protein Negative Last Edit by Merna Gonzalez on 06/04/25 15:20 Coding Level of Care Code OB Routine Diagnoses Anemia in O99.019 Vaginal bleeding during O46.90 Encounter for supervision of other normal in second trimester Z34.82 Normal : other normal Trimester: second trimester 31 weeks gestation of Z3A.31 Weeks of gestation: 31 weeks Maternal varicella, non-immune O09.899; Z28.39 Hemorrhoids during in second trimester O22.42 Trimester: second trimester Assessment and Plan Assessment and Plan (1) Anemia in : Status: Acute Comment: SloFe. (2) Vaginal bleeding during : Status: Acute Comment: admit STO, give bmz, US ordered. (3) Supervision of normal : Status: Acute Qualifiers: Normal : other normal Trimester: second trimester Qualified Code(s): Z34.82 - Encounter for supervision of other normal , second trimester Comment: PRR, , MITZI 07/31/25, surprise Nayeli Locke (4) : Status: Acute Qualifiers: Weeks of gestation: 31 weeks Qualified Code(s): Z3A.31 - 31 weeks gestation of Comment: declines NIPT & Carrier testing. Unremarkable Anatomy:Consistent dates, (5) Maternal varicella, non-immune: Status: Acute Comment: confirm w 28 wk labs (6) Hemorrhoids during : Status: Acute Qualifiers: Trimester: second trimester Qualified Code(s): O22.42 - Hemorrhoids in , second trimester Orders: Orders POC Urinalysis 2 Dip (Clinic) Today Plan Details Additional Comments: ACOG trimester education reviewed and updated. see problem list details for updated plan management information and see below for orders placed atthis visit. [place] appropriate handout given. 06/04/25 1527 s CNM> Date _ Carmella Bone CNM Cosigner Signature: Date (if applicable) CC: ~ [id number] Progress note Author Carmella Bone [facility] Note Date/Time June 04, 2025 3:[address] [facility] [address] [place] [address], [address] [place] [address] OFFICE VISIT Date of Service: 06/04/25 MR#: [id number] Acct: [id number] Name: FAROOQ TABOR Rep #: [id number] : 2000 Provider: CARLOS Bone Age/Sex: 24/F [place] [facility] [place] [place] Status: Signed Intake Vital Signs 05/07/25 09:59 05/21/25 10:15 06/04/25 15:17 Height 5 ft 1 in 5 ft 1 in 5 ft 1 in Weight: 130 lb BMI 24.5 BP 99/66 Intake Visit Reasons: 32wk ob Chief Complaint: 32wk ob Biztalk Software Developer Required: No Is patient in pain?: No Allergies No Known Allergies Allergy (Verified 06/04/25 15:15) Medications ?Medication ?Instructions ?Recorded ?Confirmed ?Type Hydrocortisone 2.5% / Lidocaine 5% #1 ea 11/22/24 0803/24 Rx ointment (cmpd) multivitamin no.47-iron fum 27 1 cap PO DAILY 01/01/25 06/04/25 History mg-folate no.1 1 mg-dha 300 mg capsule (PNV-DHA) Slow Fe PO DAILY 05/21/25 06/04/25 H istory Last Menstrual Period: 10/24/24 : No PFSH PFSH Medical History Chlamydia infection PPH ( hemorrhage) (spontaneous vaginal delivery) Surgical History [place] teeth extracted Family History Mother IBS (irritable bowel syndrome) Social History adopted: No household members: significant other and children housing: house number of children: 1 current occupational status: 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 current occupational exposures/hazards: No pets and animals: Yes pets and animals: dog(s) history of recent travel: No sexually active: Yes Smoking Status: Never smoker alcohol intake: never substance use type: does not use well-balanced diet: daily or most days caffeine: Yes Type: coffee Number of servings: 1 eating out: rarely or never during the past year weight has: remained stable what type of physical activity do you participate in: none ruth/buddhism: None seatbelt use: always do you feel safe at home: Yes 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 Date Name GA/Weeks Outcome Route Bth Weight Infant Gen Labor Lgth Anesthesia Del Locatn Provider FOB 09/19/23 Deuce 39 live - full term 7#10 Male epidur al [facility] Shanika [place] HPI 32wk ob Details: FAROOQ TABOR is a 24 year old who presents for routine OB visit. OB Visit MITZI Calculator Estimated Delivery Date Method Current WG Current Estimate 07/31/25 LMP (Certain) 31w 6d Other Estimates 07/28/25 Ultrasound #1 32w 2d Expected Delivery Route/Plan Labor Preferences- CB/BF classes: no labor support person: Jase labor intervention preferences: [] pain management options preferred: wants limited cut cord/dad catch: yes : yes PP control planned: discussed discussed possible routes of delivery and associated risks: [] special requests: [] Specific Issue/Plans Covid status: [] Flu vaccine: [] Tdap vaccine: declined Rhogam: na LARC form signed: yes movement and labor precautions reviewed. Problem list reviewed and updated with the most current plan of care details and appropriate orders placed. Relevant counseling for the gestational age provided. Continue routine care and follow up unless otherwise noted in visit notes/problem list details Initial Weight: 108 lb Date -?-?-?-?-?-?-?-?-?-?-?-?- EGA Weight BP Urine Prot -?-?-?-?-?-?-?-?-?-?-?-?- Glucose FHR FuHt Pres Dilation -?-?-?-?-?-?-?-?-?-?-?-?- Effaced St Visit Note 01/21/25 -?-?-?-?-?-?-?-?-?-?-?-?- 12w 5d 108 lb 4 oz (+4 oz) 102/68 -?-?-?-?-?-?-?-?-?-?-?-?- 165 -?-?-?-?-?-?-?-?-?-?-?-?- KW- CRL cons wit h dates. Declines NIPT. [facility] ordered. 02/26/25 -?-?-?-?-?-?-?-?-?-?-?-?- 17w 6d 111 lb 4 oz (+3 lb 4 oz) 96/58 Negative -?-?-?-?-?-?-?-?-?-?-?-?- Negative 161 -?-?-?-?-?-?-?-?-?-?-?-?- MH-No VB. Some f lutters. Nl PN labs. [facility] /6 03/26/25 -?-?-?-?-?-?-?-?-?-?-?-?- 21w 6d 116 lb 8 oz (+8 lb 8 oz) 104/66 Negative -?-?-?-?-?-?-?-?-?-?-?-?- Negative 155 22 -?-?-?-?-?-?-?-?-?-?-?-?- SM- no vb lof go od fm nro egualr ctx 04/26/25 -?-?-?-?-?-?-?-?-?-?-?-?- 26w 2d 122 lb 2 oz (+14 lb 2 oz) 107/66 Negative -?-?-?-?-?-?-?-?-?-?-?-?- Negative 142 26 -?-?-?-?-?-?-?-?-?-?-?-?- JV- no lof, vagi nal bleeding, or dec fm. no further bleeding episodes since 23 weeks. [place] and has been taking it easy since then. 05/07/25 -?-?-?-?-?-?-?-?-?-?-?-?- 27w 6d 126 lb 2 oz (+18 lb 2 oz) 100/60 Negative -?-?-?-?-?-?-?-?-?-?-?-?- Negative 160 28 -?-?-?-?-?-?-?-?-?-?-?-?- MH-No VB, LOF. G ood FM. Larc. 28 wk labs pending 05/21/25 -?-?-?-?-?-?-?-?-?-?-?-?- 29w 6d 124 lb 8 oz (+16 lb 8 oz) 107/60 Negative -?-?-?-?-?-?-?-?-?-?-?-?- Negative 145 30 -?-?-?-?-?-?-?-?-?-?-?-?- Sm- no vb lof go od fm no reuglar ctx 06/04/25 -?-?-?-?-?-?-?-?-?-?-?-?- 31w 6d 130 lb (+22 lb) 99/66 Negative -?-?-?-?-?-?-?-?-?-?-?-?- Negative 140 32 -?-?-?-?-?-?-?-?-?-?-?-?- KW- no vb/lof/ct x. good fm. no concerns today. ACOG First Trimester First Trimester: Desire for , Alcohol, Tobacco Cessation, Illicit/Recreational Drug/Substance Use, Intimate Partner Violence, Barriers to care, Unstable Housing, Communication Barriers, Environmental/Work Hazards, Anticipated Course of Care, Toxoplasmosis Precations, Use of Any medications, Sexual activity, Exercise, Dental Care, Sauna/Hot tub use, Seat Belt use, Childbirth classes/Hospital facilities, Travel, Indications for Ultrasound and Screening for Aneuploidy; Discussed Second Trimester Second Trimester: Signs and Symptoms of Labor, Selecting a care provider, Reproductive Life Planning & Contreception, Care Planning and Intimate Partner Violence; Discussed Tobacco Cessation and Discussed Depression/Anxiety Third Trimester Third Trimester: Pain Management Plans, Labor support person(s), Immediate Larc, Circumcision preference, Movement Monitoring, Signs and Symptoms of Preeclampsia, Feeding No , Education and Family Medical Leave or Disability Forms ROS Const Reports system reviewed and no additional complaints, except as documented Eyes Reports system reviewed and no additional complaints, except as documented ENT Reports system reviewed and no additional complaints, except as documented Card Reports system reviewed and no additional complaints, except as documented Resp Reports system reviewed and no additional complaints, except as documented GI Reports system reviewed and no additional complaints, except as documented, Denies nausea and Denies vomiting Reports system reviewed and no additional complaints, except as documented Musc Reports system reviewed and no additional complaints, except as documented Skin/Breast Reports system reviewed and no additional complaints, except as documented Neuro Yes system reviewed and no additional complaints, except as documented Psych Reports system reviewed and no additional complaints, except as documented Endo Reports system reviewed and no additional complaints, except as documented Neil/Lymph Reports system reviewed and no additional complaints, except as documented Aller/Immun Reports system reviewed and no additional complaints, except as documented Exam Const General: cooperative, healthy appearing and no acute distress Orientation: alert, awake and oriented x3 Neck Neck: normal visual inspection and full ROM Resp Effort & Inspection: normal respiratory effort, able to speak in complete sentences and symmetric chest movement GI Inspection: normal to inspection Palpation: soft and other Other: gravid Skin General: no rashes or lesions noted Neuro General: patient alert, patient awake and patient oriented x3 Cognition: normal cognition Speech: speech normal Gait: normal gait Motor: muscle tone normal throughout Extrem General: normal to inspection and full ROM Psych Appearance: grossly normal Mental Status: mental status grossly normal Mood: congruent mood Affect: normal affect Speech and Movement: speech and movement normal Attitude: cooperative Thought Process: normal Thought Content: normal Judgment: judgment good Results POC Urinalysis 2 Dip (Clinic) Office Urine Glucose Negative Last Edit by Merna Gonzalez on 06/04/25 15:20 Office Urine Protein Negative Last Edit by Merna Gonzalez on 06/04/25 15:20 Coding Level of Care Code OB Routine Diagnoses Anemia in O99.019 Vaginal bleeding during O46.90 Encounter for supervision of other normal in second trimester Z34.82 Normal : other normal Trimester: second trimester 31 weeks gestation of Z3A.31 Weeks of gestation: 31 weeks Maternal varicella, non-immune O09.899; Z28.39 Hemorrhoids during in second trimester O22.42 Trimester: second trimester Assessment and Plan Assessment and Plan (1) Anemia in : Status: Acute Comment: SloFe. (2) Vaginal bleeding during : Status: Acute Comment: admit STO, give bmz, US ordered. (3) Supervision of normal : Status: Acute Qualifiers: Normal : other normal Trimester: second trimester Qualified Code(s): Z34.82 - Encounter for supervision of other normal , second trimester Comment: PRR, , MITZI 07/31/25, surprise ALLY Tripathi, Nayeli Laguna (4) : Status: Acute Qualifiers: Weeks of gestation: 31 weeks Qualified Code(s): Z3A.31 - 31 weeks gestation of Comment: declines NIPT & Carrier testing. Unremarkable Anatomy:Consistent dates, (5) Maternal varicella, non-immune: Status: Acute Comment: confirm w 28 wk labs (6) Hemorrhoids during : Status: Acute Qualifiers: Trimester: second trimester Qualified Code(s): O22.42 - Hemorrhoids in , second trimester Orders: Orders POC Urinalysis 2 Dip (Clinic) Today Plan Details Additional Comments: ACOG trimester education reviewed and updated. see problem list details for updated plan management information and see below for orders placed at this visit. [place] appropriate handout given. 06/04/25 5476 <Electronically signed by Carmella godinez CNM> Date _ Carmella Bone CNM Cosigner Signature: Date (if applicable) CC: ~ [facility] Work Phone: 1([phone] 256-742207-22-2025 Progress [facility] [address], [address] [place] [address] OFFICE VISIT Date of Service: 05/21/25 MR#: [id number] Acct: [id number] Name: FAROOQ TABOR Rep #: [id number] : 2000 Provider: Dr. Korey Das MD Age/Sex: 24/F [place] [facility] [place] Status: Signed Intake Vital Signs 03/26/25 10:09 05/07/25 09:59 05/21/25 10:12 05/21/25 10:15 Height 5 ft 1 in 5 ft 1 in 5 ft 1 in 5 ft 1 in Weight: 124 lb 8 oz BMI 23.5 BP 107/60 Intake Visit Reasons: 30 wk ob Biztalk Software Developer Required: No Is patient in pain?: No Allergies No Known Allergies Allergy (Verified 05/21/25 10:12) Medications ?Medication ?Instructions ?Recorded ?Confirmed ?Type Hydrocortisone 2.5% / Lidocaine 5% #1 ea 11/22/24 072 12/25 Rx ointment (cmpd) multivitamin no.47-iron fum 27 1 cap PO DAILY 01/01/25 05/21/25 History mg-folate no.1 1 mg-dha 300 mg capsule (PNV-DHA) Slow Fe PO DAILY 05/21/25 History Last Menstrual Period: 10/24/24 Zika: Zika virus screening: Negative : No PFSH PFSH Medical History Chlamydia infection PPH ( hemorrhage) (spontaneous vaginal delivery) Surgical History [place] teeth extracted Family History Mother IBS (irritable bowel syndrome) Social History adopted: No household members: significant other and children housing: house number of children: 1 current occupational status: 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 current occupational exposures/hazards: No pets and animals: Yes pets and animals: dog(s) history of recent travel: No sexually active: Yes Smoking Status: Never smoker alcohol intake: never substance use type: does not use well-balanced diet: daily or most days caffeine: Yes Type: coffee Number of servings: 1 eating out: rarely or never during the past year weight has: remained stable what type of physical activity do you participate in: none ruth/buddhism: None seatbelt use: always do you feel safe at home: Yes 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 Date Name GA/Weeks Outcome Route Bth Weight Gen Labor Lgth Anesthesia Del Locatn Provider FOB 09/19/23 Deuce 39 live - full term 7#10 Male epidur al [facility] Shanika Elliott [place] HPI 30 wk ob Details: FAROOQ TABOR is a 24 year old who presents for routine OB visit. OB Visit MITZI Calculator Estimated Delivery Date Method Current WG Current Estimate 07/31/25 LMP (Certain) 29w 6d Other Estimates 07/28/25 Ultrasound #1 30w 2d Expected Delivery Route/Plan Labor Preferences- CB/BF classes: no labor support person: Jase labor intervention preferences: [] pain management options preferred: wants limited cut cord/dad catch: yes : yes PP control planned: discussed discussed possible routes of delivery and associated risks: [] special requests: [] Specific Issue/Plans Covid status: [] Flu vaccine: [] Tdap vaccine: declined Rhogam: na LARC form signed: yes movement and labor precautions reviewed. Problem list reviewed and updated with the most current plan of care details and appropriate ordersplaced. Relevant counseling for the gestational age provided. Continue routine care and follow up unless otherwise noted in visit notes/problem list details Initial Weight: 108 lb Date -?-?-?-?-?-?-?-?-?-?-?-?- EGA Weight BP Urine Prot -?-?-?-?-?-?-?-?--?-?-?-?- Glucose FHR FuHt Pres Dilation -?-?-?-?-?-?-?-?-?-?-?-?- Effaced St Visit Note 01/21/25 -?-?-?-?-?-?-?-?-?-?-?-?- 12w 5d 108 lb 4 oz (+4 oz) 102/68 -?-?-?-?-?-?-?-?-?-?-?-?- 165 -?-?-?-?-?-?-?-?-?-?-?-?- KW- CRL cons wit h dates. Declines NIPT. [facility] ordered. 02/26/25 -?-?-?-?-?-?-?-?-?-?-?-?- 17w 6d 111 lb 4 oz (+3 lb 4 oz) 96/58 Negative -?-?-?-?-?-?-?-?-?-?-?-?- Negative 161 -?-?-?-?-?-?-?-?-?-?-?-?- MH-No VB. Some f lutters. Nl PN labs. [facility] 03/0503/26/25 -?-?-?-?-?-?-?-?-?-?-?-?- 21w 6d 116 lb 8 oz (+8 lb 8 oz) 104/66 Negative -?-?-?-?-?-?-?-?-?-?-?-?- Negative 155 22 -?-?-?-?-?-?-?-?-?-?-?-?- SM- no vb lof go od fm nro egualr ctx 04/26/25 -?-?-?-?-?-?-?-?-?-?-?-?- 26w 2d 122 lb 2 oz (+14 lb 2 oz) 107/66 Negative -?-?-?-?-?-?-?-?-?-?-?-?- Negative 142 26 -?-?-?-?--?-?-?-?-?-?-?-?- JV- no lof, vagi nal bleeding, or dec fm. no further bleeding episodes since 23 weeks. Thinks [place] and has been taking it easy since then. 05/07/25 -?-?-?-?-?-?-?-?-?-?-?-?- 27w 6d 126 lb 2 oz (+18 lb 2 oz) 100/60 Negative -?-?-?-?-?-?-?-?-?-?-?-?- Negative 160 28 -?-?-?-?-?-?-?-?-?-?-?-?- MH-No VB, LOF. G ood FM. Larc. 28 wk labs pending 05/21/25 -?-?-?-?-?-?-?-?-?-?-?-?- 29w 6d 124 lb 8 oz (+16 lb 8 oz) 107/60 Negative -?-?-?-?-?-?-?-?-?-?-?-?- Negative 145 30 -?-?-?-?-?-?-?-?-?-?-?-?- Sm- no vb lof go od fm no reuglar ctx ACOG First Trimester First Trimester: Desire for , Alcohol, Tobacco Cessation, Illicit/Recreational Drug/Substance Use, Intimate Partner Violence, Barriers to care, Unstable Housing, Communication Barriers, Environmental/Work Hazards, Anticipated Course of Care, Toxoplasmosis Precations, Use of Any med ications, Sexual activity, Exercise, Dental Care, Sauna/Hot tub use, Seat Belt use, Childbirth classes/Hospital facilities, Travel, Indications for Ultrasound and Screening for Aneuploidy; Discussed Second Trimester Second Trimester: Signs and Symptoms of Labor, Selecting a care provider, Reproductive Life Planning & Contreception, Care Planning and Intimate Partner Violence; Discussed Tobacco Cessation and Discussed Depression/Anxiety Third Trimester Third Trimester: Pain Management Plans, Labor support person(s), Immediate Larc, Circumcision preference, Movement Monitoring, Signs and Symptoms of Preeclampsia, Infant Feeding No , Education and Family Medical Leave or Disability Forms Results POC Urinalysis 2 Dip (Clinic) Office Urine Glucose Negative Last Edit by Esther Rose on 05/21/25 10:16 Office Urine Protein Negative Last Edit by Esther Rose on 05/21/25 10:16 Coding Level of Care Code OB Routine Diagnoses Anemia in O99.019 Vaginal bleeding during O46.90 Encounter for supervision of other normal in second trimester Z34.82 Normal : other normal Trimester: second trimester 29 weeks gestation of Z3A.29 Weeks of gestation: 29 weeks Maternal varicella, non-immune O09.899; Z28.39 Hemorrhoids during in second trimester O22.42 Trimester: second trimester Assessment and Plan Assessment and Plan (1) Anemia in : Status: Acute Comment: SloFe. (2) Vaginal bleeding during : Status: Acute Comment: admit STO, give bmz, US ordered. (3) Supervision of normal : Status: Acute Qualifiers: Normal : other normal Trimester: second trimester Qualified Code(s): Z34.82 - Encounter for supervision of other normal , second trimester Comment: PRR, , MITZI 07/31/25, surprise Nayeli Locke (4) : Status: Acute Qualifiers: Weeks of gestation: 29 weeks Qualified Code(s): Z3A.29 - 29 weeks gestation of Comment: declines NIPT & Carrier testing. Unremarkable Anatomy:Consistent dates, (5) Maternal varicella, non-immune: Status: Acute Comment: confirm w 28 wk labs (6) Hemorrhoids during : Status: Acute Qualifiers: Trimester: second trimester Qualified Code(s): O22.42 - Hemorrhoids in , second trimester Orders: Orders POC Urinalysis 2 Dip (Clinic) Today 05/21/25 1045 kelli GARNER> Date _ Dilcia Das MD Cosigner Signature: Date (if applicable) CC: ~ [facility]06-04-2025 Radiology Diagnostic study note [facility] Imaging Services [address] [place] [address] OB Limited With Biometrics MR#: [id number] Acct: [id number] Name: FAROOQ TABOR Rep #: [id number] : 2000 F 24 From: iLss Mosley MD PCP: Care Physician,No Primary Status: REG CLI Study:OB Limited With Biometrics Date of Exam : 04/03/25 Exam# [id number] Ordering Dr: Dilcia Smith MD PROCEDURE: OB LIMITED WITH BIOMETRICS 04/03/2025 REASON FOR EXAM: BLEEDING AND POSSIBLE RUPTURE OF MEMBRANES TECHNIQUE: High resolution obstetric ultrasound performed using a 2D transducer. Standard views obtained, including biometry and Doppler studies. COMPARISON: 01/21/2025 FINDINGS Number: 1 Position: Cephalic Placental Position: Posterior grade 0. Placental Abnormalities: None noted. heart rate: 158 bpm Amniotic fluid index: Subjectively within normal limits. Cervical length: 4.5 cm. DIMENSIONS: Biparietal Diameter: 5.4 cm/22 weeks 2 days Head Circumference: 19.7 cm/21 weeks 6 days Abdominal Circumference: 17.7 cm/22 weeks 4 days Femur Length: 3.8 cm/22 weeks 1 day ESTIMATED WEIGHT: 505 g +/- 76 g ESTIMATED WEIGHT PERCENTILE (24+ weeks): 20 % ESTIMATED GESTATIONAL AGE: Baseline: 23 weeks 0 days By Ultrasound: 22 weeks 1 day ESTIMATED DATE OF DELIVERY: Baseline: 07/31/2025 By Ultrasound: 08/06/2025 US/OB Limited With Biometrics IMPRESSION: 1. A single viable intrauterine fetus with an ultrasound gestational age of 22 weeks and 1 day. 2. Other findings documented above. Reading Location: [place] [address] CC: Dr. 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06-04-2025 History and physical note Author Dilcia Das [facility] Note Date/Time April 02, 2025 11:28 pm [facility] Medical Records Department [address] [facility] [place] [address] OB Triage Physician Note 04/02/25 2321 MR#: [id number] Acct: [id number] Name: FAROOQ TABOR Rep #:[id number] : 2000 24 From: Dilcia sue MD PCP: Care Physician,No Primary Status :REG CLI Y [facility] HPI - General HPI Narrative FAROOQ TABOR, is a 24 F who presents with episode of bleeding at home. she had some crmaping and pelvic pressure, followed by passing a clot in the shower, shedenies any uti symptoms and no recent trauma or infections. she has had bloody discharge since she has been here, she also had one episode of a gush of fluid but hasn't had any leaking since then. Maternal Data Information MITZI Calculator Estimated Delivery Date Method Current WG Current Estimate 07/31/25 LMP (Certain) 22w 6d Other Estimates 07/28/25 Ultrasound #1 23w 2d PFSH PFSH Medical History Chlamydia infection PPH ( hemorrhage) (spontaneous vaginal delivery) Home Medications ?Medication ?Instructions ?Recorded ?Last Taken ?Type Hydrocortisone 2.5% / Lidocaine 5% #1 ea 11/22/24 Unkn own Rx ointment (cmpd) multivitamin no.47-iron fum 27 1 cap PO DAILY 01/01/25 04/02/25 08:00 History mg-folate no.1 1 mg-dha 300 mg 1 cap capsule (PNV-DHA) Allergy/AdvReac Type Severity Reaction Status Date / Time No Known Allergies Allergy Verified 04/02/25 21:52 Family History Mother IBS (irritable bowel syndrome) Surgical History [place] teeth extracted Social History adopted: No household members: significant other and children housing: house number of children: 1 current occupational status: 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 current occupational exposures/hazards: No pets and animals: Yes pets and animals: dog(s) history of recent travel: No sexually active: Yes Smoking Status: Never smoker alcohol intake: never substance use type: does not use well-balanced diet: daily or most days caffeine: Yes Type: coffee Number of servings: 1 eating out: rarely or never during the past year weight has: remained stable what type of physical activity do you participate in: none ruth/buddhism: None seatbelt use: always do you feel safe at home: Yes 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 Date Name GA/Weeks Outcome Route Bth Weight Infant Gen Labor Lgth Anesthesia Del Locatn Provider FOB 09/19/23 Deuce 39 live - full term 7#10 Male epidur al [facility] Shanika Earl [place] Visit Details Expected Delivery Route/Plan Labor Preferences- CB/BF classes: [] labor support person: [] labor intervention preferences: [] pain management options preferred: [] cut cord/dad catch: [] : [] PP control planned: [] discussed possible routes of delivery and associated risks: [] special requests: [] Plans Covid status: [] Flu vaccine: [] Tdap vaccine: [] Rhogam: [] LARC form signed: [] Problem list reviewed and updated with the most current plan of care details and appropriate orders placed. Relevant counseling for the gestational age provided. Continue routine care and follow up unless otherwise noted in visit notes/problem list details OB Flowsheet Initial Weight: 108 lb Date -?-?-?-?-?-?-?-?-?-?-?-?- EGA Weight BP Urine Prot -?-?-?-?-?-?-?-?-?-?-?-?- Glucose FHR FuHt Pres Dilation -?-?-?-?-?-?-?-?-?-?-?-?- Effaced St Visit Note 01/21/25 -?-?-?-?-?-?-?-?-?-?-?-?- 12w 5d 108 lb 4 oz (+4 oz) 102/68 -?-?-?-?-?-?-?-?-?-?-?-?- 165 -?-?-?-?--?-?-?-?-?-?-?-?- KW- CRL cons wit h dates. Declines NIPT. MFM US ordered. 02/26/25 -?-?-?-?-?-?-?-?-?-?-?-?- 17w 6d 111 lb 4 oz (+3 lb 4 oz) 96/58 Negative -?-?-?-?-?-?-?-?-?-?-?-?- Negative 161 -?-?-?-?-?-?-?-?-?-?-?-?- MH-No VB. Some f lutters. Nl PN labs. [facility] /6 03/26/25 -?-?-?-?-?-?-?-?-?-?-?-?- 21w 6d 116 lb 8 oz (+8 lb 8 oz) 104/66 Negative -?-?-?-?-?-?-?-?-?-?-?-?- Negative 155 22 -?--?-?-?-?-?-?-?-?-?-?-?- SM- no vb lof go od fm nro egualr ctx ROS Constitutional Constitutional: Reports systems reviewed and no addt'l complaints, except as documented Gastrointestinal Gastrointestinal: Reports as per HPI Physical Exam Const alert, oriented x3 and no apparent distress HEENT Head and Scalp: normocephalic and atraumatic Neck full ROM and no lymphadenopathy Chest inspection of chest normal Resp normal respiratory effort GI GI Narrative: gravid, abdomen nontender, AGA Narrative: blood tinged mucousy discharge no pooling no active leaking on speculum exam Manual OB Exam: dilated 0, effaced 0 and station high NST FHR Rate Baby A Uterine Activity:: no regular Assessment & Plan (1) Vaginal bleeding during : COMMENT: admit STO, give bmz, US ordered. (2) Supervision of normal : QUALIFIERS: Normal : other normal Trimester: second trimester Qualified Code(s): Z34.82 - Encounter for supervision of other normal , second trimester COMMENT: PRR, , MITZI 07/31/25, surprise Nayeli Locke (3) : QUALIFIERS: Weeks of gestation: 21 weeks Qualified Code(s): Z3A.21 - 21 weeks gestation of COMMENT: declines NIPT & Carrier testing. Unremarkable Anatomy:Consistent dates, (4) Maternal varicella, non-immune: COMMENT: confirm w 28 wk labs PLAN: Plan admitted for observtaion, cervix closed, serial fibrinogen ordered, US in am. bedside US now shows normal CHANTAL transverse presentation, good FM, and reassuring status. discussed steroids as precautionary. rom plus suspected to be false positive due to presence of blood, but will continue to monitor. Charges/Coding Multi Select Codes Visit Charges Office Visit/Consults: 95697 OV L3 Est 20min 04/02/258 <Electronically signed by Dilcia pereira MD> Date _ Dilcia Das MD Cosigner Signature (if applicable): Date CC: Dr. Dilcia Das MD; No Primary Care Physician ~ Signed [facility] Work Phone: 1(369) 660-331106-03-2025 History and physical note [facility] Medical Records Department [address] [place] [address] OB Triage Physician Note 04/02/25 232 MR#: [id number] Acct: [id number] Name: FAROOQ TABOR Rep #:[id number] : 2000 24 From: Dilcia sue MD PCP: Care Physician,No Primary Status :REG CLI Y Location: [place] [address] HPI - General HPI Narrative FAROOQ TABOR, is a 24 F who presents with episode of bleeding at home. she had some crmaping and pelvic pressure, followed by passing a clot in the shower, shedenies any uti symptoms and no recent trauma or infections. she has had bloody discharge since she has been here, she also had one episode of a gush of fluid but hasn't had any leaking since then. Maternal Data Information MITZI Calculator Estimated Delivery Date Method Current WG Current Estimate 07/31/25 LMP (Certain) 22w 6d Other Estimates 07/28/25 Ultrasound #1 23w 2d PFSH PFSH Medical History Chlamydia infection PPH ( hemorrhage) (spontaneous vaginal delivery) Home Medications ?Medication ?Instructions ?Recorded ?Last Taken ?Type Hydrocortisone 2.5% / Lidocaine 5% #1 ea 11/22/24 Unkn own Rx ointment (cmpd) multivitamin no.47-iron fum 27 1 cap PO DAILY 01/01/25 04/02/25 08:00 History mg-folate no.1 1 mg-dha 300 mg 1 cap capsule (PNV-DHA) Allergy/AdvReac Type Severity Reaction Status Date / Time No Known Allergies Allergy Verified 04/02/25 21:52 Family History Mother IBS (irritable bowel syndrome) Surgical History [place] teeth extracted Social History adopted: No household members: significant other and children housing: house number of children: 1 current occupational status: 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 current occupational exposures/hazards: No pets and animals: Yes pets and animals: dog(s) history of recent travel: No sexually active: Yes Smoking Status: Never smoker alcohol intake: never substance use type: does not use well-balanced diet: daily or most days caffeine: Yes Type: coffee Number of servings: 1 eating out: rarely or never during the past year weight has: remained stable what type of physical activity do you participate in: none ruth/buddhism: None seatbelt use: always do you feel safe at home: Yes 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 Date Name GA/Weeks Outcome Route Bth Weight Infant Gen Labor Lgth Anesthesia Del Locatn Provider FOB 09/19/23 Deuce 39 live - full term 7#10 Male epidur al [facility] Shanika Elliott [place] Visit Details Expected Delivery Route/Plan Labor Preferences- CB/BF classes: [] labor support person: [] labor intervention preferences: [] pain management options preferred: [] cut cord/dad catch: [] : [] PP control planned: [] discussed possible routes of delivery and associated risks: [] special requests: [] Plans Covid status: [] Flu vaccine: [] Tdap vaccine: [] Rhogam: [] LARC form signed: [] Problem list reviewed and updated with the most current plan of care details and appropriate ordersplaced. Relevant counseling for the gestational age provided. Continue routine care and follow up unless otherwise noted in visit notes/problem list details OB Flowsheet Initial Weight: 108 lb Date -?-?-?-?-?-?-?-?-?-?-?-?- EGA Weight BP Urine Prot -?-?-?-?-?-?-?-?-?-?-?-?- Glucose FHR FuHt Pres Dilation -?-?-?-?-?-?-?-?-?-?-?-?- Effaced St Visit Note 01/21/25 -?-?-?-?-?-?-?-?-?-?-?-?- 12w 5d 108 lb 4 oz (+4 oz) 102/68 -?-?-?-?-?-?-?-?-?-?-?-?- 165 -?-?-?-?--?-?-?-?-?-?-?-?- KW- CRL cons wit h dates. Declines NIPT. [facility] ordered. 02/26/25 -?-?-?-?-?-?-?-?-?-?-?-?- 17w 6d 111 lb 4 oz (+3 lb 4 oz) 96/58 Negative -?-?-?-?-?-?-?-?-?-?-?-?- Negative 161 -?-?-?-?-?-?-?-?-?-?-?-?- MH-No VB. Some f lutters. Nl PN labs. [facility] /6 03/26/25 -?-?-?-?-?-?-?-?-?-?-?-?- 21w 6d 116 lb 8 oz (+8 lb 8 oz) 104/66 Negative -?-?-?-?-?-?-?-?-?-?-?-?- Negative 155 22 -?--?-?-?-?-?-?-?-?-?-?-?- SM- no vb lof go od fm nro egualr ctx ROS Constitutional Constitutional: Reports systems reviewed and no addt'l complaints, except as documented Gastrointestinal Gastrointestinal: Reports as per HPI Physical Exam Const alert, oriented x3 and no apparent distress HEENT Head and Scalp: normocephalic and atraumatic Neck full ROM and no lymphadenopathy Chest inspection of chest normal Resp normal respiratory effort GI GI Narrative: gravid, abdomen nontender, AGA Narrative: blood tinged mucousy discharge no pooling no active leaking on speculum exam Manual OB Exam: dilated 0, effaced 0 and station high NST FHR Rate Baby A Uterine Activity:: no regular Assessment & Plan (1) Vaginal bleeding during : COMMENT: admit STO, give bmz, US ordered. (2) Supervision of normal : QUALIFIERS: Normal : other normal Trimester: second trimester Qualified Code(s): Z34.82 - Encounter for supervision of other normal , second trimester COMMENT: PRR, , MITZI 07/31/25, surprise PC Deuce, Nayeli Laguna (3) : QUALIFIERS: Weeks of gestation: 21 weeks Qualified Code(s): Z3A.21 - 21 weeks gestation of COMMENT: declines NIPT & Carrier testing. Unremarkable Anatomy:Consistent dates, (4) Maternal varicella, non-immune: COMMENT: confirm w 28 wk labs PLAN: Plan admitted for observtaion, cervix closed, serial fibrinogen ordered, US in am. bedside US now shows normal CHANTAL transverse presentation, good FM, and reassuring status. discussed steroids as precautionary. rom plus suspected to be false positive due to presence of blood, but will continue to monitor. Charges/Coding Multi Select Codes Visit Charges Office Visit/Consults: 12533 OV L3 Est 20min 04/02/25 5152 kelli GARNER> Date _ Dilcia Das MD Cosigner Signature (if applicable): Date CC: Dr. Dilcia Das MD; No Primary Care Physician ~ Signed [facility]05-27-2025 Evaluation note* Diagnosis Onset Date Resolution Status Admit Date Hemorrhoids during acute March 26, 2025 10:06am Maternal varicella, non-immune acute March 26, 2025 1 0:06am acute March 26, 2025 10:06am Supervision of normal acute March 26, 2025 1 0:06am Maternal varicella, non-immune acute April 02, 2025 9 :13pm acute April 02, 2025 9:13pm Supervision of normal acute April 02, 2025 9 :13pm Vaginal bleeding during acute April 02, 2025 9 :13pm Hemorrhoids during acute April 26, 2025 3:39pm Maternal varicella, non-immune acute April 26, 2025 3:39pm acute April 26 3:39pm Supervision of normal acute April 26, 2025 3:39pm Vaginal bleeding during acute April 26, 2025 3:39pm Hemorrhoids during acute May 07, 2025 9:56am Maternal varicella, non-immune acute May 07, 2025 9 :56am acute May 07, 2025 9:56am Supervision of normal acute May 07, 2025 9 :56am Vaginal bleeding during acute May 07, 2025 9 :56am Anemia in acute May 21, 2025 10:08am Hemorrhoids during acute May 21, 2025 10:08am Maternal varicella, non-immune acute May 21, 2025 10:08am acute May 21 10:08am Supervision of normal acute May 21, 2025 10:08am Vaginal bleeding during acute May 21, 2025 10:08am Anemia in acute 2024 3:13pm Hemorrhoids during acute June 04, 2025 3:13pm Maternal varicella, non-immune acute June 04, 2025 3:13pm acute June 04 3:13pm Supervision of normal acute June 04, 2025 3:13pm Vaginal bleeding during acute June 04, 2025 3:13pm Anemia in acute Augus t 2024 9:46am Hemorrhoids during acute June 18, 2025 9:46am Maternal varicella, non-immune acute June 18 9:46am acute June 18 025 9:46am Supervision of normal acute June 18 9:46am Vaginal bleeding during acute June 18 9:46am Anemia in acute Septe 2024 10:19am Hemorrhoids during acute July 02, 2025 10:19am Maternal varicella, non-immune acute July 02, 10:19am acute July 02, 2025 10:19am Supervision of normal acute July 02 10:19am Vaginal bleeding during acute July 02 10:19am [facility] Work Phone: 1(691) 325-326605-27-2025 Evaluation note* Diagnosis Onset Date Resolution Status Admit Date Hemorrhoids during acute March 26, 2025 10:06am Maternal varicella, non-immune acute March 26, 2025 1 0:06am acute March 26, 2025 10:06am Supervision of normal acute March 26, 2025 1 0:06am Maternal varicella, non-immune acute April 02, 2025 9 :13pm acute April 02, 2025 9:13pm Supervision of normal acute April 02, 2025 9 :13pm Vaginal bleeding during acute April 02, 2025 9 :13pm Hemorrhoids during acute April 26, 2025 3:39pm Maternal varicella, non-immune acute April 26, 2025 3:39pm acute April 26 3:39pm Supervision of normal acute April 26, 2025 3:39pm Vaginal bleeding during acute April 26, 2025 3:39pm Hemorrhoids during acute May 07, 2025 9:56am Maternal varicella, non-immune acute May 07, 2025 9 :56am acute May 07, 2025 9:56am Supervision of normal acute May 07, 2025 9 :56am Vaginal bleeding during acute May 07, 2025 9 :56am Anemia in acute May 21, 2025 10:08am Hemorrhoids during acute May 21, 2025 10:08am Maternal varicella, non-immune acute May 21, 2025 10:08am acute May 21 10:08am Supervision of normal acute May 21, 2025 10:08am Vaginal bleeding during acute May 21, 2025 10:08am Anemia in acute 2024 3:13pm Hemorrhoids during acute June 04, 2025 3:13pm Maternal varicella, non-immune acute June 04, 2025 3:13pm acute June 04 3:13pm Supervision of normal acute June 04, 2025 3:13pm Vaginal bleeding during acute June 04, 2025 3:13pm Anemia in acute Augus t 2024 9:46am Hemorrhoids during acute June 18, 2025 9:46am Maternal varicella, non-immune acute June 18 9:46am acute June 18, 9:46am Supervision of normal acute June 18 9:46am Vaginal bleeding during acute June 18 9:46am Anemia in acute 2024 10:19am Hemorrhoids during acute July 02, 2025 10:19am Maternal varicella, non-immune acute July 02, 10:19am acute July 02, 2025 10:19am Supervision of normal acute July 02, 10:19am Vaginal bleeding during acute July 02 10:19am Anemia in acute 2024 3:16pm Hemorrhoids during acute July 10, 2025 3:16pm Maternal varicella, non-immune acute July 10, 2025 3:16pm acute July 3:16pm Supervision of normal acute July 10, 2025 3:16pm Vaginal bleeding during acute July 10, 2025 3:16pm [facility] Work Phone: 1(142) 894-389105-27-2025 [facility] [address] [place] [address], [address] [place] [address] OFFICE VISIT Date of Service: 03/26/25 MR#: [id number] Acct: [id number] Name: FAROOQ TABOR Rep #: [id number] : 2000 Provider: Dr. 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: No Is patient in pain?: No Feel stressed/tense/nervous/anxious/difficulty sleeping: not at all Allergies No Known Allergies Allergy (Verified 03/26/25 10:11) Medications ?Medication ?Instructions ?Recorded ?Confirmed ?Type Hydrocortisone 2.5% / Lidocaine 5% #1 ea 11/22/2403/01 Rx ointment (cmpd) docusate sodium 100 mg capsule 100 mg PO QDAY 01/01/25 03/26/25 History (Colace) multivitamin no.47-iron fum 27 cap PO 01/01/25 5 History mg-folate no.1 1 mg-dha 300 mg capsule (PNV-DHA) Last Menstrual Period: 10/24/24 Zika: Zika virus screening: Negative : No PFSH PFSH Medical History Chlamydia infection PPH ( hemorrhage) (spontaneous vaginal delivery) Surgical History [place] teeth extracted Family History Mother IBS (irritable bowel syndrome) Social History adopted: No household members: significant other and children housing: house number of children: 1 current occupational status: 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 current occupational exposures/hazards: No pets and animals: Yes pets and animals: dog(s) history of recent travel: No sexually active: Yes Smoking Status: Never smoker alcohol intake: never substance use type: does not use well-balanced diet: daily or most days caffeine: Yes Type: coffee Number of servings: 1 eating out: rarely or never during the past year weight has: remained stable what type of physical activity do you participate in: none ruth/buddhism: None seatbelt use: always do you feel safe at home: Yes 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 Date Name GA/Weeks Outcome Route Bth Weight Gen Labor Lgth Anesthesia Del Locatn Provider FOB 09/19/23 Deuce 39 live - full term 7#10 Male epidur al [facility] Shanika [place] HPI 22wk ob Details: FAROOQ TABOR is a 24 year old who presents for routine OB visit. OB Visit MITZI Calculator Estimated Delivery Date Method Current WG Current Estimate 07/31/25 LMP (Certain) 21w 6d Other Estimates 07/28/25 Ultrasound #1 22w 2d Expected Delivery Route/Plan Labor Preferences- CB/BF classes: [] labor support person: [] labor intervention preferences: [] pain management options preferred: [] cut cord/dad catch: [] : [] PP control planned: [] discussed possible routes of delivery and associated risks: [] special requests: [] Specific Issue/Plans Covid status: [] Flu vaccine: [] Tdap vaccine: [] Rhogam: [] LARC form signed: [] Problem list reviewed and updated with the most current plan of care details and appropriate ordersplaced. Relevant counseling for the gestational age provided. Continue routine care and follow up unless otherwise noted in visit notes/problem list details Initial Weight: 108 lb Date -?-?-?-?-?-?-?-?-?-?-?-?- EGA Weight BP Urine Prot -?-?-?-?-?-?-?-?-?-?-?-?- Glucose FHR FuHt Pres Dilation -?-?-?-?-?-?-?-?-?-?-?-?- Effaced St Visit Note 01/21/25 -?-?-?-?-?-?-?-?-?-?-?-?- 12w 5d 108 lb 4 oz (+4 oz) 102/68 -?-?-?-?-?-?-?-?-?-?-?-?- 165 -?-?-?-?-?-?-?-?-?-?-?-?- KW- CRL cons wit h dates. Declines NIPT. [facility] ordered. 02/26/25 -?-?-?-?-?-?-?-?-?-?-?-?- 17w 6d 111 lb 4 oz (+3 lb 4 oz) 96/58 Negative -?-?-?-?-?-?-?-?-?-?-?-?- Negative 161 -?-?-?-?-?-?-?-?-?-?-?-?- MH-No VB. Some f lutters. Nl PN labs. [facility] /03/26/25 -?-?-?-?-?-?-?-?-?-?-?-?- 21w 6d 116 lb 8 oz (+8 lb 8 oz) 104/66 Negative -?-?-?-?-?-?-?-?-?-?-?-?- Negative 155 22 -?-?-?-?-?-?-?-?-?-?-?-?- SM- no vb lof go od fm nro egualr ctx ACOG First Trimester First Trimester: Desire for , Alcohol, Tobacco Cessation, Illicit/Recreational Drug/Substance Use, Intimate Partner Violence, Barriers to care, Unstable Housing, Communication Barriers, Environmental/Work Hazards, Anticipated Course of Care, Toxoplasmosis Precations, Use of Any med ications, Sexual activity, Exercise, Dental Care, Sauna/Hot tub use, Seat Belt use, Childbirth classes/Hospital facilities, Travel, Indications for Ultrasound and Screening for Aneuploidy; Discussed Second Trimester Second Trimester: Signs and Symptoms of Labor, Selecting a care provider, Reproductive Life Planning & Contreception, Care Planning and Intimate Partner Violence; Discussed Tobacco Cessation and Discussed Depression/Anxiety Third Trimester Third Trimester: Pain Management Plans, Labor support person(s), Immediate Larc, Circumcision preference, Movement Monitoring, Signs and Symptoms of Preeclampsia, Infant Feeding No , [place] Education and Family Medical Leave or Disability Forms Results POC Urinalysis 2 Dip (Clinic) Office Urine Glucose Negative Last Edit by Esther Rose on 03/26/25 10:16 Office Urine Protein Negative Last Edit by Esther Rose on 03/26/25 10:16 Coding Level of Care Code OB Routine Diagnoses Encounter for supervision of other normal in second trimester Z34.82 Normal : other normal Trimester: second trimester 21 weeks gestation of Z3A.21 Weeks of gestation: 21 weeks Maternal varicella, non-immune O09.899; Z28.39 Hemorrhoids during O22.40 Assessment and Plan Assessment and Plan (1) Supervision of normal : Status: Acute Qualifiers: Normal : other normal Trimester: second trimester Qualified Code(s): Z34.82 - Encounter for supervision of other normal , second trimester Comment: PRR, , MITZI 07/31/25, Nayeli Porter (2) : Status: Acute Qualifiers: Weeks of gestation: 21 weeks Qualified Code(s): Z3A.21 - 21 weeks gestation of Comment: declines NIPT & Carrier testing. Unremarkable Anatomy:Consistent dates, (3) Maternal varicella, non-immune: Status: Acute Comment: confirm w 28 wk labs (4) Hemorrhoids during : Status: Acute Orders: Orders POC Urinalysis 2 Dip (Clinic) Today 03/26/25 Joshua pereira MD> Date _ Dilcia Das MD Cosigner Signature: Date (if applicable) CC: ~ [facility]04-29-2025 Evaluation note* Diagnosis Onset Date Resolution Status Admit Date Maternal varicella, non-immune acute February 26, 2025 9:34am acute February 26 9:34am Supervision of normal acut e February 26, 2025 9:34am Hemorrhoids during acute March 26, 2025 10:06am Maternal varicella, non-immune acute March 26, 2025 10:06am acute March 26, 2025 10:06am Supervision of normal acut e March 26, 2025 10:06am Maternal varicella, non-immune acute April 02, 2025 9:13pm acute April 02, 2025 9:13pm Supervision of normal acut e April 02, 2025 9:13pm Vaginal bleeding during acute April 02, 2025 9 :13pm Hemorrhoids during acute April 26, 2025 3:39pm Maternal varicella, non-immune acute April 26, 2025 3:39pm acute April 26 3:39pm Supervision of normal acut e April 26, 2025 3:39pm Vaginal bleeding during acute April 26, 2025 3:39pm Hemorrhoids during acute May 07, 2025 9:56am Maternal varicella, non-immune acute May 07, 2025 9:56am acute May 07, 2025 9:56am Supervision of normal acut e May 07, 2025 9:56am Vaginal bleeding during acute May 07, 2025 9 :56am Anemia in acute May 21, 2025 10:08am Hemorrhoids during acute May 21, 2025 10:08am Maternal varicella, non-immune acute May 21, 2025 10:08am acute May 21 10:08am Supervision of normal acut e May 21, 2025 10:08am Vaginal bleeding during acute May 21, 2025 10:08am Anemia in acute 2024 3:13pm Hemorrhoids during acute June 04, 2025 3:13pm Maternal varicella, non-immune acute June 04, 2025 3:13pm acute June 04 3:13pm Supervision of normal acut e June 04, 2025 3:13pm Vaginal bleeding during acute June 04, 2025 3:13pm [facility] Work Phone: 1(174) 828-680504-29-2025 Evaluation note* Diagnosis Onset Date Resolution Status Admit Date Maternal varicella, non-immune acute February 26, 2025 9:34am acute February 26 9:34am Supervision of normal acut e February 26, 2025 9:34am Hemorrhoids during acute March 26, 2025 10:06am Maternal varicella, non-immune acute March 26, 2025 10:06am acute March 26, 2025 10:06am Supervision of normal acut e March 26, 2025 10:06am Maternal varicella, non-immune acute April 02, 2025 9:13pm acute April 02, 2025 9:13pm Supervision of normal acut e April 02, 2025 9:13pm Vaginal bleeding during acute April 02, 2025 9 :13pm Hemorrhoids during acute April 26, 2025 3:39pm Maternal varicella, non-immune acute April 26, 2025 3:39pm acute April 26 3:39pm Supervision of normal acut e April 26, 2025 3:39pm Vaginal bleeding during acute April 26, 2025 3:39pm Hemorrhoids during acute May 07, 2025 9:56am Maternal varicella, non-immune acute May 07, 2025 9:56am acute May 07, 2025 9:56am Supervision of normal acut e May 07, 2025 9:56am Vaginal bleeding during acute May 07, 2025 9 :56am Anemia in acute May 21, 2025 10:08am Hemorrhoids during acute May 21, 2025 10:08am Maternal varicella, non-immune acute May 21, 2025 10:08am acute May 21 10:08am Supervision of normal acut e May 21, 2025 10:08am Vaginal bleeding during acute May 21, 2025 10:08am Anemia in acute 2024 3:13pm Hemorrhoids during acute June 04, 2025 3:13pm Maternal varicella, non-immune acute June 04, 2025 3:13pm acute June 04 3:13pm Supervision of normal acut e June 04, 2025 3:13pm Vaginal bleeding during acute June 04, 2025 3:13pm Anemia in acute Augus t 2024 9:46am Hemorrhoids during acute June 18, 2025 9:46am Maternal varicella, non-immune acute June 18, 2025 9:46am acute June 18, 2 025 9:46am Supervision of normal acut e June 18, 2025 9:46am Vaginal bleeding during acute June 18 9:46am [facility] Work Phone: 1(659) 925-791103-24-2025 NotePap Smear Specimen AdequacyMar2024 11:59pmComment.Satisfactory for evaluation. Endocervical and/or squamous metaplasticcells (endocervical component)are present.[facility] INTER[facility]ACED A#[id number] Health St. Rita'S Medical CenterComment on above:Satisfactory for evaluation. Endocervical and/or squamous metaplasticcells (endocervical component)are present.01-21-2025 Evaluation note* Diagnosis Onset Date Resolution Status Admit Date Hemorrhoids during acute January 21, 2025 8:43am Maternal varicella, non-immune acute January 21, 2025 8:43am acute January 21 8:43am Supervision of normal acut e January 21, 2025 8:43am Maternal varicella, non-immune acute February 26, 2025 9:34am acute February 26 9:34am Supervision of normal acut e February 26, 2025 9:34am Hemorrhoids during acute March 26, 2025 10:06am Maternal varicella, non-immune acute March 26, 2025 10:06am acute March 26, 2025 10:06am Supervision of normal acut e March 26, 2025 10:[address] [facility] Work Phone: 1(900) 102-325503-24-2025 Evaluation note* Diagnosis Onset Date Resolution Status Admit Date Hemorrhoids during acute January 21, 2025 8:43am Maternal varicella, non-immune acute January 21, 2025 8:43am acute January 21 8:43am Supervision of normal acut e January 21, 2025 8:43am Maternal varicella, non-immune acute February 26, 2025 9:34am acute February 26 9:34am Supervision of normal acut e February 26, 2025 9:34am Hemorrhoids during acute March 26, 2025 10:06am Maternal varicella, non-immune acute March 26, 2025 10:06am acute March 26, 2025 10:06am Supervision of normal acut e March 26, 2025 10:06am Maternal varicella, non-immune acute April 02, 2025 9:13pm acute April 02, 2025 9:13pm Supervision of normal acut e April 02, 2025 9:13pm Vaginal bleeding during acute April 02, 2025 9 :13pm [facility] Work Phone: 1(817) 147-314803-24-2025 Evaluation note* Diagnosis Onset Date Resolution Status Admit Date Hemorrhoids during acute January 21, 2025 8:43am Maternal varicella, non-immune acute January 21, 2025 8:43am acute January 21 8:43am Supervision of normal acut e January 21, 2025 8:43am Maternal varicella, non-immune acute February 26, 2025 9:34am acute February 26 9:34am Supervision of normal acut e February 26, 2025 9:34am Hemorrhoids during acute March 26, 2025 10:06am Maternal varicella, non-immune acute March 26, 2025 10:06am acute March 26, 2025 10:06am Supervision of normal acut e March 26, 2025 10:06am Maternal varicella, non-immune acute April 02, 2025 9:13pm acute April 02, 2025 9:13pm Supervision of normal acut e April 02, 2025 9:13pm Vaginal bleeding during acute April 02, 2025 9 :13pm Hemorrhoids during acute April 26, 2025 3:39pm Maternal varicella, non-immune acute April 26, 2025 3:39pm acute April 26 3:39pm Supervision of normal acut e April 26, 2025 3:39pm Vaginal bleeding during acute April 26, 2025 3:39pm [facility] Work Phone: 1(260) 619-808903-24-2025 Evaluation note* Diagnosis Onset Date Resolution Status Admit Date Hemorrhoids during acute January 21, 2025 8:43am Maternal varicella, non-immune acute January 21, 2025 8:43am acute January 21 8:43am Supervision of normal acut e January 21, 2025 8:43am Maternal varicella, non-immune acute February 26, 2025 9:34am acute February 26 9:34am Supervision of normal acut e February 26, 2025 9:34am Hemorrhoids during acute March 26, 2025 10:06am Maternal varicella, non-immune acute March 26, 2025 10:06am acute March 26, 2025 10:06am Supervision of normal acut e March 26, 2025 10:06am Maternal varicella, non-immune acute April 02, 2025 9:13pm acute April 02, 2025 9:13pm Supervision of normal acut e April 02, 2025 9:13pm Vaginal bleeding during acute April 02, 2025 9 :13pm Hemorrhoids during acute April 26, 2025 3:39pm Maternal varicella, non-immune acute April 26, 2025 3:39pm acute April 26 3:39pm Supervision of normal acut e April 26, 2025 3:39pm Vaginal bleeding during acute April 26, 2025 3:39pm Hemorrhoids during acute May 07, 2025 9:56am Maternal varicella, non-immune acute May 07, 2025 9:56am acute May 07, 2025 9:56am Supervision of normal acut e May 07, 2025 9:56am Vaginal bleeding during acute May 07, 2025 9 :56am [facility] Work Phone: 1(483) 480-778003-24-2025 Evaluation note* Diagnosis Onset Date Resolution Status Admit Date Hemorrhoids during acute January 21, 2025 8:43am Maternal varicella, non-immune acute January 21, 2025 8:43am acute January 21 8:43am Supervision of normal acut e January 21, 2025 8:43am Maternal varicella, non-immune acute February 26, 2025 9:34am acute February 26 9:34am Supervision of normal acut e February 26, 2025 9:34am Hemorrhoids during acute March 26, 2025 10:06am Maternal varicella, non-immune acute March 26, 2025 10:06am acute March 26, 2025 10:06am Supervision of normal acut e March 26, 2025 10:06am Maternal varicella, non-immune acute April 02, 2025 9:13pm acute April 02, 2025 9:13pm Supervision of normal acut e April 02, 2025 9:13pm Vaginal bleeding during acute April 02, 2025 9 :13pm Hemorrhoids during acute April 26, 2025 3:39pm Maternal varicella, non-immune acute April 26, 2025 3:39pm acute April 26 3:39pm Supervision of normal acut e April 26, 2025 3:39pm Vaginal bleeding during acute April 26, 2025 3:39pm Hemorrhoids during acute May 07, 2025 9:56am Maternal varicella, non-immune acute May 07, 2025 9:56am acute May 07, 2025 9:56am Supervision of normal acut e May 07, 2025 9:56am Vaginal bleeding during acute May 07, 2025 9 :56am Anemia in acute May 21, 2025 10:08am Hemorrhoids during acute May 21, 2025 10:08am Maternal varicella, non-immune acute May 21, 2025 10:08am acute May 21 10:08am Supervision of normal acut e May 21, 2025 10:08am Vaginal bleeding during acute May 21, 2025 10:08am [facility] Work Phone: 1(503) 795-681103-03-2025 Radiology Diagnostic study note [facility] Imaging Services [address], [place] [address] Init OB < 14Wks US MR#: [id number] Acct: [id number] Name: FAROOQ TABOR Rep #: [id number] 3 : 2000 F 24 From: Cecil Auguste MD PCP: Care Physician,No Primary Status: REG CLI Study:Init OB < 14Wks US Date of Exam: 0 12/31/24 Exam# [id number] Ordering Dr: Dilcia Smith MD PROCEDURE: INIT OB < 14WKS US REASON FOR EXAM: Dating. COMPARISON: None. FINDINGS: Comments: LMP: October 24, 2024. Number of Gestational Sacs: 1 Gestational Sac Shape: Normal Number of Fetuses: 1 Heart Rate: 167 beats per minute. (Average) Yolk Sac: Present and unremarkable. Placenta: Presently not well-visualized Amniotic Fluid Volume: Subjectively normal for gestational age. Uterine Abnormalities: Maternal uterus is unremarkable. Ovaries / Adnexa: 2.7 cm x 2.4 cm x 1.6 cm corpus luteum cyst in the left ovary. The right ovary was not visualized. DIMENSIONS: Parameter Measurement / EGA [place] Rump Length: 2.9 cm/9 weeks and 3 days. Gestational Sac: 3.99 cm/9 weeks and 3 days Yolk Sac: 4.9 mm/ ESTIMATED GESTATIONAL AGE: By Ultrasound: 9 weeks and 3 days By LMP: 9 weeks and 5 days ESTIMATED DATE OF DELIVERY: By Ultrasound: August 02, 2025 By LMP: July 31, 2025 US/Init OB < 14Wks US IMPRESSION: UNREMARKABLE FIRST TRIMESTER ULTRASOUND. Reading Location: [id number] CC: Dr. 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01-23-2025 Evaluation note* Diagnosis Onset Date Resolution Status Admit Date Hemorrhoids noneactive November 22, 2024 12:52pm [facility] Work Phone: [phone]) 824-427601-23-2025 Evaluation note* Diagnosis Onset Date Resolution Status Admit Date Hemorrhoids noneactive November 22, 2024 12:52pm Hemorrhoids during acute January 21, 2025 8:43am Maternal varicella, non-immune acute January 21, 2025 8:43am acute January 21 8:43am Supervision of normal acute January 21, 2025 8:43am [facility] Work Phone: 1(410) 917-834911-22-2023 Progress note Author Esther Vernon [facility] September 21, 2023 8:01am Note Date/Time September 21, 2023 8:01am [facility] Medical Records Department [address] [place] [address] Progress Note - OBGYN 09/21/23 0800 MR#: [id number] Acct: [id number] Name: LEANDERFAROOQ CÁRDENAS Rep #:[id number] 3 : 2000 23 From: Esther Vernon NP TOY STUFFER-C PCP: Care Physician,No Primary Status :ADM IN Location: [id number] Subjective Subjective Patient doing well without complaints. Tolerating PO. Ambulating and voiding without difficulty. Feeding well. Denies chest pain, shortness of breath, calf pain/swelling, fevers, chills, lightheadedness. Objective Data Objective Data Vital Signs: Vital Signs Temp Pulse Resp BP Pulse Ox O2 Del Method 98.4 F 77 16 112/72 100 Room Air 09/21/23 07:52 09/21/23 07:52 09/21/23 07:52 09/21/23 07:52 09/21/23 01:57 09/21/23 07:52 Oxygen Delivery Method Room Air Weight: 135 lb Body Mass Index (BMI) 25.4 Intake & Output: Intake and Output for Last 24 Hours 09/19/23 09/20/23 09/21/23 23:59 23:59 23:59 Intake Total 2861.67 / 2861.67 1137.93 / 1137.93 Output Total 950 / 950 1300 / 1300 Balance 1911.67 / 1911.67 -162.07 / -162.07 Lab / Micro Data 09/20/23 06:02 Physical Exam Const alert and oriented x3 HEENT normocephalic Eyes PERRL Neck full ROM Resp normal respiratory effort GI soft to palpation GI Narrative: FF below U Assessment & Plan (1) (spontaneous vaginal delivery): COMMENT: LC boy:Deuce. IAL PLAN: Plan s/p PPD # 2 1. routine post delivery care 2. breast feeding- support given 3. rh positive 4. rubella immune 5. home today 09/21/23 0801 <Electronically signed by Esther Vernon NP [employer]Y STUFFER-C> Cosigner Signature (if applicable): CC: ~ Signed [facility] Work Phone: 1(847) 658-395311-21-2023 Progress note Author Carmella Bone [facility] September 20, 2023 7:43am Note Date/Time September 20, 2023 7:43am [facility] Medical Records Department [address] [place] [address] Progress Note - OBGYN 09/20/23 0741 MR#: [id number] Acct: [id number] Name: FAROOQ TABOR Rep #:[id number] : 2000 23 From: Carmella Bone CNM PCP: Care Physician,No Primary Status :ADM IN Location: [address] Subjective Subjective Patient doing well without complaints. Tolerating PO. Ambulating and voiding without difficulty. Feeding well. Denies chest pain, shortness of breath, calf pain/swelling, fevers, chills, lightheadedness. Objective Data Objective Data Vital Signs: Vital Signs Temp Pulse Resp BP Pulse Ox O2 Del Method 98.9 F 82 16 117/77 97 Room Air 09/20/23 04:46 09/20/23 04:46 09/20/23 04:46 09/20/23 04:46 09/20/23 00:56 09/20/23 04:46 Oxygen Delivery Method Room Air Weight: 135 lb Body Mass Index (BMI) 25.4 Intake & Output: Intake and Output for Last 24 Hours 09/18/23 09/19/23 09/20/23 23:59 23:59 23:59 Intake Total 2861.67 / 2861.67 1137.93 / 1137.93 Output Total 950 / 950 900 / 900 Balance 1911.67 / 1911.67 237.93 / 237.93 Lab / Micro Data Attestation: I reviewed the patient's lab results. 09/20/23 06:02 Labs: Laboratory Results - last 24 hr 09/19/23 16:15: WBC 16.4 H, RBC 3.77 L, Hgb 11.5 L, Hct 34.7 L, MCV 92.0, MCH 30.5, MCHC 33.1, RDW Std Deviation 45.6 H, RDW Coeff of Alhaji 13.6, Plt Count 297,MPV 10.7, Immature Gran % (Auto) 1.000 H, Neut % (Auto) 77.7 H, Lymph % (Auto) 12.1 L, Wilkes % (Auto) 8.6, Eos % (Auto) 0.4, Baso % (Auto) 0.2, Absolute Neuts (auto) 12.8 H, Absolute Lymphs (auto) 1.98, Nucleated RBC % 0, Syphilis Total AbNon-reactive, Blood Type A POSITIVE, Antibody Screen NEGATIVE 09/20/23 06:02: WBC 21.1 H, RBC 3.49 L, Hgb 10.3 L, Hct 31.8 L, MCV 91.1, MCH 29.5, MCHC 32.4, RDW Std Deviation 44.4 H, RDW Coeff of Alhaji 13.4, Plt Count 241,MPV 10.5, Immature Gran % (Auto) 0.900, Neut % (Auto) 81.9 H, Lymph % (Auto) 7.1L, Wilkes % (Auto) 9.8, Eos % (Auto) 0.0, Baso % (Auto) 0.3, Absolute Neuts (auto)17.3 H, Absolute Lymphs (auto) 1.51, Nucleated RBC % 0, Differential Comment SCANNED, Diff Path Review May foll ROS Constitutional Constitutional: Reports systems reviewed and no addt'l complaints, except as documented; Denies anorexia or headache(s) Cardiovascular Cardiovascular: Reports systems reviewed and no addt'l complaints, except as documented; Denies dizziness, dyspnea, nausea or tachypnea Respiratory/Chest Respiratory/Chest: Reports systems reviewed and no addt'l complaints, except as documented; Denies cough, dyspnea, shortness of breath at rest or tachypnea Gastrointestinal Gastrointestinal: Reports systems reviewed and no addt'l complaints, except as documented; Denies abdominal pain, constipation or nausea Genitourinary Genitourinary: Reports systems reviewed and no addt'l complaints, except as documented; Denies burning urination, difficulty urinating, dysuria, urinary frequency or urinary incontinence Musculoskeletal Musculoskeletal: Reports systems reviewed and no addt'l complaints, except as documented Integumentary Integumentary: Reports systems reviewed and no addt'l complaints, except as documented Neurologic Neurologic: Reports systems reviewed and no addt'l complaints, except as documented; Denies abnormal speech, dizziness or headache(s) Psychiatric Psychiatric: Reports systems reviewed and no addt'l complaints, except as documented Endocrine Endocrinology: Reports systems reviewed and no addt'l complaints, except as documented Hematologic/Lymphatic Hematologic/Lymphatic: Reports systems reviewed and no addt'l complaints, exceptas documented Physical Exam Const alert, oriented x3 and no apparent distress Neck full ROM Resp normal respiratory effort, normal air movement and no retractions Effort and Inspection: able to speak in complete sentences and symmetric chest movement GI soft to palpation Bladder / Kidney Exam: bladder normal to palpation Uterus Palpation: uterus fundus firm Extremity normal to inspection and full ROM Psych mental status grossly normal, thought process normal and cooperative Assessment & Plan (1) PPH ( hemorrhage): COMMENT: s/p methergine, cytotec, pitocin IM/IV. EBL 700. manual removal of clots. (2) (spontaneous vaginal delivery): COMMENT: LC boy:Deuce. IAL (3) Spontaneous onset of labor: (4) SROM (spontaneous rupture of membranes): COMMENT: ROM at 1550, clear fluid (5) Positive GBS test: COMMENT: plan PCN in labor (6) Chlamydia infection affecting : QUALIFIERS: Trimester: first trimester Qualified Code(s): O98.811- Other maternal infectious and parasitic diseases complicating , firsttrimester; A74.9 - Chlamydial infection, unspecified COMMENT: positive at NOB. repeat neg, repeat at 36 weeks negative (7) Supervision of high risk , antepartum: COMMENT: [id number] MITZI 09/23/23 boy Deuce BF-Zed PLAN: s/p PPD # 1 1. routine post delivery care 2. breast feeding- support given 3. rh positive 4. rubella immune (8) : QUALIFIERS: Weeks of gestation: 38 weeks Qualified Code(s): Z3A.38 - 38 weeks gestation of COMMENT: nl anatomy, carrier neg. , NIPT low risk, nl GCT Charges/Coding Multi Select Codes Urinary/Genital Urinary/Genital CPT Codes: No Charge 09/20/23 0743 <Electronically signed by Carmella Bone CNM> Cosigner Signature (if applicable): CC: ~ Signed [facility] Work Phone: 1(756) 103-905011-21-2023 Discharge summary Author Shanika Elliott [facility] September 19, 2023 11:12pm Note Date/Time September 19, 2023 11:12pm [facility] Medical Records Department [address] [place] [address] Instructions for Home/Discharge Instructions 09/19/23 2312 MR#: [id number] Acct: [id number] Name: TABORFAROOQ Rep #:[id number] 0 : 2000 23 From: Shanika Elliott CNM PCP: Sean PhysicianKatt Primary Status :ADM IN Discharge Instructions Diet Discharge Diet: No restrictions Activity Discharge Activity: May Not Drive and May Shower May resume sexual activity in: 6 weeks Weight Bearing Status: Full weight bearing Dressing / Incision Call your doctor if your incision/area has: Sudden Increased Bleeding, IncreasedPain/ Swelling and Foul Smelling Discharge Call your doctor if you observe: Fever of 101 or Higher, Numbness or Tingling, Change in Color, Inability to urinate, Inability to have a bowel movement, Usingmore than 1 pad per hour, Shortness of breath, Dizziness, Fainting spells, Chestpain, Calf discomfort and Uncontrolled pain Follow Up Care Please Follow Up With: Shanika Elliott CNM When: 6 weeks , please call office to make an appointment. Congratulations on the of your baby! Test Results: Test results from this visit will be discussed in further detail at your follow- up appointment, if applicable. Discharge Plan Admission Admit Date/Time: 09/19/23 15:55 Attending Provider: Shanika Elliott Primary Care Provider: Sean PhysicianKatt Primary Discharge Orders/Prescriptions Prescriptions: No Action Prenatabs FA 29-1 mg tablet 1 tab PO DAILY pseudoephedrine HCl [Sudafed] 30 mg tablet 30 mg PO Q6H PRN (Reason: nasal congestion) Referrals / Follow Up: Care Physician,Katt Primary [Primary Care Provider] - 09/19/232<Electronically signed by Shanika Elliott CNM>Shanika Elliott CNM CC: No Primary Care Physician ~ Signed [facility] Work Phone: 1(767) 459-318311-20-2023 Procedure [facility] 09-19-2023 Progress note Author Shanika Elliott [facility] September 19, 2023 6:10pm Note Date/Time September 19, 2023 6:10pm [facility] Medical Records Department [address] [place] [address] Progress Note - OBGYN 09/19/23 1809 MR#: [id number] Acct: [id number] Name: FAROOQ TABOR Rep #:[id number] 1 : 2000 23 From: Shanika Elliott CNM PCP: Care Physician,No Primary Status :ADM IN Location: CX154-0 Subjective Subjective pt more uncomfortable, using nitrous. requesting epidural placement. Objective Data Objective Data Vital Signs: Vital Signs Temp Pulse BP Pulse Ox 97.8 F 72 122/71 H 100 09/19/23 17:10 09/19/23 18:06 09/19/23 18:04 09/19/23 18:06 Weight: 135 lb Body Mass Index (BMI) 25.4 Intake & Output: Intake and Output for Last 24 Hours 09/17/23 09/18/23 09/19/23 23:59 23:59 23:59 Intake Total 556.67 / 556.67 Balance 556.67 / 556.67 Lab / Micro Data 09/19/23 16:15 Labs: Laboratory Results - last 24 hr 09/19/23 16:15: WBC 16.4 H, RBC 3.77 L, Hgb 11.5 L, Hct 34.7 L, MCV 92.0, MCH 30.5, MCHC 33.1, RDW Std Deviation 45.6 H, RDW Coeff of Alhaji 13.6, Plt Count 297,MPV 10.7, Immature Gran % (Auto) 1.000 H, Neut % (Auto) 77.7 H, Lymph % (Auto) 12.1 L, Wilkes % (Auto) 8.6, Eos % (Auto) 0.4, Baso % (Auto) 0.2, Absolute Neuts (auto) 12.8 H, Absolute Lymphs (auto) 1.98, Nucleated RBC % 0, Syphilis Total AbNon-reactive NST FHR Rate Baby A Baseline: 105 Variability:: Moderate Accelerations:: 15 x 15 Decelerations:: Early NST Reactive:: Yes FHR Category:: Category I Uterine Activity:: q2 Assessment & Plan (1) Spontaneous onset of labor: (2) SROM (spontaneous rupture of membranes): COMMENT: ROM at 1550, clear fluid (3) Positive GBS test: COMMENT: plan PCN in labor (4) Supervision of high risk , antepartum: COMMENT: [id number] MITZI 09/23/23 boy Deuce BF-Zed (5) : QUALIFIERS: Weeks of gestation: 38 weeks Qualified Code(s): Z3A.38 - 38 weeks gestation of COMMENT: nl anatomy, carrier neg. , NIPT low risk, nl GCT PLAN: Plan -epidural placement -now 1 -anticipate 09/19/231809 <Electronically signed by Shanika Elliott CNM> Cosigner Signature (if applicable): CC: ~ Signed [facility] Work Phone: 1(891) 246-829211-20-2023 History and physical note Author Shanika Elliott 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 during triage had + large amount leaking of clear fluid. no vaginal bleeding. good movement. Maternal Data Information MITZI Calculator Estimated Delivery Date Method Current WG Current Estimate 09/23/23 Ultrasound #1 39w 3d Other Estimates 08/31/23 LMP (Certain) 42w 5d 09/20/23 Ultrasound #2 39w 6d PFSH PFSH Home Medications vits,calcium no.78-iron fumarate-folic acid 29 mg-1 mg tablet (Prenatabs FA) 1 tab PO DAILY 09/19/23 [History Last Taken 09/18/23] pseudoephedrine HCl 30 mg tablet (Sudafed) 30 mg PO Q6H PRN nasal congestion 09/19/23 [History Last Taken 09/18/23] Allergy/AdvReac Type Severity Reaction Status Date / Time No Known Allergies Allergy Verified 09/19/23 12:34 Family History Mother IBS (irritable bowel syndrome) Social History adopted: No household members: significant other and other details: brother and his girlfriend current occupational status: 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 current occupational exposures/hazards: No pets and animals: Yes pets and animals: dog(s) history of recent travel: No sexually active: Yes Smoking Status: Never smoker alcohol intake: never substance use type: does not use well-balanced diet: about half the time caffeine: Yes Type: coffee Number of servings: 1 eating out: 1-3 times/week seatbelt use: always do you feel safe at home: Yes additional social history: BF Zed History 1 Elective abortions Hx Para 0 Spontaneous abortions Hx # Term Pregnancies Ectopic pregnancies Hx # Pregnancies Multiple births # of living children Visit Details Expected Delivery Route/Plan Labor Preferences- CB/BF classes: Declines, encouraged labor support person: Jase labor intervention preferences: minimal intervention pain management options preferred: No epidural. cut cord/dad catch: maybe : yes PP control planned: discussed discussed possible routes of delivery and associated risks: [] special requests: [] Plans Covid status: discussed Flu vaccine: discusedd Tdap vaccine: declined Rhogam: na LARC form signed: yes movement and labor precautions reviewed. Problem list reviewed and updated with the most current plan of care details and appropriate orders placed. Relevant counseling for the gestational age provided. Continue routine care and follow up unless otherwise noted in visit notes/problem list details OB Flowsheet Initial Weight: Not Recorded Date -?-?-?-?-?-?-?-?-?-?-?-?- EGA Weight BP Urine Prot -?-?-?-?-?-?-?-?-?-?-?-?- Glucose FHR FuHt Pres Dilation -?-?-?-?-?-?-?-?-?-?-?-?- Effaced St Visit Note 01/27/23 -?-?-?-?-?-?-?-?-?-?-?-?- 5w 6d 109 lb 120/79 -?-?-?-?-?-?-?-?-?-?-?-?- -?-?-?-?-?-?-?-?-?-?-?-?- SM- CRL not pres ent, GS 11mm with yolk sac present no pole, declines serial hcgs, repeat US in 1 week, patient thought she had a period in december and first hcg pos two weeks ago 02/25/23 -?-?-?-?-?-?-?-?-?-?-?-?- 10w 0d 110 lb 2 oz 112/70 Nega tive -?-?-?-?-?-?-?-?-?-?-?-?- Negative 180 -?-?-?-?-?-?-?-?-?-?-?-?- JV- CRL is now m easuring 10 weeks 3 days. she had an ultrasound at the hospital on 02/04 that put her at 7 weeks. we will use that ultrasound as her mitzi of 09/23/23. desires NIPT. 03/18/23 -?-?-?-?-?-?-?-?-?-?-?-?- 13w 0d 106 lb 4 oz 106/70 Nega tive -?-?-?-?--?-?-?-?-?-?-?-?- Negative 160 -?-?-?-?-?-?-?-?-?-?-?-?- JV- vaginal gc/c t collected. no complaints. going to [place] today for a week. will leave VM on results. 04/15/23 -?-?-?-?-?-?-?-?-?-?-?-?- 17w 0d 108 lb 8 oz 101/57 Nega tive -?-?-?-?-?-?-?-?-?-?-?-?- Negative 157 -?-?-?-?-?-?-?-?-?-?-?-?- LC- no concerns or complaints. no vb/cramping. discussed and declines afp, has anatomy ordered. 05/13/23 -?-?-?-?-?-?-?-?-?-?-?-?- 21w 0d 112 lb 4 oz 92/60 Nega tive -?-?-?-?-?-?-?-?-?-?-?-?- Negative 150 21 -?-?-?-?-?-?-?-?-?-?-?-?- KW-+FM. No vb/lo f/ctx. 06/10/23 -?-?-?-?-?-?-?-?-?-?-?-?- 25w 0d 116 lb 8 oz 97/62 Nega tive -?-?-?-?-?-?-?-?-?-?-?-?- Negative 153 25 -?-?-?-?-?-?-?-?-?-?-?-?- JV- no lof, vagi nal bleeding, or dec fm. no complaints. 06/29/23 -?-?-?-?-?-?-?-?-?-?-?-?- 27w 5d 120 lb 8 oz 98/64 Nega tive -?-?-?-?-?-?-?-?-?-?-?-?- Negative 145 27 -?-?-?--?-?-?-?-?-?-?-?-?- MH-No VB, LOF.Go od FM. 28 wk labs. Larc. 07/12/23 -?-?-?-?-?-?-?-?-?-?-?-?- 29w 4d 122 lb 8 oz 96/58 Nega tive -?-?-?-?-?-?-?-?-?-?-?-?- Negative 135 29 -?-?-?-?-?-?-?-?-?-?-?-?- KW-no vb/lof/ctx . good fm. tdap refused today 07/26/23 -?-?-?-?-?-?-?-?-?-?-?-?- 31w 4d 124 lb 6 oz 94/60 Nega tive -?-?-?-?-?-?-?-?-?-?-?-?- Negative 135 32 -?-?-?-?-?-?-?-?-?-?-?-?- SM- no vb lof go od fm no regular ctx 08/09/23 -?-?-?-?-?-?-?-?-?-?-?-?- 33w 4d 127 lb 8 oz 106/67 Nega tive -?-?-?-?-?-?-?-?-?-?-?-?- Negative 135 34 -?-?-?-?-?-?-?-?-?-?-?-?- KW-no vb/lof/ctx . good fm. discussed GBS labs. LARC done. 08/23/23 -?-?-?-?-?-?-?-?-?-?-?-?- 35w 4d 130 lb 4 oz 106/68 Nega tive -?-?-?-?-?-?-?-?-?-?-?-?- Negative 135 35 -?-?-?-?-?-?-?-?-?-?-?-?- SM- no vb lof go od fm no regular ctx 08/30/23 -?-?-?-?-?-?-?-?-?-?-?-?- 36w 4d 132 lb 109/75 Negative -?-?-?-?-?-?-?-?-?-?-?-?- Negative 145 35 Cephalic 1 -?-?-?-?-?-?-?-?-?-?-?-?- 60 -2 JV- no lof , vaginal bleeding, or dec fm. gbs collected. 09/06/23 -?-?-?-?-?-?-?-?-?-?-?-?- 37w 4d 132 lb 4 oz 104/70 Nega tive -?-?-?-?-?-?-?-?-?-?-?-?- Negative 125 37 Cephalic 2 -?-?-?-?-?-?-?-?-?-?-?-?- 80 -2 KW-no lof/ vb/ctx. good fm. GBS positive. treat in labor. labor precautions. 09/13/23 -?-?-?-?-?-?-?-?-?-?-?-?- 38w 4d 133 lb 114/76 Negative -?--?-?-?-?-?-?-?-?-?-?-?- Negative 125 38 Cephalic 2 -?-?-?-?-?-?-?-?-?-?-?-?- 80 -2 SM- no vb lof good fm no regular ctx ROS Cardiovascular Cardiovascular: Denies abdominal pain, chest pain, diaphoresis or dyspnea Respiratory/Chest Respiratory/Chest: Denies change in mental status, chest congestion, chest tightness, cough, shortness of breath at rest, shortness of breath with exertion, breast mass, breast pain, breast skin changes, breast swelling, change in breast shape or nipple discharge Genitourinary Genitourinary: Reports change in urinary stream Musculoskeletal Musculoskeletal: Reports none Integumentary Integumentary: Reports none Neurologic Neurologic: Reports none Psychiatric Psychiatric: Reports none Endocrine Endocrinology: Reports none Hematologic/Lymphatic Hematologic/Lymphatic: Reports none Allergic/Immunologic Allergic/Immunologic: Reports none Vital Signs Vital Signs Vital Signs: 09/19/23 12:40 09/19/23 12:40 09/19/23 12:40 Temperature Temperature Source Temporal Pulse Rate 99 Blood Pressure 114/73 BP Systolic 114 BP Diastolic 73 Pulse Ox 09/19/23 12:40 09/19/23 12:43 09/19/23 12:43 Temperature 98.7 F Temperature Source Pulse Rate 98 Blood Pressure BP Systolic BP Diastolic Pulse Ox 92 09/19/23 12:40 09/19/23 12:40 09/19/23 12:40 Temperature 98.7 F Temperature Source Temporal Pulse Rate Blood Pressure BP Systolic BP Diastolic Pulse Ox 98 09/19/23 12:40 09/19/23 12:40 09/19/23 12:40 Temperature 98.7 F Temperature Source Temporal Pulse Rate Blood Pressure BP Systolic BP Diastolic Pulse Ox 98 09/19/23 15:01 09/19/23 15:01 09/19/23 16:07 Temperature Temperature Source Pulse Rate 87 Blood Pressure 112/67 BP Systolic 112 BP Diastolic 67 Pulse Ox 98 09/19/23 16:07 09/19/23 16:09 09/19/23 16:09 Temperature Temperature Source Pulse Rate 71 68 Blood Pressure BP Systolic BP Diastolic Pulse Ox 100 Weight Weight: 135 lb Body Mass Index (BMI) 25.4 Physical Exam Const alert, oriented x3 and no apparent distress General Appearance: cooperative, comfortable and well kempt Orientation / Consciousness: awake and oriented to person Exam Limitations: no limitations HEENT normocephalic Neck full ROM Chest inspection of chest normal Resp normal respiratory effort, normal air movement and no retractions Effort and Inspection: able to speak in complete sentences and symmetric chest movement Cardio regular rate Peripheral Pulses: pulses 2+ throughout GI normal to inspection, nondistended, normoactive bowel sounds Inspection: gravid no CVA tenderness and appearance of the vagina normal External Female Exam: normal appearance of the urethra; Negative for external lesion OB / External & Speculum: external exam normal Manual OB Exam: estimated gestational size appropriate and presentation cephalic Uterus Palpation: Negative for uterus tender Extremity normal to inspection Skin no rashes or lesions noted Neuro deep tendon reflexes 2+ bilaterally and gait normal Motor Exam: strength 5/5 throughout and clonus absent Psych Activity / Motor Behavior: appropriate eye contact Speech: normal speech Labs Labs Labs: Blood Type A POSITIVE Antibody Screen NEGATIVE Hct 33.4 % (37-47) L Hgb 11.3 g/dL (12.0-15.0) L Obstetrics Ultrasound Syphilis Total Ab Non-reactive Rubella IgG Antibody Reactive (Nonreactive) Hep Bs Antigen Non-Reactive (Nonreactive) Hepatitis C Antibody Non-Reactive (Nonreactive) Chlamydia DNA ([place]) Negative (Negative) N.gonorrhoeae DNA ([place]) Negative (Negative) HIV 1&2 Antibody Non-Reactive (Nonreactive) Glucose 1 Hr 50 gm 128 mg/dL (70-140) Assessment & Plan (1) Spontaneous onset of labor: (2) SROM (spontaneous rupture of membranes): COMMENT: ROM at 1550, clear fluid (3) Positive GBS test: COMMENT: plan PCN in labor (4) Chlamydia infection affecting : QUALIFIERS: Trimester: first trimester Qualified Code(s): O98.811 - Other maternal infectious and parasitic diseases complicating , first trimester; A74.9 - Chlamydial infection, unspecified COMMENT: positive at NOB. repeat neg, repeat at 36 weeks negative (5) Supervision of high risk , antepartum: COMMENT: [id number] MITZI 09/23/23 henna Tripathi BF-Zed (6) : QUALIFIERS: Weeks of gestation: 38 weeks Qualified Code(s): Z3A.38 - 38 weeks gestation of COMMENT: nl anatomy, carrier neg. /, NIPT low risk, nl GCT PLAN: Plan Patient presents IAL, plan expectant management for , pitocin PRN if needed. Pain management: plan unmedicated, open to nitrous. GBS positive plan IV PCN. start now as SROM, grossly ruptured. Management of any complications: none I have reviewed the [facility] and made any clinically relevant updates. Dr. Arreola updated on admission, exam and POC, agrees with primary midwifery management. available for consult/as needed. 09/19/231656 <Electronically signed by Shanika Elliott CNM> Cosigner Signature (if applicable): CC: CARLOS Elliott; No Primary Care Physician~ Signed ADDENDUM by CARLOS Elliott on 09/19/23 at 1658 Addendum NST: FHR baseline 120 , +accelerations, no decelerations. yamil every 2-3 minutes, palpating moderate. A/P:cat 1 tracing. reassuring maternal and status. may have intermittent monitoring. 09/19/231657<Electronically signed by Shanika Elliott CNM> Cosigner Signature (if applicable): cc: CARLOS Elliott; No Primary Care Physician ~* Signed [facility] Work Phone: [phone]) 881-639810-04-2022 NoteAccession #: [id number] Date of Procedure: 08/03/2022 Pathologist: [facility], Cytology Date Reported: 08/11/2022 Date Received: 08/03/2022 Submitting Physician: ERA COYNE M.D. FINAL CYTOLOGICAL INTERPRETATION A. THINPREP PAP CERVICAL: Specimen adequacy: SATISFACTORY FOR EVALUATION. Quality Indicator: Endocervical/transformation zone component is present. General Categorization: NEGATIVE FOR INTRAEPITHELIAL LESION OR MALIGNANCY. Ancillary Testing: Specimen does not meet the requisition-stated criteria for HPV testing. See Pap test interpretation above. This specimen has been analyzed by the Eq[employer]p Imaging System ([employer] an automated imaging and review system, which assists the laboratory in evaluating cells on ThinPrep Pap tests. Following automated imaging, selected catalan from every slide were reviewed by a associate java developer and/or pathologist. Electronically Signed Out By [facility], Cytology//IK/SLD By the signature on this report, the individual or group listed as making the Final Interpretation/Diagnosis certifies that they have reviewed this case. Diagnostic interpretation performed at [address] [facility] [address] Educational Note: Cervical cytology is a screening procedure primarily for squamous cancers and precursors and has associated false-negative and false-positive results as evidenced by published data. Your patient?s test should be interpreted in this context, together with patient?s history and clinical findings. Regular sampling and follow-up of unexplained clinical signs and symptoms are recommended to minimize false negative results. Clinical History Date of Last Menstrual Period: 07/24/22 Other Clinical Conditions: HPV Reflex for ASC-US only - Include HPV Genotype Clinical Diagnosis History: Screening for cervical cancer - (Z12.4) Source of Specimen A: THINPREP PAP CERVICAL [facility] Department of Pathology [address] [place], [place] [address]Comment on above:Performed By: #### C #### [facility] Cytology [address] [place] [address] [id number] NoteHNO ID: [id number] Author: Elena Crain RDMS Service: ? Author Type: Cage/Vault Supervisor Type: Progress Notes Filed: 09/18/2021 9:41 AM Note Text: Radiology Service Progress Note PATIENT NAME: Farooq Tabor DATE OF SERVICE: September 18, 2021 TIME: 9:41 AM PATIENT IDENTITY VERIFICATION COMPLETED USING TWO (2) IDENTIFIERS: Name and Date of confirmed by patient verbally. FALL SCREENING: Has the patient had 2 falls in the last year or 1 fall with injury or currently using an Ambulatory Assistive Device (Walker, Cane, Wheelchair, Crutches, etc.)? No PATIENT GENDER DATA: Female. status: : No status: N/A PATIENT RELEVANT IMPLANT DATA REVIEWED: Not Applicable RADIOLOGY DEPARTMENT: Ultrasound PERIPHERAL IV DATA: Not applicable SIGNED BY: Elena Crain RDMS RVT September 18, 2021 9:41 [facility]11-04-2021 NoteHNO ID: [id number] Author: Shena Mcdermott MD Service: ? Author Type: Physician Type: Progress Notes Filed: 09/03/2021 1:23 PM Note Text: Farooq Tabor is a 21 year old female who presents for concerns. HPI: Patient presents with irregular vaginal bleeding AND pelvic pain. She reports intermittent pelvic pain over the past month. The pain is cramping in nature AND is getting worse. She denies anything makes it better but hasn't tried OTC meds. She reports h/o ovarian cysts. Patient has received depo shots for 1-2 years. She was supposed to get depo on 08/25 but decided to stop the medication. Denies STD concerns but is OK with being checked. PAST MEDICAL HISTORY Diagnosis Date - Ovarian cyst PAST SURGICAL HISTORY Procedure Laterality Date - TOOTH EXTRACTION wisdom teeth FAMILY HISTORY Problem Relation Age of Onset - Heart Paternal Grandmother Social History Tobacco Use - Smoking status: Never Smoker - Smokeless tobacco: Never Used Vaping Use - Vaping Use: Never used Substance Use Topics - Alcohol use: Never - Drug use: Never No current outpatient medications on file. No current facility-administered medications for this visit. Allergies As of Date: 09/03/2021 (No Known Allergies) Fully Assessed 09/03/2021 Allergies and current medication updated:Yes EXAM: BP 98/64 Wt 109 lb (49.4kg) LMP 08/18/2021 GENERAL: pleasant, female in no apparent distress ABDOMEN: soft, non-tender and no masses PELVIC: external genitalia normal, normal Bartholin's glands, urethra, Mcmechen's glands, no vulvar lesions, no cervical lesions, good vaginal support, scant old blood present, normal appearing perineal body and perianal region BIMANUAL: uterus normal size, shape and consistency, no adnexal masses and non-tender NEURO: alert and oriented x3,exam grossly non-focal EXTREMITIES: normal ASSESSMENT AND PLAN: 21yo female with irregular bleeding AND pelvic pain Urine hcg negative GC/chlam with trich Pelvic US Advised patient that irregular VB is likely from depo control - patient plans to use condoms AND declines other methods. Advised on preconception folic acid. Medical Decision Making: Problems: Moderate: New problem with uncertain prognosis Data: Unique test(s) ordered: 3+ Risk: Low: Low risk from testing/treatment Medical Decision Making Level: 4 - Moderate Shena Mcdermott [facility]11-04-2021 History of Present illness Narrative* Shena Mcdermott MD - 09/03/2021 9:35 AM EDT Farooq Tabor is a 21 year old female who presents for concerns. HPI: Patient presents with irregular vaginal bleeding & pelvic pain. She reports intermittent pelvic pain over the past month. The pain is cramping in nature & is getting worse. She denies anything makes it better but hasn't tried OTC meds. She reports h/o ovarian cysts. Patient has received depo shots for 1-2 years. She was supposed to get depo on 08/25 but decided to stop the medication. Denies STD concerns but is OK with being checked. PAST MEDICAL HISTORY Diagnosis Date Ovarian cyst PAST SURGICAL HISTORY Procedure Laterality Date TOOTH EXTRACTION wisdom teeth FAMILY HISTORY Problem Relation Age of Onset Heart Paternal Grandmother Social History Tobacco Use Smoking status: Never Smoker Smokeless tobacco: Never Used Vaping Use Vaping Use: Never used Substance Use Topics Alcohol use: Never Drug use: Never No current outpatient medications on file. No current facility-administered medications for this visit. Allergies As of Date: 09/03/2021 (No Known Allergies) Fully Assessed 09/03/2021 Allergies and current medication updated:Yes EXAM: BP 98/64 Wt 109 lb (49.4kg) LMP 08/18/2021 GENERAL: pleasant, female in no apparent distress ABDOMEN: soft, non-tender and no masses PELVIC: external genitalia normal, normal Bartholin's glands, urethra, Mcmechen's glands, no vulvar lesions, no cervical lesions, good vaginal support, scant old blood present, normal appearing perinealbody and perianal region BIMANUAL: uterus normal size, shape and consistency, no adnexal masses and non-tender NEURO: alert and oriented x3,exam grossly non-focal EXTREMITIES: normal ASSESSMENT AND PLAN: 21yo female with irregular bleeding & pelvic pain Urine hcg negative GC/chlam with trich Pelvic US Advised patient that irregular VB is likely from depo control - patient plans to use condoms & declines other methods. Advised on preconceptionfolic acid. Medical Decision Making: Problems: Moderate: New problem with uncertain prognosis Data: Unique test(s) ordered: 3+ Risk: Low: Low risk from testing/treatment Medical Decision Making Level: 4 - Moderate Shena Mcdermott [facility] History of Present illness Narrative* 20 y.o. female presents with complaint of migraines. Migraines started approximately one year ago. She has a history of headaches since she was a child. She has a headache daily rated 7/10. She has amigraine 2 times a month on average. The migraines are rated 10/10. She took Excedrin migraine initially and laid down in a quiet room this intervention decreased her migraines to a 2/10. Denies aura. The migraines are accompanied by n/v. Headaches are typically behind eyes or in temples. 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 * She also reports generalized hives that started 2 weeks ago when she changed the brand of hay at her dairy farm. She takes Benadryl which effectively relieves the hives, however it makes her sleepy. [facility] Work Phone: Evaluation note* Diagnosis Pelvic pain- Primary Irregular menses Irregular menstrual cycle Screen for STD (sexually transmitted disease) Screening examination for venereal disease [facility] Diagnosis Onset Date Resolution Status acute Supervision of high risk , antepartum acute Unsure of LMP (last menstrua l period) as reason for ultrasound scan acute [facility] Work Phone: Evaluation note* Diagnosis Onset Date Resolution Status acute Supervision of high risk , antepartum acute Unsure of LMP (last menstrua l period) as reason for ultrasound scan acute Chlamydia infection affecting acute acute Supervision of high risk , antepartum acute Unsure of LMP (last menstrua l period) as reason for ultrasound scan acute Chlamydia infection affecting acute acute Supervision of high risk , antepartum acute Unsure of LMP (last menstrua l period) as reason for ultrasound scan acute [facility] Work Phone: Evaluation note* Diagnosis Onset Date Resolution Status Chlamydia infection affecting acute acute Supervision of high risk , antepartum acute Unsure of LMP (last menstrua l period) as reason for ultrasound scan resolved Chlamydia infection affecting acute acute Supervision of high risk , antepartum acute Unsure of LMP (last menstrua l period) as reason for ultrasound scan resolved Chlamydia infection affecting acute acute Supervision of high risk , antepartum acute Unsure of LMP (last menstrua l period) as reason for ultrasound scan resolved Chlamydia infection affecting acute acute Supervision of high risk , antepartum acute Unsure of LMP (last menstrua l period) as reason for ultrasound scan resolved Chlamydia infection affecting acute acute Supervision of high risk , antepartum acute Burning with urination resol amado Chlamydia infection affecting acute acute Supervision of high risk , antepartum acute Burning with urination resol amado Chlamydia infection affecting acute acute Supervision of high risk , antepartum acute Chlamydia infection affecting acute acute Supervision of high risk , antepartum acute [facility] Work Phone: Evaluation note* Diagnosis Onset Date Resolution Status Chlamydia infection affecting resolved resolved Supervision of high risk , antepartum resolved Unsure of LMP (last menstrua l period) as reason for ultrasound scan resolved Chlamydia infection affecting resolved resolved Supervision of high risk , antepartum resolved Unsure of LMP (last menstrua l period) as reason for ultrasound scan resolved Chlamydia infection affecting resolved resolved Supervision of high risk , antepartum resolved Unsure of LMP (last menstrua l period) as reason for ultrasound scan resolved Chlamydia infection affecting resolved resolved Supervision of high risk , antepartum resolved Burning with urination resol amado Burning with urination resol amado Chlamydia infection affecting resolved resolved Supervision of high risk , antepartum resolved Chlamydia infection affecting resolved resolved Supervision of high risk , antepartum resolved Chlamydia infection affecting resolved resolved Supervision of high risk , antepartum resolved Chlamydia infection affecting resolved Positive GBS test resolved resolved Supervision of high risk , antepartum resolved Chlamydia infection affecting resolved Positive GBS test resolved resolved Supervision of high risk , antepartum resolved PPH ( hemorrhage) acute (spontaneous vaginal delivery) acute Chlamydia infection affecting resolved Positive GBS test resolved resolved Supervision of high risk , antepartum resolved [facility] Work Phone: History of Present illness [id number] presents to discuss multiple issues namely irregular bleeding on control and somepainful intercourse. Patient [facility] Patient was on the Depo multiple years ago and then was switched to the IUD. Patient had an for a year buthad increasingly large ovarian cyst one that ruptured and so the IUD was taken out. Patient tolerated the IUD well overall though. Patient switched to Depo has been on it for the last year plus. Patient usually has no bleeding with Depo minus maybe couple days at the end of her shot. Patient notes at the end of her last shot she spotted for most week and then 2 weeks into the neck shot. Patient would like to discuss. Patient notes she had [facility] Same partner. No concerns for infidelity patient notes some pain with doggystyle but otherwise no pain during intimacy. 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 Patient denies any history of abnormal Pap smears. Patient is sexually active does not use contraception and is not interested in contraception. She is also not interested in conceiving but right now has no concerns about starting any medications.[employer] Work Phone: progress note Author Dilcia Das [facility] Note Date/Time March 26, 2025 10:38 am [facility] [address] [place] [address], [address] [place] [address] OFFICE VISIT Date of Service: 03/26/25 MR#: [id number] Acct: [id number] Name: FAROOQ TABOR Rep #: [id number] : 2000 Provider: Dr. 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: No Is patient in pain?: No Feel stressed/tense/nervous/anxious/difficulty sleeping: not at all Allergies No Known Allergies Allergy (Verified 03/26/25 10:11) Medications ?Medication ?Instructions ?Recorded ?Confirmed ?Type Hydrocortisone 2.5% / Lidocaine 5% #1 ea 11/22/2403/01 Rx ointment (cmpd) docusate sodium 100 mg capsule 100 mg PO QDAY 01/01/25 03/26/25 History (Colace) multivitamin no.47-iron fum 27 cap PO 01/01/25 5 History mg-folate no.1 1 mg-dha 300 mg capsule (PNV-DHA) Last Menstrual Period: 10/24/24 Zika: Zika virus screening: Negative : No PFSH PFSH Medical History Chlamydia infection PPH ( hemorrhage) (spontaneous vaginal delivery) Surgical History [place] teeth extracted Family History Mother IBS (irritable bowel syndrome) Social History adopted: No household members: significant other and children housing: house number of children: 1 current occupational status: 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 current occupational exposures/hazards: No pets and animals: Yes pets and animals: dog(s) history of recent travel: No sexually active: Yes Smoking Status: Never smoker alcohol intake: never substance use type: does not use well-balanced diet: daily or most days caffeine: Yes Type: coffee Number of servings: 1 eating out: rarely or never during the past year weight has: remained stable what type of physical activity do you participate in: none ruth/buddhism: None seatbelt use: always do you feel safe at home: Yes 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 Date Name GA/Weeks Outcome Route Bth Weight Infant Gen Labor Lgth Anesthesia Del Locatn Provider FOB 09/19/23 Decue 39 live - full term 7#10 Male epidur al [facility] Shanika Elliott [place] HPI 22wk ob Details: FAROOQ TABOR is a 24 year old who presents for routine OB visit. OB Visit MITZI Calculator Estimated Delivery Date Method Current WG Current Estimate 07/31/25 LMP (Certain) 21w 6d Other Estimates 07/28/25 Ultrasound #1 22w 2d Expected Delivery Route/Plan Labor Preferences- CB/BF classes: [] labor support person: [] labor intervention preferences: [] pain management options preferred: [] cut cord/dad catch: [] : [] PP control planned: [] discussed possible routes of delivery and associated risks: [] special requests: [] Specific Issue/Plans Covid status: [] Flu vaccine: [] Tdap vaccine: [] Rhogam: [] LARC form signed: [] Problem list reviewed and updated with the most current plan of care details and appropriate orders placed. Relevant counseling for the gestational age provided. Continue routine care and follow up unless otherwise noted in visit notes/problem list details Initial Weight: 108 lb Date -?-?-?-?-?-?-?-?-?-?-?-?- EGA Weight BP Urine Prot -?-?-?-?-?-?-?-?-?-?-?-?- Glucose FHR FuHt Pres Dilation -?-?-?-?-?-?-?-?-?-?-?-?- Effaced St Visit Note 01/21/25 -?-?-?-?-?-?-?-?-?-?-?-?- 12w 5d 108 lb 4 oz (+4 oz) 102/68 -?-?-?-?-?-?-?-?-?-?-?-?- 165 -?-?-?-?-?-?-?-?-?-?-?-?- KW- CRL cons wit h dates. Declines NIPT. MFM US ordered. 02/26/25 -?-?-?-?-?-?-?-?-?-?-?-?- 17w 6d 111 lb 4 oz (+3 lb 4 oz) 96/58 Negative -?-?-?-?-?-?-?-?-?-?-?-?- Negative 161 -?-?-?-?-?-?-?-?-?-?-?-?- MH-No VB. Some f landoners. Nl PN labs. [facility] /6 03/26/25 -?-?-?-?-?-?-?-?-?-?-?-?- 21w 6d 116 lb 8 oz (+8 lb 8 oz) 104/66 Negative -?-?-?-?-?-?-?-?-?-?-?-?- Negative 155 22 -?-?-?-?-?-?-?-?-?-?-?-?- SM- no vb lof go od fm nro egualr ctx ACOG First Trimester First Trimester: Desire for , Alcohol, Tobacco Cessation, Illicit/Recreational Drug/Substance Use, Intimate Partner Violence, Barriers to care, Unstable Housing, Communication Barriers, Environmental/Work Hazards, Anticipated Course of Care, Toxoplasmosis Precations, Use of Any medications, Sexual activity, Exercise, Dental Care, Sauna/Hot tub use, Seat Belt use, Childbirth classes/Hospital facilities, Travel, Indications for Ultrasound and Screening for Aneuploidy; Discussed Second Trimester Second Trimester: Signs and Symptoms of Labor, Selecting a care provider, Reproductive Life Planning & Contreception, Care Planning and Intimate Partner Violence; Discussed Tobacco Cessation and Discussed Depression/Anxiety Third Trimester Third Trimester: Pain Management Plans, Labor support person(s), Immediate Larc, Circumcision preference, Movement Monitoring, Signs and Symptoms of Preeclampsia, Infant Feeding No , [place] Education and Family Medical Leave or Disability Forms Results POC Urinalysis 2 Dip (Clinic) Office Urine Glucose Negative Last Edit by Esther Rose on 03/26/25 10:16 Office Urine Protein Negative Last Edit by Esther Rose on 03/26/25 10:16 Coding Level of Care Code OB Routine Diagnoses Encounter for supervision of other normal in second trimester Z34.82 Normal : other normal Trimester: second trimester 21 weeks gestation of Z3A.21 Weeks of gestation: 21 weeks Maternal varicella, non-immune O09.899; Z28.39 Hemorrhoids during O22.40 Assessment and Plan Assessment and Plan (1) Supervision of normal : Status: Acute Qualifiers: Normal : other normal Trimester: second trimester Qualified Code(s): Z34.82 - Encounter for supervision of other normal , second trimester Comment: PRR, , MITZI 07/31/25, surprise Nayeli Locke (2) : Status: Acute Qualifiers: Weeks of gestation: 21 weeks Qualified Code(s): Z3A.21 - 21 weeks gestation of Comment: declines NIPT & Carrier testing. Unremarkable Anatomy:Consistent dates, (3) Maternal varicella, non-immune: Status: Acute Comment: confirm w 28 wk labs (4) Hemorrhoids during : Status: Acute Orders: Orders POC Urinalysis 2 Dip (Clinic) Today 03/26/25 1038 <Electronically signed by Dilcia pereira MD> Date _ Dilcia Das MD Cosigner Signature: Date (if applicable) CC: ~ [facility] Work Phone: Progress note Author Dilcia Das [facility] Note Date/Time May 21, 2025 10:4 5am [facility] [address], [address] [place] [address] OFFICE VISIT Date of Service: 05/21/25 MR#: [id number] Acct: [id number] Name: FAROOQ TABOR Rep #: [id number] : 2000 Provider: Dr. Korey Das MD Age/Sex: 24/F [place] [facility] [place]: Signed Intake Vital Signs 03/26/25 10:09 05/07/25 09:59 05/21/25 10:12 05/21/25 10:15 Height 5 ft 1 in 5 ft 1 in 5 ft 1 in 5 ft 1 in Weight: 124 lb 8 oz BMI 23.5 BP 107/60 Intake Visit Reasons: 30 wk ob Biztalk Software Developer Required: No Is patient in pain?: No Allergies No Known Allergies Allergy (Verified 05/21/25 10:12) Medications ?Medication ?Instructions ?Recorded ?Confirmed ?Type Hydrocortisone 2.5% / Lidocaine 5% #1 ea 11/22/2405/01 Rx ointment (cmpd) multivitamin no.47-iron fum 27 1 cap PO DAILY 01/01/25 05/21/25 History mg-folate no.1 1 mg-dha 300 mg capsule (PNV-DHA) Slow Fe PO DAILY 05/21/25 History Last Menstrual Period: 10/24/24 Zika: Zika virus screening: Negative : No [facility] Medical History Chlamydia infection PPH ( hemorrhage) (spontaneous vaginal delivery) Surgical History [place] teeth extracted Family History Mother IBS (irritable bowel syndrome) Social History adopted: No household members: significant other and children housing: house number of children: 1 current occupational status: 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 current occupational exposures/hazards: No pets and animals: Yes pets and animals: dog(s) history of recent travel: No sexually active: Yes Smoking Status: Never smoker alcohol intake: never substance use type: does not use well-balanced diet: daily or most days caffeine: Yes Type: coffee Number of servings: 1 eating out: rarely or never during the past year weight has: remained stable what type of physical activity do you participate in: none ruth/buddhism: None seatbelt use: always do you feel safe at home: Yes 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 Date Name GA/Weeks Outcome Route Bth Weight Infant Gen Labor Lgth Anesthesia Del Locatn Provider FOB 09/19/23 Deuce 39 live - full term 7#10 Male epidur al [facility] Shanika Elliott [place] HPI 30 wk ob Details: FAROOQ TABOR is a 24 year old who presents for routine OB visit. OB Visit MITZI Calculator Estimated Delivery Date Method Current WG Current Estimate 07/31/25 LMP (Certain) 29w 6d Other Estimates 07/28/25 Ultrasound #1 30w 2d Expected Delivery Route/Plan Labor Preferences- CB/BF classes: no labor support person: [place] labor intervention preferences: [] pain management options preferred: wants limited cut cord/dad catch: yes : yes PP control planned: discussed discussed possible routes of delivery and associated risks: [] special requests: [] Specific Issue/Plans Covid status: [] Flu vaccine: [] Tdap vaccine: declined Rhogam: na LARC form signed: yes movement and labor precautions reviewed. Problem list reviewed and updated with the most current plan of care details and appropriate orders placed. Relevant counseling for the gestational age provided. Continue routine care and follow up unless otherwise noted in visit notes/problem list details Initial Weight: 108 lb Date -?-?-?-?-?-?-?-?-?-?-?-?- EGA Weight BP Urine Prot -?-?-?-?-?-?-?-?--?-?-?-?- Glucose FHR FuHt Pres Dilation -?-?-?-?-?-?-?-?-?-?-?-?- Effaced St Visit Note 01/21/25 -?-?-?-?-?-?-?-?-?-?-?-?- 12w 5d 108 lb 4 oz (+4 oz) 102/68 -?-?-?-?-?-?-?-?-?-?-?-?- 165 -?-?-?-?-?-?-?-?-?-?-?-?- KW- CRL cons wit h dates. Declines NIPT. MFM US ordered. 02/26/25 -?-?-?-?-?-?-?-?-?-?-?-?- 17w 6d 111 lb 4 oz (+3 lb 4 oz) 96/58 Negative -?-?-?-?-?-?-?-?-?-?-?-?- Negative 161 -?-?-?-?-?-?-?-?-?-?-?-?- -No VB. Some f lutters. Nl PN labs. MFM US 03/0503/26/25 -?-?-?-?-?-?-?-?-?-?-?-?- 21w 6d 116 lb 8 oz (+8 lb 8 oz) 104/66 Negative -?-?-?-?-?-?-?-?-?-?-?-?- Negative 155 22 -?-?-?-?-?-?-?-?-?-?-?-?- SM- no vb lof go od fm nro egualr ctx 04/26/25 -?-?-?-?-?-?-?-?-?-?-?-?- 26w 2d 122 lb 2 oz (+14 lb 2 oz) 107/66 Negative -?-?-?-?-?-?-?-?-?-?-?-?- Negative 142 26 -?-?-?-?--?-?-?-?-?-?-?-?- JV- no lof, vagi nal bleeding, or dec fm. no further bleeding episodes since 23 weeks. Thinks [place] and has been taking it easy since then. 05/07/25 -?-?-?-?-?-?-?-?-?-?-?-?- 27w 6d 126 lb 2 oz (+18 lb 2 oz) 100/60 Negative -?-?-?-?-?-?-?-?-?-?-?-?- Negative 160 28 -?-?-?-?-?-?-?-?-?-?-?-?- MH-No VB, LOF. G ood FM. Larc. 28 wk labs pending 05/21/25 -?-?-?-?-?-?-?-?-?-?-?-?- 29w 6d 124 lb 8 oz (+16 lb 8 oz) 107/60 Negative -?-?-?-?-?-?-?-?-?-?-?-?- Negative 145 30 -?-?-?-?-?-?-?-?-?-?-?-?- Sm- no vb lof go od fm no reuglar ctx ACOG First Trimester First Trimester: Desire for , Alcohol, Tobacco Cessation, Illicit/Recreational Drug/Substance Use, Intimate Partner Violence, Barriers to care, Unstable Housing, Communication Barriers, Environmental/Work Hazards, Anticipated Course of Care, Toxoplasmosis Precations, Use of Any medications, Sexual activity, Exercise, Dental Care, Sauna/Hot tub use, Seat Belt use, Childbirth classes/Hospital facilities, Travel, Indications for Ultrasound and Screening for Aneuploidy; Discussed Second Trimester Second Trimester: Signs and Symptoms of Labor, Selecting a care provider, Reproductive Life Planning & Contreception, Care Planning and Intimate Partner Violence; Discussed Tobacco Cessation and Discussed Depression/Anxiety Third Trimester Third Trimester: Pain Management Plans, Labor support person(s), Immediate Larc, Circumcision preference, Movement Monitoring, Signs and Symptoms of Preeclampsia, Feeding No , Education and Family Medical Leave or Disability Forms Results POC Urinalysis 2 Dip (Clinic) Office Urine Glucose Negative Last Edit by Esther Rose on 05/21/25 10:16 Office Urine Protein Negative Last Edit by Esther Rose on 05/21/25 10:16 Coding Level of Care Code OB Routine Diagnoses Anemia in O99.019 Vaginal bleeding during O46.90 Encounter for supervision of other normal in second trimester Z34.82 Normal : other normal Trimester: second trimester 29 weeks gestation of Z3A.29 Weeks of gestation: 29 weeks Maternal varicella, non-immune O09.899; Z28.39 Hemorrhoids during in second trimester O22.42 Trimester: second trimester Assessment and Plan Assessment and Plan (1) Anemia in : Status: Acute Comment: SloFe. (2) Vaginal bleeding during : Status: Acute Comment: admit STO, give bmz, US ordered. (3) Supervision of normal : Status: Acute Qualifiers: Normal : other normal Trimester: second trimester Qualified Code(s): Z34.82 - Encounter for supervision of other normal , second trimester Comment: PRR, , MITZI 07/31/25, surprise Nayeli Locke (4) : Status: Acute Qualifiers: Weeks of gestation: 29 weeks Qualified Code(s): Z3A.29 - 29 weeks gestation of Comment: declines NIPT & Carrier testing. Unremarkable Anatomy:Consistent dates, (5) Maternal varicella, non-immune: Status: Acute Comment: confirm w 28 wk labs (6) Hemorrhoids during : Status: Acute Qualifiers: Trimester: second trimester Qualified Code(s): O22.42 - Hemorrhoids in , second trimester Orders: Orders POC Urinalysis 2 Dip (Clinic) Today 05/21/25 1045 <Electronically signed by Dilcia pereira MD> Date _ Dilcia Das MD Cosigner Signature: Date (if applicable) CC: ~ [facility] Work Phone: Progress note Author Marie Avalos [facility] Note Date/Time July 02, 2025 10:46am [facility] [address], [address] [place] [address] OFFICE VISIT Date of Service: 07/02/25 MR#: [id number] Acct: [id number] Name: FAROOQ TABOR Rep #: [id number] : 2000 Provider: Dr. Kaitlynn Rascon DO Age/Sex: 24/F [place] [facility] [place]: Signed Intake Vital Signs 05/07/25 09:59 06/18/25 10:05 07/02/25 10:20 07/02/25 10:22 Height 5 ft 1 in 5 ft 1 in 5 ft 1 in 5 ft 1 in Weight: 132 lb 7 oz BMI 25.0 BP 112/68 Intake Visit Reasons: 36wk ob Biztalk Software Developer Required: No Is patient in pain?: No Allergies No Known Allergies Allergy (Verified 09/02/25 10:20) Medications ?Medication ?Instructions ?Recorded ?Confirmed ?Type Hydrocortisone 2.5% / Lidocaine 5% #1 ea 11/22/2412/25 Rx ointment (cmpd) multivitamin no.47-iron fum 27 1 cap PO DAILY 01/01/25 07/02/25 History mg-folate no.1 1 mg-dha 300 mg capsule (PNV-DHA) Slow Fe PO DAILY 05/21/25 07/02/25 H istory Last Menstrual Period: 10/24/24 Zika: Zika virus screening: Negative : No PFSH PFSH Medical History Chlamydia infection PPH ( hemorrhage) (spontaneous vaginal delivery) Surgical History [place] teeth extracted Family History Mother IBS (irritable bowel syndrome) Social History adopted: No household members: significant other and children housing: house number of children: 1 current occupational status: 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 current occupational exposures/hazards: No pets and animals: Yes pets and animals: dog(s) history of recent travel: No sexually active: Yes Smoking Status: Never smoker alcohol intake: never substance use type: does not use well-balanced diet: daily or most days caffeine: Yes Type: coffee Number of servings: 1 eating out: rarely or never during the past year weight has: remained stable what type of physical activity do you participate in: none ruth/buddhism: None seatbelt use: always do you feel safe at home: Yes 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 Date Name GA/Weeks Outcome Route Bth Weight Gen Labor Lgth Anesthesia Del Locatn Provider FOB 09/19/23 Deuce 39 live - full term 7#10 Male epidur al [facility] Shanika Elliott [place] HPI 36wk ob Details: FAROOQ TABOR is a 24 year old who presents for routine OB visit. OB Visit MITZI Calculator Estimated Delivery Date Method Current WG Current Estimate 07/31/25 LMP (Certain) 35w 6d Other Estimates 07/28/25 Ultrasound #1 36w 2d Expected Delivery Route/Plan Labor Preferences- CB/BF classes: no labor support person: [place] labor intervention preferences: [] pain management options preferred: wants limited cut cord/dad catch: yes : yes PP control planned: discussed discussed possible routes of delivery and associated risks: [] special requests: [] Specific Issue/Plans Covid status: [] Flu vaccine: [] Tdap vaccine: declined Rhogam: na LARC form signed: yes movement and labor precautions reviewed. Problem list reviewed and updated with the most current plan of care details and appropriate orders placed. Relevant counseling for the gestational age provided. Continue routine care and follow up unless otherwise noted in visit notes/problem list details Initial Weight: 108 lb Date -?-?-?-?-?-?-?-?-?-?-?-?- EGA Weight BP Urine Prot -?-?-?-?-?-?-?-?-?-?-?-?- Glucose FHR FuHt Pres Dilation -?-?-?-?-?-?-?-?-?-?-?-?- Effaced St Visit Note 01/21/25 -?-?-?-?-?-?-?-?-?-?-?-?- 12w 5d 108 lb 4 oz (+4 oz) 102/68 -?-?-?-?-?-?-?-?-?-?-?-?- 165 -?-?-?-?-?-?-?-?-?-?-?-?- KW- CRL cons wit h dates. Declines NIPT. MFM US ordered. 02/26/25 -?-?-?-?-?-?-?-?-?-?-?-?- 17w 6d 111 lb 4 oz (+3 lb 4 oz) 96/58 Negative -?-?-?-?-?-?-?-?-?-?-?-?- Negative 161 -?-?-?-?-?-?-?-?-?-?-?-?- MH-No VB. Some f lutters. Nl PN labs. MFM US /6 03/26/25 -?-?-?-?-?-?-?-?-?-?-?-?- 21w 6d 116 lb 8 oz (+8 lb 8 oz) 104/66 Negative -?-?-?-?-?-?-?-?-?-?-?-?- Negative 155 22 -?-?-?-?-?-?-?-?-?-?-?-?- - no vb lof go od fm nro egualr ctx 04/26/25 -?-?-?-?-?-?-?-?-?-?-?-?- 26w 2d 122 lb 2 oz (+14 lb 2 oz) 107/66 Negative -?-?-?-?-?-?-?-?-?-?-?-?- Negative 142 26 -?-?-?-?-?-?-?-?-?-?-?-?- JV- no lof, vagi nal bleeding, or dec fm. no further bleeding episodes since 23 weeks. Thinks [place] it [place] and has been taking it easy since then. 05/07/25 -?-?-?-?-?-?-?-?-?-?-?-?- 27w 6d 126 lb 2 oz (+18 lb 2 oz) 100/60 Negative -?-?-?-?-?-?-?-?-?-?-?-?- Negative 160 28 -?-?-?-?-?-?-?-?-?-?-?-?- -No VB, LOF. G ood FM. Larc. 28 wk labs pending 05/21/25 -?-?-?-?-?-?-?-?-?-?-?-?- 29w 6d 124 lb 8 oz (+16 lb 8 oz) 107/60 Negative -?-?-?-?-?-?-?-?-?-?-?-?- Negative 145 30 -?-?-?-?-?-?-?-?-?-?-?-?- - no vb lof go od fm no reuglar ctx 06/04/25 -?-?-?-?-?-?-?-?-?-?-?-?- 31w 6d 130 lb (+22 lb) 99/66 Negative -?-?-?-?-?-?-?-?-?-?-?-?- Negative 140 32 -?-?-?-?-?-?-?-?-?-?-?-?- KW- no vb/lof/ct x. good fm. no concerns today. 06/18/25 -?-?-?-?-?-?-?-?-?-?-?-?- 33w 6d 129 lb 8 oz (+21 lb 8 oz) 98/64 Negative -?-?-?-?-?-?-?-?-?-?-?-?- Negative 153 33 -?-?-?-?-?-?-?-?-?-?-?-?- MH-No VB, LOF. S ome inc BHCtx 3 days ago and resolved. Enc rest/fluids. Rev S&S PTL to call us about 07/02/25 -?-?-?-?-?-?-?-?-?-?-?-?- 35w 6d 132 lb 7 oz (+24 lb 7 oz) 112/68 Negative -?-?-?-?-?-?-?-?-?-?-?-?- Negative 153 35 Cephalic 0 .5 -?-?-?-?-?-?-?-?-?-?-?-?- JV- vtx on bedsi de scan. gbs collected. no complaints or concerns. ACOG First Trimester First Trimester: Desire for , Alcohol, Tobacco Cessation, Illicit/Recreational Drug/Substance Use, Intimate Partner Violence, Barriers to care, Unstable Housing, Communication Barriers, Environmental/Work Hazards, Anticipated Course of Care, Toxoplasmosis Precations, Use of Any medications, Sexual activity, Exercise, Dental Care, Sauna/Hot tub use, Seat Belt use, Childbirth classes/Hospital facilities, Travel, Indications for Ultrasound and Screening for Aneuploidy; Discussed Second Trimester Second Trimester: Signs and Symptoms of Labor, Selecting a care provider, Reproductive Life Planning & Contreception, Care Planning and Intimate Partner Violence; Discussed Tobacco Cessation and Discussed Depression/Anxiety Third Trimester Third Trimester: Pain Management Plans, Labor support person(s), Immediate Larc, Circumcision preference, Movement Monitoring, Signs and Symptoms of Preeclampsia, Feeding No , Education and Family Medical Leave or Disability Forms Results POC Urinalysis 2 Dip (Clinic) Office Urine Glucose Negative Last Edit by Tere Brown on 07/02/25 10: 38 Office Urine Protein Negative Last Edit by Tere Brown on 07/02/25 10: 38 Coding Level of Care Code OB Routine Diagnoses Anemia during in third trimester O99.013 Trimester: third trimester Vaginal bleeding during O46.90 Encounter for supervision of other normal in third trimester Z34.83 Normal : other normal Trimester: third trimester 35 weeks gestation of Z3A.35 Weeks of gestation: 35 weeks Maternal varicella, non-immune O09.899; Z28.39 Hemorrhoids during in second trimester O22.42 Trimester: second trimester Assessment and Plan Assessment and Plan (1) Anemia in : Status: Acute Qualifiers: Trimester: third trimester Qualified Code(s): O99.013 - Anemia complicating , third trimester Comment: SloFe. (2) Vaginal bleeding during : Status: Acute Comment: admit STO, give bmz, US ordered. (3) Supervision of normal : Status: Acute Qualifiers: Normal : other normal Trimester: third trimester Qualified Code(s): Z34.83 - Encounter for supervision of other normal , third trimester Comment: PRR, , MITZI 07/31/25, surprise PC Nayeli Tripathi (4) : Status: Acute Qualifiers: Weeks of gestation: 35 weeks Qualified Code(s): Z3A.35 - 35 weeks gestation of Comment: declines NIPT & Carrier testing. Unremarkable Anatomy:Consistent dates, (5) Maternal varicella, non-immune: Status: Acute Comment: confirm w 28 wk labs/NOT drawn (6) Hemorrhoids during : Status: Acute Qualifiers: Trimester: second trimester Qualified Code(s): O22.42 - Hemorrhoids in , second trimester Orders: Orders POC Urinalysis 2 Dip (Clinic) Today Culture, Group B Streptococcus Today Z34.83 - Encounter for supervision of other normal , third trimester 07/02/25 1046 <Electronically signed by Marie Barbosa DO> Date _ Marie Rascon DO Cosigner Signature: Date (if applicable) CC: ~ [place] [facility] Work Phone: Reason for referral (narrative)* Diagnostic Procedure Only (Routine) Status Reason Specialty Diagnoses / Procedures Referred By Contact Referred To Contact Pending Review Auto-Generated Referral US IMAGING Diagnoses Pelvic pain Irregular menses Procedures US FEMALE PELVIS TRANSABD LTD ECHO/FOLLICULAR Shena Mcdermott MD [address] [place] [address] Us Imaging * Diagnostic Procedure Only (Routine) Status Reason Specialty Diagnoses / Procedures Referred By Contact Referred To Contact Authorized Auto-Generated Referral [facility] Diagnoses Pelvic pain Irregular menses Procedures US FEMALE PELVIS TRANSVAG ECHO/TRANSVAGINAL Shena Mcdermott MD [address] [place] [address] [facility] * Diagnostic Procedure Only (Routine) Status Reason Specialty Diagnoses / Procedures Referred By Contact Referred To Contact Pending Review Auto-Generated Referral [facility] Diagnoses Pelvic pain Irregular menses Procedures PELVIC US WHI ECHO EXAM OF PELVIS Shena Mcdermott MD [address] [place] [address] [facility] [address] [place] [address] [facility]ative[facility]No reason for referral information availableWEast [facility] Work Phone: Summary Purpose Family History Unknown Family Member Name Dates Details No pertinent family history: Mother(V49.89, Z78.9) Status:Active Unknown Family Member Name Dates Details No pertinent family history: Mother(V49.89, Z78.9) Status:Active Unknown Family Member Name Dates Details No pertinent family history: Mother(V49.89, Z78.9) Status:Active Unknown Family Member Name Dates Details No pertinent family history: Mother(V49.89, Z78.9) Status:Active Unknown Family Member Name Dates Details No pertinent family history: Mother(V49.89, Z78.9) Status:Active Unknown Family Member Name Dates Details No pertinent family history: Mother(V49.89, Z78.9) Status:Active Unknown Family Member Name Dates Details No pertinent family history: Mother(V49.89, Z78.9) Status:Active Unknown Family Member Name Dates Details No pertinent family history: Mother(V49.89, Z78.9) Status:Active Family history of malignant neoplasm of ovary: Maternal Aunt, Cousin(V16.41, Z80.41) Status:Active Unknown Family Member Name Dates Details No pertinent family history: Mother(V49.89, Z78.9) Status:Active Family history of malignant neoplasm of ovary: Maternal Aunt, Cousin(V16.41, Z80.41) Status:Active Relationship Condition Age at Onset Recorded Date/T paul mother Irritable bowel syndrome Unknown Advance Directives Advance Directive Response Recorded Date/ Time Living Will No February 17, 2023 9:26pm Power of Foundation Coordinator No February 17 9:26pm Advance Directive Response Recorded Date/ Time Living Will No February 17, 2023 8:26pm Power of Foundation Coordinator No February 17 8:26pm Advance Directive Response Recorded Date/ Time Living Will No September 19 5:10pm Power of Foundation Coordinator No September 19, 2023 5:10pm Chief Complaint pt here to discuss migraines.New patient is here due to irregular bleeding. Patient states she had the IUD then developed cyst and had it removed. She then was placed on Depo. Patient said she did not have a period while on the IUD and now that she is on the Depo she is having bleeding lasting 3 weeks, pain with intercourse and bleeding after intercourse.Patient here today for annual. She states she has had pap before at family planning. LMP: 07/24/2022. She has no concerns today. Chief Complaint and Reason for Visit Chief Complaint NOB LMP 11/24 Reason for Visit Supervision of high risk , antepartum Unsure of LMP (last menstrual period) as reason for ultrasound scan Chief Complaint NOB LMP 11/24 Encounter for screening for uncertain da Reason for Visit Supervision of high risk , antepartum Unsure of LMP (last menstrual period) as reason for ultrasound scan Chief Complaint NOB LMP 11/24 Encounter for screening for uncertain da n/v Reason for Visit Supervision of high risk , antepartum Unsure of LMP (last menstrual period) as reason for ultrasound scan Chief Complaint NOB LMP 11/24 Encounter for screening for uncertain da n/v 9 WK OB 13 WK OB ENCOUNER OF FEMALE FOR TESTING FOR GENETIC Reason for Visit Supervision of high risk , antepartum Unsure of LMP (last menstrual period) as reason for ultrasound scan Chlamydia infection affecting Supervision of high risk , antepartum Unsure of LMP (last menstrual period) as reason for ultrasound scan Chlamydia infection affecting Supervision of high risk , antepartum Unsure of LMP (last menstrual period) as reason for ultrasound scan Chief Complaint 21 WK OB 25 WK OB 28 WK OB/GLUCOSE 30 WK OB 32 WK OB Possible UTI 34 WK OB 36 WK OB 37 WK OB Reason for Visit Chlamydia infection affecting Supervision of high risk , antepartum Unsure of LMP (last menstrual period) as reason for ultrasound scan Chlamydia infection affecting Supervision of high risk , antepartum Unsure of LMP (last menstrual period) as reason for ultrasound scan Chlamydia infection affecting Supervision of high risk , antepartum Unsure of LMP (last menstrual period) as reason for ultrasound scan Chlamydia infection affecting Supervision of high risk , antepartum Unsure of LMP (last menstrual period) as reason for ultrasound scan Chlamydia infection affecting Supervision of high risk , antepartum Burning with urination Chlamydia infection affecting Supervision of high risk , antepartum Burning with urination Chlamydia infection affecting Supervision of high risk , antepartum Chlamydia infection affecting Supervision of high risk , antepartum Chief Complaint 25 WK OB 28 WK OB/GLUCOSE 30 WK OB 32 WK OB Possible UTI 34 WK OB 36 WK OB 37 WK OB 38 WK OB 39 WK OB VAGINAL DELIVERY LABOR AND DELIVERY VAGINAL DELIVERY VAGINAL DELIVERY Reason for Visit Chlamydia infection affecting Supervision of high risk , antepartum Unsure of LMP (last menstrual period) as reason for ultrasound scan Chlamydia infection affecting Supervision of high risk , antepartum Unsure of LMP (last menstrual period) as reason for ultrasound scan Chlamydia infection affecting Supervision of high risk , antepartum Unsure of LMP (last menstrual period) as reason for ultrasound scan Chlamydia infection affecting Supervision of high risk , antepartum Burning with urination Burning with urination Chlamydia infection affecting Supervision of high risk , antepartum Chlamydia infection affecting Supervision of high risk , antepartum Chlamydia infection affecting Supervision of high risk , antepartum Chlamydia infection affecting Positive GBS test Supervision of high risk , antepartum Chlamydia infection affecting Positive GBS test Supervision of high risk , antepartum PPH ( hemorrhage) (spontaneous vaginal delivery) Chlamydia infection affecting Positive GBS test Supervision of high risk , antepartum Chief Complaint Admit Date Hemorrhoids November 22, 2024 1 2:52pm Amenorrhea, unspecified December 31, 2024 1:35pm Reason for Visit Admit Date Hemorrhoids November 22, 2024 1 2:52pm Chief Complaint Admit Date Hemorrhoids November 22, 2024 1 2:52pm Amenorrhea, unspecified December 31, 2024 1:35pm NOB LMP 10/24January 21, 2025 8:4 3am Reason for Visit Admit Date Hemorrhoids November 22, 2024 1 2:52pm Hemorrhoids during January 21, 2025 8:43am Maternal varicella, non-immune December 8:43am January 21, 2025 8:4 3am Supervision of normal January 212024 8:43am Chief Complaint Admit Date Amenorrhea, unspecified December 31, 2024 1:35pm NOB LMP 10/24January 21, 2025 8:4 3am 18wk ob February 26, 2025 9:3 4am 22wk ob March 26, 2025 10:06 am Reason for Visit Admit Date Hemorrhoids during January 21, 2025 8:43am Maternal varicella, non-immune December 8:43am January 21, 2025 8:4 3am Supervision of normal January 212024 8:43am Maternal varicella, non-immune January 9:34am February 26, 2025 9:3 4am Supervision of normal February 262024 9:34am Hemorrhoids during March 26 025 10:06am Maternal varicella, non-immune March 26, 2025 10:06am March 26, 2025 10:06 am Supervision of normal February 10:06am Chief Complaint Admit Date Amenorrhea, unspecified December 31, 2024 1:35pm NOB LMP 10/24January 21, 2025 8:4 3am 18wk ob February 26, 2025 9:3 4am 22wk ob March 26, 2025 10:06 am BLEEDING April 02, 2025 9:13p m BLEEDING April 02, 2025 11:21 pm CELESTONE SHOT April 03, 2025 9:02p m Reason for Visit Admit Date Hemorrhoids during January 21, 2025 8:43am Maternal varicella, non-immune December 8:43am January 21, 2025 8:4 3am Supervision of normal January 212024 8:43am Maternal varicella, non-immune January 9:34am February 26, 2025 9:3 4am Supervision of normal February 262024 9:34am Hemorrhoids during March 26 025 10:06am Maternal varicella, non-immune March 26, 2025 10:06am March 26, 2025 10:06 am Supervision of normal February 10:06am Maternal varicella, non-immune April 02, 2025 9:13pm April 02, 2025 9:13p m Supervision of normal March 9:13pm Vaginal bleeding during April 022024 9:13pm Chief Complaint Admit Date Amenorrhea, unspecified December 31, 2024 1:35pm NOB LMP 10/24January 21, 2025 8:4 3am 18wk ob February 26, 2025 9:3 4am 22wk ob March 26, 2025 10:06 am BLEEDING April 02, 2025 9:13p m BLEEDING April 02, 2025 11:21 pm Chief Complaint Admit Date Amenorrhea, unspecified December 31, 2024 1:35pm NOB LMP 10/24January 21, 2025 8:4 3am 18wk ob February 26, 2025 9:3 4am 22wk ob March 26, 2025 10:06 am BLEEDING April 02, 2025 9:13p m BLEEDING April 02, 2025 11:21 pm BLEEDING April 03, 2025 6:32a m CELESTONE SHOT April 03, 2025 9:02p m CELESTONE SHOT April 04, 2025 10:35 pm 26 wk ob April 26, 2025 3:39 pm Reason for Visit Admit Date Hemorrhoids during January 21, 2025 8:43am Maternal varicella, non-immune December 8:43am January 21, 2025 8:4 3am Supervision of normal January 212024 8:43am Maternal varicella, non-immune January 9:34am February 26, 2025 9:3 4am Supervision of normal February 262024 9:34am Hemorrhoids during March 26, 10:06am Maternal varicella, non-immune March 26, 2025 10:06am March 26, 2025 10:06 am Supervision of normal February 10:06am Maternal varicella, non-immune April 02, 2025 9:13pm April 02, 2025 9:13p m Supervision of normal March 9:13pm Vaginal bleeding during April 022024 9:13pm Hemorrhoids during April 26, 2025 3:39pm Maternal varicella, non-immune March 3:39pm April 26, 2025 3:39 pm Supervision of normal March 3:39pm Vaginal bleeding during April 012024 3:39pm Chief Complaint Admit Date NOB LMP 10/24January 21, 2025 8:4 3am 18wk ob February 26, 2025 9:3 4am 22wk ob March 26, 2025 10:06 am BLEEDING April 02, 2025 9:13p m BLEEDING April 02, 2025 11:21 pm BLEEDING April 03, 2025 6:32a m CELESTONE SHOT April 03, 2025 9:02p m CELESTONE SHOT April 04, 2025 10:35 pm 26 wk ob April 26, 2025 3:39 pm 28 wk ob/glucose May 07, 2025 9:56a m Reason for Visit Admit Date Hemorrhoids during January 21, 2025 8:43am Maternal varicella, non-immune December 8:43am January 21, 2025 8:4 3am Supervision of normal January 212024 8:43am Maternal varicella, non-immune January 9:34am February 26, 2025 9:3 4am Supervision of normal February 262024 9:34am Hemorrhoids during March 26, 025 10:06am Maternal varicella, non-immune March 26, 2025 10:06am March 26, 2025 10:06 am Supervision of normal February 10:06am Maternal varicella, non-immune April 02, 2025 9:13pm April 02, 2025 9:13p m Supervision of normal March 9:13pm Vaginal bleeding during April 022024 9:13pm Hemorrhoids during April 26, 2025 3:39pm Maternal varicella, non-immune March 3:39pm April 26, 2025 3:39 pm Supervision of normal March 3:39pm Vaginal bleeding during April 012024 3:39pm Hemorrhoids during May 07 025 9:56am Maternal varicella, non-immune May 07, 2025 9:56am May 07, 2025 9:56a m Supervision of normal April 9:56am Vaginal bleeding during May 072024 9:56am Chief Complaint Admit Date NOB LMP 10/24January 21, 2025 8:4 3am 18wk ob February 26, 2025 9:3 4am 22wk ob March 26, 2025 10:06 am BLEEDING April 02, 2025 9:13p m BLEEDING April 02, 2025 11:21 pm BLEEDING April 03, 2025 6:32a m CELESTONE SHOT April 03, 2025 9:02p m CELESTONE SHOT April 04, 2025 10:35 pm 26 wk ob April 26, 2025 3:39 pm 28 wk ob/glucose May 07, 2025 9:56a m 30 wk ob May 21, 2025 10:0 8am Reason for Visit Admit Date Hemorrhoids during January 21, 2025 8:43am Maternal varicella, non-immune December 8:43am January 21, 2025 8:4 3am Supervision of normal January 212024 8:43am Maternal varicella, non-immune January 9:34am February 26, 2025 9:3 4am Supervision of normal February 262024 9:34am Hemorrhoids during March 26, 025 10:06am Maternal varicella, non-immune March 26, 2025 10:06am March 26, 2025 10:06 am Supervision of normal February 10:06am Maternal varicella, non-immune April 02, 2025 9:13pm April 02, 2025 9:13p m Supervision of normal March 9:13pm Vaginal bleeding during April 022024 9:13pm Hemorrhoids during April 26, 2025 3:39pm Maternal varicella, non-immune March 3:39pm April 26, 2025 3:39 pm Supervision of normal March 3:39pm Vaginal bleeding during April 012024 3:39pm Hemorrhoids during May 07 025 9:56am Maternal varicella, non-immune May 07, 2025 9:56am May 07, 2025 9:56a m Supervision of normal April 9:56am Vaginal bleeding during May 072024 9:56am Anemia in May 21, 2025 10:0 8am Hemorrhoids during May 21, 2025 10:08am Maternal varicella, non-immune April 10:08am May 21, 2025 10:0 8am Supervision of normal April 10:08am Vaginal bleeding during May 012024 10:08am Chief Complaint Admit Date 18wk ob February 26, 2025 9:3 4am 22wk ob March 26, 2025 10:06 am BLEEDING April 02, 2025 9:13p m BLEEDING April 02, 2025 11:21 pm BLEEDING April 03, 2025 6:32a m CELESTONE SHOT April 03, 2025 9:02p m CELESTONE SHOT April 04, 2025 10:35 pm 26 wk ob April 26, 2025 3:39 pm 28 wk ob/glucose May 07, 2025 9:56a m 30 wk ob May 21, 2025 10:0 8am 32wk ob June 04, 2025 3:1 3pm Reason for Visit Admit Date Maternal varicella, non-immune January 9:34am February 26, 2025 9:3 4am Supervision of normal February 262024 9:34am Hemorrhoids during March 26 10:06am Maternal varicella, non-immune March 26, 2025 10:06am March 26, 2025 10:06 am Supervision of normal February 10:06am Maternal varicella, non-immune April 02, 2025 9:13pm April 02, 2025 9:13p m Supervision of normal March 9:13pm Vaginal bleeding during April 022024 9:13pm Hemorrhoids during April 26, 2025 3:39pm Maternal varicella, non-immune March 3:39pm April 26, 2025 3:39 pm Supervision of normal March 3:39pm Vaginal bleeding during April 012024 3:39pm Hemorrhoids during May 07 025 9:56am Maternal varicella, non-immune May 07, 2025 9:56am May 07, 2025 9:56a m Supervision of normal April 9:56am Vaginal bleeding during May 072024 9:56am Anemia in May 21, 2025 10:0 8am Hemorrhoids during May 21, 2025 10:08am Maternal varicella, non-immune April 10:08am May 21, 2025 10:0 8am Supervision of normal April 10:08am Vaginal bleeding during May 012024 10:08am Anemia in June 04, 2025 3:1 3pm Hemorrhoids during June 04, 2025 3:13pm Maternal varicella, non-immune May 3:13pm June 04, 2025 3:1 3pm Supervision of normal June 042024 3:13pm Vaginal bleeding during June 04, 2025 3:13pm Chief Complaint Admit Date 18wk ob February 26, 2025 9:3 4am 22wk ob March 26, 2025 10:06 am BLEEDING April 02, 2025 9:13p m BLEEDING April 02, 2025 11:21 pm BLEEDING April 03, 2025 6:32a m CELESTONE SHOT April 03, 2025 9:02p m CELESTONE SHOT April 04, 2025 10:35 pm 26 wk ob April 26, 2025 3:39 pm 28 wk ob/glucose May 07, 2025 9:56a m 30 wk ob May 21, 2025 10:0 8am 32wk ob June 04, 2025 3:1 3pm 34wk ob June 18, 2025 9: 46am Reason for Visit Admit Date Maternal varicella, non-immune January 9:34am February 26, 2025 9:3 4am Supervision of normal February 262024 9:34am Hemorrhoids during March 26, 2 025 10:06am Maternal varicella, non-immune March 26, 2025 10:06am March 26, 2025 10:06 am Supervision of normal February 10:06am Maternal varicella, non-immune April 02, 2025 9:13pm April 02, 2025 9:13p m Supervision of normal March 9:13pm Vaginal bleeding during April 022024 9:13pm Hemorrhoids during April 26, 2025 3:39pm Maternal varicella, non-immune March 3:39pm April 26, 2025 3:39 pm Supervision of normal March 3:39pm Vaginal bleeding during April 012024 3:39pm Hemorrhoids during May 07, 2 025 9:56am Maternal varicella, non-immune May 07, 2025 9:56am May 07, 2025 9:56a m Supervision of normal April 9:56am Vaginal bleeding during May 072024 9:56am Anemia in May 21, 2025 10:0 8am Hemorrhoids during May 21, 2025 10:08am Maternal varicella, non-immune April 10:08am May 21, 2025 10:0 8am Supervision of normal April 10:08am Vaginal bleeding during May 012024 10:08am Anemia in June 04, 2025 3:1 3pm Hemorrhoids during June 04, 2025 3:13pm Maternal varicella, non-immune May 3:13pm June 04, 2025 3:1 3pm Supervision of normal June 042024 3:13pm Vaginal bleeding during June 04, 2025 3:13pm Anemia in June 18, 2025 9: 46am Hemorrhoids during May 9:46am Maternal varicella, non-immune June 182024 9:46am June 18, 2025 9: 46am Supervision of normal May 312024 9:46am Vaginal bleeding during June 18, 2025 9:46am Chief Complaint Admit Date wk ob March 26, 2025 10:06 am BLEEDING April 02, 2025 9:13p m BLEEDING April 02, 2025 11:21 pm BLEEDING April 03, 2025 6:32a m CELESTONE SHOT April 03, 2025 9:02p m CELESTONE SHOT April 04, 2025 10:35 pm 26 wk ob April 26, 2025 3:39 pm 28 wk ob/glucose May 07, 2025 9:56a m 30 wk ob May 21, 2025 10:0 8am 32wk ob June 04, 2025 3:1 3pm 34wk ob June 18, 2025 9: 46am 36wk ob July 02, 2025 10:19am Reason for Visit Admit Date Hemorrhoids during March 26 025 10:06am Maternal varicella, non-immune March 26, 2025 10:06am March 26, 2025 10:06 am Supervision of normal February 10:06am Maternal varicella, non-immune April 02, 2025 9:13pm April 02, 2025 9:13p m Supervision of normal March 9:13pm Vaginal bleeding during April 022024 9:13pm Hemorrhoids during April 26, 2025 3:39pm Maternal varicella, non-immune March 3:39pm April 26, 2025 3:39 pm Supervision of normal March 3:39pm Vaginal bleeding during April 012024 3:39pm Hemorrhoids during May 07 025 9:56am Maternal varicella, non-immune May 07, 2025 9:56am May 07, 2025 9:56a m Supervision of normal April 9:56am Vaginal bleeding during May 072024 9:56am Anemia in May 21, 2025 10:0 8am Hemorrhoids during May 21, 2025 10:08am Maternal varicella, non-immune April 10:08am May 21, 2025 10:0 8am Supervision of normal April 10:08am Vaginal bleeding during May 012024 10:08am Anemia in June 04, 2025 3:1 3pm Hemorrhoids during June 04, 2025 3:13pm Maternal varicella, non-immune May 3:13pm June 04, 2025 3:1 3pm Supervision of normal June 042024 3:13pm Vaginal bleeding during June 04, 2025 3:13pm Anemia in June 18, 2025 9: 46am Hemorrhoids during May 9:46am Maternal varicella, non-immune June 182024 9:46am June 18, 2025 9: 46am Supervision of normal May 312024 9:46am Vaginal bleeding during June 18, 2025 9:46am Anemia in July 02, 2025 10:19am Hemorrhoids during July 022024 10:19am Maternal varicella, non-immune July 02, 2025 10:19am July 02, 2025 10:19am Supervision of normal Septembe r 2024 10:19am Vaginal bleeding during Septem delisa 2024 10:19am Chief Complaint Admit Date 22wk ob March 26, 2025 10:06 am BLEEDING April 02, 2025 9:13p m BLEEDING April 02, 2025 11:21 pm BLEEDING April 03, 2025 6:32a m CELESTONE SHOT April 03, 2025 9:02p m CELESTONE SHOT April 04, 2025 10:35 pm 26 wk ob April 26, 2025 3:39 pm 28 wk ob/glucose May 07, 2025 9:56a m 30 wk ob May 21, 2025 10:0 8am 32wk ob June 04, 2025 3:1 3pm 34wk ob June 18, 2025 9: 46am 36wk ob July 02, 2025 10:19am 37 WK OB July 10, 2025 3:16pm Reason for Visit Admit Date Hemorrhoids during March 26 10:06am Maternal varicella, non-immune March 26, 2025 10:06am March 26, 2025 10:06 am Supervision of normal February 10:06am Maternal varicella, non-immune April 02, 2025 9:13pm April 02, 2025 9:13p m Supervision of normal March 9:13pm Vaginal bleeding during April 022024 9:13pm Hemorrhoids during April 26, 2025 3:39pm Maternal varicella, non-immune March 3:39pm April 26, 2025 3:39 pm Supervision of normal March 3:39pm Vaginal bleeding during April 012024 3:39pm Hemorrhoids during May 07 025 9:56am Maternal varicella, non-immune May 07, 2025 9:56am May 07, 2025 9:56a m Supervision of normal April 9:56am Vaginal bleeding during May 072024 9:56am Anemia in May 21, 2025 10:0 8am Hemorrhoids during May 21, 2025 10:08am Maternal varicella, non-immune April 10:08am May 21, 2025 10:0 8am Supervision of normal April 10:08am Vaginal bleeding during May 012024 10:08am Anemia in June 04, 2025 3:1 3pm Hemorrhoids during June 04, 2025 3:13pm Maternal varicella, non-immune May 3:13pm June 04, 2025 3:1 3pm Supervision of normal June 042024 3:13pm Vaginal bleeding during June 04, 2025 3:13pm Anemia in June 18, 2025 9: 46am Hemorrhoids during May 9:46am Maternal varicella, non-immune June 182024 9:46am June 18, 2025 9: 46am Supervision of normal May 312024 9:46am Vaginal bleeding during June 18, 2025 9:46am Anemia in July 02, 2025 10:19am Hemorrhoids during July 022024 10:19am Maternal varicella, non-immune July 02, 2025 10:19am July 02, 2025 10:19am Supervision of normal 2024 10:19am Vaginal bleeding during 2024 10:19am Anemia in July 10, 2025 3:16pm Hemorrhoids during July 012024 3:16pm Maternal varicella, non-immune July 10, 2025 3:16pm July 10, 2025 3:16pm Supervision of normal Julembe r 2024 3:16pm Vaginal bleeding during 2024 3:16pm Additional Source Comments INFORMATION SOURCE (unrecogn ized section and content) DATE CREATED AUTHOR 11/30/2019 [facility] DATE CREATED AUTHOR AUTHOR'S ORGANIZ ATION 08/14/2020 [facility] DATE CREATED AUTHOR AUTHOR'S ORGANIZ ATION 12/07/2021 [facility] DATE CREATED AUTHOR AUTHOR'S ORGANIZ ATION 08/04/2022 [facility] DATE CREATED AUTHOR AUTHOR'S ORGANIZ ATION 08/21/2022 [facility] DATE CREATED AUTHOR AUTHOR'S ORGANIZ ATION 03/08/2025 [facility] DATE CREATED AUTHOR AUTHOR'S ORGANIZ ATION 07/10/2025 [facility] Source Comments (unrecognize d section and content) In the event this informatio n is protected by the Federal Confidentiality of Alcohol and Drug Abuse Patient Records regulations: The Federal rules restrict any use of the information to criminally investigate or prosecute any alcohol or drug abuse patient.[facility] Reason for Visit (unrecogniz ed section and content) Reason Comments Abnormal Uterine Bleeding Care Teams (unrecognized sec tion and content) Team Status: Active Member Role Status Dates No Primary Care Physician Primary Care Provider Active Team Status: Inactive Member Role Status Dates No Primary Care Physician Primary Care Provider, Refer ring Provider Active Dr. Dilcia Das MD Attending Provider Active Team Status: Inactive Member Role Status Dates No Primary Care Physician Primary Care Provider Active Dr. Dilcia Das MD Attending Provider, Referr ing Provider Active Team Status: Inactive Member Role Status Dates No Primary Care Physician Primary Care Provider Active Dr. Ej Flores DO Emergency Provider Active Team Status: Inactive Member Role Status Dates No Primary Care Physician Primary Care Provider, Refer ring Provider Active Dr. Marie Rascon DO Attending Provider Activ e Team Status: Inactive Member Role Status Dates No Primary Care Physician Primary Care Provider Active Dr. Ej Flores DO Attending Provider, Emergency Provider Active Team Status: Inactive Member Role Status Dates No Primary Care Physician Primary Care Provider Active Dr. Marie Rascon DO Attending Provider, Refe rring Provider Active Team Status: Inactive Member Role Status Dates No Primary Care Physician Primary Care Provider, Refer ring Provider Active Carmella Bone CNM Attending Provider Active Team Status: Inactive Member Role Status Dates No Primary Care Physician Primary Care Provider, Refer ring Provider Active Esther Vernon TOY STUFFER, TOY STUFFER-C Attending Provider Active Team Status: Inactive Member Role Status Dates No Primary Care Physician Primary Care Provider, Refer ring Provider Active Shanika Elliott CNM Attending Provider Active Team Status: Inactive Member Role Status Dates No Primary Care Physician Primary Care Provider Active Shanika Elliott CNM Attending Provider, Referring Pr ovider Active Team Status: Active Member Role Status Dates No Primary Care Physician Primary Care Provider Active Dr. Marie Rascon , DO Referring Provider Activ e Shanika Elliott , CNM Admit Provider, At tending Provider, Other Provider Active Team Status: Active Member Role Status Dates No Primary Care Physician Primary Care Provider Active Dr. Marie Rascon , DO Referring Provider Activ e Shanika Elliott , CNM Admit Provider, Other Provider A ctive Carmella Bone CNM Attending Provider Active Team Status: Active Member Role Status Dates No Primary Care Physician Primary Care Provider Active Dr. Marie Rascon , DO Referring Provider Activ e Shanika Elliott , CNM Admit Provider, Other Provider A ctive Esther Vernon TOY STUFFER, TOY STUFFER-C Attending Provider Active Team Status: Inactive Member Role Status Dates No Primary Care Physician Primary Care Provider Active Dr. Marie Rascon , DO Referring Provider Activ e Shanika Elliott , CNM Admit Provider, Attending Provid er Active Team Status: Inactive Member Role Status Dates No Primary Care Physician Primary Care Provider Active Start: November 22, 2024 End: November 22, 2024 No Primary Care Physician Referring Provider Active Start: November 22, 2024 End: November 22, 2024 CHAPINCITO Stringer Attending Provider Active Start: November 22, 2024 End: November 22, 2024 Team Status: Inactive Member Role Status Dates No Primary Care Physician Primary Care Provider Active Start: December 31, 2024 End: December 31, 2024 Dr. Dilcia Das MD Attending Provider Active Start: December 31, 2024 End: December 31, 2024 Dr. Dilcia Das MD Referring Provider Active Start: December 31, 2024 End: December 31, 2024 Team Status: Inactive Member Role Status Dates No Primary Care Physician Primary Care Provider Active Start: January 21, 2025 End: January 21, 2025 No Primary Care Physician Referring Provider Active Start: January 21, 2025 End: January 21, 2025 Carmella Bone CNM Attending Provider Active S tart: January 21, 2025 End: January 21, 2025 Team Status: Inactive Member Role Status Dates No Primary Care Physician Primary Care Provider Active Start: January 21, 2025 End: January 21, 2025 Carmella Bone CNM Attending Provider Active S tart: January 21, 2025 End: January 21, 2025 Carmella Bone CNM Referring Provider Active S tart: January 21, 2025 End: January 21, 2025 Team Status: Inactive Member Role Status Dates No Primary Care Physician Primary Care Provider Active Start: February 26, 2025 End: February 26, 2025 No Primary Care Physician Referring Provider Active Start: February 26, 2025 End: February 26, 2025 Esther Vernon NP, TOY STUFFER-C Attending Provider Active Start: February 26, 2025 End: February 26, 2025 Team Status: Inactive Member Role Status Dates No Primary Care Physician Primary Care Provider Active Start: March 26, 2025 End: March 26, 2025 No Primary Care Physician Referring Provider Active Start: March 26, 2025 End: March 26, 2025 Dr. Dilcia Das MD Attending Provider Active Start: March 26, 2025 End: March 26, 2025 Team Status: Inactive Member Role Status Dates No Primary Care Physician Primary Care Provider Active Start: April 02, 2025 End: April 03, 2025 Dr. Dilcia Das MD Attending Provider Active Start: April 02, 2025 End: April 03, 2025 Dr. Dilcia Das MD Referring Provider Active Start: April 02, 2025 End: April 03, 2025 Team Status: Active Member Role Status Dates No Primary Care Physician Primary Care Provider Active Start: April 02, 2025 Dr. Dilcia Das MD Attending Provider Active Start: April 02, 2025 Dr. Dilcia Das MD Referring Provider Active Start: April 02, 2025 Dr. Dilcia Das MD Other Provider Active Start: April 02, 2025 Team Status: Inactive Member Role Status Dates No Primary Care Physician Primary Care Provider Active Start: April 03, 2025 End: April 03, 2025 Shanika Elliott CNM Attending Provider Active Start: April 03, 2025 End: April 03, 2025 Team Status: Active Member Role/Relationship Status Dates No Primary Care Physician Primary Care Provider Active Team Status: Inactive Member Role/Relationship Status Dates No Primary Care Physician Primary Care Provider Active Start: December 31, 2024 End: December 31, 2024 Dr. Dilcia Das MD Attending Provider Active Start: December 31, 2024 End: December 31, 2024 Dr. Dilcia Das MD Referring Provider Active Start: December 31, 2024 End: December 31, 2024 Team Status: Inactive Member Role/Relationship Status Dates No Primary Care Physician Primary Care Provider Active Start: January 21, 2025 End: January 21, 2025 No Primary Care Physician Referring Provider Active Start: January 21, 2025 End: January 21, 2025 Carmella Bone CNM Attending Provider Active S tart: January 21, 2025 End: January 21, 2025 Team Status: Inactive Member Role/Relationship Status Dates No Primary Care Physician Primary Care Provider Active Start: January 21, 2025 End: January 21, 2025 Carmella Bone CNM Attending Provider Active S tart: January 21, 2025 End: January 21, 2025 Carmella Bone CNM Referring Provider Active S tart: January 21, 2025 End: January 21, 2025 Team Status: Inactive Member Role/Relationship Status Dates No Primary Care Physician Primary Care Provider Active Start: February 26, 2025 End: February 26, 2025 No Primary Care Physician Referring Provider Active Start: February 26, 2025 End: February 26, 2025 Esther Vernon NP, TOY STUFFER-C Attending Provider Active Start: February 26, 2025 End: February 26, 2025 Team Status: Inactive Member Role/Relationship Status Dates No Primary Care Physician Primary Care Provider Active Start: March 26, 2025 End: March 26, 2025 No Primary Care Physician Referring Provider Active Start: March 26, 2025 End: March 26, 2025 Dr. Dilcia Das MD Attending Provider Active Start: March 26, 2025 End: March 26, 2025 Team Status: Inactive Member Role/Relationship Status Dates No Primary Care Physician Primary Care Provider Active Start: April 02, 2025 End: April 03, 2025 Dr. Dilcia Das MD Attending Provider Active Start: April 02, 2025 End: April 03, 2025 Dr. Dilcia Das MD Referring Provider Active Start: April 02, 2025 End: April 03, 2025 Team Status: Active Member Role/Relationship Status Dates No Primary Care Physician Primary Care Provider Active Start: April 02, 2025 Dr. Dilcia Das MD Attending Provider Active Start: April 02, 2025 Dr. Dilcia Das MD Referring Provider Active Start: April 02, 2025 Dr. Dilcia Das MD Other Provider Active Start: April 02, 2025 Team Status: Active Member Role/Relationship Status Dates No Primary Care Physician Primary Care Provider Active Start: April 03, 2025 Dr. Dilcia Das MD Attending Provider Active Start: April 03, 2025 Dr. Dilcia Das MD Referring Provider Active Start: April 03, 2025 Dr. Dilcia Das MD Other Provider Active Start: April 03, 2025 Team Status: Inactive Member Role/Relationship Status Dates No Primary Care Physician Primary Care Provider Active Start: April 03, 2025 End: April 03, 2025 Shanika Elliott CNM Attending Provider Active Start: April 03, 2025 End: April 03, 2025 Team Status: Active Member Role/Relationship Status Dates No Primary Care Physician Primary Care Provider Active Start: April 04, 2025 Shanika Elliott CNM Other Provider Active Star t: April 04, 2025 Dr. Dilcia Das MD Attending Provider Active Start: April 04, 2025 Team Status: Inactive Member Role/Relationship Status Dates No Primary Care Physician Primary Care Provider Active Start: April 26, 2025 End: April 26, 2025 No Primary Care Physician Referring Provider Active Start: April 26, 2025 End: April 26, 2025 Dr. Marie Rascon DO Attending Provider Activ e Start: April 26, 2025 End: April 26, 2025 Team Status: Inactive Member Role/Relationship Status Dates No Primary Care Physician Primary Care Provider Active Start: January 21, 2025 End: January 21, 2025 No Primary Care Physician Referring Provider Active Start: January 21, 2025 End: January 21, 2025 Carmella Bone CNM Attending Provider Active S tart: January 21, 2025 End: January 21, 2025 Team Status: Inactive Member Role/Relationship Status Dates No Primary Care Physician Primary Care Provider Active Start: January 21, 2025 End: January 21, 2025 Carmella Bone CNM Attending Provider Active S tart: January 21, 2025 End: January 21, 2025 Carmella Bone CNM Referring Provider Active S tart: January 21, 2025 End: January 21, 2025 Team Status: Inactive Member Role/Relationship Status Dates No Primary Care Physician Primary Care Provider Active Start: February 26, 2025 End: February 26, 2025 No Primary Care Physician Referring Provider Active Start: February 26, 2025 End: February 26, 2025 Esther Vernon NP, TOY STUFFER-C Attending Provider Active Start: February 26, 2025 End: February 26, 2025 Team Status: Inactive Member Role/Relationship Status Dates No Primary Care Physician Primary Care Provider Active Start: March 26, 2025 End: March 26, 2025 No Primary Care Physician Referring Provider Active Start: March 26, 2025 End: March 26, 2025 Dr. Dilcia Das MD Attending Provider Active Start: March 26, 2025 End: March 26, 2025 Team Status: Inactive Member Role/Relationship Status Dates No Primary Care Physician Primary Care Provider Active Start: April 02, 2025 End: April 03, 2025 Dr. Dilcia Das MD Attending Provider Active Start: April 02, 2025 End: April 03, 2025 Dr. Dilcia Das MD Referring Provider Active Start: April 02, 2025 End: April 03, 2025 Team Status: Active Member Role/Relationship Status Dates No Primary Care Physician Primary Care Provider Active Start: April 02, 2025 Dr. Dilcia Das MD Attending Provider Active Start: April 02, 2025 Dr. Dilcia Das MD Referring Provider Active Start: April 02, 2025 Dr. Dilcia Das MD Other Provider Active Start: April 02, 2025 Team Status: Active Member Role/Relationship Status Dates No Primary Care Physician Primary Care Provider Active Start: April 03, 2025 Dr. Dilcia Das MD Attending Provider Active Start: April 03, 2025 Dr. Dilcia Das MD Referring Provider Active Start: April 03, 2025 Dr. Dilcia Das MD Other Provider Active Start: April 03, 2025 Team Status: Inactive Member Role/Relationship Status Dates No Primary Care Physician Primary Care Provider Active Start: April 03, 2025 End: April 03, 2025 Shanika Elliott CNM Attending Provider Active Start: April 03, 2025 End: April 03, 2025 Team Status: Active Member Role/Relationship Status Dates No Primary Care Physician Primary Care Provider Active Start: April 04, 2025 Shanika Elliott CNM Other Provider Active Star t: April 04, 2025 Dr. Dilcia Das MD Attending Provider Active Start: April 04, 2025 Team Status: Inactive Member Role/Relationship Status Dates No Primary Care Physician Primary Care Provider Active Start: April 26, 2025 End: April 26, 2025 No Primary Care Physician Referring Provider Active Start: April 26, 2025 End: April 26, 2025 Dr. Marie Rascon DO Attending Provider Activ e Start: April 26, 2025 End: April 26, 2025 Team Status: Inactive Member Role/Relationship Status Dates No Primary Care Physician Primary Care Provider Active Start: May 07, 2025 End: May 07, 2025 No Primary Care Physician Referring Provider Active Start: May 07, 2025 End: May 07, 2025 Esther Saulo TOY STUFFER, TOY STUFFER-C Attending Provider Active Start: May 07, 2025 End: May 07, 2025 Team Status: Active Member Role/Relationship Status Dates No Primary Care Physician Primary Care Provider Active Start: May 07, 2025 Esther Garfield TOY STUFFER, TOY STUFFER-C Attending Provider Active Start: May 07, 2025 Esther Garfield TOY STUFFER, TOY STUFFER-C Referring Provider Active Start: May 07, 2025 Team Status: Inactive Member Role/Relationship Status Dates No Primary Care Physician Primary Care Provider Active Start: May 07, 2025 End: May 07, 2025 Esther Saulo TOY STUFFER, TOY STUFFER-C Attending Provider Active Start: May 07, 2025 End: May 07, 2025 Esther Garfield TOY STUFFER, TOY STUFFER-C Referring Provider Active Start: May 07, 2025 End: May 07, 2025 Team Status: Inactive Member Role/Relationship Status Dates No Primary Care Physician Primary Care Provider Active Start: May 21, 2025 End: May 21, 2025 No Primary Care Physician Referring Provider Active Start: May 21, 2025 End: May 21, 2025 Dr. Dilcia Das MD Attending Provider Active Start: May 21, 2025 End: May 21, 2025 Team Status: Inactive Member Role/Relationship Status Dates No Primary Care Physician Primary Care Provider Active Start: February 26, 2025 End: February 26, 2025 No Primary Care Physician Referring Provider Active Start: February 26, 2025 End: February 26, 2025 Esther Vernon NP, TOY STUFFER-C Attending Provider Active Start: February 26, 2025 End: February 26, 2025 Team Status: Inactive Member Role/Relationship Status Dates No Primary Care Physician Primary Care Provider Active Start: March 26, 2025 End: March 26, 2025 No Primary Care Physician Referring Provider Active Start: March 26, 2025 End: March 26, 2025 Dr. Dilcia Das MD Attending Provider Active Start: March 26, 2025 End: March 26, 2025 Team Status: Inactive Member Role/Relationship Status Dates No Primary Care Physician Primary Care Provider Active Start: April 02, 2025 End: April 03, 2025 Dr. Dilcia Das MD Attending Provider Active Start: April 02, 2025 End: April 03, 2025 Dr. Dilcia Das MD Referring Provider Active Start: April 02, 2025 End: April 03, 2025 Team Status: Active Member Role/Relationship Status Dates No Primary Care Physician Primary Care Provider Active Start: April 02, 2025 Dr. Dilcia Das MD Attending Provider Active Start: April 02, 2025 Dr. Dilcia Das MD Referring Provider Active Start: April 02, 2025 Dr. Dilcia Das MD Other Provider Active Start: April 02, 2025 Team Status: Active Member Role/Relationship Status Dates No Primary Care Physician Primary Care Provider Active Start: April 03, 2025 Dr. Dilcia Das MD Attending Provider Active Start: April 03, 2025 Dr. Dilcia Das MD Referring Provider Active Start: April 03, 2025 Dr. Dilcia Das MD Other Provider Active Start: April 03, 2025 Team Status: Inactive Member Role/Relationship Status Dates No Primary Care Physician Primary Care Provider Active Start: April 03, 2025 End: April 03, 2025 Shanika Elliott CNM Attending Provider Active Start: April 03, 2025 End: April 03, 2025 Team Status: Active Member Role/Relationship Status Dates No Primary Care Physician Primary Care Provider Active Start: April 04, 2025 Shanika Elliott CNM Other Provider Active Star t: April 04, 2025 Dr. Dilcia Das MD Attending Provider Active Start: April 04, 2025 Team Status: Inactive Member Role/Relationship Status Dates No Primary Care Physician Primary Care Provider Active Start: April 26, 2025 End: April 26, 2025 No Primary Care Physician Referring Provider Active Start: April 26, 2025 End: April 26, 2025 Dr. Marie Rascon DO Attending Provider Activ e Start: April 26, 2025 End: April 26, 2025 Team Status: Inactive Member Role/Relationship Status Dates No Primary Care Physician Primary Care Provider Active Start: May 07, 2025 End: May 07, 2025 No Primary Care Physician Referring Provider Active Start: May 07, 2025 End: May 07, 2025 Esther Vernon TOY STUFFER, TOY STUFFER-C Attending Provider Active Start: May 07, 2025 End: May 07, 2025 Team Status: Inactive Member Role/Relationship Status Dates No Primary Care Physician Primary Care Provider Active Start: May 07, 2025 End: May 07, 2025 Esther Vernon TOY STUFFER, TOY STUFFER-C Attending Provider Active Start: May 07, 2025 End: May 07, 2025 Esther Vernon TOY STUFFER, TOY STUFFER-C Referring Provider Active Start: May 07, 2025 End: May 07, 2025 Team Status: Inactive Member Role/Relationship Status Dates No Primary Care Physician Primary Care Provider Active Start: May 21, 2025 End: May 21, 2025 No Primary Care Physician Referring Provider Active Start: May 21, 2025 End: May 21, 2025 Dr. Dilcia Das MD Attending Provider Active Start: May 21, 2025 End: May 21, 2025 Team Status: Inactive Member Role/Relationship Status Dates No Primary Care Physician Primary Care Provider Active Start: June 04, 2025 End: June 04, 2025 No Primary Care Physician Referring Provider Active Start: June 04, 2025 End: June 04, 2025 Carmella Bone CNM Attending Provider Active S tart: June 04, 2025 End: June 04, 2025 Team Status: Inactive Member Role/Relationship Status Dates No Primary Care Physician Primary Care Provider Active Start: June 18, 2025 End: June 18, 2025 No Primary Care Physician Referring Provider Active Start: June 18, 2025 End: June 18, 2025 Esther Vernon TOY STUFFER, TOY STUFFER-C Attending Provider Active Start: June 18, 2025 End: June 18, 2025 Team Status: Inactive Member Role/Relationship Status Dates No Primary Care Physician Primary Care Provider Active Start: March 26, 2025 End: March 26, 2025 No Primary Care Physician Referring Provider Active Start: March 26, 2025 End: March 26, 2025 Dr. Dilcia Das MD Attending Provider Active Start: March 26, 2025 End: March 26, 2025 Team Status: Inactive Member Role/Relationship Status Dates No Primary Care Physician Primary Care Provider Active Start: April 02, 2025 End: April 03, 2025 Dr. Dilcia Das MD Attending Provider Active Start: April 02, 2025 End: April 03, 2025 Dr. Dilcia Das MD Referring Provider Active Start: April 02, 2025 End: April 03, 2025 Team Status: Active Member Role/Relationship Status Dates No Primary Care Physician Primary Care Provider Active Start: April 02, 2025 Dr. Dilcia Das MD Attending Provider Active Start: April 02, 2025 Dr. Dilcia Das MD Referring Provider Active Start: April 02, 2025 Dr. Dilcia Das MD Other Provider Active Start: April 02, 2025 Team Status: Active Member Role/Relationship Status Dates No Primary Care Physician Primary Care Provider Active Start: April 03, 2025 Dr. Dilcia Das MD Attending Provider Active Start: April 03, 2025 Dr. Dilcia Das MD Referring Provider Active Start: April 03, 2025 Dr. Dilcia Das MD Other Provider Active Start: April 03, 2025 Team Status: Inactive Member Role/Relationship Status Dates No Primary Care Physician Primary Care Provider Active Start: April 03, 2025 End: April 03, 2025 Shanika Elliott CNM Attending Provider Active Start: April 03, 2025 End: April 03, 2025 Team Status: Active Member Role/Relationship Status Dates No Primary Care Physician Primary Care Provider Active Start: April 04, 2025 Shanika Elliott CNM Other Provider Active Star t: April 04, 2025 Dr. Dilcia Das MD Attending Provider Active Start: April 04, 2025 Team Status: Inactive Member Role/Relationship Status Dates No Primary Care Physician Primary Care Provider Active Start: April 26, 2025 End: April 26, 2025 No Primary Care Physician Referring Provider Active Start: April 26, 2025 End: April 26, 2025 Dr. Marie Rascon DO Attending Provider Activ e Start: April 26, 2025 End: April 26, 2025 Team Status: Inactive Member Role/Relationship Status Dates No Primary Care Physician Primary Care Provider Active Start: May 07, 2025 End: May 07, 2025 No Primary Care Physician Referring Provider Active Start: May 07, 2025 End: May 07, 2025 Esther Vernon TOY STUFFER, TOY STUFFER-C Attending Provider Active Start: May 07, 2025 End: May 07, 2025 Team Status: Inactive Member Role/Relationship Status Dates No Primary Care Physician Primary Care Provider Active Start: May 07, 2025 End: May 07, 2025 Esther Vernon TOY STUFFER, TOY STUFFER-C Attending Provider Active Start: May 07, 2025 End: May 07, 2025 Esther Vernon TOY STUFFER, TOY STUFFER-C Referring Provider Active Start: May 07, 2025 End: May 07, 2025 Team Status: Inactive Member Role/Relationship Status Dates No Primary Care Physician Primary Care Provider Active Start: May 21, 2025 End: May 21, 2025 No Primary Care Physician Referring Provider Active Start: May 21, 2025 End: May 21, 2025 Dr. Dilcia Das MD Attending Provider Active Start: May 21, 2025 End: May 21, 2025 Team Status: Inactive Member Role/Relationship Status Dates No Primary Care Physician Primary Care Provider Active Start: June 04, 2025 End: June 04, 2025 No Primary Care Physician Referring Provider Active Start: June 04, 2025 End: June 04, 2025 Carmella Bone CNM Attending Provider Active S tart: June 04, 2025 End: June 04, 2025 Team Status: Inactive Member Role/Relationship Status Dates No Primary Care Physician Primary Care Provider Active Start: June 18, 2025 End: June 18, 2025 No Primary Care Physician Referring Provider Active Start: June 18, 2025 End: June 18, 2025 Esther Vernon TOY STUFFER, TOY STUFFER-C Attending Provider Active Start: June 18, 2025 End: June 18, 2025 Team Status: Inactive Member Role/Relationship Status Dates No Primary Care Physician Primary Care Provider Active Start: July 02, 2025 End: July 02, 2025 No Primary Care Physician Referring Provider Active Start: July 02, 2025 End: July 02, 2025 Dr. Marie Rsacon , DO Attending Provider Activ e Start: July 02, 2025 End: July 02, 2025 Team Status: Active Member Role/Relationship Status Dates No Primary Care Physician Primary Care Provider Active Start: July 02, 2025 Dr. Marie Rascon , DO Attending Provider Activ e Start: July 02, 2025 Team Status: Inactive Member Role/Relationship Status Dates No Primary Care Physician Primary Care Provider Active Start: July 10, 2025 End: July 10, 2025 No Primary Care Physician Referring Provider Active Start: July 10, 2025 End: July 10, 2025 Carmella Bone CNM Attending Provider Active S tart: July 10, 2025 End: July 10, 2025 Team Status: Inactive Member Role/Relationship Status Dates No Primary Care Physician Primary Care Provider Active Start: July 02, 2025 End: July 02, 2025 Dr. Marie Rascon DO Attending Provider Activ e Start: July 02, 2025 End: July 02, 2025 Goals (unrecognized section and content) Goals may be documented in a n alternate sectionGoals may be documented in an alternate sectionGoals may be documented in an alternate sectionGoals may be documented in an alternate sectionGoals may be documented in an alternate sectionGoals may be documented in an alternate sectionGoals may be documented in an alternate sectionGoals may be documented in an alternate sectionGoals may be documented in an alternate sectionGoals may be documented in an alternate sectionGoals may be documented in an alternate sectionGoals may be documented in an alternate sectionGoals may be documented in an alternate sectionGoals may be documented in an alternate sectionGoals may be documented in an alternate sectionGoals may be documented in an alternate sectionGoals may be documented in an alternate sectionGoals may be documented in an alternate sectionGoals may be documented in an alternate section FOR RECORDS PERTAINING TO PATIENTS WHO ARE OR HAVE BEEN ENROLLED IN A CHEMICAL DEPENDENCY/SUBSTANCEABUSE PROGRAM, SOME INFORMATION MAY BE OMITTED. This clinical summary was aggregated from multiple sources. Caution should be exercised in using it in the provision of clinical care. This summary normalizes information from multiple sources, and as a consequence, information in this document may materially change the coding, format and clinical context of patient data. In addition, data may be omitted in some cases. CLINICAL DECISIONS SHOULD BE BASED ON THE PRIMARY CLINICAL RECORDS. [employer] [facility]. provides no warranty or guarantee of the accuracy or completeness of information in this document.
--- NOTE | 2025-07-13 08:25 | OB.TRI.PN_ITS ---
Progress Notes Date of Service: 07/13/25
--- NOTE | 2025-07-13 08:25 | OB.TRI.PN ---
Progress Notes Date of Service: 07/13/25
--- OUTSIDE RECORDS SUMMARY | 2025-07-13 08:50 | XMS RPT_ITS | CCD ---
Author Organization [facility] Care Team Providers Care Hospice Care Transitions Coordinator Name Role Phone Richa Brown Unavailable [phone] Unavailable Unavailable Unavailable Primary Care Provider Unavailabl [...] Marie Rascon Attending Provider [phone] Saulo LAW OFFICE RECEPTIONIST, ANJALI-Myesha Santana Attending Provider [phone] Dr. [...] Provider Dr. Dilcia Das MD Attending Provider Dr. Dilcia Das MD Referring Provider [phone] Marko GONZALEZ, Carmella Attending Provider [phone] Carmella Bone CNM Referring Provider [phone] NO PRIMARY CARE, MD Primary Care Unavailable LIZZY DWYER Attending Unavailable CARMELLA BONE Referring Unavailable Care Physician, No Primary Primary Care Provider Unavailable Care Physician, No Primary Referring Provider Un available Saulo LAW OFFICE RECEPTIONIST-CEsther Attending Provider Pippa GARNER, Dr. Ha Other Provider [phone] Earl CNM, Shanika Attending Provider [phone] Earl CNM, Shanika Other Provider [phone] Amna Avalos DO, Dr. Salazar Attending Provider Care Physician, No Primary Primary Care Provider Unavailable Pippa GARNER, Dr. Ha Attending Provider Dr. Dilcia Das MD Referring Provider Saulo LAW OFFICE RECEPTIONIST-CEsther Referring Provider Care Physician, No Primary Primary Care Provider Unavailable Care Physician, No Primary Referring Provider Un available Carmella Bone CNM Attending Provider [phone] Care Physician, No Primary Primary Care Provider Unavailable Care Physician, No Primary Referring Provider Un available Saulo LAW OFFICE RECEPTIONIST-CEsther Attending Provider Care Physician, No Primary Referring Unava ilable Marie Rascon Attending Unavailabl e Care Physician, No Primary Primary Care Unava ilable Care Physician, No Primary Referring Unava ilable Saulo LAW OFFICE RECEPTIONISTEsther Attending Unavailable Care Physician, No Primary Primary [...] Care Unava ilable Dilcia Das Attending Unavailable Craig LAW OFFICE RECEPTIONISTEsther Attending Unavailable Care Physician, No Primary Primary [...] Care Physician, No Primary Referring Unava ilable Craig LAW OFFICE RECEPTIONIST, Esther Attending Unavailable Care Physician, No Primary Primary Care Unava ilable Marie Rascon Attending [facility] Care Physician, No Primary Primary Care Unava ilable Care Physician, No Primary Referring Unava ilable Care Physician, No Primary Primary Care Unava ilable Marcanthony, Dilcia Attending Unavailable Care Physician, No Primary Primary Care Unava ilable Marcanthony, Dilcia Referring Unavailable Marcanthony, Dilcia Attending Unavailable Craig LAW OFFICE RECEPTIONIST, Esther Attending Unavailable Care Physician, No Primary Primary Care Unava ilable Saulo LAW OFFICE RECEPTIONIST, Esther Referring Unavailable Shanika Elliott Attending Unavailable [...] a day as needed for hemmorhoids Multivit 97-Xjue-Awiivr 1-Dh a (Pnv-Dha) 27 mg iron-1 mg [...] 19, 2023 1:00am January 01, 2025 10:20am Vit,Ghjy26-Ttap-Xtt ic (Prenatabs Fa) 29-1 mg tablet (12 sources) Start: 09-19-2023 End: 01-01-2025 Vit,Szhf12-Kupa-Rsw ic (Prenatabs Fa) 29-1 mg tablet Discontinued 1 {tbl} PO DAILY September 19, 2023 1:00am January 01, 2025 10:20am Start: 09-19-2023 End: 01-01-2025 Vit,Dlzk22-Rsvy-Wtp ic (Prenatabs Fa) 29-1 mg tablet Discontinued 1 {tbl} PO DAILY September 19, 2023 1:00am January 01, 2025 10:20am Start: 09-19-2023 take 1 tablet by ivon once daily Vit,Oset56-Yoip-Keqfr (Prenatab s Fa) 29-1 mg tablet Active [...] unspecified trimester] 01-27-2023 Episodic Comment on above: [id number] MITZI 09/23/23 boy Deuce BF-Zed Other complications [...] PRR, , MITZI 07/31, PC Deuce, [place] PRR, , MITZI 07/31, surprise PC Deuce, [...] Test Name Value Interpretation Reference Range Facility Building Insulation Supervisor Office Visit Reporton 07-10-2025 Building Insulation Supervisor Office Visit Report [facility]'s [address], [address] [place] [address] OFFICE VISIT Date of Service: 07/10/25 MR#: [id number] Acct: [id number] Name: FAROOQ TABOR Rep #: [id number] : 2000 Provider: CARLOS Nowak ams Age/Sex: 24/F [place] [facility] [place]: Signed Intake Vital Signs 06/04/25 15:17 07/02/25 10:22 07/10/25 15:19 Height 5 ft 1 in 5 ft 1 in 5 ft 1 in Weight: 133 lb 5 oz BMI 25.2 BP 106/62 Intake Visit Reasons: 37 WK OB Chief Complaint: 37wk OB Jar Capper Required: No Is patient in pain?: No [...] ( hemorrhage) (spontaneous vaginal delivery) Surgical History [place] teeth extracted Family History Mother IBS (irritable [...] physical activity do you participate in: none ruth/bahai: None seatbelt use: always do you feel safe at home: Yes 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 ?-???-???-???-???-???- (more content not included)... Normal [facility] Rule out Beta Strep (Grp. B) on 07-05-2025 KENN Group B Beta Streptococcus is not isolated. Normal [facility] Comment on above: Performed By: #### M 100.3400 ####[facility] [address] [place], [address] Laboratory - Chemistry and C hemistry - challengeOrdered By: Marie Avalos on 07-02-2025 Glucose Ql (U) Negative [facility] Laboratory - UrinalysisOrder ed By: Marie Avalos on 07-02-2025 Protein Ql (U) Negative [facility] Building Insulation Supervisor Office Visit Reporton 07-02-2025 Building Insulation Supervisor Office Visit Report [facility]'s [address], [address] [place] [address] OFFICE VISIT Date of Service: 07/02/25 MR#: [id number] Acct: [id number] Name: TABORFAROOQ Godinez MELIA Rep #: [id number] : 2000 Provider: Dr. Marie Galindo DO Age/Sex: 24/F [place] [facility] [place] Status: Signed Intake Vital Signs 05/07/25 09:59 06/18/25 10:05 07/02/25 10:20 07/02/25 10:22 Height 5 ft 1 in 5 ft 1 in 5 ft 1 in 5 ft 1 in Weight: 132 lb 7 oz BMI 25.0 BP 112/68 Intake Visit Reasons: 36wk ob Jar Capper Required: No Is patient in pain?: No [...] ( hemorrhage) (spontaneous vaginal delivery) Surgical History [place] teeth extracted Family History Mother IBS (irritable [...] physical activity do you participate in: none ruth/bahai: None seatbelt use: always do you feel [...] 7#10 Male epidural [facility] Francisca dsay Elliott [place] HPI 36wk ob Details: FAROOQ TABOR is [...] KW- CRL cons with dates. Declines NIPT. [facility] ordered. 02/26/25 -???-???-???-???-???-?? ?-???-???-???-???-???-? ??- 17w 6d 111 lb 4 oz (+3 lb 4 oz) 96/58 Negative -???-???-???-???-???-?? ?-???-???-???-???-???-? ??- Negative 161 -???-???-???-???-???-?? ?-???-???-???-???-???-? ??- -No VB. So me flutters. Nl PN labs. [facility] 5/6 03/26/25 -???-???-???-???-???-?? ?-???-???-???-???-???-? ??- 21w 6d 116 lb 8 oz (+8 lb 8 oz) 104/66 Negative -???-???-???-???-???-?? ?-???-???-???-???-???-? ?? (more content not included)... Normal [facility] Screening beta-hemolytic Str eptococcus cultureOrdered By: Marie Avalos on 07-02-2025 Beta-hemolytic Streptococcus culture Group B Beta Streptococcus is not isolated. [facility] Laboratory - Chemistry and C hemistry - challengeOrdered By: Esther Vernon on 06-18-2025 Glucose Ql (U) Negative [facility] Laboratory - UrinalysisOrder ed By: Esther Vernon on 06-18-2025 Protein Ql (U) Negative [facility] Building Insulation Supervisor Office Visit Reporton 06-18-2025 Building Insulation Supervisor Office Visit Report [facility], [address] [place] [address] OFFICE VISIT Date of Service: 06/18/25 MR#: [id number] Acct: [id number] Name: FAROOQ TABOR Rep #: [id number] : 2000 Provider: HERNÁN christiansen Age/Sex: 24/F [place] [facility] [place] Status: Signed Intake Vital Signs 05/07/25 09:59 06/04/25 15:17 06/18/25 10:00 06/18/25 10:05 Height 5 ft 1 in 5 ft 1 in 5 ft 1 in 5 ft 1 in Weight: 130 lb 129 lb 8 oz BMI 24.5 24.5 BP 99/66 98/64 Intake Visit Reasons: 34wk ob Chief Complaint: 34 Week OB Jar Capper Required: No Is patient in pain?: No [...] ( hemorrhage) (spontaneous vaginal delivery) Surgical History [place] teeth extracted Family History Mother IBS (irritable [...] physical activity do you participate in: none ruth/bahai: None seatbelt use: always do you feel [...] VB. So me flutters. Nl PN labs. [facility] /6 03/26/25 -???-???-???-???-???-?? ?-???-???-???-???-???-? ??- 21w 6d 116 lb 8 oz (+8 lb 8 oz) 104/66 Negative -???-? (more content not included)... Normal [facility] Laboratory - Chemistry and C hemistry - challengeOrdered By: Carmella Bone on 06-04-2025 Glucose Ql (U) Negative [facility] Laboratory - UrinalysisOrder ed By: Carmella Bone on 06-04-2025 Protein Ql (U) Negative [facility] Building Insulation Supervisor Office Visit Reporton 06-04-2025 Building Insulation Supervisor Office Visit Report [facility]'s [address], [address] [place] [address] OFFICE VISIT Date of Service: 06/04/25 MR#: [id number] Acct: [id number] Name: FAROOQ TABOR Rep #: [id number] : 2000 Provider: CARLOS Nowak ams Age/Sex: 24/F [place] [facility] [place] Status: Signed Intake Vital Signs 05/07/25 09:59 05/21/25 10:15 06/04/25 15:17 Height 5 ft 1 in 5 ft 1 in 5 ft 1 in Weight: 130 lb BMI 24.5 BP 99/66 Intake Visit Reasons: 32wk ob Chief Complaint: 32wk ob Jar Capper Required: No Is patient in pain?: No [...] ( hemorrhage) (spontaneous vaginal delivery) Surgical History [place] teeth extracted Family History Mother IBS (irritable [...] physical activity do you participate in: none ruth/bahai: None seatbelt use: always do you feel [...] live - full term 7#10 Male epidural [facility] Francisca Elliott [place] HPI 32wk ob Details: FAROOQ TABOR is a 24 year old who presents for routine OB visit. OB Visit MITZI Calculator Estimated Delivery Date Method Current WG Current Estimate 07/31/25 LMP (Certain) 31w 6d Other Estimates 07/28/25 Ultrasound #1 32w 2d Expected Delivery Route/Plan Labor Preferences- CB/BF classes: no labor support person: [place] labor intervention preferences: [] pain management options [...] ??- S (more content not included)... Normal [facility] Laboratory - Chemistry and C hemistry - challengeOrdered By: Dilcia Das on 05-21-2025 Glucose Ql (U) Negative [facility] Laboratory - UrinalysisOrder ed By: Dilcia Das on 05-21-2025 Protein Ql (U) Negative [facility] Building Insulation Supervisor Office Visit Reporton 05-21-2025 Building Insulation Supervisor Office Visit Report [address], [address] [place] [address] OFFICE VISIT Date of Service: 05/21/25 MR#: [id number] Acct: [id number] Name: FAROOQ TABOR Rep #: [id number] : 2000 Provider: Dr. Dilcia beard MD Age/Sex: 24/F [place] [facility] [place] Status: Signed Intake Vital Signs 03/26/25 10:09 05/07/25 09:59 05/21/25 10:12 05/21/25 10:15 Height 5 ft 1 in 5 ft 1 in 5 ft 1 in 5 ft 1 in Weight: 124 lb 8 oz BMI 23.5 BP 107/60 Intake Visit Reasons: 30 wk ob Jar Capper Required: No Is patient in pain?: No [...] ( hemorrhage) (spontaneous vaginal delivery) Surgical History [place] teeth extracted Family History Mother IBS (irritable [...] physical activity do you participate in: none ruth/bahai: None seatbelt use: always do you feel [...] 7#10 Male epidural [facility] Francisca dsay [place] HPI 30 wk ob Details: FAROOQ TABOR [...] KW- CRL cons with dates. Declines NIPT. [facility] ordered. 02/26/25 -???-???-???-???-???-?? ?-???-???-???-???-???-? ??- 17w 6d 111 lb 4 oz (+3 lb 4 oz) 96/58 Negative -???-???-???-???-???-?? ?-???-???-???-???-???-? ??- Negative 161 -???-???-???-???-???-?? ?-???-???-???-???-???-? ??- MH-No VB. So me flutters. Nl PN labs. [facility] 5/6 03/26/25 -???-???-???-???-???-?? ?-???-???-???-???-???-? ??- 21w 6d 116 lb 8 oz (+8 lb 8 oz) 104/66 Negative -???-???-???-???-???-?? ?-???-???-???-???-???-? ??- Negative 155 (more content not included)... Normal [facility] Absolute lymphocyte countOrd ered By: Marie Avalos on 05-07-2025 Lymphocytes Auto (Unsp spec) [#/Vol] 1.46 10*3/uL 0.83-4.51 [facility] Absolute neutrophil countOrd ered By: Marie Avalos on 05-07-2025 Neutrophils (Bld) [#/Vol] 6.6 10*3/uL 2.0-7.7 [facility] Automated lymphocyte count a s percentage of total leukocytesOrdered By: Marie Avalos on 05-07-2025 Lymphocytes/100 WBC Auto (Unsp spec) 16.3 % Low 19-41 [facility] Basophil percentageOrdered B y: Marie Avalos on 05-07-2025 Basophils/100 WBC (Bld) 0.4 % 0-[address] [facility] CBC W/Diff, Automatedon Absolute Lymph 1.46 X10 3/uL Normal 0.83-4.51 [facility] Comment on above: Performed By: #### L 509.8002, L501.0250, L3890.6006, L100.0100 ####[facility] [address] [place], [address] Absolute Neut 6.6 X10 3/uL Normal 2.0-7.7 [facility] Comment on above: Performed By: #### L 509.8002, L501.0250, L3890.6006, L100.0100 ####[facility] [address] [place], [address] Basophils/100 WBC (Bld) 0.4 % Normal 0-[address] [facility] Comment on above: Performed By: #### L 509.8002, L501.0250, L3890.6006, L100.0100 ####[facility] [address] [place], [address] Eosinophils/100 WBC (Bld) 1.0 % Normal 0-5 [facility] Comment on above: Performed By: #### L 509.8002, L501.0250, L3890.6006, L100.0100 ####[facility] [address] [place], [address] Erythrocyte distribution width (RBC) [Ratio] 13.2 % Normal 11.6-14.6 [facility] Comment on above: Performed By: #### L 509.8002, L501.0250, L3890.6006, L100.0100 ####[facility] [address] [place], [address] Hematocrit (Bld) [Volume fraction] 33.0 % Low 37-47 [facility] Comment on above: Performed By: #### L 509.8002, L501.0250, L3890.6006, L100.0100 ####[facility] [address] [place], [address] Hemoglobin (Bld) [Mass/Vol] 10.8 g/dL Low 12.0-15.0 [facility] Comment on above: Performed By: #### L 509.8002, L501.0250, L3890.6006, L100.0100 ####[facility] [address] [place], [address] IG% 0.800 Normal 0.0-0.9 [facility] Comment on above: Result Comment: IG% - Immature Granulocytes (promyelocytes, myelocytes and metamyelocytes) > 1% indicates that a LEFT SHIFT is Present. Performed By: #### L 509.8002, L501.0250, L3890.6006, L100.0100 ####[facility] [address] [place], [address] Lymphocytes/100 WBC (Bld) 16.3 % Low 19-41 [facility] Comment on above: Performed By: #### L 509.8002, L501.0250, L3890.6006, L100.0100 ####[facility] [address] [place], [address] MCH (RBC) [Entitic mass] 31.2 pg Normal 27.0-32.0 [facility] Comment on above: Performed By: #### L 509.8002, L501.0250, L3890.6006, L100.0100 ####[facility] [address] [place], [address] MCHC (RBC) [Mass/Vol] 32.7 g/dL Normal 32-36 [facility] Comment on above: Performed By: #### L 509.8002, L501.0250, L3890.6006, L100.0100 ####[facility] [address] [place], [address] MCV (RBC) [Entitic vol] 95.4 fL Normal 81-99 [facility] Comment on above: Performed By: #### L 509.8002, L501.0250, L3890.6006, L100.0100 ####[facility] [address] [place], [address] Monocytes/100 WBC (Bld) 7.8 % Normal 0-10 [facility] Comment on above: Performed By: #### L 509.8002, L501.0250, L3890.6006, L100.0100 ####[facility] [address] [place], [address] Neutrophils/100 WBC (Bld) 73.7 % High 47-70 [facility] Comment on above: Performed By: #### L 509.8002, L501.0250, L3890.6006, L100.0100 ####[facility] [address] [place], [address] Nucleated RBC (Bld) [#/Vol] 0 10*3/uL Normal 0-5 [facility] Comment on above: Performed By: #### L 509.8002, L501.0250, L3890.6006, L100.0100 ####[facility] [address] [place], [address] Platelet mean volume (Bld) [Entitic vol] 10.4 fL Normal 6.2-12.0 [facility] Comment on above: Performed By: #### L 509.8002, L501.0250, L3890.6006, L100.0100 ####[facility] [address] [place], [address] Platelets (Bld) [#/Vol] 249 10*3/uL Normal 150-450 [facility] Comment on above: Performed By: #### L 509.8002, L501.0250, L3890.6006, L100.0100 ####[facility] [address] [place], [address] RBC (Bld) [#/Vol] 3.46 10*6/uL Low 4.2-5.4 [facility] Comment on above: Performed By: #### L 509.8002, L501.0250, L3890.6006, L100.0100 ####[facility] [address] [place], [address] RDW SD 45.9 fl High 35.1-43.9 [facility] Comment on above: Performed By: #### L 509.8002, L501.0250, L3890.6006, L100.0100 ####[facility] [address] [place], [address] WBC (Bld) [#/Vol] 9.0 10*3/uL Normal 4.4-11.0 [facility] Comment on above: Performed By: #### L 509.8002, L501.0250, L3890.6006, L100.0100 ####[facility] [address] [place], [address] Eosinophil percentageOrdered By: Marie Avalos on 05-07-2025 Eosinophils/100 WBC (Bld) 1.0 % 0-5 [facility] Erythrocyte distribution wid th ratioOrdered By: Marie Avalos on 05-07-2025 Erythrocyte distribution width (RBC) [Ratio] 13.2 % 11.6-14.6 [facility] Erythrocyte distribution wid th standard deviationOrdered By: Mariebarrett Avalos on 05-07-2025 Erythrocyte distribution width (RBC) [Ratio] 45.9 fl High 35.1-43.9 [facility] Glucose Challenge Gest 1H 50 salvador 05-07-2025 GLU GEST 50g 1H 74 mg/dL Normal 70-140 [facility] Comment on above: Performed By: #### L 509.8002, L501.0250, L3890.6006, L100.0100 ####[facility] [address] [place], [address] Glucose measurement at 2 jose rs post-dose gestational glucose tolerance testOrdered By: Marie Avalos on 05-07-2025 Glucose [Mass/Vol] 74 mg/dL 70-140 [facility] HIVon 05-07-2025 HIV Non-Reactive Normal Nonreactive [facility] Comment on above: Result Comment: Non- Reactive Reactive Repeatedly reactive samples must be confirmed according to CDC recommended confirmatory algorithms. The subresults for either HIVAG or AHIV can be used as an aid in the selection of the confirmation algorithm for reactive samples. Send out specimens with Reactive results to [facility] for confirmation. Order the HIV antibody detection and differentiation: lc#[id number] Performed By: #### L 509.8002, L501.0250, L3890.6006, L100.0100 ####[facility] [address] [place], [address] Hematocrit Auto (Bld) [Volum e fraction]Ordered By: Marie Avalos on 05-07-2025 Hematocrit (Bld) [Volume fraction] 33.0 % Low 37-47 [facility] Hemoglobin measurementOrdere d By: Marie Avalos on 05-07-2025 Hemoglobin (Bld) [Mass/Vol] 10.8 g/dL Low 12.0-15.0 [facility] Immature granulocytes/100 WB C Auto (Bld)Ordered By: Marie Avalos on 05-07-2025 Immature granulocytes/100 WBC (Bld) 0.800 % 0.0-0.9 [facility] Comment on above: IG% - Immature Granu locytes (promyelocytes, myelocytes and metamyelocytes) > 1% indicates that a LEFT SHIFT is Present. Laboratory - Chemistry and C hemistry - challengeOrdered By: Esther Vernon on 05-07-2025 Glucose Ql (U) Negative [facility] Laboratory - UrinalysisOrder ed By: Esther Vernon on 05-07-2025 Protein Ql (U) Negative [facility] MCV (mean corpuscular volume ) determinationOrdered By: Marie Avalos on 05-07-2025 MCV (RBC) [Entitic vol] 95.4 fL 81-[address] [facility] Mean corpuscular hemoglobin (MCH) determinationOrdered By: Marie Avalos on 05-07-2025 MCH (RBC) [Entitic mass] 31.2 pg 27.0-32.0 [facility] Mean corpuscular hemoglobin concentration (MCHC) determinationOrdered By: Marie Avalos on 05-07-2025 MCHC (RBC) [Mass/Vol] 32.7 g/dL 32-36 [facility] Mean platelet volume determi nationOrdered By: Marie Avalos on 05-07-2025 Platelet mean volume (Bld) [Entitic vol] 10.4 fL 6.2-12.0 [facility] Monocyte percentageOrdered B y: Marie Avalos on 05-07-2025 Monocytes/100 WBC (Bld) 7.8 % 0-[address] [facility] Neutrophil percentageOrdered By: Marie Avalos on 05-07-2025 Neutrophils/100 WBC (Bld) 73.7 % High 47-70 [facility] No Panel InformationOrdered By: Marie Avalos on 05-07-2025 HIV (1&2) Antibody Non-Reactive Nonreactive [facility] Comment on above: Non-ReactiveReactive Repeatedly reactive samples must be confirmed according to CDC recommended confirmatory algorithms. The subresults for either HIVAG or AHIV can be used as an aid in the selection of the confirmation algorithm for reactive samples.Send out specimens with Reactive results to [facility] for confirmation.Order the HIV antibody detection and differentiation: #[id number] Nucleated red blood cell per centageOrdered By: Marie Avalos on 05-07-2025 Nucleated RBC/100 WBC (Bld) [Ratio] 0 % 0-5 [facility] Building Insulation Supervisor Office Visit Reporton 05-07-2025 Building Insulation Supervisor Office Visit Report [facility] [address], [address] [place] [address] OFFICE VISIT Date of Service: 05/07/25 MR#: [id number] Acct: [id number] Name: FAROOQ TABOR Rep #: [id number] : 2000 Provider: HERNÁN christiansen Age/Sex: 24/F [place] [facility] [place] Status: Signed Intake Vital Signs 02/26/25 09:31 04/26/25 15:44 05/07/25 09:59 Height 5 ft 1 in 5 ft 1 in 5 ft 1 in Weight: 126 lb 2 oz BMI 23.8 BP 100/60 Intake Visit Reasons: 28 wk ob/glucose Chief Complaint: 28 Week OB/Glucose Jar Capper Required: No Is patient in pain?: No [...] ( hemorrhage) (spontaneous vaginal delivery) Surgical History [place] teeth extracted Family History Mother IBS (irritable [...] physical activity do you participate in: none ruth/bahai: None seatbelt use: always do you feel safe at home: Yes 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 Date Name GA/Weeks Outcome Route Bth Weight Gen Labor Lgth Anesthesia Del Locatn Provider FOB 09/19/23 Deuce 39 live - full term 7#10 Male epidural [facility] Francisca mireya [place] HPI 28 [...] ??- SM- (more content not included)... Normal [facility] Platelet countOrdered By: Cruz Avalos on 05-07-2025 Platelets (Bld) [#/Vol] 249 10*3/uL 150-450 [facility] RBC Auto (Bld) [#/Vol]Ordere d By: Marie Avalos on 05-07-2025 RBC (Bld) [#/Vol] 3.46 10*6/uL Low 4.2-5.4 [facility] Syphilis Antibodieson 2024 Syphilis Abs Non-Reactive Normal Nonreactive [facility] Comment on above: Performed By: #### L 509.8002, L501.0250, L3890.6006, L100.0100 ####[facility] [address] [place], [address] White blood cell (WBC) count Ordered By: Marie Avalos on 05-07-2025 WBC (Bld) [#/Vol] 9.0 10*3/uL 4.4-11.0 [facility] Laboratory - Chemistry and C hemistry - challengeOrdered By: Marie Avalos on 04-26-2025 Glucose Ql (U) Negative [facility] Laboratory - UrinalysisOrder ed By: Marie Avalos on 04-26-2025 Protein Ql (U) Negative [facility] Building Insulation Supervisor Office Visit Reporton 04-26-2025 Building Insulation Supervisor Office Visit Report [facility]'s [address], [address] [place] [address] OFFICE VISIT Date of Service: 04/26/25 MR#: [id number] Acct: [id number] Name: FAROOQ TABOR Rep #: [id number] : 2000 Provider: Dr. Marie Galindo DO Age/Sex: 24/F [place] [facility] [place] Status: Signed Intake Vital Signs 02/26/25 09:31 04/02/25 21:20 04/26/25 15:44 04/26/25 15:44 Height 5 ft 1 in 5 ft 1 in 5 ft 1 in 5 ft 1 in Weight: 122 lb 2 oz BMI 23.1 BP 107/66 Intake Visit Reasons: 26 wk ob Jar Capper Required: No Is patient in pain?: No [...] ( hemorrhage) (spontaneous vaginal delivery) Surgical History [place] teeth extracted Family History Mother IBS (irritable [...] physical activity do you participate in: none ruth/bahai: None seatbelt use: always do you feel [...] vb lo f good fm nro egualr [facility] 04/01 (more content not included)... Normal [facility] OB Triage Progress Noteon OB Triage Progress Note [facility] Medical Records Department [address] [place] [address] OB Triage Progress Note 04/04/252234 MR#: [id number] Acct: [id number] Name: FAROOQ TABOR Rep #: [id number] : 2000 24 From: Dilcia Das MD PCP: Care Physician,No Primary Status:DEP CLI Y DOS: Location: [facility] Progress Notes Date of Service: 04/03/25 Progress Note: 23 weeks vaginal bleeding celestone shot given for prematurity 04/04/252235 Date Dilcia Das MD Cosigner Signature (if applicable): Date CC: Dr. Dilcia Das MD; No Primary Care Physician Signed Normal [facility] Urine Cultureon 04-04-2025 URC Clinical correlation necessary, Possible skin contamination. Presumptive Lactobacillus sp. [place] Count 11,000-25,000 Normal [facility] Comment on above: Performed By: #### L 300.4700, L300.4310, M100.2200, L400.0001, BTS, L300.3900 ####[facility] [address] [place], [address] (ROM) Rupture Of Membraneson 04-03-2025 ROM Negative Normal Negative [facility] Comment on above: Result Comment: Amni otic fluid not present indicates No Rupture of Membranes at time of specimen collection. Performed By: #### L 205.1000 ####[facility] [address] [place], [address] Fibrinogenon 04-03-2025 FIBRINOGEN 262 mg/dl Normal 203-444 [facility] Comment on above: Performed By: #### L 300.4700 ####[facility] [address] [place], [address] OB Limited With Biometricson 04-03-2025 OB Limited With Biometrics [facility] Imaging Services [address] [place] [address] OB Limited With Biometrics MR#: [id number] Acct: [id number] Name: FAROOQ TABOR Rep #: [id number] : 2000 F 24 From: Edward Mosley MD PCP: Care Physician,No Primary Status: REG CLI Study: OB Limited With Biometrics Date of Exam: 04/03 Exam# [id number] Ordering Dr: Dilcia Das PROCEDURE: OB LIMITED [...] 2. Other findings documented above. Reading Location: [place] [address] CC: Dr. Dilcia Das MD; No Primary Care Physician Emery Grinder: Signed Normal [facility] OB Triage Physician Noteon 0 04-03-2025 OB Triage Physician Note [facility] Medical Records Department [address] [place] [address] OB Triage Physician Note 04/03/25 0632 MR#: [id number] Acct: [id number] Name: FAROOQ TABOR Rep #: [id number] : 2000 24 From: Dilcia Das MD PCP: Care Physician,No Primary Status:DEP CLI Y Location: [facility] HPI - General HPI Narrative FAROOQ TABOR [...] Mother IBS (irritable bowel syndrome) Surgical History [place] teeth extracted Social History adopted: No household [...] physical activity do you participate in: none ruth/bahai: None seatbelt use: always do you feel safe at home: Yes 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 Date Name GA/Weeks Outcome Route Bth Weight Infant Gen Labor Lgth Anesthesia Del Locatn Provider FOB 09/19/23 Deuce 39 live - full term 7#10 Male epidural [facility] Francisca Elliott [place] Visit Details Expected Delivery Route/Plan Labor Preferences- [...] ENT H (more content not included)... Normal [facility] (ROM) Rupture Of Membraneson 04-02-2025 ROM Positive Abnormal Negative [facility] Comment on above: Result Comment: Amni otic fluid present indicates rupture of Membranes. RESULTS CALLED TO JADE GONZALEZ 04/02/25 2244 Louise Crawley. REPORT READ BACK BY SAME. Performed By: #### L 205.1000 ####[facility] [address] [place], [address] Absolute lymphocyte countOrd ered By: Dilcia Das on 04-02-2025 Lymphocytes Auto (Unsp spec) [#/Vol] 2.22 10*3/uL 0.83-4.51 [facility] Absolute neutrophil countOrd ered By: Dilcia Das on 04-02-2025 Neutrophils (Bld) [#/Vol] 8.9 10*3/uL High 2.0-7.7 [facility] Activated partial thrombopla stin time (aPTT) in platelet poor plasma by coagulation aOrdered By: Dilcia Das on 04-02-2025 aPTT Coag (PPP) [Time] 25.4 s 24.1-36.2 [facility] Automated blood erythrocyte countOrdered By: Dilcia Das on 04-02-2025 RBC (Bld) [#/Vol] 3.23 10*6/uL Low 4.2-5.4 [facility] Comment on above: Performed By: #### L 100.0100 ####[facility] [address] [place], [place], [phone] Automated blood hematocrit ( percentage)Ordered By: Dilcia Das on 04-02-2025 Hematocrit (Bld) [Volume fraction] 29.8 % Low 37-47 [facility] Comment on above: Performed By: #### L 100.0100 ####[facility] [address] [place], [place], [phone] Automated lymphocyte count a s percentage of total leukocytesOrdered By: Dilcia Das on 04-02-2025 Lymphocytes/100 WBC Auto (Unsp spec) 17.9 % Low 19-41 [facility] Basophil percentageOrdered B y: Dilcia Das on 04-02-2025 Basophils/100 WBC (Bld) 0.4 % 0-[address] [facility] Comment on above: Performed By: #### L 100.0100 ####[facility] [address] [place], [place], [phone] Bilirubin Test strip Ql (U)O rdered By: Dilcia Das on 04-02-2025 Bilirubin Ql (U) Negative Negative [facility] CBC W/Diff, Automatedon Absolute Lymph 2.22 X10 3/uL Normal 0.83-4.51 [facility] Comment on above: Performed By: #### L 100.0100 ####[facility] [address] [place], [address] Absolute Neut 8.9 X10 3/uL High 2.0-7.7 [facility] Comment on above: Performed By: #### L 100.0100 ####[facility] [address] [place], [address] IG% 0.600 Normal 0.0-0.9 [facility] Comment on above: Result Comment: IG% - Immature Granulocytes (promyelocytes, myelocytes and metamyelocytes) > 1% indicates that a LEFT SHIFT is Present. Performed By: #### L 100.0100 ####[facility] [address] [place], [address] Lymphocytes/100 WBC (Bld) 17.9 % Low 19-41 [facility] Comment on above: Performed By: #### L 100.0100 ####[facility] [address] [place], [address] Nucleated RBC (Bld) [#/Vol] 0 10*3/uL Normal 0-5 [facility] Comment on above: Performed By: #### L 100.0100 ####[facility] [address] [place], [address] RDW SD 46.5 fl High 35.1-43.9 [facility] Comment on above: Performed By: #### L 100.0100 ####[facility] [address] [place], [address] Eosinophil percentageOrdered By: Dilcia Das on 04-02-2025 Eosinophils/100 WBC (Bld) 1.4 % 0-5 [facility] Comment on above: Performed By: #### L 100.0100 ####[facility] [address] [place], [address] Erythrocyte distribution wid th ratioOrdered By: Dilcia Das on 04-02-2025 Erythrocyte distribution width (RBC) [Ratio] 13.7 % 11.6-14.6 [facility] Comment on above: Performed By: #### L 100.0100 ####[facility] [address] [place], [address] Erythrocyte distribution wid th standard deviationOrdered By: Dilcia Das on 04-02-2025 Erythrocyte distribution width (RBC) [Ratio] 46.5 fl High 35.1-43.9 [facility] Fibrinogenon 04-02-2025 FIBRINOGEN 292 mg/dl Normal 203-444 [facility] Comment on above: Performed By: #### L 300.4700, L300.4310, M100.2200, L400.0001, BTS, L300.3900 ####[facility] [address] [place], [address] Hemoglobin measurementOrdere d By: Dilcia Das on 04-02-2025 Hemoglobin (Bld) [Mass/Vol] 10.3 g/dL Low 12.0-15.0 [facility] Comment on above: Performed By: #### L 100.0100 ####[facility] [address] [place], [address] Immature granulocytes/100 WB C Auto (Bld)Ordered By: Dilcia Das on 04-02-2025 Immature granulocytes/100 WBC (Bld) 0.600 % 0.0-0.9 [facility] Comment on above: IG% - Immature Granu locytes (promyelocytes, myelocytes and metamyelocytes) > 1% indicates that a LEFT SHIFT is Present. International normalized rat io (INR) calculationOrdered By: Dilcia Das on 04-02-2025 INR Coag (Bld) [Relative time] 1.0 {INR} [facility] Ketones Test strip Ql (U)Ord ered By: Dilcia Das on 04-02-2025 Ketones Ql (U) Negative Negative [facility] MCV (mean corpuscular volume ) determinationOrdered By: Dilcia Das on 04-02-2025 MCV (RBC) [Entitic vol] 92.3 fL 81-[address] [facility] Comment on above: Performed By: #### L 100.0100 ####[facility] [address] [place], [place], [phone] Mean corpuscular hemoglobin (MCH) determinationOrdered By: Dilcia Das on 04-02-2025 MCH (RBC) [Entitic mass] 31.9 pg 27.0-32.0 [facility] Comment on above: Performed By: #### L 100.0100 ####[facility] [address] [place], [place], [phone] Mean corpuscular hemoglobin concentration (MCHC) determinationOrdered By: Dilcia Das on 04-02-2025 MCHC (RBC) [Mass/Vol] 34.6 g/dL 32-36 [facility] Comment on above: Performed By: #### L 100.0100 ####[facility] [address] [place], [place], [phone] Mean platelet volume determi nationOrdered By: Dilcia Das on 04-02-2025 Platelet mean volume (Bld) [Entitic vol] 10.1 fL 6.2-12.0 [facility] Comment on above: Performed By: #### L 100.0100 ####[facility] [address] [place], [place], [phone] Microscopic analysis of urin e for red blood cells (RBC)Ordered By: Dilcia Das on 04-02-2025 Microscopic analysis of urine for red blood cells (RBC) 10-25 SEEN /hpf 0-5 [facility] Monocyte percentageOrdered B y: Dilcia Das on 04-02-2025 Monocytes/100 WBC (Bld) 8.2 % 0-[address] [facility] Comment on above: Performed By: #### L 100.0100 ####[facility] [address] [place], [place], [address] Mucus LM Ql (Urine sed)Order ed By: Dilcia Das on 04-02-2025 Mucus Ql (Urine sed) 0 SEEN /hpf [facility] Neutrophil percentageOrdered By: Dilcia Das on 04-02-2025 Neutrophils/100 WBC (Bld) 71.5 % High 47-70 [facility] Comment on above: Performed By: #### L 100.0100 ####[facility] [address] [place], [place], [phone] Nitrite Test strip Ql (U)Ord ered By: Dilcia Das on 04-02-2025 Nitrite Ql (U) Negative Negative [facility] Nucleated red blood cell per centageOrdered By: Dilcia Das on 04-02-2025 Nucleated RBC/100 WBC (Bld) [Ratio] 0 % 0-5 [facility] OB Triage Physician Noteon 0 04-02-2025 OB Triage Physician Note [facility] Medical Records Department [address] [place] [address] OB Triage Physician Note 04/02/25 2321 MR#: [id number] Acct: [id number] Name: FAROOQ TABOR Rep #: [id number] : 2000 24 From: Dilcia Das MD PCP: Care Physician,No Primary Status:REG CLI Y Location: [place] [address]-1 HPI - General HPI Narrative FAROOQ TABOR, [...] Mother IBS (irritable bowel syndrome) Surgical History [place] teeth extracted Social History adopted: No household [...] physical activity do you participate in: none ruth/bahai: None seatbelt use: always do you feel safe at home: Yes 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 Date Name GA/Weeks Outcome Route Bth Weight Gen Labor Lgth Anesthesia Del Locatn Provider FOB 09/19/23 Deuce 39 live - full term 7#10 Male epidural [facility] Francisca Elliott [place] Visit Details Expected [...] ROS Consti (more content not included)... Normal [facility] Partial Thromboplast Timeon 04-02-2025 aPTT Coag (Bld) [Time] 25.4 s Normal 24.1-36.2 [facility] Comment on above: Performed By: #### L 300.4700, L300.4310, M100.2200, L400.0001, BTS, L300.3900 ####[facility] [address] [place], [place], [phone] Platelet countOrdered By: José Miguel Das on 04-02-2025 Platelets (Bld) [#/Vol] 239 10*3/uL 150-450 [facility] Comment on above: Performed By: #### L 100.0100 ####[facility] [address] [place], [place], [phone] Protein Test strip Ql (U)Ord ered By: Dilcia Das on 04-02-2025 Protein Ql (U) 15 mg/dl High Negative [facility] Prothrombin Time w/INRon INR Coag (PPP) [Relative time] 1.0 {INR} Normal [facility] Comment on above: Performed By: #### L 300.4700, L300.4310, M100.2200, L400.0001, BTS, L300.3900 ####[facility] [address] [place], [address] Prothrombin timeOrdered By: Dilcia Das on 04-02-2025 PT Coag (PPP) [Time] 12.9 s 11.7-14.9 [facility] Comment on above: Performed By: #### L 300.4700, L300.4310, M100.2200, L400.0001, BTS, L300.3900 ####[facility] [address] [place], [address] Squamous epithelial cells de tection in urine sediment by light microscopyOrdered By: Dilcia Das on 04-02-2025 Epithelial cells.squamous LM Ql (Urine sed) 0-5 SEEN /hpf 5-10 [facility] Type AND Screenon 04-02-2025 ABO and Rh group Nom (Bld) Blood group A Rh(D) positive Normal [facility] Comment on above: Order Comment: PN Performed By: #### L 300.4700, L300.4310, M100.2200, L400.0001, BTS, L300.3900 ####[facility] [address] [place], [address] Urinalysis, Completeon 04-02 EPI,SQUAMOUS 0-5 SEEN Normal 5-10 [facility] Comment on above: Order Comment: CLEAN CATCH Performed By: #### L 300.4700, L300.4310, M100.2200, L400.0001, BTS, L300.3900 ####[facility] [address] [place], [address] RBC 10-25 SEEN Normal 0-5 [facility] Comment on above: Order Comment: CLEAN CATCH Performed By: #### L 300.4700, L300.4310, M100.2200, L400.0001, BTS, L300.3900 ####[facility] [address] [place], [address] WBC 0-5 SEEN Normal 0-5 [facility] Comment on above: Order Comment: CLEAN CATCH Performed By: #### L 300.4700, L300.4310, M100.2200, L400.0001, BTS, L300.3900 ####[facility] [address] [place], [address] BACTERIA 0 SEEN Normal None Seen [facility] Comment on above: Order Comment: CLEAN CATCH Performed By: #### L 300.4700, L300.4310, M100.2200, L400.0001, BTS, L300.3900 ####[facility] [address] [place], [address] Mucus Ql (Urine sed) 0 SEEN Normal [facility] Comment on above: Order Comment: CLEAN CATCH Performed By: #### L 300.4700, L300.4310, M100.2200, L400.0001, BTS, L300.3900 ####[facility] [address] [place], [address] Urine clarityOrdered By: Kameron Das on 04-02-2025 Clarity (U) Sl. Cloudy Clear [facility] Urine color determinationOrd ered By: Dilcia Das on 04-02-2025 Color (U) Straw Yellow [facility] Urine cultureOrdered By: Kameron Das on 04-02-2025 Bacteria identified Cx Nom (U) Presumptive Lactobacillus sp. Abnormal [facility] Urine glucose detectionOrder ed By: Dilcia Das on 04-02-2025 Glucose Ql (U) Normal mg/dl Normal [facility] Urine leukocyte esterase det ection by dipstickOrdered By: Dilcia Das on 04-02-2025 Leukocyte esterase Test strip Ql (U) 25 /ul High Negative [facility] Urine pHOrdered By: Dilcia kuo on 04-02-2025 pH (U) 6.0 [pH] 5.0 - 8.0 [facility] Urine sediment bacteria coun t by microscopy (number/high power field)Ordered By: Dilcia Das on 04-02-2025 Bacteria LM.HPF (Urine sed) [#/Area] 0 /[HPF] None Seen [facility] Urine specific gravity measu rementOrdered By: Dilcia Das on 04-02-2025 Specific gravity (U) [Rel density] 1.020 1.002-1.030 [facility] Urine urobilinogen measureme ntOrdered By: Dilcia Das on 04-02-2025 Urobilinogen Ql (U) Normal mg/dl Normal [facility] White blood cell (WBC) count Ordered By: Dilcia Das on 04-02-2025 WBC (Bld) [#/Vol] 12.4 10*3/uL High 4.4-11.0 [facility] Comment on above: Performed By: #### L 100.0100 ####[facility] [address] [place], [place], [phone] White blood cell countOrdere d By: Dilcia Das on 04-02-2025 White blood cell count 0-5 SEEN /hpf 0-5 [facility] Laboratory - Chemistry and C hemistry - challengeOrdered By: Dilcia Das on 03-26-2025 Glucose Ql (U) Negative [facility] Laboratory - UrinalysisOrder ed By: Dilcia Das on 03-26-2025 Protein Ql (U) Negative [facility] Building Insulation Supervisor Office Visit Reporton 03-26-2025 Building Insulation Supervisor Office Visit Report [facility]'s [address], [address] [place] [address] OFFICE VISIT Date of Service: 03/26/25 MR#: [id number] Acct: [id number] Name: FAROOQ TABOR Rep #: [id number] : 2000 Provider: Dr. 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 Date Name GA/Weeks Outcome Route Bth Weight Gen Labor Lgth Anesthesia Del Locatn Provider FOB 09/19/23 Deuce 39 live - full term 7#10 Male epidural [facility] Francisca dsay Elliott [place] HPI 22wk ob Details: FAROOQ TABOR is [...] KW- CRL cons with dates. Declines NIPT. [facility] US ordered. 02/26/25 -???-???-???-???-???-?? ?-???-???-???-???-???-? ??- 17w 6d 111 lb 4 oz (+3 lb 4 oz) 96/58 Negative -???-???-???-???-???-?? ?-???-???-???-???-???-? ??- Negative 161 -???-???-???-???-???-?? ?-???-???-???-???-???-? ??- MH-No VB. So me flutters. Nl PN labs. [facility] 5/6 03/26/25 -???-???-???-???-???-?? ?-???-???-???-???-???-? ??- 21w 6d 116 lb 8 oz (+8 lb 8 oz) 104/66 Negative -???-???-???-???-???-?? ?-???-???-???-???-???-? ??- Negati (more content not included)... Normal [facility] Laboratory - Chemistry and C hemistry - challengeOrdered By: Esther Vernon on 02-26-2025 Glucose Ql (U) Negative [facility] Laboratory - UrinalysisOrder ed By: Esther Vernon on 02-26-2025 Protein Ql (U) Negative [facility] Building Insulation Supervisor Office Visit Reporton 02-26-2025 Building Insulation Supervisor Office Visit Report [facility]'s [address], [address] [place] [address] OFFICE VISIT Date of Service: 02/26/25 MR#: [id number] Acct: [id number] Name: FAROOQ TABOR Rep #: [id number] : 2000 Provider: HERNÁN christiansen Age/Sex: 24/F Location[place] [facility] Status: Signed Intake Vital Signs 10/28/23 10:45 01/21/25 08:48 02/26/25 09:31 Height 5 ft 1 in 5 ft 1 in 5 ft 1 in Weight: 111 lb 4 oz BMI 20.9 BP 96/58 L Intake Visit Reasons: 18wk ob Jar Capper Required: No Is patient in pain?: No [...] ( hemorrhage) (spontaneous vaginal delivery) Surgical History [place] teeth extracted Family History Mother IBS (irritable [...] physical activity do you participate in: none ruth/bahai: None seatbelt use: always do you feel safe at home: Yes 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 Date Name GA/Weeks Outcome Route Bth Weight Infant Gen Labor Lgth Anesthesia Del Locatn Provider FOB 09/19/23 Deuce 39 live - full term 7#10 Male epidural [facility] Francisca mireya [place] HPI 18wk ob Details: FAROOQ TABOR is [...] Barriers, Environme (more content not included)... Normal [facility] PAP I-G w/rfx hrHPV-Aptimaon 01-24-2025 ADEQ Comment Normal . [facility] Comment on above: Order Comment: Speci men Comment: [id number] Comment: Source.............Cervix;EndocervixSpecimen Comment: Other..............Specimen Comment: No. of containers..01 ThinPrep Vial Result Comment: Sati sfactory for evaluation. Endocervical and/or squamous metaplastic cells (endocervical component) are present. Performed By: #### M 100.2200, L7400.0353, L7000.1800 ####[facility] [address] [place], [place], [phone] COMM . Normal . [facility] Comment on above: Order Comment: Speci men Comment: [id number] Comment: Source.............Cervix;EndocervixSpecimen Comment: Other..............Specimen Comment: No. of containers..01 ThinPrep Vial Performed By: #### M 100.2200, L7400.0353, L7000.1800 ####[facility] [address] [place], [place], [id number] COMMENT Comment Normal . [facility] Comment on above: Order Comment: Speci men Comment: [id number] Comment: Source.............Cervix;EndocervixSpecimen Comment: Other..............Specimen Comment: No. of containers..01 ThinPrep Vial Result Comment: This liquid based ThinPrep(R) pap test was screened with the use of an image guided system. Performed By: #### M 100.2200, L7400.0353, L7000.1800 ####[facility] [address] [place], [place], [id number] DIAG Comment Normal . [facility] Comment on above: Order Comment: Speci men Comment: [id number] Comment: Source.............Cervix;EndocervixSpecimen Comment: Other..............Specimen Comment: No. of containers..01 ThinPrep Vial Result Comment: NEGA TIVE FOR INTRAEPITHELIAL LESION OR MALIGNANCY. Performed By: #### M 100.2200, L7400.0353, L7000.1800 ####[facility] [address] [place], [place], [address] HPV RFLX Comment Normal . [facility] Comment on above: Order Comment: Speci men Comment: [id number] Comment: Source.............Cervix;EndocervixSpecimen Comment: Other..............Specimen Comment: No. of containers..01 ThinPrep Vial Result Comment: The HPV DNA reflex criteria were not met with this specimen result therefore, no HPV testing was performed. Performed at: [facility] [address] [place], [place] [id number] President & Founder: Bianca Cervantes PhD, Phone: [phone] Performed at: - [address] [id number] President & Founder: Sulema Constantino MD, Phone: [phone] Performed By: #### M 100.2200, L7400.0353, L7000.1800 ####[facility] [address] [place], [place], [id number] PAPSMR Comment Normal . [facility] Comment on above: Order Comment: Speci men Comment: [id number] Comment: Source.............Cervix;EndocervixSpecimen Comment: Other..............Specimen Comment: No. of [...] Performed By: #### M 100.2200, L7400.0353, L7000.1800 ####[facility] [address] [place], [place], [id number] PERFORM Comment Normal . [facility] Comment on above: Order Comment: Speci men Comment: [id number] Comment: Source.............Cervix;EndocervixSpecimen Comment: Other..............Specimen Comment: No. of containers..01 ThinPrep Vial Result Comment: Myriam Joseph, Barrel Lathe Operator Inside (ASCP) Performed By: #### M 100.2200, L7400.0353, L7000.1800 ####[facility] [address] [place], [address] Chlamydia/GC LEONCIO aptimaon CHLAMY,NUC ACID Negative Normal Negative [facility] Comment on above: Performed By: #### M 100.2200, L7400.0353, L7000.1800 ####[facility] [address] [place], [place], [id number] GC BY NUC ACID Negative Normal Negative [facility] Comment on above: Result Comment: Perf ormed at: =G - [facility] [address] [id number] President & Founder: Sulema Constantino MD, Phone: [phone] Performed By: #### M 100.2200, L7400.0353, L7000.1800 ####[facility] [address] [place], [address] Urine Cultureon 01-22-2025 URC Culture exhibits no growth. Normal [facility] Comment on above: Performed By: #### M 100.2200, L7400.0353, L7000.1800 ####[facility] [address] [place], [address] Absolute lymphocyte countOrd ered By: Carmella Bone on 01-21-2025 Lymphocytes Auto (Unsp spec) [#/Vol] 1.57 10*3/uL 0.83-4.51 [facility] Absolute neutrophil countOrd ered By: Carmella Bone on 01-21-2025 Neutrophils (Bld) [#/Vol] 4.9 10*3/uL 2.0-7.7 [facility] Automated lymphocyte count a s percentage of total leukocytesOrdered By: Carmella Bone on 01-21-2025 Lymphocytes/100 WBC Auto (Unsp spec) 21.7 % 19-41 [facility] Basophil percentageOrdered B y: Carmella Bone on 01-21-2025 Basophils/100 WBC (Bld) 0.8 % 0-[address] [facility] C. trachomatis rRNA LEONCIO+prob e Ql (Unsp spec)Ordered By: Carmella Bone on 01-21-2025 Chlamydia DNA (LEONCIO) Negative Negative [facility] CBC W/Diff, Automatedon 12-30 Absolute Lymph 1.57 X10 3/uL Normal 0.83-4.51 [facility] Comment on above: Performed By: #### L 3890.6006, L100.0100, L509.4006, BTS, L509.8002, L3890.6301, L3890.6102 #### [facility] [address] [place], [address] Absolute Neut 4.9 X10 3/uL Normal 2.0-7.7 [facility] Comment on above: Performed By: #### L 3890.6006, L100.0100, L509.4006, BTS, L509.8002, L3890.6301, L3890.6102 #### [facility] [address] [place], [address] Basophils/100 WBC (Bld) 0.8 % Normal 0-[address] [facility] Comment on above: Performed By: #### L 3890.6006, L100.0100, L509.4006, BTS, L509.8002, L3890.6301, L3890.6102 #### [facility] [address] [place], [address] Eosinophils/100 WBC (Bld) 2.1 % Normal 0-5 [facility] Comment on above: Performed By: #### L 3890.6006, L100.0100, L509.4006, BTS, L509.8002, L3890.6301, L3890.6102 #### [facility] [address] [place], [address] Erythrocyte distribution width (RBC) [Ratio] 13.0 % Normal 11.6-14.6 [facility] Comment on above: Performed By: #### L 3890.6006, L100.0100, L509.4006, BTS, L509.8002, L3890.6301, L3890.6102 #### [facility] [address] [place], [address] Hematocrit (Bld) [Volume fraction] 37.3 % Normal 37-47 [facility] Comment on above: Performed By: #### L 3890.6006, L100.0100, L509.4006, BTS, L509.8002, L3890.6301, L3890.6102 #### [facility] [address] [place], [address] Hemoglobin (Bld) [Mass/Vol] 12.7 g/dL Normal 12.0-15.0 [facility] Comment on above: Performed By: #### L 3890.6006, L100.0100, L509.4006, BTS, L509.8002, L3890.6301, L3890.6102 #### [facility] [address] [place], [address] IG% 0.300 Normal 0.0-0.9 [facility] Comment on above: Result Comment: IG% - Immature Granulocytes (promyelocytes, myelocytes and metamyelocytes) > 1% indicates that a LEFT SHIFT is Present. Performed By: #### L 3890.6006, L100.0100, L509.4006, BTS, L509.8002, L3890.6301, L3890.6102 #### [facility] [address] [place], [address] Lymphocytes/100 WBC (Bld) 21.7 % Normal 19-41 [facility] Comment on above: Performed By: #### L 3890.6006, L100.0100, L509.4006, BTS, L509.8002, L3890.6301, L3890.6102 #### [facility] [address] [place], [address] MCH (RBC) [Entitic mass] 30.9 pg Normal 27.0-32.0 [facility] Comment on above: Performed By: #### L 3890.6006, L100.0100, L509.4006, BTS, L509.8002, L3890.6301, L3890.6102 #### [facility] [address] [place], [address] MCHC (RBC) [Mass/Vol] 34.0 g/dL Normal 32-36 [facility] Comment on above: Performed By: #### L 3890.6006, L100.0100, L509.4006, BTS, L509.8002, L3890.6301, L3890.6102 #### [facility] [address] [place], [address] MCV (RBC) [Entitic vol] 90.8 fL Normal 81-99 [facility] Comment on above: Performed By: #### L 3890.6006, L100.0100, L509.4006, BTS, L509.8002, L3890.6301, L3890.6102 #### [facility] [address] [place], [address] Monocytes/100 WBC (Bld) 7.3 % Normal 0-10 [facility] Comment on above: Performed By: #### L 3890.6006, L100.0100, L509.4006, BTS, L509.8002, L3890.6301, L3890.6102 #### [facility] [address] [place], [address] Neutrophils/100 WBC (Bld) 67.8 % Normal 47-70 [facility] Comment on above: Performed By: #### L 3890.6006, L100.0100, L509.4006, BTS, L509.8002, L3890.6301, L3890.6102 #### [facility] [address] [place], [address] Nucleated RBC (Bld) [#/Vol] 0 10*3/uL Normal 0-5 [facility] Comment on above: Performed By: #### L 3890.6006, L100.0100, L509.4006, BTS, L509.8002, L3890.6301, L3890.6102 #### [facility] [address] [place], [address] Platelet mean volume (Bld) [Entitic vol] 10.7 fL Normal 6.2-12.0 [facility] Comment on above: Performed By: #### L 3890.6006, L100.0100, L509.4006, BTS, L509.8002, L3890.6301, L3890.6102 #### [facility] [address] [place], [address] Platelets (Bld) [#/Vol] 265 10*3/uL Normal 150-450 [facility] Comment on above: Performed By: #### L 3890.6006, L100.0100, L509.4006, BTS, L509.8002, L3890.6301, L3890.6102 #### [facility] [address] [place], [address] RBC (Bld) [#/Vol] 4.11 10*6/uL Low 4.2-5.4 [facility] Comment on above: Performed By: #### L 3890.6006, L100.0100, L509.4006, BTS, L509.8002, L3890.6301, L3890.6102 #### [facility] [address] [place], [address] RDW SD 42.6 fl Normal 35.1-43.9 [facility] Comment on above: Performed By: #### L 3890.6006, L100.0100, L509.4006, BTS, L509.8002, L3890.6301, L3890.6102 #### [facility] [address] [place], [address] WBC (Bld) [#/Vol] 7.2 10*3/uL Normal 4.4-11.0 [facility] Comment on above: Performed By: #### L 3890.6006, L100.0100, L509.4006, BTS, L509.8002, L3890.6301, L3890.6102 #### [facility] [address] [place], [place], [address] Cervical or vagninal specime n microscopic examination by cytology stain (reported asOrdered By: Carmella Bone on 01-21-2025 Cytology report Cyto stain Doc (Cvx/Vag) Comment . [facility] Comment on above: The Pap smear is [...] rRNA LEONCIO+probe Ql (Unsp spec) Negative Negative [facility] Fruit Or Nut Farmworker Cyto stain Nom (C vx/Vag) [ID]Ordered By: Carmella Bone on 01-21-2025 Pap Smear Performed By Comment . [facility] Comment on above: Anju Joseph, Barrel Lathe Operator Inside (ASCP) Cytology report Cyto stain D oc (Cvx/Vag)Ordered By: Carmella Bone on 01-21-2025 Thin Prep Pap Smear Comment . [facility] Comment on above: The Pap smear is a s creening test designed to aid in thedetection of premalignant and malignant conditions of theuterine cervix. It is not a diagnostic procedure andshould not be used as the sole means of detecting cervicalcancer. Both false-positive and false-negative reports dooccur. Eosinophil percentageOrdered By: Carmella Bone on 01-21-2025 Eosinophils/100 WBC (Bld) 2.1 % 0-5 [facility] Erythrocyte distribution wid th ratioOrdered By: Carmella Bone on 01-21-2025 Erythrocyte distribution width (RBC) [Ratio] 13.0 % 11.6-14.6 [facility] Erythrocyte distribution wid th standard deviationOrdered By: Carmella Bone on 01-21-2025 Erythrocyte distribution width (RBC) [Entitic vol] 42.6 fL 35.1-43.9 [facility] Erythrocyte distribution width (RBC) [Ratio] 42.6 fl 35.1-43.9 [facility] HBV surface Ag Ql (S)Ordered By: Carmella Bone on 01-21-2025 Hepatitis B Surface Antigen Non-Reactive Nonreactive [facility] Comment on above: Reactive: Presumptiv e evidence of HBV. Repeatedly reactive samples must be confirmed using a neutralization test (ActiveEons HBsAg Confirmatory Test)Non-Reactive: HBsAg not detected; does not exclude the possibility of exposure to HBV Hematocrit Auto (Bld) [Volum e fraction]Ordered By: Carmella Bone on 01-21-2025 Hematocrit (Bld) [Volume fraction] 37.3 % 37-47 [facility] Hemoglobin measurementOrdere d By: Carmella Bone on 01-21-2025 Hemoglobin (Bld) [Mass/Vol] 12.7 g/dL 12.0-15.0 [facility] Hepatitis C antibodyOrdered By: Carmella Bone on 01-21-2025 Hepatitis C Antibody Non-Reactive Nonreactive [facility] Comment on above: Reactive: Presumptiv e evidence of antibodies to HCV. Follow CDC recommendations for supplemental testing.Non-Reactive: Antibodies to HCV were not detected; does not exclude the possibility of exposure to HCVReactive Results are presumptive evidence of antibodies to HCV. Follow CDC recommendations for supplemental testing.Order confirmation testing: HCV Quant by PCR testing - HCVPCR #[id number] Non Reactive: < 0.8 Equivocal: >/= 0.8 to < 1.0 Reactive: >/= 1.0The CDC requires that a reactive/equivocal HCV antibody result be sent out for confirmation. HCV Quant by PCR testing. Image-guided ThinPrep PapOrd ered By: Carmella Bone on 03-24-2025 Pap Smear Note Comment . [facility] Comment on above: This liquid based Th inPrep(R) pap test was screened withthe use of an image guided system. Image-guided liquid-based Pa pOrdered By: Carmella Bone on 01-21-2025 Pap Smear Diagnosis Comment . [facility] Comment on above: NEGATIVE FOR INTRAEP ITHELIAL LESION OR MALIGNANCY. Image-guided liquid-based ce rvical Pap w high-risk HPV+reflex to HPV 16+18Ordered By: Carmella Bone on 01-21-2025 Human Papillomavirus Screen Comment . [facility] Comment on above: The HPV DNA reflex c riteria were not met with this specimenresult therefore, no HPV testing was performed.Performed at: [facility] [place] [id number] Director: Bianca Cervantes PhD, Phone: [phone] at: WB - [facility] [id number] Director: Sulema Constantino MD, Phone: [phone] Immature granulocytes/100 WB C Auto (Bld)Ordered By: Carmella Bone on 01-21-2025 Immature granulocytes/100 WBC (Bld) 0.300 % 0.0-0.9 [facility] Comment on above: IG% - Immature Granu locytes (promyelocytes, myelocytes and metamyelocytes) > 1% indicates that a LEFT SHIFT is Present. L3890.6006on 01-21-2025 HIV Non-Reactive Normal Nonreactive [facility] Comment on above: Result Comment: Non- Reactive Reactive Repeatedly reactive samples must be confirmed according to CDC recommended confirmatory algorithms. The subresults for either HIVAG or AHIV can be used as an aid in the selection of the confirmation algorithm for reactive samples. Send out specimens with Reactive results to [facility] for confirmation. Order the HIV antibody detection and differentiation: [id number] Performed By: #### L 3890.6006, L100.0100, L509.4006, BTS, L509.8002, L3890.6301, L3890.6102 #### [facility] [address] [place], [address] L3890.6102on 01-21-2025 HEP B Surf Ag Non-Reactive Normal Nonreactive [facility] Comment on above: Result Comment: Reac tive: Presumptive evidence of HBV. Repeatedly reactive samples must be confirmed using a neutralization test (Elecsys HBsAg Confirmatory Test) Non-Reactive: HBsAg not detected; does not exclude the possibility of exposure to HBV Performed By: #### L 3890.6006, L100.0100, L509.4006, BTS, L509.8002, L3890.6301, L3890.6102 #### [facility] [address] [place], [place], [address] L3890.6301on 01-21-2025 Hepatitis C Ab Non-Reactive Normal Nonreactive [facility] Comment on above: Result Comment: Reac tive: Presumptive evidence of antibodies to HCV. Follow CDC recommendations for supplemental testing. Non-Reactive: Antibodies to HCV were not detected; does not exclude the possibility of exposure to HCV Reactive Results are presumptive evidence of antibodies to HCV. Follow CDC recommendations for supplemental testing. Order confirmation testing: HCV Quant by PCR testing - HCVPCR #[id number] Non Reactive: < 0.8 Equivocal: >/= 0.8 to < 1.0 Reactive: >/= 1.0 The CDC requires that a reactive/equivocal HCV antibody result be sent out for confirmation. HCV Quant by PCR testing. Performed By: #### L 3890.6006, L100.0100, L509.4006, BTS, L509.8002, L3890.6301, L3890.6102 #### [facility] [address] [place], [place], [address] L509.4006on 01-21-2025 Rubella IgG REAC Normal Nonreactive [facility] Comment on above: Result Comment: Anti body Result: Interpretation Non-Reactive: Non-Immune Reactive: Immune The following results were obtained with the Elecsys Rubella IgG assay. Results from assays of other manufacturers cannot be used interchangeably. Performed By: #### L 3890.6006, L100.0100, L509.4006, BTS, L509.8002, L3890.6301, L3890.6102 #### [facility] [address] [place], [address] L509.8002on 01-21-2025 Syphilis Abs Non-Reactive Normal Nonreactive [facility] Comment on above: Performed By: #### L 3890.6006, L100.0100, L509.4006, BTS, L509.8002, L3890.6301, L3890.6102 #### [facility] [address] [place], [address] Laboratory - CytologyOrdered By: Carmella Bone on 01-21-2025 Fruit Or Nut Farmworker Cyto stain Nom (Cvx/Vag) [ID] Comment . [facility] Comment on above: Anju Joseph, Barrel Lathe Operator Inside (ASCP) Laboratory - Microbiology an d Antimicrobial susceptibilityOrdered By: Carmella Bone on 01-21-2025 HBV surface Ag Ql (S) Non-Reactive Nonreactive [facility] Comment on above: Reactive: Presumptiv e evidence of HBV. Repeatedly reactive samples must be confirmed using a neutralization test (Elecsys HBsAg Confirmatory Test)Non-Reactive: HBsAg not detected; does not exclude the possibility of exposure to HBV Laboratory - Miscellaneous t estsOrdered By: Carmella Bone on 01-21-2025 Service comment (Unsp spec) [Interp] . . [facility] Lymphocytes Auto (Unsp spec) [#/Vol]Ordered By: Carmella Bone on 01-21-2025 Lymphocytes (Bld) [#/Vol] 1.57 10*3/uL 0.83-4.51 [facility] Lymphocytes/100 WBC Auto (Un sp spec)Ordered By: Carmella Bone on 01-21-2025 Lymphocytes/100 WBC (Bld) 21.7 % 19-41 [facility] MCV (mean corpuscular volume ) determinationOrdered By: Carmella Bone on 01-21-2025 MCV (RBC) [Entitic vol] 90.8 fL 81-[address] [facility] Mean corpuscular hemoglobin (MCH) determinationOrdered By: Carmella Bone on 01-21-2025 MCH (RBC) [Entitic mass] 30.9 pg 27.0-32.0 [facility] Mean corpuscular hemoglobin concentration (MCHC) determinationOrdered By: Carmella Bone on 01-21-2025 MCHC (RBC) [Mass/Vol] 34.0 g/dL 32-36 [facility] Mean platelet volume determi nationOrdered By: Carmella Bone on 01-21-2025 Platelet mean volume (Bld) [Entitic vol] 10.7 fL 6.2-12.0 [facility] Monocyte percentageOrdered B y: Carmella Bone on 01-21-2025 Monocytes/100 WBC (Bld) 7.3 % 0-[address] [facility] Neisseria gonorrhoeae nuclei c acid detection by amplified probe techniqueOrdered By: Carmella Bone on 01-21-2025 N. gonorrhoeae DNA LEONCIO+probe Ql (Unsp spec) Negative Negative [facility] Comment on above: Performed at: =[address] [id number] Director: Sulema Constantino MD, Phone: [phone] Neutrophil percentageOrdered By: Carmella Bone on 01-21-2025 Neutrophils/100 WBC (Bld) 67.8 % 47-70 [facility] No Panel InformationOrdered By: Carmella Bone on 01-21-2025 Pap Smear Specimen Adequacy Comment . [facility] Comment on above: Satisfactory for lakshmi luation. Endocervical and/or squamous metaplasticcells (endocervical component) are present. HIV (1&2) Antibody Non-Reactive Nonreactive [facility] Comment on above: Non-ReactiveReactive Repeatedly reactive samples must be confirmed according to CDC recommended confirmatory algorithms. The subresults for either HIVAG or AHIV can be used as an aid in the selection of the confirmation algorithm for reactive samples.Send out specimens with Reactive results to [facility] for confirmation.Order the HIV antibody detection and differentiation: #[id number] Nucleated red blood cell per centageOrdered By: Carmella Bone on 01-21-2025 Nucleated RBC/100 WBC (Bld) [Ratio] 0 % 0-5 [facility] Building Insulation Supervisor Office Visit Reporton 01-21-2025 Building Insulation Supervisor Office Visit Report [facility]'[address], [address] [place] [address] OFFICE VISIT Date of Service: 01/21/25 MR#: [id number] Acct: [id number] Name: FAROOQ TABOR Rep #: [id number] : 2000 Provider: CARLOS [place] ams Age/Sex: 24/F Location[place] [facility] [place] Status: Signed Intake Vital Signs 10/28/23 10:45 [...] ( hemorrhage) (spontaneous vaginal delivery) Surgical History [place] teeth extracted Family History Mother IBS (irritable [...] physical activity do you participate in: none ruth/bahai: None seatbelt use: always do you feel safe at home: Yes 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 Date Name GA/Weeks Outcome Route Bth Weight Gen Labor Lgth Anesthesia Del Locatn Provider FOB 09/19/23 Deuce 39 live - full term 7#10 Male epidural [facility] Francisca dsay [place] HPI NOB LMP 10/24 Details: FAROOQ TABOR [...] Other, Other (more content not included)... Normal [facility] Platelet countOrdered By: Mina Bone on 01-21-2025 Platelets (Bld) [#/Vol] 265 10*3/uL 150-450 [facility] RBC Auto (Bld) [#/Vol]Ordere d By: Carmella Bone on 01-21-2025 RBC (Bld) [#/Vol] 4.11 10*6/uL Low 4.2-5.4 [facility] Rubella immune status determ ination by IgG antibody assayOrdered By: Carmella Bone on 01-21-2025 Rubella IgG Antibody REAC Nonreactive [facility] Comment on above: Antibody Result: Int erpretationNon-Reactive: Non-ImmuneReactive: ImmuneThe following results were obtained with the [employer]ys Rubella IgG assay. Results from assays of other manufacturers cannot be used interchangeably. Service comment (Unsp spec) [Interp]Ordered By: Carmella Bone on 01-21-2025 Pap Smear Comment (3) . . [facility] T. pallidum abOrdered By: Mina Bone on 01-21-2025 Syphilis Total Antibody Non-Reactive Nonreactiv e [facility] Type AND Screenon 01-21-2025 Ab SCREEN GEL Negative Normal [facility] Comment on above: Order Comment: PN Performed By: #### L 3890.6006, L100.0100, L509.4006, BTS, L509.8002, L3890.6301, L3890.6102 #### [facility] [address] [place], [place], [id number] Urine cultureOrdered By: Neymar Bone on 01-21-2025 Bacteria identified Cx Nom (U) Culture exhibits no growth. [facility] White blood cell (WBC) count Ordered By: Carmella Bone on 01-21-2025 WBC (Bld) [#/Vol] 7.2 10*3/uL 4.4-11.0 [facility] Init OB < 14Wks USon 025 Init OB < 14Wks [facility] [address] [place] [address] Init OB < 14Wks US MR#: [id number] Acct: [id number] Name: FAROOQ TABOR Rep #: [id number] : 2000 F 24 From: Javier menon MD PCP: Care Physician,No Primary Status: REG CLI Study: Init OB < 14Wks US Date of Exam: 12/31/24 Exam# [id number] Ordering Dr: Dilcia Das PROCEDURE: INIT OB [...] not visualized. DIMENSIONS: Parameter Measurement / EGA [place] Rump Length: 2.9 cm/9 weeks and 3 days. Gestational Sac: 3.99 cm/9 weeks and 3 days Yolk Sac: 4.9 mm/ ESTIMATED GESTATIONAL AGE: By Ultrasound: 9 weeks and 3 days By LMP: 9 weeks and 5 days ESTIMATED DATE OF DELIVERY: By Ultrasound: August 02, 2025 By LMP: July 31, 2025 US/Init OB < 14Wks US IMPRESSION: UNREMARKABLE FIRST TRIMESTER ULTRASOUND. Reading Location: [id number] CC: Dr. Dilcia Das MD; No Primary Care Physician Emery Grinder: Signed Normal [facility] Gastroenterology Visit Repor ton 11-22-2024 Gastroenterology Visit Report [facility] [address] [place] [address] OFFICE VISIT Date of Service: 11/22/24 MR#: [id number] Acct: [id number] Name: FAROOQ TABOR Rep #: [id number] : 2000 Provider: CHAPINCITO Stringer Age/Sex: 24/F Location[place] [facility] Status: Signed Intake Vital Signs 10/28/23 10:45 Height 5 ft 1 in Intake Visit Reasons: Hemorrhoids Chief Complaint: hemmorhoids Allergies No Known Allergies Allergy (Verified 10/28/23 10:45) Patient : Yes Have you fallen in the past year?: No Nurse's Note: OV 11.22.24 Pt here to establish care with [facility]. Pt has c/o painful hemorrhoids for about a year. Not currently on any medications. COUNT INCLUDES THE [facility] Medical History (Updated 09/29/23 @ 00:01 by [...] to the office today for establishment with [facility]. Pt has complaints of hemorrhoids since [...] Appearance: average body habitus and well nourished [facility] Head: normal to inspection Ears: hearing [...] / Lidoc (more content not included)... Normal [facility] Absolute lymphocyte countOrd ered By: Shanika Elliott on 09-20-2023 Lymphocytes Auto (Unsp spec) [#/Vol] 1.51 10*3/uL 0.83-4.51 [facility] Basophil percentageOrdered B y: Shanika Elliott on 09-20-2023 Basophils/100 WBC (Bld) 0.3 % 0-[address] [facility] Eosinophils/100 WBC (Bld) 0.0 % 0-5 [facility] Neutrophils (Bld) [#/Vol] 17.3 10*3/uL 2.0-7.7 [facility] Neutrophils/100 WBC (Bld) 81.9 % 47-70 [facility] WBC (Bld) [#/Vol] 21.1 10*3/uL 4.4-11.0 [facility] Blood erythrocytes count (nu mber/volume)Ordered By: Shanika Elliott on 09-20-2023 RBC (Bld) [#/Vol] 3.49 10*6/uL 4.2-5.4 [facility] Blood hemoglobin measurement (mass/volume)Ordered By: Shanika Elliott on 09-20-2023 Hemoglobin (Bld) [Mass/Vol] 10.3 g/dL 12.0-15.0 [facility] Blood lymphocytes/100 leukoc ytesOrdered By: Shanika Elliott on 09-20-2023 Lymphocytes/100 WBC (Bld) 7.1 % 19-41 [facility] Blood manual differential co mment interpretation (narrative result)Ordered By: Shanika Elliott on 09-20-2023 Manual differential comment Jatin (Bld) [Interp] SCANNED [facility] Comment on above: MONOCYTOSIS PRESENTL EFT SHIFT BANDS PRESENT 1+ Blood monocytes/100 leukocyt esOrdered By: Shanika Elliott on 09-20-2023 Monocytes/100 WBC (Bld) 9.8 % 0-[address] [facility] Blood platelet mean volumeOr dered By: Shanika Elliott on 09-20-2023 Platelet mean volume (Bld) [Entitic vol] 10.5 fL 6.2-12.0 [facility] Determination of erythrocyte mean corpuscular volume (MCV)Ordered By: Shanika Elliott on 09-20-2023 MCV (RBC) [Entitic vol] 91.1 fL 81-[address] [facility] Hematocrit Auto (Bld) [Volum e fraction]Ordered By: Shanika Elliott on 09-20-2023 Hematocrit (Bld) [Volume fraction] 31.8 % 37-47 [facility] Laboratory - Hematology and Cell countsOrdered By: Shanika lEliott on 09-20-2023 Erythrocyte distribution width (RBC) [Entitic vol] 44.4 fL 35.1-43.9 [facility] Erythrocyte distribution width (RBC) [Ratio] 13.4 % 11.6-14.6 [facility] Immature granulocytes/100 WBC (Bld) 0.900 % 0.0-0.9 [facility] Comment on above: IG% - Immature Granu locytes (promyelocytes, myelocytes and metamyelocytes) > 1% indicates that a LEFT SHIFT is Present. MCH (RBC) [Entitic mass] 29.5 pg 27.0-32.0 [facility] Nucleated RBC/100 WBC (Bld) [Ratio] 0 % 0-5 [facility] MCHC Auto (RBC) [Mass/Vol]Or dered By: Shanika Elliott on 09-20-2023 MCHC (RBC) [Mass/Vol] 32.4 g/dL 32-36 [facility] Platelets bldOrdered By: Francisca Elliott on 09-20-2023 Platelets (Bld) [#/Vol] 241 10*3/uL 150-450 [facility] Review by pathologistOrdered By: Shanika Elliott on 09-20-2023 Pathologist review Jatin (Unsp spec) [Interp] February [facility] Serum Treponema species anti body detectionOrdered By: Shanika Elliott on 09-19-2023 Treponema sp Ab Ql (S) Non-Reactive [facility] Laboratory - Chemistry and C hemistry - challengeon 09-13-2023 Glucose Ql (U) Negative [facility] Laboratory - Urinalysison Protein Ql (U) Negative [facility] Laboratory - Chemistry and C hemistry - challengeon 09-06-2023 Glucose Ql (U) Negative [facility] Laboratory - Urinalysison Protein Ql (U) Negative [facility] Chlamydia trachomatis rRNA d etection by probe and target amplification methodOrdered By: Marie Avalos on 08-30-2023 C. trachomatis rRNA LEONCIO+probe Ql (Unsp spec) Negative Negative [facility] Laboratory - Chemistry and C hemistry - challengeon 08-30-2023 Glucose Ql (U) Negative [facility] Laboratory - Microbiology an d Antimicrobial susceptibilityOrdered By: Marie Avalos on 08-30-2023 N. gonorrhoeae DNA LEONCIO+probe Ql (Unsp spec) Negative Negative [facility] Comment on above: Performed at: [address] [id number] Director: Sulema Constantino MD, Phone: [phone] Laboratory - Urinalysison Protein Ql (U) Negative [facility] No Panel InformationOrdered By: Marie Avalos on 08-30-2023 Group B Streptococcus Culture Streptococcus agalactiae (B) [facility] Laboratory - Chemistry and C hemistry - challengeon 08-23-2023 Glucose Ql (U) Negative [facility] Laboratory - Urinalysison Protein Ql (U) Negative [facility] Laboratory - Chemistry and C hemistry - challengeon 08-09-2023 Glucose Ql (U) Negative [facility] Laboratory - Urinalysison Protein Ql (U) Negative [facility] Culture, urineOrdered By: Analia Elliott on 08-05-2023 Bacteria identified Cx Nom (U) Culture exhibits no growth. [facility] Laboratory - Chemistry and C hemistry - challengeon 08-05-2023 Bilirubin Ql (U) Negative [facility] Glucose Ql (U) Negative [facility] Ketones Ql (U) Negative [facility] pH (U) 5.0 [pH] [facility] Specific gravity (U) [Rel density] 1.010 [facility] Urobilinogen (U) [Mass/Vol] Negative [facility] Laboratory - Hematology and Cell countson 08-05-2023 Hemoglobin Ql (U) Negative [facility] Laboratory - Specimen inform ationon 08-05-2023 Clarity (U) Clear [facility] Color (U) Yellow [facility] Laboratory - Urinalysison Nitrite Ql (U) Negative [facility] Protein Ql (U) Negative [facility] No Panel Informationon 08-05 Urine Leukocytes Positive [facility] Urine Non-Hemolyzed Blood Negative [facility] Laboratory - Chemistry and C hemistry - challengeon 07-26-2023 Glucose Ql (U) Negative [facility] Laboratory - Urinalysison Protein Ql (U) Negative [facility] Laboratory - Chemistry and C hemistry - challengeon 07-12-2023 Glucose Ql (U) Negative [facility] Laboratory - Urinalysison Protein Ql (U) Negative [facility] Absolute lymphocyte countOrd ered By: Marie Avalos on 06-29-2023 Lymphocytes Auto (Unsp spec) [#/Vol] 1.45 10*3/uL 0.83-4.51 [facility] Basophil percentageOrdered B y: Maire Avalos on 06-29-2023 Basophils/100 WBC (Bld) 0.4 % 0-[address] [facility] Eosinophils/100 WBC (Bld) 1.0 % 0-5 [facility] Neutrophils (Bld) [#/Vol] 8.0 10*3/uL 2.0-7.7 [facility] Neutrophils/100 WBC (Bld) 76.9 % 47-70 [facility] WBC (Bld) [#/Vol] 10.4 10*3/uL 4.4-11.0 [facility] Blood erythrocytes count (nu mber/volume)Ordered By: Marie Avalos on 06-29-2023 RBC (Bld) [#/Vol] 3.52 10*6/uL 4.2-5.4 [facility] Blood hemoglobin measurement (mass/volume)Ordered By: Marie Avalos on 06-29-2023 Hemoglobin (Bld) [Mass/Vol] 11.3 g/dL 12.0-15.0 [facility] Blood lymphocytes/100 leukoc ytesOrdered By: Marie Avalos on 06-29-2023 Lymphocytes/100 WBC (Bld) 14.0 % 19-41 [facility] Blood monocytes/100 leukocyt esOrdered By: Marie Avalos on 06-29-2023 Monocytes/100 WBC (Bld) 7.0 % 0-[address] [facility] Blood platelet mean volumeOr dered By: Marie Avalos on 06-29-2023 Platelet mean volume (Bld) [Entitic vol] 9.8 fL 6.2-12.0 [facility] Determination of erythrocyte mean corpuscular volume (MCV)Ordered By: Marie Avalos on 06-29-2023 MCV (RBC) [Entitic vol] 94.9 fL 81-[address] [facility] Gestational diabetes screen 1-hour screen with 50g oral glucose loadOrdered By: Marie Avalos on 06-29-2023 Glucose 1 Hr post 50 g glucose PO [Mass/Vol] 128 mg/dL 70-140 [facility] HIV 1 and HIV-2 antibody ass ay with HIV-1 p24 antigen detectionOrdered By: Marie Avalos on 06-29-2023 HIV 1+2 Ab+HIV1 p24 Ag IA Ql Non-Reactive Nonreactive [facility] Hematocrit Auto (Bld) [Volum e fraction]Ordered By: Marie Avalos on 06-29-2023 Hematocrit (Bld) [Volume fraction] 33.4 % 37-47 [facility] Laboratory - Chemistry and C hemistry - challengeon 06-29-2023 Glucose Ql (U) Negative [facility] Laboratory - Hematology and Cell countsOrdered By: Marie Avalos on 06-29-2023 Erythrocyte distribution width (RBC) [Entitic vol] 44.9 fL 35.1-43.9 [facility] Erythrocyte distribution width (RBC) [Ratio] 13.0 % 11.6-14.6 [facility] Immature granulocytes/100 WBC (Bld) 0.700 % 0.0-0.9 [facility] Comment on above: IG% - Immature Granu locytes (promyelocytes, myelocytes and metamyelocytes) > 1% indicates that a LEFT SHIFT is Present. MCH (RBC) [Entitic mass] 32.1 pg 27.0-32.0 [facility] Nucleated RBC/100 WBC (Bld) [Ratio] 0 % 0-5 [facility] Laboratory - Urinalysison Protein Ql (U) Negative [facility] MCHC Auto (RBC) [Mass/Vol]Or dered By: Marie Avalos on 06-29-2023 MCHC (RBC) [Mass/Vol] 33.8 g/dL 32-36 [facility] Platelets bldOrdered By: Oxana Avalos on 06-29-2023 Platelets (Bld) [#/Vol] 244 10*3/uL 150-450 [facility] Serum Treponema species anti body detectionOrdered By: Marie Avalos on 06-29-2023 Treponema sp Ab Ql (S) Non-Reactive [facility] Laboratory - Chemistry and C hemistry - challengeon 06-10-2023 Glucose Ql (U) Negative [facility] Laboratory - Urinalysison Protein Ql (U) Negative [facility] Laboratory - Chemistry and C hemistry - challengeon 05-13-2023 Glucose Ql (U) Negative [facility] Laboratory - Urinalysison Protein Ql (U) Negative [facility] Absolute lymphocyte countOrd ered By: Dr. Das on 03-18-2023 Lymphocytes Auto (Unsp spec) [#/Vol] 1.60 10*3/uL 0.83-4.51 [facility] Basophil percentageOrdered B y: Dr. Das on 03-18-2023 Basophils/100 WBC (Bld) 0.5 % 0-[address] [facility] Eosinophils/100 WBC (Bld) 1.0 % 0-5 [facility] Neutrophils (Bld) [#/Vol] 5.5 10*3/uL 2.0-7.7 [facility] Neutrophils/100 WBC (Bld) 69.4 % 47-70 [facility] WBC (Bld) [#/Vol] 7.9 10*3/uL 4.4-11.0 [facility] Blood erythrocytes count (nu mber/volume)Ordered By: Dr. Das on 03-18-2023 RBC (Bld) [#/Vol] 4.01 10*6/uL 4.2-5.4 [facility] Blood hemoglobin measurement (mass/volume)Ordered By: Dr. Das on 03-18-2023 Hemoglobin (Bld) [Mass/Vol] 12.0 g/dL 12.0-15.0 [facility] Blood lymphocytes/100 leukoc ytesOrdered By: Dr. Das on 03-18-2023 Lymphocytes/100 WBC (Bld) 20.4 % 19-41 [facility] Blood monocytes/100 leukocyt esOrdered By: Dr. Das on 03-18-2023 Monocytes/100 WBC (Bld) 8.4 % 0-[address] [facility] Blood platelet mean volumeOr dered By: Dr. Das on 03-18-2023 Platelet mean volume (Bld) [Entitic vol] 9.7 fL 6.2-12.0 [facility] Chlamydia trachomatis rRNA d etection by probe and target amplification methodOrdered By: Dr. Avalos on 03-18-2023 C. trachomatis rRNA LEONCIO+probe Ql (Unsp spec) Negative Negative [facility] Determination of erythrocyte mean corpuscular volume (MCV)Ordered By: Dr. Das on 03-18-2023 MCV (RBC) [Entitic vol] 90.8 fL 81-99 [facility] HIV 1 and HIV-2 antibody ass ay with HIV-1 p24 antigen detectionOrdered By: Dr. Das on 03-18-2023 HIV 1+2 Ab+HIV1 p24 Ag IA Ql Non-Reactive Nonreactive [facility] Hematocrit Auto (Bld) [Volum e fraction]Ordered By: Dr. Das on 03-18-2023 Hematocrit (Bld) [Volume fraction] 36.4 % 37-47 [facility] Laboratory - Chemistry and C hemistry - challengeon 03-18-2023 Glucose Ql (U) Negative [facility] Laboratory - Hematology and Cell countsOrdered By: Dr. Das on 03-18-2023 Erythrocyte distribution width (RBC) [Entitic vol] 42.1 fL 35.1-43.9 [facility] Erythrocyte distribution width (RBC) [Ratio] 12.8 % 11.6-14.6 [facility] Immature granulocytes/100 WBC (Bld) 0.300 % 0.0-0.9 [facility] Comment on above: IG% - Immature Granu locytes (promyelocytes, myelocytes and metamyelocytes) > 1% indicates that a LEFT SHIFT is Present. MCH (RBC) [Entitic mass] 29.9 pg 27.0-32.0 [facility] Nucleated RBC/100 WBC (Bld) [Ratio] 0 % 0-5 [facility] Laboratory - Microbiology an d Antimicrobial susceptibilityOrdered By: Dr. Avalos on 03-18-2023 N. gonorrhoeae DNA LEONCIO+probe Ql (Unsp spec) Negative Negative [facility] Comment on above: Performed at: =[address] [id number] Director: Sulema Constantino MD, Phone: [phone] Laboratory - Urinalysison Protein Ql (U) [facility] [Mass/Vol]Or dered By: Dr. Das on 03-18-2023 MCHC (RBC) [Mass/Vol] 33.0 g/dL 32-36 [facility] No Panel InformationOrdered By: Dr. Das on 03-18-2023 Hepatitis B Surface Antigen Non-Reactive Nonreactive [facility] Hepatitis C Antibody Non-Reactive Nonreactive [facility] Comment on above: Non Reactive: < 0.8 Equivocal: >/= 0.8 to < 1.0 Reactive: >/= 1.0The CDC recommends that a reactive/equivocal HCV antibody result be followed up by the HCV Nucleic Acid Amplificationtest (869231) Miscellaneous Test Comment MAILED SPECIMEN [facility] Rubella IgG Antibody Reactive Nonreactive [facility] Comment on above: Antibody Results Int erpretation of Immune Status Non Reactive Presumed Non-Immune Equivocal Equivocal Reactive Presumed Immune Platelets bldOrdered By: Dr. Das on 03-18-2023 Platelets (Bld) [#/Vol] 251 10*3/uL 150-450 [facility] Serum Treponema species anti body detectionOrdered By: Dr. Das on 03-18-2023 Treponema sp Ab Ql (S) Non-Reactive [facility] Laboratory - Chemistry and C hemistry - challengeon 02-25-2023 Glucose Ql (U) Negative [facility] Laboratory - Urinalysison Protein Ql (U) Negative [facility] Basophil percentageOrdered B y: Dr. Flores on 02-17-2023 Basophil percentage 0-5 SEEN /hpf 0-5 [facility] Bilirubin Test strip Ql (U)O rdered By: Dr. Flores on 02-17-2023 Bilirubin Ql (U) Negative Negative [facility] Ketones Test strip Ql (U)Ord ered By: Dr. Flores on 02-17-2023 Ketones Ql (U) 150 mg/dl Negative [facility] Comment on above: CRITICAL VALUE *HCRI TICAL VALUE VERIFIED. CALLED TO BOBBI ALSTON ED02/17/232129 Ji Bell.RESULTS READ BACK BY SAME. Mucus LM Ql (Urine sed)Order ed By: Dr. Flores on 02-17-2023 Mucus Ql (Urine sed) 3+ /hpf [facility] Nitrite Test strip Ql (U)Ord ered By: Dr. Flores on 02-17-2023 Nitrite Ql (U) Negative Negative [facility] Protein Test strip Ql (U)Ord ered By: Dr. Flores on 02-17-2023 Protein Ql (U) 15 mg/dl Negative [facility] Squamous epithelial cells de tection in urine sediment by light microscopyOrdered By: Dr. Flores on 02-17-2023 Epithelial cells.squamous LM Ql (Urine sed) 5-10 SEEN /hpf 5-10 [facility] Urine blood detectionOrdered By: Dr. Flores on 02-17-2023 RBC Ql (U) 25 /ul Negative [facility] RBC Ql (U) 0-5 SEEN /hpf 0-5 [facility] Urine clarityOrdered By: Dr. Flores on 02-17-2023 Clarity (U) Cloudy Clear [facility] Urine color determinationOrd ered By: Dr. Flores on 02-17-2023 Color (U) Yellow Yellow [facility] Urine glucose detectionOrder ed By: Dr. Flores on 02-17-2023 Glucose Ql (U) Normal mg/dl Normal [facility] Urine leukocyte esterase det ection by dipstickOrdered By: Dr. Flores on 02-17-2023 Leukocyte esterase Test strip Ql (U) 25 /ul Negative [facility] Urine pHOrdered By: Dr. Wallace hinton on 02-17-2023 pH (U) 6.0 [pH] 5.0 - 8.0 [facility] Urine sediment bacteria coun t by microscopy (number/high power field)Ordered By: Dr. Flores on 02-17-2023 Bacteria LM.HPF (Urine sed) [#/Area] 2 /[HPF] None Seen [facility] Urine specific gravity measu rementOrdered By: Dr. Flores on 02-17-2023 Specific gravity (U) [Rel density] 1.020 1.002-1.030 [facility] Urobilinogen Auto test strip Ql (U)Ordered By: Dr. Flores on 02-17-2023 Urobilinogen Ql (U) 1 mg/dl Normal [facility] Culture, urineOrdered By: Dr Elena Das on 01-29-2023 Bacteria identified Cx Nom (U) Culture exhibits no growth. [facility] Chlamydia trachomatis rRNA d etection by probe and target amplification methodOrdered By: Dr. Das on 01-27-2023 C. trachomatis rRNA LEONCIO+probe Ql (Unsp spec) Positive Negative [facility] Comment on above: RESULTS CALLED TO LIZ RIVERA 02/02/23 0946 Mady Cast.REPORT READ BACK BY SAME. Laboratory - Microbiology an d Antimicrobial susceptibilityOrdered By: Dr. Das on 01-27-2023 N. 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 Exam was benign. Pap smear with reflex was done. Patient declined contraception and we will see her back in 1 year Chief Complaint Patient here today for annual. She states she has had pap before at family planning. LMP: 07/24/2022. She has no concerns today. 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 Patient denies any history of abnormal [...] Medications Vitals Vital Signs Recorded: 03Aug2022 02:30PM [id number] Iuilxnldp44 Height5 ft 3 in Fylyqo716 lb BMI Eulfhnerwb72.6 kg/m2 BSA Calculated1.47 [id number] Physical Exam Constitutional: Healthy-appearing young female in [...] Aug 03 2022 3:02PM EST (Author) Normal [employer] FEMALE PELVIS TRANSVAGon 09-18-2021 FEMALE PELVIS TRANSVAG [...] cysts-the largest approximately a centimeter in size Emery Grinder: [facility] Transcribe Date/Time: Sep 18 2021 12:56P Dictated by : ADAM LUCAS DO This examination was interpreted and the report reviewed and electronically signed by: ADAM LUCAS DO on Sep 18 2021 12:59PM EST [id number] Normal [facility] CNOVon 09-03-2021 CNOV Office Visit (OBGYWM ) LEANDERSUMMER ([id number]) 2 F BLD Date Time Provider Department [...] external genitalia normal, normal Bartholin's glands, urethra, [place]'s glands, no vulvar lesions, no cervical lesions, [...] [Z11.3] Order(s):GC/CHLAMYDIA DNA DET [SQGCCAMP] Order #: [id number] T VAGINALIS AMPLIFICATION [SQTRVAMP] Order #: [id number] FUTURE PELVIC US WHI [[id number]] Order #: [id number]: 1 US FEMALE PELVIS TRANSVAG [[id number]] Order #: [id number] FUTURE US FEMALE PELVIS TRANSABD LTD [[id number]] Order #: [id number] FUTURE HCG QUAL UR B/O [[id number]] Order #: [id number] Problem List As Of Date: 09/03/2021 (None) Encounter Status:Closed by SHENA MCDERMOTT on 09/03/21 Normal [facility] GC/Chlamydia Amplifon 2020 Chlamydia Amplif Negative Normal [facility] Comment on above: Performed By: #### G CCT, TRVAMP #### [facility] [address] [place] [address] [place] [address] GC Amplification Negative Normal [facility] Comment on above: Performed By: #### G CCT, TRVAMP #### [facility] [address] [place] [address] [facility] [address] [place] [address] GC/Chlam Amp Source Cervix Normal [facility] Comment on above: Performed By: #### G CCT, TRVAMP #### [facility] [address] [place] [address] [facility] [address] [place] [address] No Panel Informationon 09-03 status Negative neg - pos [facility] Quality Check Yes [facility] Trich vaginalis Amplon 09-03 Trich vag Amp Source Cervix Normal [facility] Comment on above: Performed By: #### G CCT, TRVAMP #### [facility] [address] [place] [address] [facility] [address] [place], [place] [address] Trichomonas RNA Negative Normal [facility] Comment on above: Performed By: #### G CCT, TRVAMP #### [facility] [address] [place] [address] [facility] [address] [place] [address] Tobacco Screening.on 021 Tobacco use status [facility]PH[facility] b) No [facility] Work Phone: Provider Note - ED [...] made to minimize errors. Minor errors in urgent care may be present. Please call if questions.. [...] 1 days SIGNIFICANT EVENTS: No documented data. MULTICUT LINE OPERATOR: Is : no(1) Is : no(1) CLINICAL [...] Referenced From Triage - ED 09-Aug-2020 01:17 [facility] Risk Screen - Adult Emergenc yon 08-09-2020 [...] Learning Preferencesindividual instruction Cultural Considerationsnone Developmental Considerationsnone Pentecostalism Considerationsnone Learning Assessment (Other Learner): Learning Assessment (Other Learner): Other learner availableno Pressure Injury/TB/Substance: Pressure Injury: Pressure Injury Present on Admissionno Do you have a coughno Admission Risk Screen: Significant IndicatorsComplete CAGE: CAGE: Is this an injured patient at a Trauma Center ([facility] [place]/[place]): no Electronic Signatures: Yen Bond (SUPV) (Signed 09-Aug-2020 01:26) Authored: Preferred Language, Advanced Directives, Family Violence Adult, Learning Assessment (Patient), Learning Assessment (Other Learner), Pressure Injury/TB/Substance, Pressure Injury, CAGE Last Updated: 09-Aug-2020 01:26 by Yen Bond (SUPV) [facility] Triage - EDon 08-09-2020 Triage - ED [...] months ago and now is on Depo-Provera) MULTICUT LINE OPERATOR History: control Patient has homicidal thoughts: no [...] Updated: 09-Aug-2020 01:25 by Yen Bond (SUPV) [facility] US PELVIS TRANSABDOMINAL WIT H TRANSVAGINALon 05-27-2020 US PELVIS TRANSABDOMINAL WITH TRANSVAGINAL Patient Name: FAROOQ TABOR STUDY: US PELVIS TRANSABDOMINAL WITH TRANSVAGINAL; 05/27/2020 4:24 pm INDICATION: F/U RIGHT OVARIAN CYST CHECK IUD PLACEMENT. COMPARISON: None. ACCESSION NUMBER(S): [id number] ORDERING CLINICIAN: MATHEW SHIN TECHNIQUE: Multiple multiplanar [...] warranted. Electronically signed by: SHEILA HILL MD [facility] Provider Note - ED v2on 01-29 Provider [...] chief complaint of animal bite (DOG BITE, URBAN GARDENING SPECIALIST'S DOG, RIGHT HAND). Triage Information: Most recent [...] Current Medications SIGNIFICANT EVENTS: No documented data. MULTICUT LINE OPERATOR: Is : no Is : no MEDICAL [...] patient: no Electronic Signatures: Doug Herring I (NEUROLOGIST-TRAIN PLANNER) (Signed 16-Feb-2020 14:14) Authored: Provider Note - ED v2 Last Updated: 16-Feb-2020 14:14 by Doug Herring I (NEUROLOGIST-TRAIN PLANNER) [facility] Risk Screen - Adult Emergenc n 02-16-2020 [...] Communicatenone Learning Preferencesaudio Cultural Considerationsnone Developmental Considerationsnone Pentecostalism Considerationsnone Learning Assessment (Other Learner): Learning Assessment (Other Learner): Other learner availableno Pressure Injury/TB/Substance: Pressure Injury: Pressure Injury Present on Admissionno Do you have a coughno Substance Use Current or Former Historynever: Cigarette/Tobacco, e-Cigarette/Vaping, Alcohol, Street Drugs Admission Risk Screen: Significant IndicatorsComplete CAGE: CAGE: Is this an injured patient at a Trauma Center ([facility] [place]/[facility]/[place]/[facility] a/[place]): no Electronic Signatures: Eddi Christine (RN) (Signed 16-Feb-2020 13:41) Authored: Preferred Language, Advanced Directives, Family Violence Adult, Learning Assessment (Patient), Learning Assessment (Other Learner), Pressure Injury/TB/Substance, CAGE Last Updated: 16-Feb-2020 13:41 by Eddi Christine (RN) [facility] Triage - EDon 02-16-2020 Triage - ED Quick Triage: Are You no Have You Given In The Last 6 Weeksno Are You Currently Breastfeedingno Chart Review: CHIEF COMPLAINT FAROOQ TABOR is a Female patient with a chief complaint of animal bite (DOG BITE, URBAN GARDENING SPECIALIST'S DOG, RIGHT HAND). Onset of the Complaint: [...] obeys commands Best Verbal Response: (V5) oriented [place] Score: 15 Cough lasting greater than 3 [...] 16-Feb-2020 13:40 by Eddi Christine (RN) Normal [facility] Grp A Strp rRNA Josue Maldonado 11-27-2019 Group A Strep rRNA Detection Not Detected Normal NODT [facility] BASIC METABOLIC PANELon 12-3 Anion gap [Moles/Vol] 7 mmol/L Low 10 - 20 [facility] Comment on above: Performed By: #### B MP #### [address] [address] Calcium [Mass/Vol] 9.0 mg/dL Normal 8.6 - 10.3 [facility] Comment on above: Performed By: #### B MP #### [address] [address] Chloride [Moles/Vol] 106 mmol/L Normal 98 - 107 [facility] Comment on above: Performed By: #### B MP #### [address] [address] Creatinine [Mass/Vol] 0.66 mg/dL Normal 0.50 - 1.05 [facility] Comment on above: Performed By: #### B MP #### [place] [id number] GFR- AM. >60 Normal >60 [facility] Comment on above: Result Comment: CALC ULATIONS OF ESTIMATED GFR ARE PERFORMED USING THE MDRD STUDY EQUATION FOR THE IDMS-TRACEABLE CREATININE METHODS. CLIN CHEM 2007;53:766-72 Performed By: #### B MP #### [place] [id number] GFR-NON AM. >60 Normal >60 [facility] Comment on above: Performed By: #### B MP #### [place] [id number] Glucose [Mass/Vol] 89 mg/dL Normal 74 - 99 [facility] Comment on above: Performed By: #### B MP #### [place] [id number] HCO3 (Bld) [Moles/Vol] 28 mmol/L Normal 21 - 32 [facility] Comment on above: Performed By: #### B MP #### [place] [id number] Potassium [Moles/Vol] 3.8 mmol/L Normal 3.5 - 5.3 [facility] Comment on above: Performed By: #### B MP #### [place] [id number] Sodium [Moles/Vol] 137 mmol/L Normal 136 - 145 [facility] Comment on above: Performed By: #### B MP #### [place] [id number] Urea nitrogen [Mass/Vol] 13 mg/dL Normal 6 - 23 [facility] Comment on above: Performed By: #### B MP #### [place] [id number] CBC AND DIFFERENTIALon 12-31 -2019 Basophils (Bld) [#/Vol] 0.10 10*3/uL Normal 0.00 - 0.1 0 [facility] Comment on above: Performed By: #### C BCDF #### [address] [address] Basophils/100 WBC (Bld) 0.8 % Normal 0.0 - 2.0 [facility] Comment on above: Performed By: #### C BCDF #### [address] [address] Eosinophils (Bld) [#/Vol] 0.20 10*3/uL Normal 0.00 - 0.70 [facility] Comment on above: Performed By: #### C BCDF #### [address] [address] Eosinophils/100 WBC (Bld) 2.7 % Normal 0.0 - 6.0 [facility] Comment on above: Performed By: #### C BCDF #### [address] [address] Erythrocyte distribution width (RBC) [Ratio] 13.2 % Normal 11.5 - 14.5 [facility] Comment on above: Performed By: #### C BCDF #### [address] [address] Hematocrit (Bld) [Volume fraction] 42.3 % Normal 36.0 - 46.0 [facility] Comment on above: Performed By: #### C BCDF #### [address] [address] Hemoglobin (Bld) [Mass/Vol] 14.2 g/dL Normal 12.0 - 16.0 [facility] Comment on above: Performed By: #### C BCDF #### [address] [address] Lymphocytes (Bld) [#/Vol] 2.30 10*3/uL Normal 1.20 - 4.80 [facility] Comment on above: Performed By: #### C BCDF #### [address] [address] Lymphocytes/100 WBC (Bld) 27.7 % Normal 13.0 - 44.0 [facility] Comment on above: Performed By: #### C BCDF #### [address] [address] MCHC (RBC) [Mass/Vol] 33.5 g/dL Normal 32.0 - 36.0 [facility] Comment on above: Performed By: #### C BCDF #### [address] [address] MCV (RBC) [Entitic vol] 93 fL Normal 80 - 100 [facility] Comment on above: Performed By: #### C BCDF #### [address] [address] Monocytes (Bld) [#/Vol] 0.90 10*3/uL Normal 0.10 - 1.0 0 [facility] Comment on above: Performed By: #### C BCDF #### [address] [address] Monocytes/100 WBC (Bld) 10.9 % Normal 2.0 - 10.0 [facility] Comment on above: Performed By: #### C BCDF #### [address] [address] Neutrophils (Bld) [#/Vol] 4.80 10*3/uL Normal 1.20 - 7.70 [facility] Comment on above: Performed By: #### C BCDF #### [address] [address] Neutrophils/100 WBC (Bld) 57.9 % Normal 40.0 - 80.0 [facility] Comment on above: Performed By: #### C BCDF #### [address] [address] Nucleated RBC/100 WBC (Bld) [Ratio] 0.1 /100 WBC Normal [facility] Comment on above: Performed By: #### C BCDF #### [address] [address] Platelets (Bld) [#/Vol] 289 10*3/uL Normal 150 - 450 [facility] Comment on above: Performed By: #### C BCDF #### [place] [id number] [place] [address] RBC (Bld) [#/Vol] 4.57 x10E12/L Normal 4.00 - 5.20 [facility] Comment on above: Performed By: #### C BCDF #### [address] [id number] [place] [address] WBC (Bld) [#/Vol] 8.2 10*3/uL Normal 4.4 - 11.3 [facility] Comment on above: Performed By: #### C BCDF #### [address] [address] [address] ABDOMEN AND PELVIS WITH C ONTRASTon 10-30-2019 CT ABDOMEN AND PELVIS WITH CONTRAST Patient Name: FAROOQ TABOR STUDY: CT ABDOMEN AND PELVIS WITH CONTRAST; 10/30/2019 5:17 pm INDICATION: pain. COMPARISON: None. ACCESSION NUMBER(S): [id number] ORDERING CLINICIAN: STEPHANIE SCHERER TECHNIQUE: CT of [...] Electronically signed by: CALEB BARRIOS MD Normal [facility] HCG,URINEon 10-30-2019 Beta HCG ( test) Ql (U) Negative Normal Negative [facility] Comment on above: Performed By: #### H CGU #### [place] [id number] HEPATIC FUNCTION PANELon Albumin [Mass/Vol] 4.4 g/dL Normal 3.4 - 5.0 [facility] Comment on above: Performed By: #### H EPFP #### [place] [id number] ALP [Catalytic activity/Vol] 66 U/L Normal 33 - 110 [facility] Comment on above: Performed By: #### H EPFP #### [address] [address] ALT [Catalytic activity/Vol] 10 U/L Normal 7 - 45 [facility] Comment on above: Result Comment: Rachael ents treated with Sulfasalazine may generate falsely decreased results for ALT. Performed By: #### H EPFP #### [place] [id number] AST [Catalytic activity/Vol] 13 U/L Normal 9 - 39 [facility] Comment on above: Performed By: #### H EPFP #### [address] [address] Bilirubin [Mass/Vol] 0.3 mg/dL Normal 0.0 - 1.2 [facility] Comment on above: Performed By: #### H EPFP #### [address] [address] Bilirubin.direct [Mass/Vol] 0.1 mg/dL Normal 0.0 - 0.3 [facility] Comment on above: Performed By: #### H EPFP #### [address] [address] Protein [Mass/Vol] 6.8 g/dL Normal 6.4 - 8.2 [facility] Comment on above: Performed By: #### H EPFP #### [address] [address] LIPASEon 10-30-2019 Lipase [Catalytic activity/Vol] 28 U/L Normal 9 - 82 [facility] Comment on above: Result Comment: Kimberly puncture immediately after or during the administration of Metamizole may lead to falsely low results. Testing should be performed immediately prior to Metamizole dosing. Z-fscnmo-h-benzoquinone imine (metabolite of Acetaminophen) will generate erroneously low results in samples for patients that have taken toxic doses of acetaminophen. Performed By: #### L IPAS #### [address] [address] Provider Note - ED v2on 10-02 Provider [...] made to minimize errors. Minor errors in urgent care may be present. Please call if questions.. [...] Current Medications SIGNIFICANT EVENTS: No documented data. MULTICUT LINE OPERATOR: Is : no(1) Is : no(1) REVIEW [...] Reference Range: STRAW,YELLOW Appearance, Urine CLEAR Specific [place], Urine 1.010 pH, Urine 7.0 Protein, Urine [...] SIGNS: T PRBP SpO2O2(LPM) %FiO2 Method 30-Oct-2019 15:30:[id number] MEDICAL DECISION MAKING/ED COURSE MDM/ED COURSE: [...] Referenced From Triage - ED 30-Oct-2019 15:30 [facility] Risk Screen - Adult Emergenc yon 10-30-2019 [...] Communicatenone Learning Preferencesaudio Cultural Considerationsnone Developmental Considerationsnone Pentecostalism Considerationsnone Learning Assessment (Other Learner): Learning Assessment (Other Learner): Other learner availableno Pressure Injury/TB/Substance: Pressure Injury: Pressure Injury Present on Admissionno Do you have a coughno Substance Use Current or Former Historynever: Cigarette/Tobacco, e-Cigarette/Vaping, Alcohol, Street Drugs Admission Risk Screen: Significant IndicatorsComplete CAGE: CAGE: Is this an injured patient at a Trauma Center ([facility] – [place]): no Electronic Signatures: Deann Olmedo (RN) (Signed 30-Oct-2019 15:33) Authored: Preferred Language, Advanced Directives, Family Violence Adult, Learning Assessment (Patient), Learning Assessment (Other Learner), Pressure Injury/TB/Substance, CAGE Last Updated: 30-Oct-2019 15:33 by Deann Olmedo (GAMALIEL) [facility] Triage - EDon 10-30-2019 Triage - ED [...] obeys commands Best Verbal Response: (V5) oriented [place] Score: 15 Allergies: no Patient has homicidal [...] 30-Oct-2019 15:33 by Deann Olmedo (RN) Normal [facility] URINALYSISon 10-30-2019 Appearance (U) CLEAR Normal CLEAR [facility] Comment on above: Performed By: #### U A #### [place] [address] Bilirubin (U) [Mass/Vol] Negative Normal NEGATIVE [facility] Comment on above: Performed By: #### U A #### [place] [address] BLOOD Negative Normal NEGATIVE [facility] Comment on above: Performed By: #### U A #### [place] [address] Color (U) Straw Normal STRAW,YELLOW [facility] Comment on above: Performed By: #### U A #### [place] [id number] Glucose [Mass/Vol] Negative Normal NEGATIVE [facility] Comment on above: Performed By: #### U A #### [place] [id number] Ketones Ql (U) Negative Normal NEGATIVE [facility] Comment on above: Performed By: #### U A #### [place] [id number] Leukocyte esterase Test strip Ql (U) Negative Normal NEGATIVE [facility] Comment on above: Performed By: #### U A #### [address] [address] Nitrite Ql (U) Negative Normal NEGATIVE [facility] Comment on above: Performed By: #### U A #### [address] [address] pH (Bld) 7.0 Normal 5.0 - 8.0 [facility] Comment on above: Performed By: #### U A #### [address] [address] Protein (U) [Mass/Vol] Negative Normal NEGATIVE [facility] Comment on above: Performed By: #### U A #### [address] [address] Specific gravity (U) [Rel density] 1.010 Normal 1.005 - 1.035 [facility] Comment on above: Performed By: #### U A #### [address] [address] Urobilinogen Qn (U) <2.0 Normal 0.0 - 1.9 [facility] Comment on above: Performed By: #### U A #### [address] [address] Vital Signs Date Time Vital Sign Value Performing Clinician Facility 07-10-2025 15:190400 Body height 154.94 cm No Primary Care Physician [facility] 07-10-2025 15:190400 Body mass index (BMI) [Ratio] 25.2 kg/m2 No Primary Care Physician [facility] 07-10-2025 15:190400 Body weight 60.46 kg No Primary Care Physician [facility] 07-10-2025 15:190400 Diastolic blood pressure 62 mm[Hg] No Primary Care Physician [facility] 07-10-2025 15:19040 Systolic blood pressure 106 mm[Hg] No Primary Care Physician [facility] 07-02-2025 10:22-0400 Body height 154.94 cm No Primary Care Physician [facility] 07-02-2025 10:20-0400 Body mass index (BMI) [Ratio] 25 kg/m2 No Primary Care Physician [facility] 07-02-2025 10:20-0400 Body weight 60.07 kg No Primary Care Physician [facility] 07-02-2025 10:20-0400 Diastolic blood pressure 68 mm[Hg] No Primary Care Physician [facility] 07-02-2025 10:20-0400 Systolic blood pressure 112 mm[Hg] No Primary Care Physician [facility] 06-18-2025 10:05-0400 Body height 154.94 cm No Primary Care Physician [facility] 06-18-2025 10:00-0400 Body mass index (BMI) [Ratio] 24.5 kg/m2 No Primary Care Physician [facility] 06-18-2025 10:00-0400 Body weight 58.74 kg No Primary Care Physician [facility] 06-18-2025 10:00-0400 Diastolic blood pressure 64 mm[Hg] No Primary Care Physician [facility] 06-18-2025 10:00-0400 Systolic blood pressure 98 mm[Hg] No Primary Care Physician [facility] 06-04-2025 15:17-0400 Body height 154.94 cm No Primary Care Physician [facility] 06-04-2025 15:17-0400 Body mass index (BMI) [Ratio] 24.5 kg/m2 No Primary Care Physician [facility] 06-04-2025 15:17-0400 Body weight 58.96 kg No Primary Care Physician [facility] 06-04-2025 15:17-0400 Diastolic blood pressure 66 mm[Hg] No Primary Care Physician [facility] 06-04-2025 15:17-0400 Systolic blood pressure 99 mm[Hg] No Primary Care Physician [facility] 05-21-2025 10:15-0400 Body height 154.94 cm No Primary Care Physician [facility] 05-21-2025 10:12-0400 Body mass index (BMI) [Ratio] 23.5 kg/m2 No Primary Care Physician [facility] 05-21-2025 10:12-0400 Body weight 56.47 kg No Primary Care Physician [facility] 05-21-2025 10:12-0400 Diastolic blood pressure 60 mm[Hg] No Primary Care Physician [facility] 05-21-2025 10:12-0400 Systolic blood pressure 107 mm[Hg] No Primary Care Physician [facility] 05-07-2025 09:59-0400 Body height 154.94 cm No Primary Care Physician [facility] 05-07-2025 09:59-0400 Body mass index (BMI) [Ratio] 23.8 kg/m2 No Primary Care Physician [facility] 05-07-2025 09:59-0400 Body weight 57.2 kg No Primary Care Physician [facility] 05-07-2025 09:59-0400 Diastolic blood pressure 60 mm[Hg] No Primary Care Physician [facility] 05-07-2025 09:59-0400 Systolic blood pressure 100 mm[Hg] No Primary Care Physician [facility] 04-26-2025 15:44-0400 Body height 154.94 cm No Primary Care Physician [facility] 04-26-2025 15:44-0400 Body mass index (BMI) [Ratio] 23.1 kg/m2 No Primary Care Physician [facility] 04-26-2025 15:44-0400 Body weight 55.39 kg No Primary Care Physician [facility] 04-26-2025 15:44-0400 Diastolic blood pressure 66 mm[Hg] No Primary Care Physician [facility] 04-26-2025 15:44-0400 Systolic blood pressure 107 mm[Hg] No Primary Care Physician [facility] 04-03-2025 05:42-0400 Diastolic blood pressure 56 mm[Hg] No Primary Care Physician [facility] 04-03-2025 05:42-0400 Heart rate 78 /min No Primary Care Physician [facility] 04-03-2025 05:42-0400 Systolic blood pressure 88 mm[Hg] No Primary Care Physician [facility] 04-03-2025 05:31-0400 SaO2% (BldA) [Mass fraction] 94 % No Primary Care Physician [facility] 04-02-2025 21:33-0400 Body temperature 99.2 [degF] No Primary Care Physician [facility] 04-02-2025 21:33-0400 Respiratory rate 16 /min No Primary Care Physician [facility] 04-02-2025 21:20-0400 Body height 154.94 cm No Primary Care Physician [facility] 04-02-2025 21:20-0400 Body mass index (BMI) [Ratio] 22.6 kg/m2 No Primary Care Physician [facility] 04-02-2025 21:20-0400 Body weight 54.3 kg No Primary Care Physician [facility] 03-26-2025 10:09-0400 Body height 154.94 cm No Primary Care Physician [facility] 03-26-2025 10:09-0400 Body mass index (BMI) [Ratio] 22 kg/m2 No Primary Care Physician [facility] 03-26-2025 10:09-0400 Body weight 52.84 kg No Primary Care Physician [facility] 03-26-2025 10:09-0400 Diastolic blood pressure 66 mm[Hg] No Primary Care Physician [facility] 03-26-2025 10:09-0400 Systolic blood pressure 104 mm[Hg] No Primary Care Physician [facility] 02-26-2025 09:31-0400 Body mass index (BMI) [Ratio] 20.9 kg/m2 No Primary Care Physician [facility] 02-26-2025 09:31-0400 Body weight 50.46 kg No Primary Care Physician [facility] 02-26-2025 09:31-0400 Diastolic blood pressure 58 mm[Hg] No Primary Care Physician [facility] 02-26-2025 09:31-0400 Systolic blood pressure 96 mm[Hg] No Primary Care Physician [facility] 01-21-2025 08:48-0400 Body height 154.94 cm No Primary Care Physician [facility] 01-21-2025 08:48-0400 Body mass index (BMI) [Ratio] 20.4 kg/m2 No Primary Care Physician [facility] 01-21-2025 08:48-0400 Body weight 49.1 kg No Primary Care Physician [facility] 01-21-2025 08:48-0400 Diastolic blood pressure 68 mm[Hg] No Primary Care Physician [facility] 01-21-2025 08:48-0400 Systolic blood pressure 102 mm[Hg] No Primary Care Physician [facility] 09-21-2023 07:52-0500 Body temperature 98.4 [degF] No Primary Care Physician [facility] 09-21-2023 07:52-0500 Diastolic blood pressure 72 mm[Hg] No Primary Care Physician [facility] 09-21-2023 07:52-0500 Heart rate 77 /min No Primary Care Physician [facility] 09-21-2023 07:52-0500 Respiratory rate 16 /min No Primary Care Physician [facility] 09-21-2023 07:52-0500 Systolic blood pressure 112 mm[Hg] No Primary Care Physician [facility] 09-21-2023 01:57-0500 SaO2% (BldA) [Mass fraction] 100 % No Primary Care Physician [facility] 09-19-2023 12:30-0500 Body height 154.94 cm No Primary Care Physician [facility] 09-19-2023 12:30-0500 Body mass index (BMI) [Ratio] 25.4 kg/m2 No Primary Care Physician [facility] 09-19-2023 12:30-0500 Body weight 61.23 kg No Primary Care Physician [facility] 09-13-2023 11:10-0500 Body mass index (BMI) [Ratio] 25.1 kg/m2 No Primary Care Physician [facility] 09-13-2023 11:10-0500 Body weight 60.32 kg No Primary Care Physician [facility] 09-13-2023 11:10-0500 Diastolic blood pressure 76 mm[Hg] No Primary Care Physician [facility] 09-13-2023 11:10-0500 Systolic blood pressure 114 mm[Hg] No Primary Care Physician [facility] 09-06-2023 13:24-0500 Body mass index (BMI) [Ratio] 25 kg/m2 No Primary Care Physician [facility] 09-06-2023 13:24-0500 Body weight 59.98 kg No Primary Care Physician [facility] 09-06-2023 13:24-0500 Diastolic blood pressure 70 mm[Hg] No Primary Care Physician [facility] 09-06-2023 13:24-0500 Systolic blood pressure 104 mm[Hg] No Primary Care Physician [facility] 08-30-2023 11:37-0400 Body height 154.94 cm No Primary Care Physician [facility] 08-30-2023 11:37-0400 Body mass index (BMI) [Ratio] 24.9 kg/m2 No Primary Care Physician [facility] 08-30-2023 11:37-0400 Body weight 59.87 kg No Primary Care Physician [facility] 08-30-2023 11:37-0400 Diastolic blood pressure 75 mm[Hg] No Primary Care Physician [facility] 08-30-2023 11:37-0400 Systolic blood pressure 109 mm[Hg] No Primary Care Physician [facility] 08-23-2023 14:50-0400 Body mass index (BMI) [Ratio] 24.6 kg/m2 No Primary Care Physician [facility] 08-23-2023 14:50-0400 Body weight 59.08 kg No Primary Care Physician [facility] 08-23-2023 14:50-0400 Diastolic blood pressure 68 mm[Hg] No Primary Care Physician [facility] 08-23-2023 14:50-0400 Systolic blood pressure 106 mm[Hg] No Primary Care Physician [facility] 08-09-2023 14:11-0400 Body mass index (BMI) [Ratio] 24 kg/m2 No Primary Care Physician [facility] 08-09-2023 14:11-0400 Body weight 57.83 kg No Primary Care Physician [facility] 08-09-2023 14:11-0400 Diastolic blood pressure 67 mm[Hg] No Primary Care Physician [facility] 08-09-2023 14:11-0400 Systolic blood pressure 106 mm[Hg] No Primary Care Physician [facility] 08-05-2023 14:12-0400 Body mass index (BMI) [Ratio] 23.6 kg/m2 No Primary Care Physician [facility] 08-05-2023 14:12-0400 Body weight 56.75 kg No Primary Care Physician [facility] 08-05-2023 14:12-0400 Diastolic blood pressure 70 mm[Hg] No Primary Care Physician [facility] 08-05-2023 14:12-0400 Systolic blood pressure 104 mm[Hg] No Primary Care Physician [facility] 07-26-2023 13:10-0400 Body mass index (BMI) [Ratio] 23.5 kg/m2 No Primary Care Physician [facility] 07-26-2023 13:10-0400 Body weight 56.41 kg No Primary Care Physician [facility] 07-26-2023 13:10-0400 Diastolic blood pressure 60 mm[Hg] No Primary Care Physician [facility] 07-26-2023 13:10-0400 Systolic blood pressure 94 mm[Hg] No Primary Care Physician [facility] 07-12-2023 11:37-0400 Body mass index (BMI) [Ratio] 23.1 kg/m2 No Primary Care Physician [facility] 07-12-2023 11:37-0400 Body weight 55.56 kg No Primary Care Physician [facility] 07-12-2023 11:37-0400 Diastolic blood pressure 58 mm[Hg] No Primary Care Physician [facility] 07-12-2023 11:37-0400 Systolic blood pressure 96 mm[Hg] No Primary Care Physician [facility] 06-29-2023 13:53-0400 Body mass index (BMI) [Ratio] 22.7 kg/m2 No Primary Care Physician [facility] 06-29-2023 13:53-0400 Body weight 54.65 kg No Primary Care Physician [facility] 06-29-2023 13:53-0400 Diastolic blood pressure 64 mm[Hg] No Primary Care Physician [facility] 06-29-2023 13:53-0400 Systolic blood pressure 98 mm[Hg] No Primary Care Physician [facility] 06-10-2023 10:02-0400 Diastolic blood pressure 62 mm[Hg] No Primary Care Physician [facility] 06-10-2023 10:02-0400 Systolic blood pressure 97 mm[Hg] No Primary Care Physician [facility] 06-10-2023 09:51-0400 Body mass index (BMI) [Ratio] 22 kg/m2 No Primary Care Physician [facility] 06-10-2023 09:51-0400 Body weight 52.84 kg No Primary Care Physician [facility] 05-13-2023 09:52-0400 Body mass index (BMI) [Ratio] 21.2 kg/m2 No Primary Care Physician [facility] 05-13-2023 09:52-0400 Body weight 50.91 kg No Primary Care Physician [facility] 05-13-2023 09:52-0400 Diastolic blood pressure 60 mm[Hg] No Primary Care Physician [facility] 05-13-2023 09:52-0400 Systolic blood pressure 92 mm[Hg] No Primary Care Physician [facility] 03-18-2023 10:41-0400 Body height 154.94 cm No Primary Care Physician [facility] 03-18-2023 10:41-0400 Body mass index (BMI) [Ratio] 20 kg/m2 No Primary Care Physician [facility] 03-18-2023 10:41-0400 Body weight 48.19 kg No Primary Care Physician [facility] 03-18-2023 10:41-0400 Diastolic blood pressure 70 mm[Hg] No Primary Care Physician [facility] 03-18-2023 10:41-0400 Systolic blood pressure 106 mm[Hg] No Primary Care Physician [facility] 02-25-2023 10:35-0400 Body mass index (BMI) [Ratio] 20.7 kg/m2 No Primary Care Physician [facility] 02-25-2023 10:35-0400 Body weight 49.95 kg No Primary Care Physician [facility] 02-25-2023 10:35-0400 Diastolic blood pressure 70 mm[Hg] No Primary Care Physician [facility] 02-25-2023 10:35-0400 Systolic blood pressure 112 mm[Hg] No Primary Care Physician [facility] 02-17-2023 21:04-0400 Body height 154.94 cm No Primary Care Physician [facility] 02-17-2023 21:04-0400 Body mass index (BMI) [Ratio] 20.1 kg/m2 No Primary Care Physician [facility] 02-17-2023 21:04-0400 Body temperature 97.9 [degF] No Primary Care Physician [facility] 02-17-2023 21:04-0400 Body weight 48.4 kg No Primary Care Physician [facility] 02-17-2023 21:04-0400 Diastolic blood pressure 65 mm[Hg] No Primary Care Physician [facility] 02-17-2023 21:04-0400 Heart rate 98 /min No Primary Care Physician [facility] 02-17-2023 21:04-0400 Respiratory rate 18 /min No Primary Care Physician [facility] 02-17-2023 21:04-0400 SaO2% (BldA) [Mass fraction] 98 % No Primary Care Physician [facility] 02-17-2023 21:04-0400 Systolic blood pressure 116 mm[Hg] No Primary Care Physician [facility] 01-27-2023 10:29-0400 Body height 154.94 cm No Primary Care Physician [facility] 01-27-2023 10:29-0400 Body mass index (BMI) [Ratio] 20.5 kg/m2 No Primary Care Physician [facility] 01-27-2023 10:29-0400 Body weight 49.44 kg No Primary Care Physician [facility] 01-27-2023 10:29-0400 Diastolic blood pressure 79 mm[Hg] No Primary Care Physician [facility] 01-27-2023 10:29-0400 Systolic blood pressure 120 mm[Hg] No Primary Care Physician [facility] 08-03-2022 14:30-0400 Body height 160.02 cm Richa A Grassick Work Phone: [employer] Work Phone: 08-03-2022 14:30-0400 Body mass index (BMI) [Ratio] 18.6 kg/m2 Richa A Grassick Work Phone: [facility] [place] Work Phone: 08-03-2022 14:30-0400 Body surface area Derived from formula 1.47 m2 Richa A Grassick Work Phone: [employer] [address] [place] Work Phone: 08-03-2022 14:30-0400 Body weight 47.63 kg Richa A Grassick Work Phone: [employer] [address] [place] Work Phone: 08-03-2022 14:30-0400 Diastolic blood pressure 62 mm[Hg] Richa A Grassick Work Phone: [facility] [address] [place] Work Phone: 08-03-2022 14:30-0400 Systolic blood pressure 112 mm[Hg] Richa A Grassick Work Phone: [facility] [address] [place] Work Phone: 09-03-2021 09:43-0400 Body weight 49.44 kg Shena Mcdermott MD Work Phone: [facility] 09-03-2021 09:43-0400 Diastolic blood pressure 64 mm[Hg] Shena Mcdermott MD Work Phone: [facility] 09-03-2021 09:43-0400 Systolic blood pressure 98 mm[Hg] Shena Mcdermott MD Work Phone: [facility] 06-23-2021 11:22-0400 Body height 160.02 cm Richa A Grassick Work Phone: [place] [address] [place] Work Phone: 06-23-2021 11:22-0400 Body mass index (BMI) [Ratio] 18.86 kg/m2 Richa A Grassick Work Phone: [place] [address] [place] Work Phone: 06-23-2021 11:22-0400 Body surface area Derived from formula 1.48 m2 Richa A Grassick Work Phone: [place] [address] [place] Work Phone: 06-23-2021 11:22-0400 Body temperature 98 [degF] Richa A Grassick Work Phone: [place] [address] [place] Work Phone: 06-23-2021 11:22-0400 Body weight 48.3 kg Richa A Grassick Work Phone: [place] [address] [place] Work Phone: 06-23-2021 11:22-0400 Diastolic blood pressure 60 mm[Hg] Richa A Grassick Work Phone: [facility] [address] [place] Work Phone: 06-23-2021 11:22-0400 Systolic blood pressure 108 mm[Hg] Richa A Grassick Work Phone: [address] Work Phone: 06-23-2021 11:22-0400 31 1 Richa Barr Grassick Work Phone: [address] Work Phone: Comment on above: 2-20_SPerc 06-23-2021 11:22-0400 10 1 Richa A Grassick Work Phone: [address] Work Phone: Comment on above: 2-20_WPerc 06-23-2021 11:22-0400 14 1 Richa A Grassick Work Phone: [address] Work Phone: Comment on above: BMIPerc 04-15-2021 08:12-0400 Body height 160.1 cm Richa A Grassick Work Phone: [facility] Work Phone: 04-15-2021 08:12-0400 Body mass index (BMI) [Ratio] 19.11 kg/m2 Richa A Grassick Work Phone: [facility] Work Phone: 04-15-2021 08:12-0400 Body surface area Derived from formula 1.49 m2 Richa A Grassick Work Phone: [facility] Work Phone: 04-15-2021 08:12-0400 Body temperature 97 [degF] Richa A Grassick Work Phone: [facility] Work Phone: 04-15-2021 08:12-0400 Body weight 48.98 kg Richa A Grassick Work Phone: [facility] Work Phone: 04-15-2021 08:12-0400 Diastolic blood pressure 59 mm[Hg] Richa A Grassick Work Phone: [facility] Work Phone: 04-15-2021 08:12-0400 Heart rate 69 /min Richa Barr Grassick Work Phone: [facility] Work Phone: 04-15-2021 08:12-0400 Systolic blood pressure 107 mm[Hg] Richa A Grassick Work Phone: [facility] Work Phone: 04-15-2021 08:12-0400 31 1 Richa A Grassick Work Phone: [facility] Work Phone: Comment on above: 2-20_SPerc 04-15-2021 08:12-0400 12 1 Richa A Grassick Work Phone: [facility] Work Phone: Comment on above: 12-20_WPerc 04-15-2021 08:12-0400 17 1 Richa A Grassick Work Phone: [facility] Work Phone: Comment on above: BMIPerc Encounters Encounter Date Encounter Type Care Provider Facility Start: 07-10-2025 End: 07-10-2025 Patient encounter procedure Carmella NINO -[facility] Work Phone: Start: 07-10-2025 End: 07-10-2025 ambulatory No Primary Care Physician -[facility] Start: 07-02-2025 End: 07-02-[address] Marie Rascon DO -Laboratory Specimen Work Phone: Start: 07-02-2025 End: 07-02-2025 ambulatory Marie Rascon Facility:[facility] Start: 07-02-2025 End: 07-02-[address] Marie Rascon DO [facility] Work Phone: Start: 07-02-2025 End: 07-02-2025 ambulatory No Primary Care Physician [facility] Start: 06-18-2025 End: 06-18-2025 Patient encounter procedure Esther Vernon LAW OFFICE RECEPTIONIST-C -[facility] Work Phone: Start: 06-18-2025 End: 06-18-2025 ambulatory No Primary Care Physician [facility] Start: 06-04-2025 End: 06-04-2025 Patient encounter procedure Carmella Bone CNM -[facility] Work Phone: Start: 06-04-2025 End: 06-04-2025 ambulatory No Primary Care Physician [facility] Start: 05-21-2025 End: 05-21-[address] Dilcia Das MD -[facility] Work Phone: Start: 05-21-2025 End: 05-21-2025 ambulatory No Primary Care Physician [facility] Start: 05-07-2025 End: 05-07-2025 Patient encounter procedure Esther Vernon NP-C -[facility] Work Phone: Start: 05-07-2025 End: 05-07-2025 ambulatory No Primary Care Physician [facility] Start: 05-07-2025 End: 05-07-2025 ambulatory Esther Vernon LAW OFFICE RECEPTIONIST Facility:[facility] Start: 04-26-2025 End: 04-26-[address] Marie Rascon DO -[facility] Work Phone: Start: 04-26-2025 End: 04-26-2025 ambulatory No Primary Care Physician [facility] Start: 04-04-2025 ambulatory Shanika Freitas y:[facility] Start: 04-04-2025 Non-patient / Non-visit Dr. Dilcia Das MD -[facility] Start: 04-03-2025 End: 04-03-2025 ambulatory No Primary Care Physician [facility] Work Phone: Start: 04-03-2025 End: 04-03-2025 Patient encounter procedure Shanika NINO -[facility] Work Phone: Start: 04-03-2025 ambulatory No Primary Car e Physician Facility[facility] Start: 04-03-2025 Non-patient / Non-visit Dr. Dilcia Das MD -[facility] Start: 04-02-2025 ambulatory No Primary Car e Physician Facility[facility] Start: 04-02-2025 Non-patient / Non-visit Dr. Dilcia Das MD -[facility] Start: 04-02-2025 End: 04-03-2025 ambulatory No Primary Care Physician [facility] Work Phone: Start: 04-02-2025 End: 04-03-[address] Dilcia Das MD -[facility] Work Phone: Start: 03-26-2025 End: 03-26-[address] Dilcia Das MD -[facility] Work Phone: Start: 03-26-2025 End: 03-26-2025 ambulatory No Primary Care Physician [facility] Work Phone: Start: 03-05-2025 End: 03-05-2025 ambulatory MD NO PRIMARY CARE [facility] Start: 02-26-2025 End: 02-26-2025 Patient encounter procedure Esther JIM -[facility] Work Phone: Start: 02-26-2025 End: 02-26-2025 ambulatory No Primary Care Physician Facility:[facility] Start: 01-21-2025 End: 01-21-2025 Patient encounter procedure Carmella Bone CNM -[facility] Work Phone: Start: 01-21-2025 End: 01-21-2025 ambulatory No Primary Care Physician [facility] Work Phone: Start: 01-21-2025 End: 01-21-2025 ambulatory No Primary Care Physician Facility:[facility] Start: 12-31-2024 End: 12-31-2024 ambulatory No Primary Care Physician [facility] Work Phone: Start: 12-31-2024 End: 12-31-[address] Dilcia Das MD -Ultrasound, [facility] Work Phone: Start: 12-31-2024 End: 12-31-2024 ambulatory No Primary Care Physician Facility:[facility] Start: 11-22-2024 End: 11-22-2024 Patient encounter procedure Altagracia BECKHAM -[facility] Work Phone: Start: 11-22-2024 End: 11-22-2024 ambulatory Altagracia Ricks Facility[facility] Start: 09-21-2023 Non-patient / Non-visit No Primary Care Physician [facility] Start: 09-20-2023 Non-patient / Non-visit No Primary Care Physician [facility] Start: 09-19-2023 Non-patient / Non-visit No Primary Care Physician [facility] Start: 09-19-2023 End: 09-21-2023 Evaluation and management of inpatient No Primary Care Physician [facility] Work Phone: Start: 09-13-2023 End: 09-13-2023 Patient encounter procedure No Primary Care Physician [facility] Work Phone: Start: 09-06-2023 End: 09-06-2023 Patient encounter procedure No Primary Care Physician [facility] Work Phone: Start: 08-30-2023 End: 08-30-2023 ambulatory No Primary Care Physician [facility] Work Phone: Start: 08-30-2023 End: 08-30-2023 Patient encounter procedure No Primary Care Physician [facility]-Laboratory, Specimen Work Phone: Start: 08-30-2023 End: 08-30-2023 Patient encounter procedure No Primary Care Physician [facility] Work Phone: Start: 08-23-2023 End: 08-23-2023 Patient encounter procedure No Primary Care Physician [facility] Work Phone: Start: 08-09-2023 End: 08-09-2023 Patient encounter procedure No Primary Care Physician [facility] Work Phone: Start: 08-05-2023 End: 08-05-2023 Patient encounter procedure No Primary Care Physician [facility]-Laboratory, Specimen Work Phone: Start: 08-05-2023 End: 08-05-2023 Patient encounter procedure No Primary Care Physician [facility] Work Phone: Start: 07-26-2023 End: 07-26-2023 Patient encounter procedure No Primary Care Physician [facility] Work Phone: Start: 07-12-2023 End: 07-12-2023 Patient encounter procedure No Primary Care Physician [facility] Work Phone: Start: 06-29-2023 End: 06-29-2023 Patient encounter procedure No Primary Care Physician [facility] Work Phone: Start: 06-10-2023 End: 06-10-2023 Patient encounter procedure No Primary Care Physician [facility] Work Phone: Start: 05-13-2023 End: 05-13-2023 Patient encounter procedure No Primary Care Physician [facility] Work Phone: Start: 03-18-2023 End: 03-18-2023 ambulatory No Primary Care Physician [facility] Work Phone: Start: 03-18-2023 End: 03-18-2023 Patient encounter procedure No Primary Care Physician [facility] Start: 02-25-2023 End: 02-25-2023 Patient encounter procedure No Primary Care Physician [facility] Start: 02-17-2023 End: 02-17-2023 Emergency department patient visit No Primary Care Physician [facility]Emergency Department Start: 02-04-2023 End: 02-04-2023 ambulatory No Primary Care Physician [facility] Work Phone: Start: 02-04-2023 End: 02-04-2023 Patient encounter procedure No Primary Care Physician [facility]Ul[facility]ound, [facility] Start: 01-27-2023 End: 01-27-2023 ambulatory No Primary Care Physician [facility] Work Phone: Start: 01-27-2023 End: 01-27-2023 Patient encounter procedure No Primary Care Physician [facility]-Laboratory, Specimen Start: 01-27-2023 End: 01-27-2023 Patient encounter procedure No Primary Care Physician [facility] Start: 08-11-2022 Chart Update Richa dubois Work Phone: [facility] [employer] Work Phone: Start: 08-03-2022 ambulatory Ms. Richa Brown Fac ility:[facility] Start: 08-03-2022 Periodic preventive med est patient 18-39 yrs Richa Cortney Stephanie Work Phone: [facility] [employer] Work Phone: Start: 08-03-2022 ambulatory Ms. Richa Ramírez ility:[id number] Start: 09-03-2021 End: 09-03-2021 Patient encounter procedure Shena Mcdermott MD Work Phone: OB/Gynecology Comment on above: Pelvic pain (Primary Dx); Irregular menses; Screen for STD (sexually transmitted disease) Start: 06-23-2021 Office outpatient ne w 30 minutes Richa Brown Work Phone: [facility] [employer] Work Phone: Start: 05-27-2021 Rx Renewal Richa asifKitchon Work Phone: [facility] Work Phone: Start: 05-22-2021 AUDIT Richa Barr Grass ick Work Phone: [facility] Work Phone: Start: 05-11-2021 AUDIT Richa Barr Grass ick Work Phone: [facility] Work Phone: Start: 05-05-2021 Rx Renewal Richa A Grass ick Work Phone: [facility] Work Phone: Start: 04-16-2021 Rx Change Richa Barr boosk ick Work Phone: [facility] Work Phone: Start: 04-15-2021 Office outpatient ne w 30 minutes Richa Calderaick Work Phone: [facility] Work Phone: Procedures Date Procedure Procedure [...] therefore, no HPV testing was performed.Performed at: [address] [id number] Director: Bianca Cervantes PhD, Phone: [phone] at: [facility] Lab69 Golden StreetShemar packer W [id number] Director: Sulema Constantino MD, Phone: [phone] Start: 01-21-2025 Urine culture No Primar y [...] HCV Quant by PCR testing - HCVPCR #[id number] Non Reactive: < 0.8 Equivocal: >/= 0.8 [...] W Auto Different ial panel - Blood [facility] Start: 05-07-2025 Measurement of gluco se 2 hours after glucose challenge for glucose tolerance test [facility] Start: 05-07-2025 Serologic test for syphilis [facility] Start: 05-07-2025 [facility] Start: 04-02-2025 End: 04-02-2025 [facility] Start: 04-02-2025 Nonstress test [facility] Start: 04-02-2025 Obstetric monitoring [facility] Start: 04-02-2025 Vital signs measurements [facility] Start: 04-02-2025 Bacteria identified in Urine by Culture Urine Culture [facility] Start: 09-21-2023 Patient discharge [facility] Start: 09-19-2023 Administration of medication [facility] Start: 09-19-2023 Application of ice c ollar, cap or bag [facility] Start: 09-19-2023 Catheterization of vein [facility] Start: 09-19-2023 Introduction of urin fawad catheter [facility] Start: 09-19-2023 Measuring intake and output [facility] Start: 09-19-2023 Notification of physician [facility] Start: 09-19-2023 Procedure discontinued [facility] Start: 09-19-2023 Provision of activit y privileges [facility] Start: 09-19-2023 Vital signs measurements [facility] Start: 09-19-2023 [facility] Start: 09-19-2023 Admission procedure [facility] Start: 08-05-2023 EPVOB, Provider: Era Coyne, Status: Pen, Time: 3:00 PM EPVOB, Provider: Era Coyne, Status: Pen, Time: 3:[address] Work Phone: Start: 02-17-2023 [facility] Start: 01-27-2023 Chlamydia deoxyribon ucleic acid detection [facility] Start: 07-17-2021 EPV, Provider: Richa Brown, Status: Pen, Time: 8:00 AM [facility] Work Phone: Start: 07-01-2021 Influenza vaccination INFLUENZA (#1) [facility] Start: 2020 Urine microalbumin profile DTAP,TDAP ,TD (1 - Tdap) [facility] Start: 2019 CHLAMYDIA SCREENING (18-24) CHLAMYDIA SCREENING (18-24) [facility] Start: 2019 GC (GONORRHEA) ELBERT MACHUCAG (18-24) GC (GONORRHEA) SCREENING (18-24) [facility] Start: 2019 HEPATITIS C SCREENING HEPATITIS C SC REENING [facility] Start: 2019 HIV SCREENING HIV SCREENING [facility] Start: 2015 PEDS TO ADULT TRANSI TION ANNUAL ASSESSMENT PEDS TO ADULT TRANSITION ANNUAL ASSESSMENT [facility] Start: 2013 Adult depression scr eening assessment DEPRESSION SCREENING [facility] Start: 2013 COVID-19 VACCINE (1) COVID-19 VACCIN E (1) [facility] Start: 2013 PEDS TO ADULT TRANSI TION INITIAL DISCUSSION PEDS TO ADULT TRANSITION INITIAL DISCUSSION [facility] Start: 2012 HPV VACCINE (1 - 2-d ose series) HPV VACCINE (1 - 2-dose series) [facility] Start: 2011 MENINGOCOCCAL 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 based 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 (1 of 2 - Risk Bexsero 2-dose series) MENINGOCOCCAL B: Consider based on risk (1 of 2 - Risk Bexsero 2-dose series) [facility] CBC W Auto Different ial panel - Blood [facility] CBC W Auto Different ial panel - Blood [facility] Erythrocyte mean corpuscular volume determination [facility] GC/CHLAMYDIA DNA DET GC/CHLAMYDI A DNA DET Lab Routine Pelvic pain Screen for STD (sexually transmitted disease) Ordered: 09/03/2021 [facility] Comment on above: Ordered: 09/03/2021 Hematocrit [Volume Fraction] of Blood [facility] Hemoglobin [Mass/vol ume] in Blood [facility] Hepatitis B surface antigen measurement [facility] Hepatitis C antibody measurement [facility] HIV 1+2 Ab+HIV1 p24 Ag [Presence] in Serum or Plasma by Immunoassay [facility] Leukocytes [#/volume ] in Blood [facility] Mean corpuscular hemoglobin concentration determination [facility] Mean corpuscular hemoglobin determination [facility] Measurement of gluco se 2 hours after glucose challenge for glucose tolerance test [facility] Neisseria gonorrhoea e rRNA [Presence] in Unspecified specimen by LEONCIO with probe detection [facility] Neutrophil count [facility] Neutrophil percent differential count [facility] Patient Education [facility] Work Phone: Patient referral [facility] Work Phone: PCR test for Chlamyd ia trachomatis [facility] PELVIC US WHI PELVIC US WHI An c Imaging Routine Pelvic pain Irregular menses Ordered: 09/03/2021 [facility] Comment on above: Ordered: 09/03/2021 Platelets [#/volume] in Blood [facility] Red blood cell count [facility] Red cell distributio n width determination [facility] Rubella IgG measurement [facility] Serologic test for syphilis [facility] Streptococcus agalac tiae [Presence] in Unspecified specimen by Organism specific culture [facility] End: 09-03-2022 T VAGINALIS AMPLIFICATION T VAGINALIS AMPLIFICATION Lab Routine Pelvic pain Screen for STD (sexually transmitted disease) 1 Occurrences starting 09/03/2021 until 09/03/2022 [facility] Comment on above: 1 Occurrences starti ng 09/03/2021 until 09/03/2022 Treponema sp Ab [Pre sence] in Serum [facility] Ultrasound scan - obstetric [facility] Urine culture [facility] End: 10-03-2022 Us pelvic nonobstetric image dcmtn limited/f/u US FEMALE PELVIS TRANSABD LTD Radiology Routine Pelvic pain Irregular menses 1 Occurrences starting 09/03/2021 until 10/03/2022 [facility] Comment on above: 1 Occurrences starti ng 09/03/2021 until 10/03/2022 End: 10-03-2022 Us transvaginal US FEMALE PELVIS TRANSVAG Radiology Routine Pelvic pain Irregular menses 1 Occurrences starting 09/03/2021 until 10/03/2022 [facility] Comment on above: 1 Occurrences starti ng 09/03/2021 until 10/03/2022 Varicella-zoster vir us antibody IgG measurement [facility] Payers Date Payer Category Payer Self-pay 2024 Unknown [id number] 2021 Medicaid [facility] MEDICAID [facility] MEDICAID [id number] 2021-Present Medicaid [id number] 2001 Unknown [id number] 2.16.840.1.818581.3.579.2.356 2001 Unknown [id number] 2.840.1.116941.3.579.2.356 2001 Unknown [id number] 2.840.1.279947.3.579.2.479 Unknown Unknown [id number] Unknown [id number] 2.16.840.1.979669.3.579.2.462 Unknown [id number] 2.840.1.799558.3.579.2.462 Unknown [id number] 2.840.1.128700.3.579.2.462 Unknown [id number] 2.840.1.762613.3.579.2.462 Unknown [id number] 2.16840.1.221056.3.579.2.462 Unknown [id number] 2.16840.1.899818.3.579.2.462 Unknown [id number] 2.840.1.602218.3.579.2.462 Unknown [id number] 2.16840.1.846660.3.579.2.462 Unknown [id number] 2.16840.1.747647.3.579.2.462 Unknown [id number] 2.16.840.1.306178.3.579.2.462 Unknown [id number] 2.16840.1.195694.3.579.2.462 Unknown [id number] 2.16840.1.571791.3.579.2.462 Unknown [id number] 2.16.840.1.872213.3.579.2.462 Unknown [id number] 2.16.840.1.530321.3.579.2.462 Unknown [id number] 2.16.840.1.779631.3.579.2.462 Unknown [id number] 2.16.840.1.282733.3.579.2.462 Unknown [id number] 2.16.840.1.916794.3.579.2.462 Unknown [id number] 2.16.840.1.231427.3.579.2.462 Unknown [id number] 2.16.840.1.895867.3.579.2.462 Unknown [id number] 2.16.840.1.149033.3.579.2.462 Social History Date Type Detail Facility [facility]: Start: 09-03-2021 End: 01-01-2025 Tobacco smoking status NHIS Never smoker [facility] Start: 09-03-2021 Tobacco use and exposure Never used [facility] Start: 09-03-2021 Alcohol intake Lifetime non-d alec (finding) [facility] Start: 09-03-2021 History SDOH Alcohol Frequency 1 [facility] Start: 2000 Sex Assigned At Not on file [facility] Exposure to SARS-CoV -2 (event) Not sure [facility] Start: 01-27-2023 End: 09-19-2023 Tobacco smoking status WAIS Unknown if ever smoked [facility] Start: 2000 Sex Assigned At Female W [facility] Start: 01-10-2025 End: 01-26-2025 Sex Female (finding) [facility] Goals Date Patient Goal Desired Activity /State Clinical Notes 04-15-2020 to 07-10-2025 Note Date & Type Note Facility 07-10-2025 Progress note [facility] 07-10-2025 Progress note Note Date/Time July 10, 2025 3:31pm [facility] [address] [place] [address], [address] [place] [id number] OFFICE VISIT Date of Service: 07/10/25 MR#: [id number] Acct: [id number] Name: FAROOQ TABOR Rep #: [id number] : 2000 Provider: CARLOS Bone Age/Sex: 24/F [place] Status: Signed Intake Vital Signs 06/04/25 15:17 07/02/25 10:22 07/10/25 15:19 Height 5 ft 1 in 5 ft 1 in 5 ft 1 in Weight: 133 lb 5 oz BMI 25.2 BP 106/62 Intake Visit Reasons: 37 WK OB Chief Complaint: 37wk OB Jar Capper Required: No Is patient in pain?: No [...] ( hemorrhage) (spontaneous vaginal delivery) Surgical History [place] teeth extracted Family History Mother IBS (irritable [...] physical activity do you participate in: none ruth/bahai: None seatbelt use: always do you feel [...] CRL cons wit h dates. Declines NIPT. [facility] ordered. 02/26/25 -?-?-?-?-?-?-?-?-?-?-?-?- 17w 6d 111 lb 4 oz (+3 lb 4 oz) 96/58 Negative -?-?-?-?-?-?-?-?-?-?-?-?- Negative 161 -?-?-?-?-?-?-?-?-?-?-?-?- MH-No VB. Some f lutters. Nl PN labs. [facility] 03/0503/26/25 -?-?-?-?-?-?-?-?-?-?-?-?- 21w 6d 116 lb 8 [...] and Symptoms of Preeclampsia, Feeding No , [place] Education and Family Medical Leave or Disability [...] Cosigner Signature: Date (if applicable) CC: ~ [facility] Work Phone: 1(311) 919-379909-02-2025 Progress [facility] [address] [place] [address], [address] [place] [address] OFFICE VISIT Date of Service: 07/02/25 MR#: [id number] Acct: [id number] Name: FAROOQ TABOR Rep #: : 2000 Provider: Dr. Kaitlynn Rascon DO Age/Sex: 24/F [place] [facility] Status: Signed Intake Vital Signs 05/07/25 09:59 06/18/25 10:05 07/02/25 10:20 07/02/25 10:22 Height 5 ft 1 in 5 ft 1 in 5 ft 1 in 5 ft 1 in Weight: 132 lb 7 oz BMI 25.0 BP 112/68 Intake Visit Reasons: 36wk ob Jar Capper Required: No Is patient in pain?: No [...] ( hemorrhage) (spontaneous vaginal delivery) Surgical History [place] teeth extracted Family History Mother IBS (irritable [...] physical activity do you participate in: none ruth/bahai: None seatbelt use: always do you feel [...] - full term 7#10 Male epidur al [facility] Shanika Elliott [place] HPI 36wk ob Details: FAROOQ TABOR is a 24 year old who presents for routine OB visit. OB Visit MITZI Calculator Estimated Delivery Date Method Current WG Current Estimate 07/31/25 LMP (Certain) 35w 6d Other Estimates 07/28/25 Ultrasound #1 36w 2d Expected Delivery Route/Plan Labor Preferences- CB/BF classes: no labor support person: [place] labor intervention preferences: [] pain management options [...] and Symptoms of Preeclampsia, Feeding No , [place] Education and Family Medical Leave or Disability [...] Velcolt DO> Date _ Marie Rascon DO [facility] Signature: Date (if applicable) CC: ~ [facility]08-05-2025 Progress [facility] [address] [place] [address], [facility] [address] [place] [address] OFFICE VISIT Date of Service: 06/04/25 MR#: [id number] Acct: [id number] Name: FAROOQ TABOR Rep #: [id number] : 2000 Provider: CARLOS Bone Age/Sex: 24/F Location[place] 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 Date Name GA/Weeks Outcome Route Bth Weight Gen Labor Lgth Anesthesia Del Locatn Provider FOB 09/19/23 Deuce 39 live - full term 7#10 Male epidur al [facility] Shanika Elliott [place] HPI 32wk ob Details: FAROOQ TABOR is [...] CRL cons wit h dates. Declines NIPT. [facility] ordered. 02/26/25 -?-?-?-?-?-?-?-?-?-?-?-?- 17w 6d 111 lb 4 oz (+3 lb 4 oz) 96/58 Negative -?-?-?-?-?-?-?-?-?-?-?-?- Negative 161 -?-?-?-?-?-?-?-?-?-?-?-?- MH-No VB. Some f lutters. Nl PN labs. [facility] 5/6 03/26/25 -?-?-?-?-?-?-?-?-?-?-?-?- 21w 6d 116 lb [...] Symptoms of Preeclampsia, Infant Feeding No , [place] Education and Family Medical Leave or Disability [...] Cosigner Signature: Date (if applicable) CC: ~ [facility] [id number] Progress note Author Carmella Bone [facility] Note Date/Time June 04, 2025 3:2 7pm [facility] [address] [place] [address], [address] [place] [address] OFFICE VISIT Date of Service: 06/04/25 MR#: [id number] Acct: [id number] Name: FAROOQ TABOR Rep #: [id number] : 2000 Provider: CARLOS Bone Age/Sex: 24/F Location[place] 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 Date Name GA/Weeks Outcome Route Bth Weight Infant Gen Labor Lgth Anesthesia Del Locatn Provider FOB 09/19/23 Deuce 39 live - full term 7#10 Male epidur al [facility] Shanika Elliott [place] HPI 32wk ob Details: FAROOQ TABOR is [...] CRL cons wit h dates. Declines NIPT. [facility] US ordered. 02/26/25 -?-?-?-?-?-?-?-?-?-?-?-?- 17w 6d 111 lb 4 oz (+3 lb 4 oz) 96/58 Negative -?-?-?-?-?-?-?-?-?-?-?-?- Negative 161 -?-?-?-?-?-?-?-?-?-?-?-?- MH-No VB. Some f lutters. Nl PN labs. [facility] /6 03/26/25 -?-?-?-?-?-?-?-?-?-?-?-?- 21w 6d 116 lb [...] this visit. GA appropriate handout given. 06/04/25 1063 <Electronically signed by Carmella godinez CNM> Date _ Carmella Bone CNM Cosigner Signature: Date (if applicable) CC: ~ [facility] Work Phone: 1([phone] 101-202007-22-2025 [facility] [address], [address] [place] [address] OFFICE VISIT Date of Service: 05/21/25 MR#: [id number] Acct: [id number] Name: FAROOQ TABOR Rep #: [id number] : 2000 Provider: Dr. 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 Date Name GA/Weeks Outcome Route Bth Weight Gen Labor Lgth Anesthesia Del Locatn Provider FOB 09/19/23 Deuce 39 live - full term 7#10 Male epidur al [facility] Shanika Elliott [place] HPI 30 wk [...] CRL cons wit h dates. Declines NIPT. [facility] ordered. 02/26/25 -?-?-?-?-?-?-?-?-?-?-?-?- 17w 6d 111 lb 4 oz (+3 lb 4 oz) 96/58 Negative -?-?-?-?-?-?-?-?-?-?-?-?- Negative 161 -?-?-?-?-?-?-?-?-?-?-?-?- MH-No VB. Some f lutters. Nl PN labs. [facility] 03/0503/26/25 -?-?-?-?-?-?-?-?-?-?-?-?- 21w 6d 116 lb 8 [...] Cosigner Signature: Date (if applicable) CC: ~ [facility]06-04-2025 Radiology Diagnostic study note [facility] Imaging Services [address] [place] [address] OB Limited With Biometrics MR#: [id number] Acct: [id number] Name: FAROOQ TABOR Rep #: [id number] : 2000 F 24 From: Liss Mosley MD PCP: Care Physician,No Primary Status: REG CLI Study:OB Limited With Biometrics Date of Exam : 04/03/25 Exam# [id number] Ordering Dr: Dilcia Smith MD PROCEDURE: OB [...] 2. Other findings documented above. Reading Location: [place] [address] CC: Dr. Dilcia Das MD; No Primary Care Physician ~ Emery Grinder: Signed [facility]06-04-2025 History and physical note Author Dilcia Das [facility] Note Date/Time April 02, 2025 11:28 pm [facility] Medical Records Department [address] [facility] [address] OB Triage Physician Note 04/02/25 2321 MR#: [id number] Acct: [id number] Name: FAROOQ TABOR Rep #:[id number] : 2000 24 From: Dilcia sue MD PCP: Care Physician,No Primary Status :REG CLI Y [facility] - General HPI Narrative FAROOQ TABOR, [...] Mother IBS (irritable bowel syndrome) Surgical History [place] teeth extracted Social History adopted: No household [...] physical activity do you participate in: none ruth/bahai: None seatbelt use: always do you feel [...] - full term 7#10 Male epidur al [facility] Shanika Earl [place] Visit Details Expected Delivery Route/Plan Labor Preferences- [...] VB. Some f lutters. Nl PN labs. [facility] /6 03/26/25 -?-?-?-?-?-?-?-?-?-?-?-?- 21w 6d 116 lb [...] Multi Select Codes Visit Charges Office Visit/Consults: 43233 OV L3 Est 20min 04/02/258 <Electronically signed by Dilcia pereira MD> Date _ Dilcia Das MD Cosigner Signature (if applicable): Date CC: Dr. Dilcia Das MD; No Primary Care Physician ~ Signed [facility] Work Phone: 1(323) 940-591706-03-2025 History and physical note [facility] Medical Records Department [address] [place] [address] OB Triage Physician Note 04/02/25 232 MR#: [id number] Acct: [id number] Name: FAROOQ TABOR Rep #:[id number] : 2000 24 From: Dilcia sue MD PCP: Care Physician,No Primary Status :REG CLI Y Location: [place] [address] HPI - General HPI Narrative FAROOQ TABOR, [...] Mother IBS (irritable bowel syndrome) Surgical History [place] teeth extracted Social History adopted: No household [...] physical activity do you participate in: none ruth/bahai: None seatbelt use: always do you feel [...] - full term 7#10 Male epidur al [facility] Shanika Elliott [place] Visit Details Expected Delivery Route/Plan Labor Preferences- [...] CRL cons wit h dates. Declines NIPT. [facility] ordered. 02/26/25 -?-?-?-?-?-?-?-?-?-?-?-?- 17w 6d 111 lb 4 oz (+3 lb 4 oz) 96/58 Negative -?-?-?-?-?-?-?-?-?-?-?-?- Negative 161 -?-?-?-?-?-?-?-?-?-?-?-?- MH-No VB. Some f lutters. Nl PN labs. [facility] /6 03/26/25 -?-?-?-?-?-?-?-?-?-?-?-?- 21w 6d 116 lb [...] Multi Select Codes Visit Charges Office Visit/Consults: 41825 OV L3 Est 20min 04/02/25 3572 kelli GARNER> Date _ Dilcia Das MD Cosigner Signature (if applicable): Date CC: Dr. Dilcia Das MD; No Primary Care Physician ~ Signed [facility]05-27-2025 Evaluation note* Diagnosis Onset Date Resolution Status [...] Vaginal bleeding during acute July 02 10:19am [facility] Work Phone: 1(235) 494-828605-27-2025 Evaluation note* Diagnosis Onset Date Resolution Status [...] bleeding during acute July 10, 2025 3:16pm [facility] Work Phone: 1(432) 256-513005-27-2025 [facility] [address] [place] [address], [address] [place] [address] OFFICE VISIT Date of Service: 03/26/25 MR#: [id number] Acct: [id number] Name: FAROOQ TABOR Rep #: [id number] : 2000 Provider: Dr. Korey Das MD Age/Sex: 24/F Location[place] [facility] Status: Signed Intake Vital Signs 01/21/25 08:48 02/26/25 09:31 03/26/25 10:09 Height 5 ft 1 in 5 ft 1 in 5 ft 1 in Weight: 116 lb 8 oz BMI 22.0 BP 104/66 Intake Visit Reasons: 22wk ob Jar Capper Required: No Is patient in pain?: No [...] ( hemorrhage) (spontaneous vaginal delivery) Surgical History [place] teeth extracted Family History Mother IBS (irritable [...] physical activity do you participate in: none ruth/bahai: None seatbelt use: always do you feel [...] - full term 7#10 Male epidur al [facility] Shanika Elliott [place] HPI 22wk ob Details: FAROOQ TABOR is [...] CRL cons wit h dates. Declines NIPT. [facility] ordered. 02/26/25 -?-?-?-?-?-?-?-?-?-?-?-?- 17w 6d 111 lb 4 oz (+3 lb 4 oz) 96/58 Negative -?-?-?-?-?-?-?-?-?-?-?-?- Negative 161 -?-?-?-?-?-?-?-?-?-?-?-?- MH-No VB. Some f lutters. Nl PN labs. [facility] /03/26/25 -?-?-?-?-?-?-?-?-?-?-?-?- 21w 6d 116 lb 8 [...] Symptoms of Preeclampsia, Infant Feeding No , [place] Education and Family Medical Leave or Disability [...] Cosigner Signature: Date (if applicable) CC: ~ [facility]04-29-2025 Evaluation note* Diagnosis Onset Date Resolution Status [...] bleeding during acute June 04, 2025 3:13pm [facility] Work Phone: 1(102) 721-173804-29-2025 Evaluation note* Diagnosis Onset Date Resolution Status [...] Vaginal bleeding during acute June 18 9:46am [facility] Work Phone: 1(765) 556-132203-24-2025 NotePap Smear Specimen AdequacyMar2024 11:59pmComment.Satisfactory for evaluation. Endocervical and/or squamous metaplasticcells (endocervical component)are present.[facility] A#[id number] Health AdministrationComment on above:Satisfactory for evaluation. Endocervical and/or squamous [...] normal acut e March 26, 2025 10:06am [facility] Work Phone: 1(990) 897-714703-24-2025 Evaluation note* Diagnosis Onset Date Resolution Status [...] during acute April 02, 2025 9 :13pm [facility] Work Phone: 1(710) 230-600903-24-2025 Evaluation note* Diagnosis Onset Date Resolution Status [...] bleeding during acute April 26, 2025 3:39pm [facility] Work Phone: 1(228) 860-742603-24-2025 Evaluation note* Diagnosis Onset Date Resolution Status [...] during acute May 07, 2025 9 :56am [facility] Work Phone: 1([phone]) 729-569403-24-2025 Evaluation note* Diagnosis Onset Date Resolution Status [...] bleeding during acute May 21, 2025 10:08am [facility] Work Phone: 1(451) 299-487303-03-2025 Radiology Diagnostic study note [facility] Imaging Services [address] [place], [place] [address] Init OB < 14Wks US MR#: [id number] Acct: [id number] Name: FAROOQ TABOR Rep #: [id number] : 2000 F 24 From: Cecil Auguste MD PCP: Care Physician,No Primary Status: REG CLI Study:Init OB < 14Wks US Date of Exam: 0 12/31/24 Exam# [id number] Ordering Dr: Dilcia Smith MD PROCEDURE: INIT [...] not visualized. DIMENSIONS: Parameter Measurement / EGA [place] Rump Length: 2.9 cm/9 weeks and 3 days. Gestational Sac: 3.99 cm/9 weeks and 3 days Yolk Sac: 4.9 mm/ ESTIMATED GESTATIONAL AGE: By Ultrasound: 9 weeks and 3 days By LMP: 9 weeks and 5 days ESTIMATED DATE OF DELIVERY: By Ultrasound: August 02, 2025 By LMP: July 31, 2025 US/Init OB < 14Wks US IMPRESSION: UNREMARKABLE FIRST TRIMESTER ULTRASOUND. Reading Location: [id number] CC: Dr. Dilcia Das MD; No Primary Care Physician ~ Emery Grinder: Signed [facility]01-23-2025 Evaluation note* Diagnosis Onset Date Resolution Status Admit Date Hemorrhoids noneactive November 22, 2024 12:52pm [facility] Work Phone: [phone]) 598-709901-23-2025 Evaluation note* Diagnosis Onset Date Resolution Status Admit Date Hemorrhoids noneactive November 22, 2024 12:52pm Hemorrhoids during acute January 21, 2025 8:43am Maternal varicella, non-immune acute January 21, 2025 8:43am acute January 21 8:43am Supervision of normal acute January 21, 2025 8:43am [facility] Work Phone: 1(695) 189-863211-22-2023 Progress note Author Esther Vernon [facility] September 21, 2023 8:01am Note Date/Time September 21, 2023 8:01am [facility] Medical Records Department [address] [place] [address] Progress Note - OBGYN 09/21/23 0800 MR#: [id number] Acct: [id number] Name: LEANDERFAROOQ CÁRDENAS Rep #:[id number] : 2000 23 From: Esther Vernon NP LAW OFFICE RECEPTIONIST-C PCP: Care Physician,No Primary Status :ADM IN Location: HO413-8 Subjective Subjective Patient doing well without complaints. [...] 0801 <Electronically signed by Esther Vernon NP LAW OFFICE RECEPTIONIST-C> Cosigner Signature (if applicable): CC: ~ Signed [facility] Work Phone: 1(684) 448-304311-21-2023 Progress note Author Carmella Bone [facility] September 20, 2023 7:43am Note Date/Time September 20, 2023 7:43am [facility] Medical Records Department [address] [place] [address] Progress Note - OBGYN 09/20/23 0741 MR#: [id number] Acct: [id number] Name: FAROOQ TABOR Rep #:[id number] : 2000 23 From: Carmella Bone CNM PCP: Care Physician,No Primary Status :ADM IN Location: [address] Subjective Subjective Patient doing well without [...] 77.7 H, Lymph % (Auto) 12.1 L, [place] % (Auto) 8.6, Eos % (Auto) 0.4, [...] (Auto) 81.9 H, Lymph % (Auto) 7.1L, [place] % (Auto) 9.8, Eos % (Auto) 0.0, [...] Supervision of high risk , antepartum: COMMENT: [id number] MITZI 09/23/23 boy Deuce BF-Zed PLAN: s/p [...] Cosigner Signature (if applicable): CC: ~ Signed [facility] Work Phone: 1(846) 802-961811-21-2023 Discharge summary Author Shanika Elliott [facility] September 19, 2023 11:12pm Note Date/Time September 19, 2023 11:12pm [facility] Medical Records Department [address] [place] [address] Instructions for Home/Discharge Instructions 09/19/23 2312 MR#: [id number] Acct: [id number] Name: TABORFAROOQ Rep #:[id number] : 2000 23 From: Shanika Elliott [...] CC: No Primary Care Physician ~ Signed [facility] Work Phone: 1(656) 697-302911-20-2023 Procedure [facility] 09-19-2023 Progress note Author Shanika Elliott [facility] September 19, 2023 6:10pm Note Date/Time September 19, 2023 6:10pm [facility] Medical Records Department [address] [place] [address] Progress Note - OBGYN 09/19/23 1809 MR#: [id number] Acct: [id number] Name: FAROOQ TABOR Rep #:[id number] : 2000 23 From: Shanika Elliott CNM PCP: Care Physician,No Primary Status :ADM IN Location: UE026-2 Subjective Subjective pt more uncomfortable, using nitrous. [...] 77.7 H, Lymph % (Auto) 12.1 L, [place] % (Auto) 8.6, Eos % (Auto) 0.4, [...] Supervision of high risk , antepartum: COMMENT: [id number] MITZI 09/23/23 boy Deuce BF-Zed (5) : QUALIFIERS: Weeks of gestation: 38 weeks Qualified Code(s): Z3A.38 - 38 weeks gestation of COMMENT: nl anatomy, carrier neg. 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 no complaints. going to [place] today for a week. will leave VM [...] Supervision of high risk , antepartum: COMMENT: [id number] MITZI 09/23/23 henna Tripathi BF-Zed (6) : [...] any complications: none I have reviewed the COUNT INCLUD[facility] THE [facility] and made any clinically relevant updates. Dr. [...] Elliott; No Primary Care Physician ~* Signed [facility] Work Phone: 1(423) 828-964110-04-2022 NoteAccession #: [id number] Date of Procedure: 08/03/2022 Pathologist: [facility], Cytology Date Reported: 08/11/2022 Date Received: [...] This specimen has been analyzed by the [employer] Imaging System ([employer] an automated imaging and review system, which assists the laboratory in evaluating cells on ThinPrep Pap tests. Following automated imaging, selected catalan from every slide were reviewed by a aeronautical drafter and/or pathologist. Electronically Signed Out By [facility], Cytology//IK/SLD By the signature on this report, the individual or group listed as making the Final Interpretation/Diagnosis certifies that they have reviewed this case. Diagnostic interpretation performed at [address] [facility] [id number] Educational Note: Cervical cytology is a screening [...] Source of Specimen A: THINPREP PAP CERVICAL [facility] Department of Pathology [address] [place], [place] [address]Comment on above:Performed By: #### C #### [facility] Cytology [address] [place] [address] [id number] NoteHNO ID: [id number] Author: Elena Crain RDMS Service: ? Author Type: Explosion Welder Type: Progress Notes Filed: 09/18/2021 9:41 AM [...] Crain RDMS RVT September 18, 2021 9:41 [facility]11-04-2021 NoteHNO ID: [id number] Author: Shena Mcdermott MD Service: ? Author [...] external genitalia normal, normal Bartholin's glands, urethra, [place]'s glands, no vulvar lesions, no cervical lesions, [...] Making Level: 4 - Moderate Shena Mcdermott [facility]11-04-2021 History of Present illness Narrative* Shena Mcdermott [...] external genitalia normal, normal Bartholin's glands, urethra, [place]'s glands, no vulvar lesions, no cervical lesions, [...] Moderate Shena Mcdermott MD documented in this encounterTrihealth06-16-2020 History of Present illness Narrative* 20 y.o. 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 * She also reports generalized hives that started 2 weeks ago when she changed the brand of hay at her dairy farm. She takes Benadryl which effectively relieves the hives, however it makes her sleepy. [facility] Work Phone: Evaluation note* Diagnosis Pelvic pain- Primary Irregular menses Irregular menstrual cycle Screen for STD (sexually transmitted disease) Screening examination for venereal disease documented in this encounter [facility]* Diagnosis Onset Date Resolution Status acute Supervision of high risk , antepartum acute Unsure of LMP (last menstrua l period) as reason for ultrasound scan acute [facility] Work Phone: Evaluation note* Diagnosis Onset Date [...] period) as reason for ultrasound scan acute [facility] Work Phone: Evaluation note* Diagnosis Onset Date [...] Supervision of high risk , antepartum acute [facility] Work Phone: Evaluation note* Diagnosis Onset Date [...] Supervision of high risk , antepartum resolved [facility] Work Phone: History of Present illness [id number] presents to discuss multiple issues namely irregular [...] she had a little more pain with intimacy.[employer] Work Phone: History of Present illness NarrativePatient is a 22-year-old who 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 Patient denies any history of abnormal Pap smears. Patient is sexually active does not use contraception and is not interested in contraception. She is also not interested in conceiving but right now has no concerns about starting any medications.[employer] [facility] Work Phone: progress note Author Dilcia Das [facility] Note Date/Time March 26, 2025 10:38 am [facility] [address] [place] [address], [address] [place] [address] OFFICE VISIT Date of Service: 03/26/25 MR#: [id number] Acct: [id number] Name: FAROOQ TABOR Rep #: [id number] : 2000 Provider: Dr. 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 Date Name GA/Weeks Outcome Route Bth Weight Infant Gen Labor Lgth Anesthesia Del Locatn Provider FOB 09/19/23 Deuce 39 live - full term 7#10 Male epidur al [facility] Shanika Elliott [place] HPI 22wk ob Details: FAROOQ TABOR is [...] VB. Some f landoners. Nl PN labs. [facility] /6 03/26/25 -?-?-?-?-?-?-?-?-?-?-?-?- 21w 6d 116 lb [...] Symptoms of Preeclampsia, Infant Feeding No , [place] Education and Family Medical Leave or Disability [...] Cosigner Signature: Date (if applicable) CC: ~ [facility] Work Phone: Progress note Author Dilcia Das [facility] Note Date/Time May 21, 2025 10:4 5am [facility] [address], [address] [place] [address] OFFICE VISIT Date of Service: 05/21/25 MR#: [id number] Acct: [id number] Name: FAROOQ TABOR Rep #: [id number] : 2000 Provider: Dr. Korey Das MD Age/Sex: 24/F Location: [facility] Status: Signed Intake Vital Signs 03/26/25 10:09 05/07/25 09:59 05/21/25 10:12 05/21/25 10:15 Height 5 ft 1 in 5 ft 1 in 5 ft 1 in 5 ft 1 in Weight: 124 lb 8 oz BMI 23.5 BP 107/60 Intake Visit Reasons: 30 wk ob Jar Capper Required: No Is patient in pain?: No [...] Zika: Zika virus screening: Negative : No [facility] Medical History Chlamydia infection PPH ( hemorrhage) (spontaneous vaginal delivery) Surgical History [place] teeth extracted Family History Mother IBS (irritable [...] physical activity do you participate in: none ruth/bahai: None seatbelt use: always do you feel safe at home: Yes 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 Date Name GA/Weeks Outcome Route Bth Weight Infant Gen Labor Lgth Anesthesia Del Locatn Provider FOB 09/19/23 Deuce 39 live - full term 7#10 Male epidur al [facility] Shanika Elliott [place] HPI 30 wk [...] Cosigner Signature: Date (if applicable) CC: ~ [facility] Work Phone: Progress note Author Marie Avalos [facility] Note Date/Time July 02, 2025 10:46am [facility] [address], [address] [place] [address] OFFICE VISIT Date of Service: 07/02/25 MR#: [id number] Acct: [id number] Name: FAROOQ TABOR Rep #: [id number] : 2000 Provider: Dr. Kaitlynn Rascon DO Age/Sex: 24/F Location: [facility] Status: Signed Intake Vital Signs 05/07/25 09:59 06/18/25 10:05 07/02/25 10:20 07/02/25 10:22 Height 5 ft 1 in 5 ft 1 in 5 ft 1 in 5 ft 1 in Weight: 132 lb 7 oz BMI 25.0 BP 112/68 Intake Visit Reasons: 36wk ob Jar Capper Required: No Is patient in pain?: No [...] ( hemorrhage) (spontaneous vaginal delivery) Surgical History [place] teeth extracted Family History Mother IBS (irritable [...] physical activity do you participate in: none ruth/bahai: None seatbelt use: always do you feel [...] - full term 7#10 Male epidur al [facility] Shanika Elliott [place] HPI 36wk ob Details: FAROOQ TABOR is a 24 year old who presents for routine OB visit. OB Visit MITZI Calculator Estimated Delivery Date Method Current WG Current Estimate 07/31/25 LMP (Certain) 35w 6d Other Estimates 07/28/25 Ultrasound #1 36w 2d Expected Delivery Route/Plan Labor Preferences- CB/BF classes: no labor support person: [place] labor intervention preferences: [] pain management options [...] Cosigner Signature: Date (if applicable) CC: ~ [place] [employer] Work Phone: Reason for referral (narrative)* Diagnostic Procedure Only (Routine) Status Reason Specialty Diagnoses / Procedures Referred By Contact Referred To Contact Pending Review Auto-Generated Referral [facility] Diagnoses Pelvic pain Irregular menses Procedures US FEMALE PELVIS TRANSABD LTD ECHO/FOLLICULAR Shena Mcdermott MD [address] [place] [address] [facility] * Diagnostic Procedure Only (Routine) Status Reason Specialty Diagnoses / Procedures Referred By Contact Referred To Contact Authorized Auto-Generated Referral [facility] Diagnoses Pelvic pain Irregular menses Procedures US FEMALE PELVIS TRANSVAG ECHO/TRANSVAGINAL Shena Mcdermott MD [address] [place] [address] [facility] * Diagnostic Procedure Only (Routine) Status Reason Specialty Diagnoses / Procedures Referred By Contact Referred To Contact Pending Review Auto-Generated Referral [facility] Diagnoses Pelvic pain Irregular menses Procedures PELVIC US WHI ECHO EXAM OF PELVIS Shena Mcdermott MD [address] [place] [address] [facility] [address] [place] [address] [facility] (narrative)No reason for referral information availableWMercy Health St. 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 No February 17 9:26pm Advance Directive Response Recorded Date/ Time Living Will No February 17, 2023 8:26pm Power of Culinary Worker No February 17 8:26pm Advance Directive Response Recorded Date/ Time Living Will No September 19 5:10pm Power of Culinary Worker No September 19, 2023 5:10pm Chief Complaint [...] section and content) DATE CREATED AUTHOR 11/30/2019 [facility] DATE CREATED AUTHOR AUTHOR'S ORGANIZ ATION 08/14/2020 [facility] DATE CREATED AUTHOR AUTHOR'S ORGANIZ ATION 12/07/2021 [facility] DATE CREATED AUTHOR AUTHOR'S ORGANIZ ATION 08/04/2022 [employer] DATE CREATED AUTHOR AUTHOR'S ORGANIZ ATION 08/21/2022 [facility] DATE CREATED AUTHOR AUTHOR'S ORGANIZ ATION 03/08/2025 [facility] DATE CREATED AUTHOR AUTHOR'S ORGANIZ ATION 07/10/2025 [facility] Source Comments (unrecognize d section and content) In the event this informatio n is protected by the Federal Confidentiality of Alcohol and Drug Abuse Patient Records regulations: The Federal rules restrict any use of the information to criminally investigate or prosecute any alcohol or drug abuse patient.[facility] Reason for Visit (unrecogniz ed section and [...] Provider, Refer ring Provider Active Esther Vernon LAW OFFICE RECEPTIONIST, LAW OFFICE RECEPTIONIST-C Attending Provider Active Team Status: Inactive Member [...] Provider, Other Provider A ctive Esther Vernon LAW OFFICE RECEPTIONIST, LAW OFFICE RECEPTIONIST-C Attending Provider Active Team Status: Inactive Member [...] 31, 2024 End: December 31, 2024 Dr. Dlicia Das MD Attending Provider Active Start: December [...] End: February 26, 2025 Esther Vernon NP, LAW OFFICE RECEPTIONIST-C Attending Provider Active Start: February 26, 2025 [...] End: February 26, 2025 Esther Vernon NP, LAW OFFICE RECEPTIONIST-C Attending Provider Active Start: February 26, 2025 [...] End: February 26, 2025 Esther Vernon NP, LAW OFFICE RECEPTIONIST-C Attending Provider Active Start: February 26, 2025 [...] 2025 End: May 07, 2025 Esther Saulo LAW OFFICE RECEPTIONIST, LAW OFFICE RECEPTIONIST-C Attending Provider Active Start: May 07, 2025 End: May 07, 2025 Team Status: Active Member Role/Relationship Status Dates No Primary Care Physician Primary Care Provider Active Start: May 07, 2025 Esther Craig LAW OFFICE RECEPTIONIST, LAW OFFICE RECEPTIONIST-C Attending Provider Active Start: May 07, 2025 Esther Craig LAW OFFICE RECEPTIONIST, LAW OFFICE RECEPTIONIST-C Referring Provider Active Start: May 07, 2025 Team Status: Inactive Member Role/Relationship Status Dates No Primary Care Physician Primary Care Provider Active Start: May 07, 2025 End: May 07, 2025 Esther Saulo LAW OFFICE RECEPTIONIST, LAW OFFICE RECEPTIONIST-C Attending Provider Active Start: May 07, 2025 End: May 07, 2025 Esther Craig LAW OFFICE RECEPTIONIST, LAW OFFICE RECEPTIONIST-C Referring Provider Active Start: May 07, 2025 [...] End: February 26, 2025 Esther Vernon NP, LAW OFFICE RECEPTIONIST-C Attending Provider Active Start: February 26, 2025 [...] 2025 End: May 07, 2025 Esther Vernon LAW OFFICE RECEPTIONIST, LAW OFFICE RECEPTIONIST-C Attending Provider Active Start: May 07, 2025 End: May 07, 2025 Team Status: Inactive Member Role/Relationship Status Dates No Primary Care Physician Primary Care Provider Active Start: May 07, 2025 End: May 07, 2025 Esther Vernon LAW OFFICE RECEPTIONIST, LAW OFFICE RECEPTIONIST-C Attending Provider Active Start: May 07, 2025 End: May 07, 2025 Esther Vernon LAW OFFICE RECEPTIONIST, LAW OFFICE RECEPTIONIST-C Referring Provider Active Start: May 07, 2025 [...] 2025 End: June 18, 2025 Esther Vernon LAW OFFICE RECEPTIONIST, LAW OFFICE RECEPTIONIST-C Attending Provider Active Start: June 18, 2025 [...] 2025 End: May 07, 2025 Esther Vernon LAW OFFICE RECEPTIONIST, LAW OFFICE RECEPTIONIST-C Attending Provider Active Start: May 07, 2025 End: May 07, 2025 Team Status: Inactive Member Role/Relationship Status Dates No Primary Care Physician Primary Care Provider Active Start: May 07, 2025 End: May 07, 2025 Esther Vernon LAW OFFICE RECEPTIONIST, LAW OFFICE RECEPTIONIST-C Attending Provider Active Start: May 07, 2025 End: May 07, 2025 Esther Vernon LAW OFFICE RECEPTIONIST, LAW OFFICE RECEPTIONIST-C Referring Provider Active Start: May 07, 2025 [...] 2025 End: June 18, 2025 Esther Vernon LAW OFFICE RECEPTIONIST, LAW OFFICE RECEPTIONIST-C Attending Provider Active Start: June 18, 2025 End: June 18, 2025 Team Status: Inactive Member Role/Relationship Status Dates No Primary Care Physician Primary Care Provider Active Start: July 02, 2025 End: July 02, 2025 No Primary Care Physician Referring Provider Active Start: July 02, 2025 End: July 02, 2025 Dr. Marie Rascon , [...] BE BASED ON THE PRIMARY CLINICAL RECORDS. [employer] [facility]. provides no warranty or guarantee of the accuracy or completeness of information in this document.
[2025-07-13 09:25] LABS: Hematocrit 31.4 % (37-47); Hemoglobin 10.8 g/dL (12.0-15.0); Immature Granulocytes Count 0.090 X10^3/uL (0.0-0.0); Mean Corp Hgb Conc 34.4 g/dL (32-36); Mean Corpuscular Volume 91.3 fL (81-99); Mean Platelet Vol. 10.3 fl (6.2-12.0); NRBC Flagged by Analyzer 0 % (0-5); Platelet Count 220 K/mm3 (150-450); RBC Distribution Width CV 13.9 % (11.6-14.6); RBC Distribution Width SD 46.3 fl (35.1-43.9); Red Blood Count 3.44 M/mm3 (4.2-5.4); White Blood Count 12.0 K/mm3 (4.4-11.0)
[2025-07-13] MEDS: Lactated Ringers 1,000 ML 50 ML IV (09:33)
[2025-07-13 10:27] LABS: Syphilis Antibodies Nonreactive (Nonreactive)
--- NOTE | 2025-07-13 11:29 | PCM.HP.OB ---
HPI - General General Date of Admission: 07/13/25 HPI Narrative FAROOQ TABOR, is a 24 F who presents IAL 5 cm dilated some spotting no lof good fm regualr ctx Maternal Data Information MAURICE Calculator Estimated Delivery Date Method Current WG Current Estimate 07/31/25 LMP (Certain) 37w 3d Other Estimates 07/28/25 Ultrasound #1 37w 6d PFSH PFSH Medical History Chlamydia infection PPH ( hemorrhage) (spontaneous vaginal delivery) Home Medications ?Medication ?Instructions ?Recorded ?Last Taken ?Type Hydrocortisone 2.5% / Lidocaine 5% #1 ea 11/22/24 Unknown Rx ointment (cmpd) multivitamin no.47-iron fum 27 1 cap PO DAILY 01/01/25 07/12/25 08:00 History mg-folate no.1 1 mg-dha 300 mg 1 cap capsule (PNV-DHA) Allergy/AdvReac Type Severity Reaction Status Date / Time No Known Allergies Allergy Verified 07/13/25 08:39 Family History Mother IBS (irritable bowel syndrome) Surgical History [place] teeth extracted Social History adopted: No household members: significant other and children housing: house number of children: 1 current occupational status: 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 current occupational exposures/hazards: No pets and animals: Yes pets and animals: dog(s) history of recent travel: No sexually active: Yes Smoking Status: Never smoker alcohol intake: never substance use type: does not use well-balanced diet: daily or most days caffeine: Yes Type: coffee Number of servings: 1 eating out: rarely or never during the past year weight has: remained stable what type of physical activity do you participate in: none ruth/restorationism: None seatbelt use: always do you feel safe at home: Yes additional social history: Fiance- [employer]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 Date Name GA/Weeks Outcome Route Bth Weight Infant Gen Labor Lgth Anesthesia Del Locatn Provider FOB 11/20/23 Deuce 39 live - full term 7#10 Male epidural [facility] Shanika Elliott Jase Visit Details Expected Delivery Route/Plan Labor Preferences- CB/BF classes: no labor support person: Jase labor intervention preferences: [] pain management options preferred: wants limited cut cord/dad catch: yes : yes PP control planned: discussed discussed possible routes of delivery and associated risks: [] special requests: [] Plans Covid status: [] Flu vaccine: [] Tdap vaccine: declined Rhogam: na LARC form signed: yes movement and labor precautions reviewed. Problem list reviewed and updated with the most current plan of care details and appropriate orders placed. Relevant counseling for the gestational age provided. Continue routine care and follow up unless otherwise noted in visit notes/problem list details OB Flowsheet Initial Weight: 108 lb Date <del>?</del> EGA Weight BP Urine Prot <del>?</del> Glucose FHR FuHt Pres Dilation <del>?</del> Effaced St Visit Note 01/21/25 <del>?</del> 12w 5d 108 lb 4 oz (+4 oz) 102/68 <del>?</del> 165 <del>?</del> KW- CRL cons with dates. Declines NIPT. [facility] US ordered. 02/26/25 <del>?</del> 17w 6d 111 lb 4 oz (+3 lb 4 oz) 96/58 Negative <del>?</del> Negative 161 <del>?</del> MH-No VB. Some flutters. Nl PN labs. [facility] /6 03/26/25 <del>?</del> 21w 6d 116 lb 8 oz (+8 lb 8 oz) 104/66 Negative <del>?</del> Negative 155 22 <del>?</del> SM- no vb lof good fm nro egualr ctx 04/26/25 <del>?</del> 26w 2d 122 lb 2 oz (+14 lb 2 oz) 107/66 Negative <del>?</del> Negative 142 26 <del>?</del> JV- no lof, vaginal bleeding, or dec fm. no further bleeding episodes since 23 weeks. [place] and has been taking it easy since then. 05/07/25 <del>?</del> 27w 6d 126 lb 2 oz (+18 lb 2 oz) 100/60 Negative <del>?</del> Negative 160 28 <del>?</del> MH-No VB, LOF. Good FM. Larc. 28 wk labs pending 05/21/25 <del>?</del> 29w 6d 124 lb 8 oz (+16 lb 8 oz) 107/60 Negative <del>?</del> Negative 145 30 <del>?</del> Sm- no vb lof good fm no reuglar ctx 06/04/25 <del>?</del> 31w 6d 130 lb (+22 lb) 99/66 Negative <del>?</del> Negative 140 32 <del>?</del> KW- no vb/lof/ctx. good fm. no concerns today. 06/18/25 <del>?</del> 33w 6d 129 lb 8 oz (+21 lb 8 oz) 98/64 Negative <del>?</del> Negative 153 33 <del>?</del> MH-No VB, LOF. Some inc BHCtx 3 days ago and resolved. Enc rest/fluids. Rev S&S PTL to call us about 07/02/25 <del>?</del> 35w 6d 132 lb 7 oz (+24 lb 7 oz) 112/68 Negative <del>?</del> Negative 153 35 Cephalic 0.5 <del>?</del> JV- vtx on bedside scan. gbs collected. no complaints or concerns. 07/10/25 <del>?</del> 37w 0d 133 lb 5 oz (+25 lb 5 oz) 106/62 Negative <del>?</del> Negative 140 37 Cephalic 3 <del>?</del> 30 -2 KW- no vb/lof/ctx. good fm. chiropractor for hip pain. NST FHR Rate Baby A Baseline: 140 Variability:: Moderate Accelerations:: 15 x 15 Decelerations:: None NST Reactive:: Yes FHR Category:: Category I Uterine Activity:: q3-5 ROS Constitutional Constitutional: Reports systems reviewed and no addt'l complaints, except as documented ENT HEENT: Reports systems reviewed and no addt'l complaints, except as documented Cardiovascular Cardiovascular: Reports systems reviewed and no addt'l complaints, except as documented Respiratory/Chest Respiratory/Chest: Reports systems reviewed and no addt'l complaints, except as documented Gastrointestinal Gastrointestinal: Reports systems reviewed and no addt'l complaints, except as documented and nausea; Denies abdominal pain Genitourinary Genitourinary: Reports systems reviewed and no addt'l complaints, except as documented, contractions Details: present and frequency (regular ) and movement Details: present Musculoskeletal Musculoskeletal: Reports systems reviewed and no addt'l complaints, except as documented Integumentary Integumentary: Reports as per HPI Neurologic Neurologic: Reports systems reviewed and no addt'l complaints, except as documented Endocrine Endocrinology: Reports systems reviewed and no addt'l complaints, except as documented Vital Signs Vital Signs Vital Signs: 07/13/25 04:21 07/13/25 04:21 07/13/25 04:21 Temperature Temperature Source Temporal Pulse Rate 80 Respiratory Rate Blood Pressure 110/62 BP Systolic 110 BP Diastolic 62 Pulse Ox 07/13/25 04:21 07/13/25 04:21 07/13/25 07:43 Temperature 97.4 F L Temperature Source Pulse Rate Respiratory Rate 16 Blood Pressure 100/57 L BP Systolic 100 BP Diastolic 57 Pulse Ox 07/13/25 07:43 07/13/25 07:43 07/13/25 07:43 Temperature Temperature Source Temporal Pulse Rate 75 Respiratory Rate 16 Blood Pressure BP Systolic BP Diastolic Pulse Ox 07/13/25 07:43 07/13/25 07:44 07/13/25 07:44 Temperature 98.1 F Temperature Source Pulse Rate 65 Respiratory Rate Blood Pressure BP Systolic BP Diastolic Pulse Ox 98 07/13/25 10:03 07/13/25 10:03 07/13/25 10:45 Temperature Temperature Source Temporal Pulse Rate 95 Respiratory Rate Blood Pressure 114/61 BP Systolic 114 BP Diastolic 61 Pulse Ox 07/13/25 10:45 07/13/25 10:45 07/13/25 10:45 Temperature Temperature Source Pulse Rate 106 H Respiratory Rate 16 Blood Pressure 111/61 BP Systolic 111 BP Diastolic 61 Pulse Ox 07/13/25 10:45 Temperature 98.0 F Temperature Source Pulse Rate Respiratory Rate Blood Pressure BP Systolic BP Diastolic Pulse Ox Weight Weight: 136 lb Body Mass Index (BMI) 25.7 Physical Exam Const alert, oriented x3 and healthy appearing Constitutional Narrative: uncomfortable with contractions HEENT normocephalic and moist oral mucous membranes Head and Scalp: atraumatic Neck full ROM, no lymphadenopathy, supple and thyroid normal General: trachea midline Thyroid: thyroid normal Lymph Lymphatic: no lymphadenopathy noted Chest inspection of chest normal Resp normal respiratory effort Cardio regular rate GI soft to palpation and non-tender GI Narrative: gravid Inspection: gravid external exam normal Bimanual Exam - Vag & Uterus: uterus non-tender Manual OB Exam: estimated gestational size appropriate, presentation cephalic, dilated, effaced and station Extremity normal to inspection General Extremity: Negative for edema Skin no rashes or lesions noted Neuro deep tendon reflexes 2+ bilaterally Motor Exam: strength 5/5 throughout and clonus absent Psych mental status grossly normal Labs Labs Labs: Blood Type A POSITIVE Antibody Screen NEGATIVE Hct 31.4 % (37-47) L Hgb 10.8 g/dL (12.0-15.0) L Obstetrics Ultrasound Syphilis Total Ab Nonreactive (Nonreactive) Rubella IgG Antibody REAC (Nonreactive) Hep Bs Antigen Nonreactive (Nonreactive) Hepatitis C Antibody Nonreactive (Nonreactive) Chlamydia DNA ([place]) Negative (Negative) N.gonorrhoeae DNA ([place]) Negative (Negative) HIV 1&2 Antibody Nonreactive (Nonreactive) Glucose 1 Hr 50 gm 74 mg/dL (70-140) Assessment & Plan (1) Anemia in : QUALIFIERS: Trimester: third trimester Qualified Code(s): O99.013 - Anemia complicating , third trimester COMMENT: SloFe. (2) Vaginal bleeding during : COMMENT: admit STO, give bmz, US ordered. (3) Supervision of normal : QUALIFIERS: Normal : other normal Trimester: third trimester Qualified Code(s): Z34.83 - Encounter for supervision of other normal , third trimester COMMENT: PRR, , MAURICE 07/31/25, surprise Nayeli Locke (4) : QUALIFIERS: Weeks of gestation: 37 weeks Qualified Code(s): Z3A.37 - 37 weeks gestation of COMMENT: Neg GBS. declines NIPT & Carrier testing. Unremarkable Anatomy:Consistent dates, (5) Maternal varicella, non-immune: COMMENT: confirm w 28 wk labs/NOT drawn (6) Hemorrhoids during : QUALIFIERS: Trimester: second trimester Qualified Code(s): O22.42 - Hemorrhoids in , second trimester (7) Active labor at term: PLAN: Plan Patient presents IAL, plan expectant management for , pitocin/AROM PRN if needed. Pain management: minimal intervention preferred. GBS neg. Management of any complications: none I have reviewed the [facility] and made any clinically relevant updates.
[2025-07-13] MEDS: Oxytocin 15 Units/NS 250ml 15 UNITS/250 ML IV.SOLN 334 UNITS IV (18:03)
--- NOTE | 2025-07-13 18:11 | OB.VAGDELI_ITS ---
Assessment & Plan (1) Vaginal delivery: COMMENT: SM IAL boy Beau 37 (2) Active labor at term: (3) Anemia in : QUALIFIERS: Trimester: third trimester Qualified Code(s): O99.013 - Anemia complicating , third trimester COMMENT: SloFe. (4) Vaginal bleeding during : COMMENT: admit STO, give bmz, US ordered. (5) Supervision of normal : QUALIFIERS: Normal : other normal Trimester: third trimester Qualified Code(s): Z34.83 - Encounter for supervision of other normal , third trimester COMMENT: PRR, , MAURICE 07/31/25, surprise PC Deuce, Fiance Jase (6) : QUALIFIERS: Weeks of gestation: 37 weeks Qualified Code(s): Z3A.37 - 37 weeks gestation of COMMENT: Neg GBS. declines NIPT & Carrier testing. Unremarkable Anatomy:Consistent dates, (7) Maternal varicella, non-immune: COMMENT: confirm w 28 wk labs/NOT drawn (8) Hemorrhoids during : QUALIFIERS: Trimester: second trimester Qualified Code(s): O22.42 - Hemorrhoids in , second trimester Maternal Data Information MAURICE Calculator Estimated Delivery Date Method Current WG Current Estimate 07/31/25 LMP (Certain) 37w 3d Other Estimates 07/28/25 Ultrasound #1 37w 6d Vaginal Delivery Maternal Presentation Maternal Presentation: see assessment and plan Vaginal Delivery Information Procedure Performed: Spontaneous Vaginal Delivery Surgeon/Practitioner: Dilcia Das Date of Procedure: 07/13/25 Pre-Procedure Diagnosis: see assessment and plan Post-Procedure Diagnosis: same Type of anesthesia: None Estimated Blood Loss: 200 Findings Description of procedure: Patient began pushing and delivered the head in the BORA presentation. The head was delivered atraumatically . The anterior and posterior shoulders delivered without complication followed by the rest of the infant and the was placed on the maternal abdomen. Delayed cord clamping was employed for approximately 60 seconds. Cord was clamped and cut and gentle traction was applied to the cord and the placenta delivered spontaneously immediately following it was noted to be intact with three-vessel cord. The perineum and vagina were inspected and had no laceratoin . EBL was 200. Patient and tolerated delivery well. 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
--- NOTE | 2025-07-13 18:14 | DCINST_ITS ---
Discharge Instructions DC O2, CPAP, BIPAP needs Home O2 Discharge instructions: No Dressing / Incision Discharge Activity: Return to Normal Activity, May Not Drive (while taking narcotic pain medications.) and May Shower May resume sexual activity in: 4-6 weeks Dressing / Incision Call your doctor if your incision/area has: Continuous Slow Oozing, Sudden Increased Bleeding, Increased Pain/ Swelling, Increased Redness and Foul Smelling Discharge Follow Up Care Please Follow Up With: Dilcia Das MD When: Call [phone] to make an appointment with your doctor in 6 weeks. If you had elevated blood pressure or 4th degree laceration, you will need to be seen in 2 weeks. Test Results: Test results from this visit will be discussed in further detail at your follow- up appointment, if applicable. Discharge Plan Admission Admit Date/Time: 07/13/25 08:36 Attending Provider: Dilcia Das Primary Care Provider: Sean PhysicianKatt Primary Discharge Orders/Prescriptions Prescriptions: No Action (DME) Hydrocortisone 2.5% / Lidocaine 5% ointment (cmpd) Ointment See Rx Instructions .Route Qty: 1 2RF Rx Instructions: Apply pea sized amount to anus twice a day as needed for hemmorhoids PNV-DHA 27 mg iron-1 mg -300 mg capsule 1 cap PO DAILY Referrals / Follow Up: Care Physician,No Primary [Primary Care Provider] -
[2025-07-13] MEDS: Oxytocin 15 Units/NS 250ml 15 UNITS/250 ML IV.SOLN 83 UNITS IV (18:42)
[2025-07-14 00:15] VITALS: BP 90/56; PULSE 72; RESP 16; TEMP 36.6
--- NOTE | 2025-07-14 01:55 | NURSING ---
dr chaves notified of low BP 90/56. pt asymptomatic and resting in bed. SM states no interventions needed to be taken at this time. will continue to monitor.
[2025-07-14 03:29] VITALS: BP 95/61; PULSE 66; RESP 14; TEMP 36.5
[2025-07-14 10:00] VITALS: BP 99/67; PULSE 69; RESP 16; TEMP 36.8; O2SAT 97
--- NOTE | 2025-07-14 11:39 | PCM.PN.OB ---
Subjective Subjective Patient doing well without complaints. Tolerating PO. Ambulating and voiding without difficulty. feeding well. Denies chest pain, shortness of breath, calf pain/swelling, fevers, chills, lightheadedness. Objective Data Objective Data Vital Signs: Vital Signs Temp Pulse Resp BP Pulse Ox O2 Del Method 98.2 F 69 16 99/67 97 Room Air 07/14/25 10:00 07/14/25 10:00 07/14/25 10:00 07/14/25 10:00 07/14/25 10:00 07/14/25 10:00 Oxygen Delivery Method Room Air Weight: 136 lb Body Mass Index (BMI) 25.7 Intake & Output: Intake and Output for Last 24 Hours 07/12/25 07/13/25 07/14/25 23:59 23:59 23:59 Intake Total 922.5 / 922.5 Output Total 203 / 203 Balance 719.5 / 719.5 Lab / Micro Data 07/13/25 09:10 ROS Constitutional Constitutional: Reports systems reviewed and no addt'l complaints, except as documented Cardiovascular Cardiovascular: Reports systems reviewed and no addt'l complaints, except as documented Respiratory/Chest Respiratory/Chest: Reports systems reviewed and no addt'l complaints, except as documented Gastrointestinal Gastrointestinal: Reports systems reviewed and no addt'l complaints, except as documented Physical Exam Const alert, oriented x3 and no apparent distress HEENT Head and Scalp: atraumatic Resp normal respiratory effort GI soft to palpation and non-tender Bimanual Exam - Vag & Uterus: uterus non-tender Uterus Palpation: uterus fundus firm (below Umbilicus) Assessment & Plan (1) Vaginal delivery: COMMENT: ABISAI IAEric boy Beau 37 (2) Active labor at term: PLAN: Plan s/p PPD # 1 1. routine post delivery care 2. breast feeding- support given 3. rh positive 4. rubella immune
== END 2025-07-14 19:00 | disposition home or self-care (01) | DRG 807 ==
LOC: WPOUT 08:47 → WP 08:47
PROVIDERS: Admitting Provider Obstetrics & Gynecology; Referring Provider Obstetrics & Gynecology; Visit Provider Obstetrics & Gynecology
DX: O99.02 Anemia complicating childbirth (principal); Z37.0 Single live birth; Z3A.37 37 weeks gestation of pregnancy
CPT/HCPCS: 59025; 59050; 85025; 86780; 86850; 86900; 86901; 99221; G0378